=== PATIENT | female | born 1985 | race Caucasian/White ===

== ENCOUNTER → 2018-02-11 20:00 | Outpatient (CLI) | payer BC, SELFPAY | PROVIDERS: Family Provider Nurse Practitioner; PCP Nurse Practitioner; Visit Provider Nurse Practitioner | DX: G47.33 Obstructive sleep apnea (adult) (pediatric) (principal) | CPT/HCPCS: 95810 ==

== ENCOUNTER → 2018-02-19 14:10 | Outpatient (CLI) | payer BC, SELFPAY ==
[2018-02-19 14:56] LABS: Absolute Neutrophil Count 8.6 X10^3/uL (2.0-7.7); Basophil# 0.03 X10^3/uL; Basophil% 0.2 % (0-1); Eosinophil# 0.14 X10^3/uL; Eosinophils% 1.1 % (0-5); Hematocrit 37.9 % (37-47); Hemoglobin 12.7 g/dl (12.0-15.0); Lymphocyte % 29.6 % (19-41); Mean Corp Hgb Conc 33.5 g/gl (32-36); Mean Corpuscular Hgb 30.3 pg (27.0-32.0); Mean Corpuscular Volume 90.5 fL (81-99); Mean Platelet Vol. 9.6 fl (6.2-12.0); Monocyte# 0.45 X10^3/uL; Monocyte% 3.4 % (0-10); Neutrophil # 8.63 X10^3/uL (2.7-7.7); Neutrophil % 65.5 % (47-70); Platelet Count 363 K/mm3 (150-450); RBC Distribution Width CV 13.4 % (11.6-14.6); RBC Distribution Width SD 43.7 fl (35.1-43.9); Red Blood Count 4.19 M/mm3 (4.2-5.4); White Blood Count 13.2 K/mm3 (4.4-11.0)
[2018-02-19 14:57] LABS: Color, Urine Yellow (Yellow); Glucose, Dipstick Normal (Normal); Ketone-Dipstick Negative (Negative); Leukocyte Esterase-Dipstick Negative /ul (Negative); Nitrite-Dipstick Negative (Negative); Occult Blood-Urine 50 /ul (Negative); Protein-Dipstick Negative (Negative); Specific Gravity, Urine 1.015 (1.002-1.030); Urine Bilirubin Dipstick Negative (Negative); Urine Clarity Clear (Clear); Urine Urobilinogen Normal (Normal); Urine pH 6.5 (5.0 - 8.0)
[2018-02-19 14:58] LABS: POSITIVE COUNT NO; POSITIVE DIFFERENTIAL NO; POSITIVE MORPHOLOGY NO
[2018-02-19 16:03] LABS: Free T3 2.8 pg/mL (2.18-3.98); T4 Free Direct 1.14 ng/dL (0.76-1.46); Thyroid Stim Hormone (TSH) 1.32 uIU/mL (0.358-3.74)
[2018-02-19 16:06] LABS: Vitamin B12 984 pg/mL (211-911); Vitamin D,25 Hydroxy 49.7 ng/mL (29.95-100.01)
[2018-02-22 16:10] LABS: PROEL- A/G Ratio 1.1 (0.7-1.7); PROEL- Albumin 3.5 g/dL (2.9-4.4); PROEL- Alpha-1 Globulin 0.3 g/dL (0.0-0.4); PROEL- Alpha-2 Globulin 0.9 g/dL (0.4-1.0); PROEL- Beta Globulin 1.2 g/dL (0.7-1.3); PROEL- Gamma Globulin 0.9 g/dL (0.4-1.8); PROEL- Globulin, Total 3.3 g/dL (2.2-3.9); PROEL- TOTAL PROTEIN 6.8 g/dL (6.0-8.5)
[2018-02-23 14:07] LABS: PROELU- Albumin, Urine 34.9 % (.); PROELU- Alpha-1-Globulin,Ur 10.1 % (.); PROELU- Alpha-2-Globulin,Ur 16.4 % (.); PROELU- Beta Globulin, Ur 24.2 % (.); PROELU- Gamma Globulin, Ur 14.4 % (.)
== END ==
PROVIDERS: Family Provider Nurse Practitioner; PCP Nurse Practitioner; Visit Provider Nurse Practitioner
DX: E55.9 Vitamin D deficiency, unspecified (principal); E53.8 Deficiency of other specified B group vitamins; D72.829 Elevated white blood cell count, unspecified; R94.6 Abnormal results of thyroid function studies
CPT/HCPCS: 36415; 81002; 82306; 82607; 84165; 84166; 84439; 84443; 84481; 85025; 87086; 87088

== ENCOUNTER → 2018-02-23 19:47 | Outpatient (CLI) | payer BC, SELFPAY | PROVIDERS: Family Provider Nurse Practitioner; PCP Nurse Practitioner; Visit Provider Psychiatry & Neurology Neurology | DX: G47.33 Obstructive sleep apnea (adult) (pediatric) (principal) | CPT/HCPCS: 95811 ==

== ENCOUNTER → 2018-03-29 09:16 | Outpatient (CLI) | payer BC, SELFPAY ==
[2018-03-29 10:07] LABS: Absolute Lymphocyte Count 2.88 X10^3/ul (0.83-4.51); Absolute Neutrophil Count 8.5 X10^3/uL (2.0-7.7); Basophil# 0.02 X10^3/uL; Basophil% 0.2 % (0-1); Eosinophil# 0.12 X10^3/uL; Hematocrit 37.4 % (37-47); Hemoglobin 12.7 g/dl (12.0-15.0); Lymphocyte # 2.88 X10^3/ul (4.0); Lymphocyte % 24.2 % (19-41); Mean Corpuscular Hgb 30.3 pg (27.0-32.0); Mean Corpuscular Volume 89.3 fL (81-99); Monocyte# 0.36 X10^3/uL; Neutrophil % 71.5 % (47-70); Platelet Count 364 K/mm3 (150-450); RBC Distribution Width CV 13.4 % (11.6-14.6); RBC Distribution Width SD 43.2 fl (35.1-43.9); Red Blood Count 4.19 M/mm3 (4.2-5.4); White Blood Count 11.9 K/mm3 (4.4-11.0)
[2018-03-29 10:08] LABS: POSITIVE COUNT NO; POSITIVE DIFFERENTIAL NO; POSITIVE MORPHOLOGY NO
[2018-03-29 10:29] LABS: Glucose Challenge Gest 1H 50g 142 mg/dL (70-140)
[2018-03-29 11:20] LABS: HIV - WCH Non-Reactive (Nonreactive); Rubella IgG 204.9 IU/mL
[2018-03-29 11:54] LABS: Chlamydia Trachomatis by PCR Negative (Negative); Neisserai gonorrhoeae by PCR Negative (Negative); Probe Check PASS; Sample Adequacy Control PASS; Specimen Processing Control PASS
[2018-03-30 15:14] LABS: HEPATITIS B SURFACE AG Negative (Negative)
[2018-04-02 01:34] LABS: Rapid Plasmin Reagin (RPR) NONREACTIVE (NONREACTIVE)
[2018-04-02 14:59] LABS: HPV APTIMA, High Risk Negative (Negative)
== END ==
PROVIDERS: Family Provider Nurse Practitioner; PCP Nurse Practitioner; Visit Provider Obstetrics & Gynecology
DX: Z12.4 Encounter for screening for malignant neoplasm of cervix (principal); Z34.81 Encounter for supervision of other normal pregnancy, first trimester
CPT/HCPCS: 36415; 82950; 85025; 86592; 86703; 86762; 86850; 86900; 87086; 87088; 87340; 87491; 87591; 88175; G0145

== ENCOUNTER → 2018-04-02 06:40 | Outpatient (CLI) | payer BC, SELFPAY ==
[2018-04-02 07:54] LABS: Glucose GTT-Gestation. Fasting 88 mg/dL (<105)
[2018-04-02 09:44] LABS: Glucose GTT-Gestational 1 Hr 120 mg/dL (<190)
[2018-04-02 09:48] LABS: Glucose GTT-Gestational 2 Hr 159 mg/dL (<165)
[2018-04-02 11:09] LABS: Glucose GTT-Gestational 3 Hr 122 L (<145)
== END ==
PROVIDERS: Family Provider Nurse Practitioner; PCP Nurse Practitioner; Visit Provider Obstetrics & Gynecology
DX: O99.810 Abnormal glucose complicating pregnancy (principal); Z3A.00 Weeks of gestation of pregnancy not specified
CPT/HCPCS: 36415; 82951; 82952

== ENCOUNTER → 2018-04-05 16:43 | Outpatient (CLI) | payer BC, SELFPAY | PROVIDERS: Family Provider Nurse Practitioner; PCP Nurse Practitioner; Visit Provider Obstetrics & Gynecology | DX: Z34.81 Encounter for supervision of other normal pregnancy, first trimester (principal) ==

== ENCOUNTER → 2018-04-20 16:29 | Outpatient (CLI) | payer BC, SELFPAY ==
[2018-04-21 09:58] LABS: Vitamin B12 263 pg/mL (211-911); Vitamin D,25 Hydroxy 40.3 ng/mL (29.95-100.01)
== END ==
PROVIDERS: Family Provider Nurse Practitioner; PCP Nurse Practitioner; Visit Provider Obstetrics & Gynecology
DX: O09.511 Supervision of elderly primigravida, first trimester (principal); E55.9 Vitamin D deficiency, unspecified; E53.8 Deficiency of other specified B group vitamins
CPT/HCPCS: 36415; 82306; 82607; 82746

== ENCOUNTER → 2018-06-17 16:38 | Outpatient (CLI) | payer BC, SELFPAY | PROVIDERS: Family Provider Nurse Practitioner; PCP Nurse Practitioner; Referring Provider Obstetrics & Gynecology; Visit Provider Obstetrics & Gynecology | DX: Z36.9 Encounter for antenatal screening, unspecified (principal) | CPT/HCPCS: 36415 ==

== ENCOUNTER → 2018-07-28 15:27 | Outpatient (CLI) | payer BC, SELFPAY ==
[2018-07-26 06:01] VITALS: BMI 50.8
[2018-07-28 15:12] VITALS: BMI 50.8
[2018-07-28 17:26] LABS: Vitamin B12 273 pg/mL (211-911); Vitamin D,25 Hydroxy 44.8 ng/mL (29.95-100.01)
[2018-07-28 18:00] LABS: ALB/GLOB Ratio 0.6 RATIO (0.9-2.4); AST(SGOT) 17 U/L (15-37); Alanine Aminotransfer ALT/SGPT 25 U/L (13-56); Albumin, Serum 2.5 g/dL (3.2-5.0); Alkaline Phosphatase 73 U/L (45-117); Anion Gap 11 (5-15); BUN 4 mg/dL (7-18); BUN/Creat Ratio 8.8 RATIO (10-20); Calcium,Total 9.1 mg/dL (8.5-10.1); Chloride 107 mmol/L (98-107); Creatinine, Serum 0.45 mg/dL (0.55-1.02); EST Glomerular Filtration Rate 167 mL/min (>60); Est Glom Filt Rate - Afr Amer 202 mL/min (>60); Globulin 4.1 g/dL (2.2-4.2); Glucose 82 mg/dL (74-106); Potassium 3.5 mmol/L (3.5-5.1); Protein, Total 6.6 g/dL (6.4-8.2); Sodium Level 140 mmol/L (136-145)
== END ==
PROVIDERS: Family Provider Nurse Practitioner; PCP Nurse Practitioner; Referring Provider Nurse Practitioner; Visit Provider Nurse Practitioner
DX: O23.40 Unspecified infection of urinary tract in pregnancy, unspecified trimester (principal); O26.899 Other specified pregnancy related conditions, unspecified trimester; F32.9 Major depressive disorder, single episode, unspecified; E53.8 Deficiency of other specified B group vitamins; E55.9 Vitamin D deficiency, unspecified; Z3A.00 Weeks of gestation of pregnancy not specified
CPT/HCPCS: 36415; 80053; 82306; 82607; 82746; 87086; 87088

== ENCOUNTER → 2018-08-09 16:51 | Outpatient (CLI) | payer BC, SELFPAY ==
[2018-08-09 16:16] VITALS: BMI 50.8
[2018-08-09 17:13] LABS: Absolute Lymphocyte Count 2.56 X10^3/ul (0.83-4.51); Absolute Neutrophil Count 9.9 X10^3/uL (2.0-7.7); Basophil# 0.01 X10^3/uL; Basophil% 0.1 % (0-1); Eosinophil# 0.12 X10^3/uL; Eosinophils% 0.9 % (0-5); Hematocrit 31.6 % (37-47); Hemoglobin 10.7 g/dl (12.0-15.0); Lymphocyte # 2.56 X10^3/ul (4.0); Lymphocyte % 19.5 % (19-41); Mean Corp Hgb Conc 33.9 g/gl (32-36); Mean Corpuscular Hgb 30.9 pg (27.0-32.0); Mean Corpuscular Volume 91.3 fL (81-99); Mean Platelet Vol. 10.1 fl (6.2-12.0); Monocyte# 0.53 X10^3/uL; Neutrophil # 9.85 X10^3/uL (2.7-7.7); Neutrophil % 75.2 % (47-70); Platelet Count 307 K/mm3 (150-450); RBC Distribution Width CV 16.3 % (11.6-14.6); RBC Distribution Width SD 52.3 fl (35.1-43.9); Red Blood Count 3.46 M/mm3 (4.2-5.4); White Blood Count 13.1 K/mm3 (4.4-11.0)
[2018-08-09 17:17] LABS: POSITIVE COUNT NO; POSITIVE DIFFERENTIAL NO; POSITIVE MORPHOLOGY NO
[2018-08-09 17:33] LABS: Glucose Challenge Gest 1H 50g 131 mg/dL (70-140)
--- OUTSIDE RECORDS SUMMARY | 2018-11-11 09:22 | XMS RPT_ITS ---
:1985 Author Organization OHIP Support Name Relationship Address Phone [facility] Unavailable [address] + [place] [address] DANY IRELAND Unavailable [address] + [place] [address] BELEN IRELAND Unavailable [address] + [address] + [place] [address] DANY IRELAND [address]available [address] + [address]available [address] + [place] [phone] DANY IRELAND Unavailable [address] + [address] + [place] [phone] DANY IRELAND Unavailable [address] + [address]available [address] + [place] [phone] DANY IRELAND Unavailable [address] + [place] [phone] BELEN IRELAND Unavailable [address] + [address] + [place] [address] DANY IRELAND Unavailable [address] + [address]available [address] + [place] [phone] DANY IRELAND Unavailable [address] + [address] + [place] [address] DANY IRELAND Unavailable [address] + [place] [address] BELEN IRELAND Unavailable [address] + [address] + [place] [address] DANY IRELAND Unavailable [address] + [address] + [place] [address] DANY IRELAND Unavailable [address] + [place] [address] BELEN IRELAND Unavailable [address] + [address] + [place] [address] DANY IRELAND Unavailable [address] [place] [address] DANY IRELAND Unavailable [address] [place] [address] DANY IRELAND Unavailable [address] [place] [address] DANY IRELAND Unavailable [address] + [address] + [place] [address] DANY IRELAND Unavailable [address] + [address] + [place] [address] DANY IRELAND Unavailable [address] + [address] + [place] [address]JUANCARLOS BREENNIS Unavailable [address] + [address] + [place] [phone] BEKA DANY Unavailable [address] + [place] [phone] TIKA HOOD Unavailable [address] + [place], [place] [id number] [place] [address] [address] + [place] [phone] BEKA DANY Unavailable [address] + [place] [phone] TIKA HOOD Unavailable [address] + [place], [place] [id number] [place] [address] [address] + [place] [phone] DANY IRELAND Unavailable [address] + [place] [phone] TIKA HOOD Unavailable [address] + [place] [address] Care Team Providers Name Role Phone Jean Paul Lee Attending Unavailable Jean Paul Lee Admitting Unavailable Katina Elder Primary Care Unavailable Nicolle Barton Attending Unavailable Katina Elder MD Referring Unavailable Nicolle Barton Consulting Unavailable DAMIEN RAMIRES Referring Unavailable JACKIE MARK Referring Unavailable JACKIE MARK Referring Unavailable CALDERON ZAVALETA Referring Unavailable CALDERON ZAVALETA Referring Unavailable NICOLLE CODY (AUTOMOTIVE SERVICE MANAGEMENT TEACHER) Referring Unavailable NIGEL MCCONNELL Attending Unavailable NIGEL MCCONNELL Admitting Unavailable NIGEL MCCONNELL Attending Unavailable CALDERON ZAVALETA Attending Unavailable CALDERON ZAVALETA Referring Unavailable DOROTHY SILVA Referring Unavailable CALDERON ZAVALETA Referring Unavailable DONNA MORROW Attending Unavailable DONNA MORROW Referring Unavailable CALDERON ZAVALETA Referring Unavailable SYDNEE YUANAJ Attending Unavailable ROSE YUAN Referring Unavailable CALDERON ZAVALETA Referring Unavailable ANDRÉS CALDERÓN Attending Unavailable NIGEL MCCONNELL Referring Unavailable FRANCI MAURER Attending Unavailable JACKLYN ESTEVEZ Referring Unavailable NO PRIMARY CARE, Primary Care Unavailable FRANCI MAURER Attending Unavailable JACKLYN ESTEVEZ E Referring Unavailable NO PRIMARY CARE, Primary Care Unavailable GUERO SHELTON Attending Unavailable JACKLYN ESTEVEZ E Referring Unavailable NO PRIMARY CARE, Primary Care Unavailable FRANCI MAURER Attending Unavailable ASHWINANTHJACKLYN MALHOTRA E Referring Unavailable NO PRIMARY CARE, Primary Care Unavailable Jacklyn Estevez Attending Unavailable Ciesa, Nicolle Referring Unavailable MarcanthJacklyn malhotra Attending Unavailable Jacklyn Estevez Referring Unavailable [facility] Ciesa, [facility] Attending [facility] Unavailable Jacklyn Estevez Attending Unavailable Ciesa, Nicolle Referring Unavailable MarcanthJacklyn malhotra Attending Unavailable Ciesa, Nicolle Referring Unavailable MarcanthJacklyn malhotra Attending Unavailable Ciesa, [facility] Referring Unavailable Ciesa, Nicolle Attending Unavailable Ciesa, Nicolle Referring Un[facility]available José Luis Nieto Attending Unavailable [facility] Unavailable Jacklyn Estevez Attending Unavailable Ciesa, [facility] Referring Unavailable [facility] Unavailable Jacklyn Estevez Attending Unavailable Jacklyn Estevez Referring Unavailable [facility] Unavailable Jacklyn Estevez Attending Unavailable Jacklyn Estevez Referring Unavailable [facility] Unavailable Jacklyn Estevez Attending Unavailable MarcanthJacklyn malhotra Referring Unavailable [facility] Unavailable Jacklyn Estevez Attending Unavailable Ciesa, Nicolle Referring Unavailable [facility] Unavailable Jacklyn Estevez Attending Unavailable MarcanthJacklyn malhotra Referring Unavailable [facility] Unavailable Jacklyn Estevez Attending Unavailable Ciesa, Nicolle Referring Unavailable MarcanthJacklyn malhotra Attending Unavailable Ciesa, Nicolle Referring Unavailable MarcanthJacklyn malhotra Attending Unavailable Jacklyn Estevez Referring Unavailable [facility] Unavailable Jordyn Sun Attending Unavailable Ciesa, Nicolle Referring Unavailable Ciesa, Nicolle Attending Unavailable Ciesa, Nicolle Primary Care Unavailable Nicolle Barton Referring Unavailable Jordyn Sun Attending Unavailable Nicolle Barton Referring Unavailable PROBLEMS PROBLEMS DATE TYPE CONDITION / CODE ATTENDING STATUS SOURCE 09/13/2018 Unknown O99.213 - Obesity Marcdamiánony, Active [facility] complicating [facility] , third Hospital trimester / Repository O99.213(ICD-10) 09/06/2018 Unknown O09.03 - Marcanthony, Active [facility] Supervision of [facility] with Hospital history of Repository infertility, third trimester / O09.03(ICD-10) 09/06/2018 Unknown O09.893 - Marcanthony, Active [place] Supervision of [facility] other high risk Hospital pregnancies, third Repository trimester / O09.893(ICD-10) 09/06/2018 Unknown O99.810 - Abnormal Marcanthony, Active [facility] glucose [facility] complicating Hospital / Repository O99.810(ICD-10) 09/06/2018 Unknown Z36.9 - Encounter Marcanthony, Active [facility] for [facility] screening, Hospital unspecified / Repository Z36.9(ICD-10) 09/06/2018 Unknown F33.0 - Major Marcanthony, Active [facility] depressive [facility] disorder, Hospital recurrent, mild / Repository F33.0(ICD-10) 09/06/2018 Unknown G47.33 - Marcanthony, Active [facility] Obstructive sleep [facility] apnea (adult) Hospital (pediatric) / Repository G47.33(ICD-10) 09/06/2018 Unknown O09.93 - Marcanthony, Active [facility] Supervision of high [facility] risk , Hospital unspecified, third Repository trimester / O09.93(ICD-10) 09/06/2018 Unknown Z3A.32 - 32 weeks Marcanthony, Active [facility] gestation of [facility] / Hospital Z3A.32(ICD-10) Repository 08/20/2018 Unknown Z67.91 - Marcanthony, Active [facility] Unspecified blood [facility] type, Rh negative / Hospital Z67.91(ICD-10) Repository 08/20/2018 Unknown Z3A.30 - 30 weeks Marcanthony, Active [facility] gestation of [facility] / Hospital Z3A.30(ICD-10) Repository 08/10/2018 Unknown Z34.90 - Encounter Marcanthony, Active [facility] for supervision of [facility] normal , Hospital unspecified, Repository unspecified trimester / Z34.90(ICD-10) 08/10/2018 Unknown Z23 - Encounter for Apolonia, Active [facility] immunization / [facility] Z23(ICD-10) Hospital Repository 07/29/2018 Unknown O23.40 - Nicolle Barton Active [facility] Unspecified Community infection of Hospital urinary tract in Repository , unspecified trimester / O23.40(ICD-10) 07/28/2018 Unknown O09.892 - Jordyn Sun Active [facility] Supervision of Community other high risk Hospital pregnancies, second Repository trimester / O09.892(ICD-10) 07/28/2018 Unknown O09.02 - Jordyn Sun Active [facility] Supervision of Community with Hospital history of Repository infertility, second trimester / O09.02(ICD-10) 07/28/2018 Unknown O44.20 - Partial [place], Molly Active [facility] placenta previa NOS Community or without Hospital hemorrhage, Repository unspecified trimester / O44.20(ICD-10) 07/28/2018 Unknown Z3A.26 - 26 weeks [place], Jordyn Active [facility] gestation of Community / Hospital Z3A.26(ICD-10) Repository 07/21/2018 Unknown Z3A.24 - 24 weeks [place], Jordyn Active [facility] gestation of [facility] / Hospital Z3A.24(ICD-10) Repository 05/20/2018 Unknown O09.01 - Apolonia, Active [facility] Supervision of [facility] with Hospital history of Repository infertility, first trimester / O09.01(ICD-10) 05/20/2018 Unknown Z3A.17 - 17 weeks Ashwinanthmarya, Active [facility] gestation of [facility] / Hospital Z3A.17(ICD-10) Repository 05/14/2018 Unknown O09.511 - Marcanthony, Active [facility] Supervision of [facility] elderly [facility] primigravida, first Repository trimester / O09.511(ICD-10) 04/08/2018 Unknown Z34.81 - Encounter Apolonia, Active [facility] for supervision of [facility] other normal Hospital , first Repository trimester / Z34.81(ICD-10) 06/07/2018 Unknown Z12.4 - Encounter Marcanthony, Active [facility] for screening for [facility] malignant neoplasm Hospital of cervix / Repository Z12.4(ICD-10) 03/29/2018 Unknown Z3A.09 - 9 weeks Apolonia Active [facility] gestation of [facility] / Hospital Z3A.09(ICD-10) Repository 02/25/2018 Active Encounter for NA Active [facility] supervision of [place] normal , Repository unspecified, unspecified trimester / Z34.90(ICD-10) 01/23/2018 Active Other specified NA Active [facility] health status / [place] Z78.9(ICD-10) Repository 11/16/2017 Active Unknown / NA Active [facility] UNK(Unknown) [place] Repository 11/16/2017 Active Supervision of NA Active [facility] resulting [place] from assisted Repository reproductive technology, first trimester / O09.811(ICD-10) 11/13/2017 Active Encounter for NA Active [facility] test, [place] [facility] result unknown / Repository Z32.00(ICD-10) 10/26/2017 Active Female infertility, MCCONNELL, Active [facility] unspecified / NIGEL Valdes [place] N97.9(ICD-10) Repository 09/22/2017 Active Encounter for NA Active [facility] gynecological [place] examination Repository (general) (routine) without abnormal findings / Z01.419(ICD-10) PROCEDURES PROCEDURES No Procedure Records FoundRESULTS RESULTS 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 OFFICE VISIT Observed: 09/13/2018 Status: F Source: [facility]LE [place] REPORT 2:07 PM [facility] REPOSIT[facility] [address] [place] [address] [address] [place] [address] OFFICE VISIT Date of Service: 09/13/18 MR#: [id number] Acct: [id number] Name: BELEN IRELAND Rep #: [id number] : 1985 Provider: Jacklyn Estevez MD Age/Sex: 33/F Location: [facility] [place] Status: Signed Intake Vital Signs09/13/18 Height 5 ft 1 in 09/13/18 Weight: 275 lb 09/13/18 Body Mass Index (BMI) 52.0 09/13/18 Blood Pressure 132/72 H 09/13/18 Body Mass Index (BMI) 50.8 Intake Visit Reasons: OB/NST Chief Complaint: est ob,NST Diversity Intern Required: No Is patient in pain?: No Allergies bupropion [From Wellbutrin] Allergy (Mild, Verified 08/20/18 15:54) hives Medications cholecalciferol (vitamin D3) 2,000 unit capsule 4,000 unit PO QDAY cap 03/29/18 [History Confirmed 09/13/18] docosahexanoic acid 200 mg capsule mg PO 03/29/18 [History Confirmed 09/13/18] sertraline 50 mg tablet 50 mg PO QDAY #30 tab 06/17/18 [Rx Confirmed 09/13/18] pyridoxine (vitamin B6) 50 mg tablet 50 mg PO DAILY 07/21/18 [History Confirmed 09/13/18] cyanocobalamin (vit B-12) 1,000 mcg/mL injection solution 1,000 mcg IM QMONTH 08/09/18 [History Confirmed 09/13/18] Last Menstral Period: 01/21/18 Zika: Zika virus screening: Negative : No PFSH PFSH Medical History Depression (Acute) Sleep apnea (Chronic) Surgical History S/P removal of thyroid nodule (Resolved) S/P tonsillectomy (Resolved) Family History Father CVA (cerebral vascular accident) Diabetes Bladder cancer Social History Smoking Status: Former smoker alcohol intake: never substance use type: does not use caffeine: No what type of physical activity do you participate in: none seatbelt use: always do you feel safe at home: Yes 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 DatName GA/WeeksOutcome Route Bt RajangInharman Sage LgAnesthesDel LocaProviderFOB e ht en ia tn 03/23/[id number] live birC-sectio Female epiduralWCH\ ANSHUL th - fuln l term Delivery Date: 03/23/18 On 03/29/18 @ 08:42 Lisa Marshall decels HPI OB/NST: Details: BELEN IRELAND is a 33 year old who presents for routine OB visit. OB Visit KAILA Calculator Estimated Delivery Date 10/28/18 Based on LMP (certain) 01/21/18 Current WG 33w 4d Number 1 Expected Delivery Route/Plan Specific Issue/Plans flu vaccine: given tdap vaccine: given rhogam: given at 28 weeks LARC form signed: [place] labor support person: Dany pain management: [] cut cord/dad catch: [] : [] PP control planned: [] special requests: [] Initial Weight: 263 lb Date Weight BP Urine PFHR FuHt Pres MCTX DilatioFetal SVisit NProvideComment rot ov n t ote r s EGA Ef Gluco faced se 04/13/1263 lb 130/91 [id number] no vb l 8 (+0 oz) e of good 11 fm no w 5d Negati regular ve ctx. c o havin g anxie ty and depress ion sym ptoms Visit Notes Visit Date: 09/13/18 incidental BPP 8/8 in us today after speaking with [employer]. no vb lof good fm o regular ctx Jacklyn Estevez MD on 09/13/18 Visit Date: 09/06/18 no vb lof good fm n oregular ctx Jacklyn Estevez MD on 09/06/18 Visit Date: 08/20/18 no vb lof good fm no regular ctx Jacklyn Estevez MD on 08/20/18 Visit Date: 08/09/18 cbc gct tdap rhogam Jacklyn Estevez MD on 08/14/18 no vb lof good fm no regualr ctx Jacklyn Estevez MD on 08/14/18 Visit Date: 07/28/18 work in for lower left abdominal pain that has now resolved. No VB, LOF or CTX Jordyn Sun NP-Melissa on 07/28/18 Visit Date: 07/21/18 No VB, LOF. Doing well Jordyn Sun NP-C on 07/21/18 Visit Date: 06/17/18 no vb cramping reveiwed us Jacklyn Estevez MD on 06/20/18 Visit Date: 05/20/18 no vb lof cramping. ordered anatomy scan. Jacklyn Estevez MD on 05/20/18 Visit Date: 04/13/18 no vb lof good fm no regular ctx. co having anxiety and depression symptoms Jacklyn Estevez MD on 04/13/18 ACOG First Trimester First Trimester: Desire for , Alcohol, Tobacco Cessation, Illicit/Recreational Drug/Substance Use, Intimate Partner Violence, Barriers to care, Unstable Housing, Communication Barriers, Environmental/Work Hazards, Anticipated Course of Care, Toxoplasmosis Precations, Use of Any medications, Sexual activity, Exercise, Dental Care, Sauna/Hot tub use, Seat Belt use, Childbirth classes/Hospital facilities, , Travel, Indications for US and Screening for Aneuploidy Diagnostics Diagnostics Labs Blood Type O NEGATIVE 08/09/18 Antibody Screen NEGATIVE 08/09/18 Hct 31.6 % (37-47) L 08/09/18 Hgb 10.7 g/dl (12.0-15.0) L 08/09/18 Glucose 1 Hr 50 gm 131 mg/dL (70-140) 08/09/18 Miscellaneous Test 06/17/18 Details: HIV: Urine Culture: Sequential Screen: NIPT Screen: Results [id number] Office Urine Glucose Negative Last Edit by Amy Siddiqui on 09/13/18 13:50 Office Urine Protein Negative Last Edit by Amy Siddiqui on 09/13/18 13:50 Assessment AND Plan Problems 1. 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 Rh negative status during in third trimester O09.893 rhogam given and at 28 weeks 3. BMI greater than 40 1 tm glucola, after 32 weeks growth us and nsts 4. Abnormal glucose in , antepartum O99.810 3 hr normal 5. 34 weeks gestation of Z3A.34 nipt normal. afp ordered. anatomy scan reviewed- Normal, Growth US every 4 weeks. Reasses ductal and aortic arches in 4 weeks. 6. screening encounter Z36.9 NIPT low risk fraction 4.3%. AFP negative. 7. Mild episode of recurrent major depressive disorder F33.0 celexa too much fatigue- switch to zoloft 8. Obstructive sleep apnea syndrome G47.33 9. Obesity complicating , third trimester O99.213 1 tm glucola normal, after 32 weeks growth us and nsts 10. Anemia during O99.019 Plan movement and labor precautions reviewed. ACOG trimester education reviewed and updated. see problem list details for updated plan management information and see below for orders placed at this visit. GA appropriate handout given. 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 Trimester: third trimester Rh negative status during in third trimester O09.893 Trimester: third trimester BMI greater than 40 Abnormal glucose in , antepartum O99.810 34 weeks gestation of Z3A.34 Weeks of gestation: 34 weeks screening encounter Z36.9 Mild episode of recurrent major depressive disorder F33.0 Depression Type: major depressive disorder Major depression recurrence: recurrent Active/Remission status: currently active Major depression episode severity: mild Obstructive sleep apnea syndrome G47.33 Sleep apnea type: obstructive Obesity complicating , third trimester O99.213 Anemia during O99.019 09/13/18 1407 <Electronically signed by Jacklyn Estevez MD> Date Jacklyn Estevez MD [facility] Signature: Date (if applicable) 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 [address] [place] [address] OFFICE VISIT Date of Service: 09/06/18 MR#: [id number] Acct: [id number] Name: BELEN IRELAND Rep #: [id number] : 1985 Provider: Jacklyn Estevez MD Age/Sex: 33/F Location: [facility] [place] Status: Signed Intake Vital Signs09/06/18 Body Mass Index (BMI) 50.8 09/06/18 Height 5 ft 1 in 09/06/18 Weight: 273 lb 09/06/18 Body Mass Index (BMI) 51.5 09/06/18 Blood Pressure 132/80 H Intake Visit Reasons: 33 WEEK OB/NST Allergies bupropion [From Wellbutrin] Allergy (Mild, Verified 08/20/18 15:54) hives Medications cholecalciferol (vitamin D3) 2,000 unit capsule 4,000 unit PO QDAY cap 03/29/18 [History Confirmed 08/20/18] docosahexanoic acid 200 mg capsule mg PO 03/29/18 [History Confirmed 08/20/18] sertraline 50 mg tablet 50 mg PO QDAY #30 tab 06/17/18 [Rx Confirmed 08/20/18] pyridoxine (vitamin B6) 50 mg tablet 50 mg PO DAILY 07/21/18 [History Confirmed 08/20/18] cyanocobalamin (vit B-12) 1,000 mcg/mL injection solution 1,000 mcg IM QMONTH 08/09/18 [History Confirmed 08/20/18] Last Menstral Period: 01/21/18 PFSH PFSH Medical History Depression (Acute) Sleep apnea (Chronic) Surgical History S/P removal of thyroid nodule (Resolved) S/P tonsillectomy (Resolved) Family History Father CVA (cerebral vascular accident) Diabetes Bladder cancer Social History Smoking Status: Former smoker alcohol intake: never substance use type: does not use caffeine: No what type of physical activity do you participate in: none seatbelt use: always do you feel safe at home: Yes 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 DatName GA/WeeksOutcome Route [facility] Chaka Sage LgAnesthesD LocaProviderFOB e ht en ia tn 03/23/[id number] live birC-sectio Female epiduralWCH\ ANSHUL th - fuln l term Delivery Date: 03/23/18 On 03/29/18 @ 08:42 Lisa Marshall decels HPI 33 WEEK OB/NST: Details: BELEN IRELAND is a 33 year old who presents for routine OB visit. OB Visit KAILA Calculator Estimated Delivery Date 10/28/18 Based on LMP (certain) 01/21/18 Current WG 32w 4d Number 1 Expected Delivery Route/Plan Specific Issue/Plans flu vaccine: given tdap vaccine: given rhogam: given at 28 weeks LARC form signed: [place] labor support person: Dany pain management: [] cut cord/dad catch: [] : [] PP control planned: [] special requests: [] Initial Weight: 263 lb Date Weight BP Urine PFHR FuHt Pres MCTX DilatioFetal SVisit NProvideComment rot ov n t ote r s EGA Ef Gluco faced se 04/13/1263 lb 130/91 [id number] no vb l 8 (+0 oz) e of good 11 fm no w 5d Negati regular ve ctx. c o havin g anxie ty and depress ion sym ptoms Visit Notes Visit Date: 09/06/18 no vb lof good fm n oregular ctx Jacklyn Estevez MD on 09/06/18 Visit Date: 08/20/18 no vb lof good fm no regular ctx Jacklyn Estevez MD on 08/20/18 Visit Date: 08/09/18 cbc gct tdap rhogam Jacklyn Estevez MD on 08/14/18 no vb lof good fm no regualr ctx Jacklyn Estevez MD on 08/14/18 Visit Date: 07/28/18 work in for lower left abdominal pain that has now resolved. No VB, LOF or CTX MIRACLE Osorio on 07/28/18 Visit Date: 07/21/18 No VB, LOF. Doing well MIRACLE Osorio on 07/21/18 Visit Date: 06/17/18 no vb cramping reveiwed us Jacklyn Estevez MD on 06/20/18 Visit Date: 05/20/18 no vb lof cramping. ordered anatomy scan. Jacklyn Estevez MD on 05/20/18 Visit Date: 04/13/18 no vb lof good fm no regular ctx. co having anxiety and depression symptoms Jacklyn Estevez MD on 04/13/18 ACOG First Trimester First Trimester: Desire for , Alcohol, Tobacco Cessation, Illicit/Recreational Drug/Substance Use, Intimate Partner Violence, Barriers to care, Unstable Housing, Communication Barriers, Environmental/Work Hazards, Anticipated Course of Care, Toxoplasmosis Precations, Use of Any medications, Sexual activity, Exercise, Dental Care, Sauna/Hot tub use, Seat Belt use, Childbirth classes/Hospital facilities, , Travel, Indications for US and Screening for Aneuploidy Diagnostics Diagnostics Labs Blood Type O NEGATIVE 08/09/18 Antibody Screen NEGATIVE 08/09/18 Hct 31.6 % (37-47) L 08/09/18 Hgb 10.7 g/dl (12.0-15.0) L 08/09/18 Glucose 1 Hr 50 gm 131 mg/dL (70-140) 08/09/18 Miscellaneous Test 06/17/18 Details: HIV: Urine Culture: Sequential Screen: NIPT Screen: Office Procedures OB NST Non-Stress Test Indications for Monitoring: Yes BMI >40 Heart Rate Baseline: 140 Heart Rate Variability: moderate Movement: Present Heart Rate Accelerations: Present Decelerations: Absent Contractions: Absent Impression: Yes Reactive Non-Stress Test Category 1 Assessment AND Plan Problems 1. 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 Rh negative status during in third trimester O09.893 rhogam given and at 28 weeks 3. BMI greater than 40 1 tm glucola, after 32 weeks growth us and nsts 4. Abnormal glucose in , antepartum O99.810 3 hr normal 5. 32 weeks gestation of Z3A.32 nipt normal. afp ordered. anatomy scan reviewed- Normal, Growth US every 4 weeks. Reasses ductal and aortic arches in 4 weeks. 6. screening encounter Z36.9 NIPT low risk fraction 4.3%. AFP negative. 7. Mild episode of recurrent major depressive disorder F33.0 celexa too much fatigue- switch to zoloft 8. Obstructive sleep apnea syndrome G47.33 Plan ACOG trimester education reviewed and updated. see problem list details for updated plan management information and see below for orders placed at this visit. GA appropriate handout given. movement and labor precautions reviewed. 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 Trimester: third trimester Rh negative status during in third trimester O09.893 Trimester: third trimester BMI greater than 40 Abnormal glucose in , antepartum O99.810 32 weeks gestation of Z3A.32 Weeks of gestation: 32 weeks screening encounter Z36.9 Mild episode of recurrent major depressive disorder F33.0 Active/Remission status: currently active Depression Type: major depressive disorder Major depression episode severity: mild Major depression recurrence: recurrent Obstructive sleep apnea syndrome G47.33 Sleep apnea type: obstructive Additional Codes Non-Stress Test (67751) 09/06/18 1642 <Electronically signed by Jacklyn Estevez MD> Date Jacklyn Estevez MD Cosigner Signature: Date (if applicable) 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 Observed: 08/20/2018 Status: F Source: [facility] [place] REPORT 4:32 PM [facility] REPOSITORY [facility] [address] [place] [address] OFFICE VISIT Date of Service: 08/20/18 MR#: [id number] Acct: [id number] Name: BELEN IRELAND Rep #: [id number] : 1985 Provider: Jacklyn Estevez MD Age/Sex: 33/F Location: [facility] [place] Status: Signed Intake Vital Signs08/20/18 Body Mass Index (BMI) 50.8 08/20/18 Height 5 ft 1 in 08/20/18 Weight: 272 lb 08/20/18 Body Mass Index (BMI) 51.3 08/20/18 Blood Pressure 128/84 H Intake Visit Reasons: 31 WEEK OB Chief Complaint: Est OB Accompanied by: Spouse Is patient in pain?: No Allergies bupropion [From Wellbutrin] Allergy (Mild, Verified 08/20/18 15:54) hives Medications cholecalciferol (vitamin D3) 2,000 unit capsule 4,000 unit PO QDAY cap 03/29/18 [History Confirmed 08/20/18] docosahexanoic acid 200 mg capsule mg PO 03/29/18 [History Confirmed 08/20/18] sertraline 50 mg tablet 50 mg PO QDAY #30 tab 06/17/18 [Rx Confirmed 08/20/18] pyridoxine (vitamin B6) 50 mg tablet 50 mg PO DAILY 07/21/18 [History Confirmed 08/20/18] cyanocobalamin (vit B-12) 1,000 mcg/mL injection solution 1,000 mcg IM QMONTH 08/09/18 [History Confirmed 08/20/18] Last Menstral Period: 01/21/18 Zika: Zika virus screening: Negative : No PFSH PFSH Medical History Depression (Acute) Sleep apnea (Chronic) Surgical History S/P removal of thyroid nodule (Resolved) S/P tonsillectomy (Resolved) Family History Father CVA (cerebral vascular accident) Diabetes Bladder cancer Social History Smoking Status: Former smoker alcohol intake: never substance use type: does not use caffeine: No what type of physical activity do you participate in: none seatbelt use: always do you feel safe at home: Yes 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 DatName GA/WeeksOutcome Route [facility] LocaProviderFOB e ht en ia tn 03/23/[id number] live birC-sectio Female epiduralWCH\ ANSHUL th - fuln l term Delivery Date: 03/23/18 On 03/29/18 @ 08:42 Lisa Marshall decels HPI 31 WEEK OB: Details: BELEN IRELAND is a 33 year old who presents for routine OB visit. OB Visit KAILA Calculator Estimated Delivery Date 10/28/18 Based on LMP (certain) 01/21/18 Current WG 30w 1d Number 1 Expected Delivery Route/Plan Specific Issue/Plans flu vaccine: given tdap vaccine: given rhogam: given at 28 weeks LARC form signed: declines labor support person: Dany pain management: [] cut cord/dad catch: [] : [] PP control planned: [] special requests: [] Initial Weight: 263 lb Date Weight BP Urine PrFHR FuHt Pres MoCTX DilationFetal StVisit NoProviderComments E ot v te GA G Effac lucose ed Visit Notes Visit Date: 08/20/18 no vb lof good fm no regular ctx Jacklyn Estevez MD on 08/20/18 Visit Date: 08/09/18 cbc gct tdap rhogam Jacklyn Estevez MD on 08/14/18 no vb lof good fm no regualr ctx Jacklyn Estevez MD on 08/14/18 Visit Date: 07/28/18 work in for lower left abdominal pain that has now resolved. No VB, LOF or CTX Jordyn Sun NP-C on 07/28/18 Visit Date: 07/21/18 No VB, LOF. Doing well COMPA OsorioC on 07/21/18 Visit Date: 06/17/18 no vb cramping reveiwed us Jacklyn Estevez MD on 06/20/18 Visit Date: 05/20/18 no vb lof cramping. ordered anatomy scan. Jacklyn Estevez MD on 05/20/18 Visit Date: 04/13/18 no vb lof good fm no regular ctx. co having anxiety and depression symptoms Jacklyn Estevez MD on 04/13/18 ACOG First Trimester First Trimester: Desire for , Alcohol, Tobacco Cessation, Illicit/Recreational Drug/Substance Use, Intimate Partner Violence, Barriers to care, Unstable Housing, Communication Barriers, Environmental/Work Hazards, Anticipated Course of Care, Toxoplasmosis Precations, Use of Any medications, Sexual activity, Exercise, Dental Care, Sauna/Hot tub use, Seat Belt use, Childbirth classes/Hospital facilities, , Travel, Indications for US and Screening for Aneuploidy Diagnostics Diagnostics Labs Blood Type O NEGATIVE 08/09/18 Antibody Screen NEGATIVE 08/09/18 Hct 31.6 % (37-47) L 08/09/18 Hgb 10.7 g/dl (12.0-15.0) L 08/09/18 Rubella IgG Antibody 204.9 IU/mL 03/29/18 RPR NONREACTIVE (NONREACTIVE) 03/29/18 Hep Bs Antigen Negative (Negative) 03/29/18 Chlam trachomat DNA PCR Negative (Negative) 03/29/18 N.gonorrhoeae DNA (PCR) Negative (Negative) 03/29/18 Glucose 1 Hr 50 gm 131 mg/dL (70-140) 08/09/18 Miscellaneous Test 06/17/18 Details: HIV: Urine Culture: Sequential Screen: NIPT Screen: Results [id number] Office Urine Glucose Negative Last Edit by Stephanie Ly on 08/20/18 16:04 Office Urine Protein Negative Last Edit by Stephanie Ly on 08/20/18 16:04 Assessment AND Plan Problems 1. 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 Rh negative status during in third trimester O09.893; Z67.91 rhogam given and at 28 weeks 3. BMI greater than 40 1 tm glucola, after 32 weeks growth us and nsts 4. Abnormal glucose in , antepartum O99.810 3 hr normal 5. 30 weeks gestation of Z3A.30 nipt normal. afp ordered. anatomy scan reviewed- Normal, Growth US every 4 weeks. Reasses ductal and aortic arches in 4 weeks. 6. screening encounter Z36.9 NIPT low risk fraction 4.3%. AFP negative. 7. Mild episode of recurrent major depressive disorder F33.0 celexa too much fatigue- switch to zoloft 8. Obstructive sleep apnea syndrome G47.33 Plan movement and labor precautions reviewed. ACOG trimester education reviewed and updated. see problem list details for updated plan management information and see below for orders placed at this visit. GA appropriate handout given. 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 Trimester: third trimester Rh negative status during in third trimester O09.893; Z67.91 Trimester: third trimester BMI greater than 40 Abnormal glucose in , antepartum O99.810 30 weeks gestation of Z3A.30 Weeks of gestation: 30 weeks screening encounter Z36.9 Mild episode of recurrent major depressive disorder F33.0 Depression Type: major depressive disorder Major depression recurrence: recurrent Active/Remission status: currently active Major depression episode severity: mild Obstructive sleep apnea syndrome G47.33 Sleep apnea type: obstructive 08/20/18 1632 <Electronically signed by Jacklyn Estevez MD> Date Jacklyn Estevez MD Cosigner Signature: Date (if applicable) 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 Observed: 08/14/2018 Status: F Source: [place] REPORT 3:14 AM [facility] REPOSITORY [facility] [address] [place] [address] OFFICE VISIT Date of Service: 08/09/18 MR#: [id number] Acct: [id number] Name: BEKABELEN M Rep #: [id number] : 1985 Provider: Jacklyn Estevez MD Age/Sex: 33/F Location: [facility] [place] Status: Signed Intake Vital Signs08/09/18 Body Mass Index (BMI) 50.8 08/09/18 Height 5 ft 1 in 08/09/18 Weight: 271 lb 08/09/18 Body Mass Index (BMI) 51.2 08/09/18 Blood Pressure 130/80 H Intake Visit Reasons: 29 WEEK OB Chief Complaint: est ob Diversity Intern Required: No Is patient in pain?: No Allergies bupropion [From Wellbutrin] Allergy (Mild, Verified 08/09/18 16:12) hives Medications cholecalciferol (vitamin D3) 2,000 unit capsule 4,000 unit PO QDAY cap 03/29/18 [History Confirmed 08/09/18] docosahexanoic acid 200 mg capsule mg PO 03/29/18 [History Confirmed 08/09/18] sertraline 50 mg tablet 50 mg PO QDAY #30 tab 06/17/18 [Rx Confirmed 08/09/18] pyridoxine (vitamin B6) 50 mg tablet 50 mg PO DAILY 07/21/18 [History Confirmed 08/09/18] cyanocobalamin (vit B-12) 1,000 mcg/mL injection solution 1,000 mcg IM QMONTH 08/09/18 [History Confirmed 08/09/18] Last Menstral Period: 01/21/18 Zika: Zika virus screening: Negative : No PFSH PFSH Medical History Depression (Acute) Sleep apnea (Chronic) Surgical History S/P removal of thyroid nodule (Resolved) S/P tonsillectomy (Resolved) Family History Father CVA (cerebral vascular accident) Diabetes Bladder cancer Social History Smoking Status: Former smoker alcohol intake: never substance use type: does not use caffeine: No what type of physical activity do you participate in: none seatbelt use: always do you feel safe at home: Yes 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 DatName GA/WeeksOutcome Route [facility] LocaProviderFOB e ht en ia tn 03/23/[id number] live birC-sectio Female epiduralWCH\ ANSHUL th - fuln l term Delivery Date: 03/23/18 On 03/29/18 @ 08:42 Lisa Marshall decels HPI 29 WEEK OB: Details: BELEN IRELAND is a 33 year old who presents for routine OB visit. OB Visit KAILA Calculator Estimated Delivery Date 10/28/18 Based on LMP (certain) 01/21/18 Current WG 29w 2d Number 1 Expected Delivery Route/Plan Specific Issue/Plans flu vaccine: given tdap vaccine: [] rhogam: [] LARC form signed: [] labor support person: Dany pain management: [] cut cord/dad catch: [] : [] PP control planned: [] special requests: [] Initial Weight: 263 lb Date Weight BP Urine PrFHR FuHt Pres MoCTX DilationFetal StVisit NoProviderComments E ot v te GA G Effac lucose ed Visit Notes Visit Date: 08/09/18 cbc gct tdap rhogam Jacklyn Estevez MD on 08/14/18 no vb lof good fm no regualr ctx Jacklyn Estevez MD on 08/14/18 Visit Date: 07/28/18 work in for lower left abdominal pain that has now resolved. No VB, LOF or CTX MIRACLE Osorio on 07/28/18 Visit Date: 07/21/18 No VB, LOF. Doing well MIRACLE Osorio on 07/21/18 Visit Date: 06/17/18 no vb cramping reveiwed us Jacklyn Estevez MD on 06/20/18 Visit Date: 05/20/18 no vb lof cramping. ordered anatomy scan. Jacklyn Estevez MD on 05/20/18 Visit Date: 04/13/18 no vb lof good fm no regular ctx. co having anxiety and depression symptoms Jacklyn Estevez MD on 04/13/18 ACOG First Trimester First Trimester: Desire for , Alcohol, Tobacco Cessation, Illicit/Recreational Drug/Substance Use, Intimate Partner Violence, Barriers to care, Unstable Housing, Communication Barriers, Environmental/Work Hazards, Anticipated Course of Care, Toxoplasmosis Precations, Use of Any medications, Sexual activity, Exercise, Dental Care, Sauna/Hot tub use, Seat Belt use, Childbirth classes/Hospital facilities, , Travel, Indications for US and Screening for Aneuploidy Diagnostics Diagnostics Labs Blood Type O NEGATIVE 08/09/18 Antibody Screen NEGATIVE 08/09/18 Hct 31.6 % (37-47) L 08/09/18 Hgb 10.7 g/dl (12.0-15.0) L 08/09/18 Rubella IgG Antibody 204.9 IU/mL 03/29/18 RPR NONREACTIVE (NONREACTIVE) 03/29/18 Hep Bs Antigen Negative (Negative) 03/29/18 Chlam trachomat DNA PCR Negative (Negative) 03/29/18 N.gonorrhoeae DNA (PCR) Negative (Negative) 03/29/18 Glucose 1 Hr 50 gm 131 mg/dL (70-140) 08/09/18 Miscellaneous Test 06/17/18 Details: HIV: Urine Culture: Sequential Screen: NIPT Screen: Office Meds RhoGAM Ultra-Filtered PLUS Performing Provider: Jacklyn Estevez MD Administered by: April Kenae on 08/09/18 16:24 Dose Route Admin Location Lot Number Expiration Date [facility] General Hardware Salesperson 1,500 unit IM [place] [id number] 02/20/20 5980-5706-68 Chatter[employer]HAR Immunizations Boostrix Tdap Performing Provider: Jacklyn Estevez MD Administered by: Amy Siddiqui on 08/09/18 16:30 Dose Route Admin Location Lot Number Expiration Date [facility] General Hardware Salesperson 0.5 mL IM Right Arm (SQ) [id number] 06/12/25 57458-199-98 [employer] VIS Given Date VIS Publication Date 08/09/18 10/17/14 Eligibility Eligibility Date Assessment AND Plan Problems 1. 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 Marginal placenta previa O44.20 3. Rh negative status during in second trimester O09.892 rhogam given and at 28 weeks 4. BMI greater than 40 1 tm glucola, after 32 weeks growth us and nsts 5. Abnormal glucose in , antepartum O99.810 3 hr normal 6. 26 weeks gestation of Z3A.26 nipt normal. afp ordered. anatomy scan reviewed- Normal, Growth US every 4 weeks. Reasses ductal and aortic arches in 4 weeks. 7. screening encounter Z36.9 NIPT low risk fraction 4.3%. AFP negative. 8. Mild episode of recurrent major depressive disorder F33.0 celexa too much fatigue- switch to zoloft 9. Obstructive sleep apnea syndrome G47.33 Plan movement and labor precautions reviewed. ACOG trimester education reviewed and updated. see problem list details for updated plan management information and see below for orders placed at this visit. GA appropriate handout given. Orders Orders: Medications Discontinued: Boostrix Tdap (diphth,pertus(acell),tetanus) Disco0.5 mL IM ONCE #1 0RF NS Z23, Z34.90 ntinued Reason: Office Medication has been Documente d as given Coding Level of Care Code OB Routine Diagnoses with history of infertility in second trimester O09.02 Trimester: second trimester Marginal placenta previa O44.20 Rh negative status during in second trimester O09.892 Trimester: second trimester BMI greater than 40 Abnormal glucose in , antepartum O99.810 26 weeks gestation of Z3A.26 Weeks of gestation: 26 weeks screening encounter Z36.9 Mild episode of recurrent major depressive disorder F33.0 Depression Type: major depressive disorder Major depression recurrence: recurrent Active/Remission status: currently active Major depression episode severity: mild Obstructive sleep apnea syndrome G47.33 Sleep apnea type: obstructive 08/14/18 0314 <Electronically signed by Jacklyn Estevez MD> Date Jacklyn Estevez MD Cosigner Signature: Date (if applicable) CC: CBC W/DIFF, AUTOMATED Collected: 08/09/2018 Status: F Source: [facility] 4:54 PM [facility] REPOSITORY TYPE CODE TESTS RESULT OUT OF RANGE REFERENCE UNITS LAB L100.1000 4.4-11.0 K/mm3 High WBC 13.1 LAB L100.1200 4.2-5.4 M/mm3 Low RBC 3.46 LAB L100.1300 12.0-15.0 g/dl Low HGB 10.7 LAB L100.1400 37-47 % Low HCT 31.6 LAB L100.1500 81-99 fL Normal MCV 91.3 LAB L100.1600 27.0-32.0 pg Normal MCH 30.9 LAB L100.1700 32-36 g/gl Normal MCHC 33.9 LAB L100.1810 11.6-14.6 % High RDW CV 16.3 LAB L100.1820 35.1-43.9 fl High RDW SD 52.3 LAB L100.1900 150-450 K/mm3 Normal PLT 307 LAB L100.2000 6.2-12.0 fl Normal MPV 10.1 LAB L100.2100 47-70 % High NEUT% 75.2 LAB L100.2200 19-41 % Normal LY% 19.5 LAB L100.2300 0-10 % Normal MONO% 4.0 LAB L100.2400 0-5 % Normal EO% 0.9 LAB L100.2500 0-1 % Normal BASO% 0.1 LAB L100.2550 0.0-0.9 % Normal IM GRAN % 0.300 Result Comment: IG% - Immature Granulocytes (promyelocytes, myelocytes and metamyelocytes) > 1% indicates that a LEFT SHIFT is Present. LAB L100.2620 2.0-7.7 X10 3/uL High Absolute Neut 9.9 LAB L100.2720 0.83-4.51 X10 3/ul Normal Absolute Lymph 2.56 Performed By: #### L100.0100 #### [facility] [address] [place], [place], [address] GLUCOSE CHALLENGE GEST Collected: 08/09/2018 Status: F Source: [place] 1H 50G 4:54 PM [facility] REPOSITORY TYPE CODE TESTS RESULT OUT OF RANGE REFERENCE UNITS LAB L501.0250 70-140 mg/dL Normal GLU GEST 131 50g 1H Performed By: #### L501.0250 #### [facility] [address] [place], [address] TYPE AND SCREEN Collected: 08/09/2018 Status: F Source: [place] 4:54 PM [facility] REPOSITORY Order Comment: Reason for Type AND Screen/Red Cells: TYPE CODE TESTS RESULT OUT OF RANGE REFERENCE UNITS LAB B10.0800 O Normal BLOOD TYPE GEL NEGATIVE LAB B100.4000 Normal Antibody NEGATIVE Screen Performed By: #### B101.7450 #### [facility] [address] [place], [address] VITAMIN B12 Collected: 07/28/2018 Status: F Source: [place] 3:30 PM [facility] REPOSITORY TYPE CODE TESTS RESULT OUT OF RANGE REFERENCE UNITS LAB L503.0105 211-911 pg/mL Normal Vitamin B12 273 Performed By: #### L503.0105, L506.1000 #### [facility] [address] [place], [address] VITAMIN D,25 HYDROXY Collected: 07/28/2018 Status: F Source: [place] 3:30 PM [facility] REPOSITORY TYPE CODE TESTS RESULT OUT OF RANGE REFERENCE UNITS LAB L506.1000 29.95-100.01 ng/mL Normal Vitamin D 44.8 25-OH Result Comment: Vitamin D 25(OH) Status Range Deficiency <20 ng/mL (50nmol/L) Insuffciency 20 - 30 ng/mL (50 - 75 nmol/L) Sufficiency 30 - 100 ng/mL (75 - 250 nmol/L) Toxicity >100 ng/mL (>250 nmol/L) Performed By: #### L503.0105, L506.1000 #### [facility] [address] [place], [address] COMPREHENSIVE METABOLIC Collected: 07/28/2018 Status: F Source: [facility] 3:30 PM [facility] REPOSITORY Order Comment: Is Patient Taking Vitamins or Folic Acid Supplements? N TYPE CODE TESTS RESULT OUT OF RANGE REFERENCE UNITS LAB L501.0100 74-106 mg/dL Normal GLU 82 Result Comment: Please note revised GLUCOSE reference range effective 2017. LAB L501.1000 7-18 mg/dL Low BUN 4 LAB L501.1100 0.55-1.02 mg/dL Low CREAT,SERUM 0.45 Result Comment: The validity of the calculated GFR AND GFRAA in patients over 70 years has not been determined. Clinical correlation is essential. LAB L501.1110 >60 mL/min Normal EST GFR 167 Result Comment: Non- GFR Calc LAB L501.1115 >60 mL/min Normal EST GFR - AA 202 Result Comment: GFR Calc LAB L501.1300 10-20 RATIO Low BUN/CRE 8.8 LAB L501.1500 6.4-8.2 g/dL Normal T PROT 6.6 LAB L501.1800 3.2-5.0 g/dL Low ALB 2.5 LAB L501.1950 2.2-4.2 g/dL Normal GLOB 4.1 LAB L501.2000 0.9-2.4 RATIO Low A/G 0.6 LAB L501.2200 8.5-10.1 mg/dL Normal CA 9.1 LAB L501.4100 15-37 U/L Normal AST 17 LAB L501.4305 45-117 U/L Normal ALK P 73 LAB L501.4405 13-56 U/L Normal ALT 25 LAB L501.4600 0.20-1.00 mg/dL Normal T BILI 0.30 LAB L501.5300 136-145 mmol/L Normal NA 140 LAB L501.5600 3.5-5.1 mmol/L Normal K 3.5 LAB L501.5900 98-107 mmol/L Normal CL 107 LAB L501.6100 21.0-32.0 mmol/L Normal CO2 22.0 LAB L501.6200 5-15 Normal GAP 11 Performed By: #### L500.4050, L506.0250 #### [facility] [address] [place], [address] FOLATES, (FOLIC ACID) Collected: 07/28/2018 Status: F Source: [place] 3:30 PM [facility] REPOSITORY Order Comment: Is Patient Taking Vitamins or Folic Acid Supplements? N TYPE CODE TESTS RESULT OUT OF RANGE REFERENCE UNITS LAB L506.0250 3.1-55.4 ng/mL Normal FOLATES 49.20 Performed By: #### L500.4050, L506.0250 #### [facility] [address] [place], [address] 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 OFFICE VISIT Observed: 07/28/2018 Status: F Source: [place] [place] REPORT 3:21 PM [facility] REPOSITORY [facility] [address] [place] [address] OFFICE VISIT Date of Service: 07/28/18 MR#: [id number] Acct: [id number] Name: BELEN IRELAND Rep #: [id number] : 1985 Provider: TEDDY Sun Age/Sex: 33/F Location: [facility] [place] Status: Signed Intake Vital Signs07/28/18 Body Mass Index (BMI) 50.8 Intake Visit Reasons: 26 weeks-LLQ pain Diversity Intern Required: No Is patient in pain?: Yes Allergies bupropion [From Wellbutrin] Allergy (Mild, Verified 07/28/18 15:12) hives Medications cholecalciferol (vitamin D3) 2,000 unit capsule 4,000 unit PO QDAY cap 03/29/18 [History Confirmed 07/28/18] docosahexanoic acid 200 mg capsule mg PO 03/29/18 [History Confirmed 07/28/18] sertraline 50 mg tablet 50 mg PO QDAY #30 tab 06/17/18 [Rx Confirmed 07/28/18] pyridoxine (vitamin B6) 50 mg tablet 50 mg PO DAILY 07/21/18 [History Confirmed 07/28/18] Last Menstral Period: 01/21/18 Zika: Zika virus screening: Negative : No PFSH PFSH Medical History Depression (Acute) Sleep apnea (Chronic) Surgical History S/P removal of thyroid nodule (Resolved) S/P tonsillectomy (Resolved) Family History Father CVA (cerebral vascular accident) Diabetes Bladder cancer Social History Smoking Status: Former smoker alcohol intake: never substance use type: does not use caffeine: No what type of physical activity do you participate in: none seatbelt use: always do you feel safe at home: Yes 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 DatName GA/WeeksOutcome Route [facility] LocaProviderFOB e ht en ia tn 03/23/[id number] live birC-sectio Female epiduralWCH\ ANSHUL th - fuln l term Delivery Date: 03/23/18 On 03/29/18 @ 08:42 Lisa Marshall decels HPI 26 weeks-LLQ pain: Details: BELEN IRELAND is a 33 year old who presents for routine OB visit. OB Visit KAILA Calculator Estimated Delivery Date 10/28/18 Based on LMP (certain) 01/21/18 Current WG 26w 6d Number 1 Expected Delivery Route/Plan Specific Issue/Plans flu vaccine: given tdap vaccine: [] rhogam: [] LARC form signed: [] labor support person: Dany pain management: [] cut cord/dad catch: [] : [] PP control planned: [] special requests: [] Initial Weight: 263 lb Date Weight BP Urine PFHR FuHt Pres MCTX DilatioFetal SVisit NProvideComment rot ov n t ote r s EGA Ef Gluco faced se 04/13/1263 lb 130/91 [id number] no vb l 8 (+0 oz) e of good 11 fm no w 5d Negati regular ve ctx. c o havin g anxie ty and depress ion sym ptoms Visit Notes Visit Date: 07/28/18 work in for lower left abdominal pain that has now resolved. No VB, LOF or CTX COMPA OsorioC on 07/28/18 Visit Date: 07/21/18 No VB, LOF. Doing well COMPA OsorioC on 07/21/18 Visit Date: 06/17/18 no vb cramping reveiwed us Jacklyn Estevez MD on 06/20/18 Visit Date: 05/20/18 no vb lof cramping. ordered anatomy scan. Jacklyn Estevez MD on 05/20/18 Visit Date: 04/13/18 no vb lof good fm no regular ctx. co having anxiety and depression symptoms Jacklyn Estevez MD on 04/13/18 ACOG First Trimester First Trimester: Desire for , Alcohol, Tobacco Cessation, Illicit/Recreational Drug/Substance Use, Intimate Partner Violence, Barriers to care, Unstable Housing, Communication Barriers, Environmental/Work Hazards, Anticipated Course of Care, Toxoplasmosis Precations, Use of Any medications, Sexual activity, Exercise, Dental Care, Sauna/Hot tub use, Seat Belt use, Childbirth classes/Hospital facilities, , Travel, Indications for US and Screening for Aneuploidy Diagnostics Diagnostics Labs Blood Type O NEGATIVE 03/29/18 Antibody Screen NEGATIVE 03/29/18 Hct 37.4 % (37-47) 03/29/18 Hgb 12.7 g/dl (12.0-15.0) 03/29/18 Rubella IgG Antibody 204.9 IU/mL 03/29/18 RPR NONREACTIVE (NONREACTIVE) 03/29/18 Hep Bs Antigen Negative (Negative) 03/29/18 Chlam trachomat DNA PCR Negative (Negative) 03/29/18 N.gonorrhoeae DNA (PCR) Negative (Negative) 03/29/18 Glucose 1 Hr 50 gm 142 mg/dL (70-140) H 03/29/18 Miscellaneous Test 06/17/18 Details: HIV: Urine Culture: Sequential Screen: NIPT Screen: Results BMSUA Office Urine Color Yellow Last Edit by April Keane on 07/28/18 15:11 Office Urine Clarity Clear Last Edit by April Keane on 07/28/18 15:11 Assessment AND Plan Problems 1. with history of infertility in second trimester O09. PRR KAILA 10/28/18 girl Dany IVF at [facility] 2. Rh negative status during in second trimester O. rhogam PRN and at 28 weeks 3. Marginal placenta previa O44.20 repeat ultrasound scheduled 4. 26 weeks gestation of Z3A.26 nipt normal. afp ordered. anatomy scan reviewed- Normal, Growth US every 4 weeks. Reasses ductal and aortic arches in 4 weeks. Plan Brief US to confirm active fetus with FHT 151 Urine dip X 10 negative, culture pending Has [facility] [place] appt and US tomorrow RTO routine OB, prn problems Orders Orders: Coding Level of Care Code OB Routine Diagnoses with history of infertility in second trimester O09.02 Trimester: second trimester Rh negative status during in second trimester O09.89 Trimester: second trimester Marginal placenta previa O44.20 26 weeks gestation of Z3A.26 Weeks of gestation: 26 weeks 07/28/18 1521 <Electronically signed by Jordyn RAUSCH> Date Jordyn RAUSCH Cosigner Signature: Date (if applicable) CC: Observed: 07/28/2018 Status: F Source: [facility] CULTURE, URINE 12:00 AM [facility] REPOSITORY Urine Culture ORGANISM 1: Mixed Gram Positive Organisms [place] Count >100,000 MIX CULTURE Mixed contaminants. Submit a new specimen if indicated. Performed By: #### M100.0650 #### [facility] [address] [place], [address] 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 OFFICE VISIT Observed: 07/21/2018 Status: F Source: [facility] REPORT 4:17 PM [facility] REPOSITORY [facility] [address] [place] [address] OFFICE VISIT Date of Service: 07/21/18 MR#: [id number] Acct: [id number] Name: BELEN IRELAND Lucio Rep #: [id number] : 1985 Provider: TEDDY Sun Age/Sex: 33/F Location: [facility] [place] Status: Signed Intake Vital Signs07/21/18 Height 5 ft 1 in 07/21/18 Weight: 269 lb 07/21/18 Body Mass Index (BMI) 50.8 07/21/18 Blood Pressure 124/84 H Intake Visit Reasons: 26 WEEK OB Diversity Intern Required: No Is patient in pain?: No Allergies bupropion [From Wellbutrin] Allergy (Mild, Verified 07/21/18 15:52) hives Medications cholecalciferol (vitamin D3) 2,000 unit capsule 4,000 unit PO QDAY cap 03/29/18 [History Confirmed 07/21/18] docosahexanoic acid 200 mg capsule mg PO 03/29/18 [History Confirmed 07/21/18] sertraline 50 mg tablet 50 mg PO QDAY #30 tab 06/17/18 [Rx Confirmed 07/21/18] pyridoxine (vitamin B6) 50 mg tablet 50 mg PO DAILY 07/21/18 [History Confirmed 07/21/18] Last Menstral Period: 01/21/18 Zika: Zika virus screening: Negative : No PFSH PFSH Medical History Depression (Acute) Sleep apnea (Chronic) Surgical History S/P removal of thyroid nodule (Resolved) S/P tonsillectomy (Resolved) Family History Father CVA (cerebral vascular accident) Diabetes Bladder cancer Social History Smoking Status: Former smoker alcohol intake: never substance use type: does not use caffeine: No what type of physical activity do you participate in: none seatbelt use: always do you feel safe at home: Yes 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 DatName GA/WeeksOutcome Route [facility] Chaka Sage LgAnesthesDel LocaProviderFOB e ht en ia tn 03/23/[id number] live birC-sectio Female epiduralWCH\ ANSHUL th - fuln l term Delivery Date: 03/23/18 On 03/29/18 @ 08:42 Lisa Marshall decels HPI 26 WEEK OB: Details: BELEN IRELAND is a 33 year old who presents for routine OB visit. OB Visit KAILA Calculator Estimated Delivery Date 10/28/18 Based on LMP (certain) 01/21/18 Current WG 25w 6d Number 1 Expected Delivery Route/Plan Specific Issue/Plans flu vaccine: given tdap vaccine: [] rhogam: [] LARC form signed: [] labor support person: Dany pain management: [] cut cord/dad catch: [] : [] PP control planned: [] special requests: [] Initial Weight: 263 lb Date Weight BP Urine PFHR FuHt Pres MCTX DilatioFetal SVisit NProvideComment rot ov n t ote r s EGA Ef Gluco faced se 04/13/1263 lb 130/91 [id number] no vb l 8 (+0 oz) e of good 11 fm no w 5d Negati regular ve ctx. c o havin g anxie ty and depress ion sym ptoms Visit Notes Visit Date: 07/21/18 No VB, LOF. Doing well JordynMIRACLE Schulte on 07/21/18 Visit Date: 06/17/18 no vb cramping reveiwed us Jacklyn Estevez MD on 06/20/18 Visit Date: 05/20/18 no vb lof cramping. ordered anatomy scan. Jacklyn Estevez MD on 05/20/18 Visit Date: 04/13/18 no vb lof good fm no regular ctx. co having anxiety and depression symptoms Jacklyn Estevez MD on 04/13/18 Diagnostics Diagnostics Labs Blood Type O NEGATIVE 03/29/18 Antibody Screen NEGATIVE 03/29/18 Hct 37.4 % (37-47) 03/29/18 Hgb 12.7 g/dl (12.0-15.0) 03/29/18 Rubella IgG Antibody 204.9 IU/mL 03/29/18 RPR NONREACTIVE (NONREACTIVE) 03/29/18 Hep Bs Antigen Negative (Negative) 03/29/18 Chlam trachomat DNA PCR Negative (Negative) 03/29/18 N.gonorrhoeae DNA (PCR) Negative (Negative) 03/29/18 Glucose 1 Hr 50 gm 142 mg/dL (70-140) H 03/29/18 Miscellaneous Test 06/17/18 Details: HIV: Urine Culture: Sequential Screen: NIPT Screen: Results [id number] Office Urine Glucose Negative Last Edit by April Keane on 07/21/18 15:50 Office Urine Protein Negative Last Edit by April Keane on 07/21/18 15:50 Assessment AND Plan Problems 1. 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 24 weeks gestation of Z3A.24 nipt normal. afp ordered. anatomy scan reviewed- Normal, Growth US every 4 weeks. Reasses ductal and aortic arches in 4 weeks. 3. BMI greater than 40 1 tm glucola, after 32 weeks growth us and nsts 4. Rh negative status during in second trimester O09.892 rhogam PRN and at 28 weeks 5. Abnormal glucose in , antepartum O99.810 3 hr normal 6. screening encounter Z36.9 NIPT low risk fraction 4.3%. Wants gender in an envelope. AFP negative. 7. 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.02 Trimester: second trimester 24 weeks gestation of Z3A.24 Weeks of gestation: 24 weeks BMI greater than 40 Rh negative status during in second trimester O09.892 Trimester: second trimester Abnormal glucose in , antepartum O99.810 screening encounter Z36.9 Marginal placenta previa O44.20 07/21/18 1617 <Electronically signed by Jordyn RAUSCH> Date Jordyn RAUSCH Cosigner Signature: Date (if applicable) 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 Observed: 06/20/2018 Status: F Source: [facility] REPORT 1:41 AM [facility] [address] [place] [address] OFFICE VISIT Date of Service: 06/17/18 MR#: [id number] Acct: [id number] Name: BELEN IRELAND Rep #: [id number] : 1985 Provider: Jacklyn Estevez MD Age/Sex: 32/F Location: [facility] [place] Status: Signed Intake Vital Signs06/17/18 Height 5 ft 1 in 06/17/18 Weight: 270 lb 6 oz 06/17/18 Body Mass Index (BMI) 51.0 06/17/18 Blood Pressure 132/78 H Intake Visit Reasons: 20 WEEK OB Chief Complaint: est ob Diversity Intern Required: No Is patient in pain?: No Allergies bupropion [From Wellbutrin] Allergy (Mild, Verified 06/17/18 16:08) hives Medications cholecalciferol (vitamin D3) 2,000 unit capsule 4,000 unit PO QDAY cap 03/29/18 [History Confirmed 06/17/18] docosahexanoic acid 200 mg capsule mg PO 03/29/18 [History Confirmed 06/17/18] sertraline 50 mg tablet 50 mg PO QDAY #30 tab 06/17/18 [Rx Confirmed 06/17/18] Last Menstral Period: 01/21/18 Zika: Zika virus screening: Negative : No PFSH PFSH Medical History Depression (Acute) Sleep apnea (Chronic) Surgical History S/P removal of thyroid nodule (Resolved) S/P tonsillectomy (Resolved) Family History Father CVA (cerebral vascular accident) Diabetes Bladder cancer Social History Smoking Status: Former smoker alcohol intake: never substance use type: does not use caffeine: No what type of physical activity do you participate in: none seatbelt use: always do you feel safe at home: Yes 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 DatName GA/WeeksOutcome [facility] LocaProviderFOB e ht en ia tn 03/23/[id number] live birC-sectio Female epiduralWCH\ ANSHUL th - fuln l term Delivery Date: 03/23/18 On 03/29/18 @ 08:42 Lisa Marshall decels HPI 20 WEEK OB: Details: BELEN IRELAND is a 32 year old who presents for routine OB visit. OB Visit KAILA Calculator Estimated Delivery Date 10/28/18 Based on LMP (certain) 01/21/18 Current WG 21w 3d Number 1 Expected Delivery Route/Plan Initial Weight: 263 lb Date Weight BP Urine PrFHR FuHt Pres MoCTX DilationFetal StVisit NoProviderComments E ot v te GA G Effac lucose ed Visit Notes Visit Date: 06/17/18 no vb cramping reveiwed us Jacklyn Estevez MD on 06/20/18 Visit Date: 05/20/18 no vb lof cramping. ordered anatomy scan. Jacklyn Estevez MD on 05/20/18 Visit Date: 04/13/18 no vb lof good fm no regular ctx. co having anxiety and depression symptoms Jacklyn Estevez MD on 04/13/18 ACOG First Trimester First Trimester: Desire for , Alcohol, Tobacco Cessation, Illicit/Recreational Drug/Substance Use, Intimate Partner Violence, Barriers to care, Unstable Housing, Communication Barriers, Environmental/Work Hazards, Anticipated Course of Care, Toxoplasmosis Precations, Use of Any medications, Sexual activity, Exercise, Dental Care, Sauna/Hot tub use, Seat Belt use, Childbirth classes/Hospital facilities, , Travel, Indications for US and Screening for Aneuploidy Diagnostics Diagnostics Labs Blood Type O NEGATIVE 03/29/18 Antibody Screen NEGATIVE 03/29/18 Hct 37.4 % (37-47) 03/29/18 Hgb 12.7 g/dl (12.0-15.0) 03/29/18 Pap Smear Negative 10/13/16 Rubella IgG Antibody 204.9 IU/mL 03/29/18 RPR NONREACTIVE (NONREACTIVE) 03/29/18 Hep Bs Antigen Negative (Negative) 03/29/18 Chlam trachomat DNA PCR Negative (Negative) 03/29/18 N.gonorrhoeae DNA (PCR) Negative (Negative) 03/29/18 Glucose 1 Hr 50 gm 142 mg/dL (70-140) H 03/29/18 Miscellaneous Test Pending 06/17/18 Details: HIV: Urine Culture: Sequential Screen: NIPT Screen: Results [id number] Office Urine Glucose Negative Last Edit by Amy Siddiqui on 06/17/18 16:15 Office Urine Protein Negative Last Edit by Amy Siddiqui on 06/17/18 16:15 Assessment AND Plan Problems 1. 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 Rh negative status during in second trimester O09.892 rhogam PRN and at 28 weeks 3. BMI greater than 40 1 tm glucola, after 32 weeks growth us and nsts 4. Abnormal glucose in , antepartum O99.810 3 hr normal 5. 21 weeks gestation of Z3A.21 nipt normal. afp ordered. anatomy scan reviewed. 6. screening encounter Z36.9 NIPT low risk fraction 4.3%. Wants gender in an envelope. 7. Mild episode of recurrent major depressive disorder F33.0 celexa too much fatigue- switch to zoloft 8. Obstructive sleep apnea syndrome G47.33 9. Marginal placenta previa O44.20 repeat ultrasound scheduled Plan ACOG trimester education reviewed and updated. see problem list details for updated plan management information and see below for orders placed at this visit. GA appropriate handout given. 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 O09.02 Trimester: second trimester Rh negative status during in second trimester O09.892 Trimester: second trimester BMI greater than 40 Abnormal glucose in , antepartum O99.810 21 weeks gestation of Z3A.21 Weeks of gestation: 21 weeks screening encounter Z36.9 Mild episode of recurrent major depressive disorder F33.0 Depression Type: major depressive disorder Major depression recurrence: recurrent Active/Remission status: currently active Major depression episode severity: mild Obstructive sleep apnea syndrome G47.33 Sleep apnea type: obstructive Marginal placenta previa O44.20 06/20/18 0141 <Electronically signed by Jacklyn Estevez MD> Date Jacklyn Estevez MD Cosigner Signature: Date (if applicable) CC: MISCELLANEOUS LAB Collected: 06/17/2018 Status: F Source: [facility] PROCEDURE 4:42 PM [facility] REPOSITORY Order Comment: Comments: [id number] AFP ROOM TEMP Test(s) Ordered: [id number] AFP ROOM TEMP TYPE CODE TESTS RESULT OUT OF RANGE REFERENCE UNITS LAB L801.1541 Normal [place] TEST Result Comment: TEST RESULT UNITS REFERENCE INTERVAL AFP, Serum, Open Spina Bifida Results Report Test Results: *Screen Negative* Gest. Age on Collection Date 21.0 weeks Gestat. Age Based On LMP Recalculations are not recommended when gestational dating by LMP and ultrasound are within 10 days. [age] KAILA [age] yr Race Weight 270 lbs Insulin Dep Diabetes Not provided. Multiple Gestation No AFP Value 49.7 ng/mL AFP MoM 1.09 OSBR Risk 1 IN 9231 Interpretation Interpretation: Screen Negative This result is screen negative for OSB. The AFP MoM calculated is based on the gestational age provided. MS-AFP can identify up to 80% of open neural tube defects. Closed neural tube defects and some open defects may not be detected by this test. This test does not screen for Down Syndrome or Trisomy 18. If screening for Down Syndrome or Trisomy 18 is desired, contact [facility] to discuss available options. The [employer] recommends amniocentesis be offered to women age 35 and older. Comment: Cinthia Victoria, Ph.D., [facility] Principal Genetics [employer] References: Available Upon Request. Multiples Of Median Cutoffs For AFP Elevations [place] 2.5 Black 2.8 IDD 2.0 Twins 4.5 Abbreviation Definitions IDD - Insulin Dep Diabetes OSBR - Open Spina Bifida Risk For further inquiries contact [facility] Services at [phone]. TESTING PERFORMED AT [facility]. ORIGINAL REPORT ON FILE IN LAB CONTAINS ADDITIONAL TEST SITE INFORMATION. Performed By: #### L801.1541 #### [place] [facility] [address] [place], [place], [id number] 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 OFFICE VISIT Observed: 05/20/2018 Status: F Source: [facility] REPORT 4:40 PM [facility] [address] [place] [address] OFFICE VISIT Date of Service: 05/20/18 MR#: [id number] Acct: [id number] Name: BELEN IRELAND Rep #: [id number] : 1985 Provider: Jacklyn Estevez MD Age/Sex: 32/F Location: [facility] [place] Status: Signed Intake Vital Signs05/20/18 Height 5 ft 1 in 05/20/18 Weight: 266 lb 05/20/18 Body Mass Index (BMI) 50.2 05/20/18 Blood Pressure 132/82 H Intake Visit Reasons: 16 WEEK OB Chief Complaint: est ob Diversity Intern Required: No Is patient in pain?: No Allergies bupropion [From Wellbutrin] Allergy (Mild, Verified 05/20/18 16:12) hives Medications cholecalciferol (vitamin D3) 2,000 unit capsule 4,000 unit PO QDAY cap 03/29/18 [History Confirmed 05/20/18] docosahexanoic acid 200 mg capsule mg PO 03/29/18 [History Confirmed 05/20/18] citalopram 20 mg tablet 20 mg PO QDAY #30 tab 04/13/18 [Rx Confirmed 05/20/18] Last Menstral Period: 01/21/18 Zika: Zika virus screening: Negative : No PFSH PFSH Medical History Depression (Acute) Sleep apnea (Chronic) Surgical History S/P removal of thyroid nodule (Resolved) S/P tonsillectomy (Resolved) Family History Father CVA (cerebral vascular accident) Diabetes Bladder cancer Social History Smoking Status: Former smoker alcohol intake: never substance use type: does not use caffeine: No what type of physical activity do you participate in: none seatbelt use: always do you feel safe at home: Yes 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 DatName GA/WeeksOutcome Route Bth RajangInkathrinet Chu LgAnesthesDel LocaProviderFOB e ht en th ia tn 03/23/[id number] live birC-sectio Female epiduralWCH\ ANSHUL th - fuln l term Delivery Date: 03/23/18 On 03/29/18 @ 08:42 Lisa Marshall decels HPI 16 WEEK OB: Details: BELEN IRELAND is a 32 year old who presents for routine OB visit. OB Visit KAILA Calculator Estimated Delivery Date 10/28/18 Based on LMP (certain) 01/21/18 Current WG 17w 0d Number 1 Expected Delivery Route/Plan Initial Weight: 263 lb Date Weight BP Urine PrFHR FuHt Pres MoCTX DilationFetal StVisit NoProviderComments E ot v te GA G Effac lucose ed Visit Notes Visit Date: 05/20/18 no vb lof cramping. ordered anatomy scan. Jacklyn Estevez MD on 05/20/18 Visit Date: 04/13/18 no vb lof good fm no regular ctx. co having anxiety and depression symptoms Jacklyn Estevez MD on 04/13/18 ACOG First Trimester First Trimester: Desire for , Alcohol, Tobacco Cessation, Illicit/Recreational Drug/Substance Use, Intimate Partner Violence, Barriers to care, Unstable Housing, Communication Barriers, Environmental/Work Hazards, Anticipated Course of Care, Toxoplasmosis Precations, Use of Any medications, Sexual activity, Exercise, Dental Care, Sauna/Hot tub use, Seat Belt use, Childbirth classes/Hospital facilities, , Travel, Indications for US and Screening for Aneuploidy Diagnostics Diagnostics Labs Blood Type O NEGATIVE 03/29/18 Antibody Screen NEGATIVE 03/29/18 Hct 37.4 % (37-47) 03/29/18 Hgb 12.7 g/dl (12.0-15.0) 03/29/18 Pap Smear Negative 10/13/16 Rubella IgG Antibody 204.9 IU/mL 03/29/18 RPR NONREACTIVE (NONREACTIVE) 03/29/18 Hep Bs Antigen Negative (Negative) 03/29/18 Chlam trachomat DNA PCR Negative (Negative) 03/29/18 N.gonorrhoeae DNA (PCR) Negative (Negative) 03/29/18 Glucose 1 Hr 50 gm 142 mg/dL (70-140) H 03/29/18 Miscellaneous Test 04/20/18 Details: HIV: Urine Culture: Sequential Screen: NIPT Screen: Results [id number] Office Urine Glucose Negative Last Edit by Amy Siddiqui on 05/20/18 16:18 Office Urine Protein Negative Last Edit by Amy Siddiqui on 05/20/18 16:18 Assessment AND Plan Problems 1. screening encounter Z36.9 NIPT low risk fraction 4.3%. Wants gender in an envelope. 2. with history of infertility in first trimester O09.01 PRR KAILA 10/28/18 girl Dany IVF at [facility] 3. Rh negative status during in second trimester O09.892; Z67.91 rhogam PRN and at 28 weeks 4. BMI greater than 40 1 tm glucola, after 32 weeks growth us and nsts 5. Abnormal glucose in , antepartum O99.810 3 hr normal 6. 17 weeks gestation of Z3A.17 7. Mild episode of recurrent major depressive disorder F33.0 celexa 8. Obstructive sleep apnea syndrome G47.33 Plan ACOG trimester education reviewed and updated. see problem list details for updated plan management information and see below for orders placed at this visit. GA appropriate handout given. Orders Orders: Coding Level of Care Code OB Routine Diagnoses screening encounter Z36.9 with history of infertility in first trimester O09.01 Trimester: first trimester Rh negative status during in second trimester O09.892; Z67.91 Trimester: second trimester BMI greater than 40 Abnormal glucose in , antepartum O99.810 17 weeks gestation of Z3A.17 Weeks of gestation: 17 weeks Mild episode of recurrent major depressive disorder F33.0 Depression Type: major depressive disorder Major depression recurrence: recurrent Active/Remission status: currently active Major depression episode severity: mild Obstructive sleep apnea syndrome G47.33 Sleep apnea type: obstructive 05/20/18 1640 <Electronically signed by Jacklyn Estevez MD> Date Jacklyn Avalos Signature: Date (if applicable) CC: FOLATES, (FOLIC ACID) Collected: 04/20/2018 Status: F Source: MOHSEN 4:32 PM [facility] REPOSITORY Order Comment: DR. BARTON WANTS THE FOL B12 VITD DR. ESTEVEZ WANTS THE MISC Comments: PANORAMA Is Patient Taking Vitamins or Folic Acid Supplements? N TYPE CODE TESTS RESULT OUT OF RANGE REFERENCE UNITS LAB L506.0250 3.1-55.4 ng/mL Normal FOLATES 44.60 Performed By: #### L506.0250 #### [facility] [address] [place], [address] VITAMIN B12 Collected: 04/20/2018 Status: F Source: MOHSEN 4:32 PM [facility] REPOSITORY Order Comment: DR. BARTON WANTS THE FOL B12 VITD DR. ESTEVEZ WANTS THE [place] TYPE CODE TESTS RESULT OUT OF RANGE REFERENCE UNITS LAB L503.0105 211-911 pg/mL Normal Vitamin B12 263 Performed By: #### L503.0105, L506.1000 #### [facility] [address] [place], [address] VITAMIN D,25 HYDROXY Collected: 04/20/2018 Status: F Source: [facility] 4:32 PM [facility] REPOSITORY Order Comment: DR. BARTON WANTS THE FOL B12 VITD DR[address] ESTEVEZ WANTS THE [place] TYPE CODE TESTS RESULT OUT OF RANGE REFERENCE UNITS LAB L506.1000 29.95-100.01 ng/mL Normal Vitamin D 40.3 25-OH Result Comment: Vitamin D 25(OH) Status Range Deficiency <20 ng/mL (50nmol/L) Insuffciency 20 - 30 ng/mL (50 - 75 nmol/L) Sufficiency 30 - 100 ng/mL (75 - 250 nmol/L) Toxicity >100 ng/mL (>250 nmol/L) Performed By: #### L503.0105, L506.1000 #### [facility] [address] [place], [address] MISCELLANEOUS LAB Collected: 04/20/2018 Status: F Source: [facility] PROCEDURE 4:32 PM [facility] REPOSITORY Order Comment: DR. BARTON WANTS THE FOL B12 VITD DR. ESTEVEZ WANTS THE [place] Comments: PANORAMA Test(s) Ordered: PANORAMA TYPE CODE TESTS RESULT OUT OF RANGE REFERENCE UNITS LAB L801.1541 Normal [place] TEST Result Comment: Sent directly to testing facility per ordering physician. 04/30/18 1149 MYOUNG Performed By: #### L801.1541 #### [place] [facility] [address] [place], [address] 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 OFFICE VISIT Observed: 04/13/2018 Status: F Source: [facility] REPORT 3:48 PM [facility] REPOSITORY [facility] [address] [place] [address] OFFICE VISIT Date of Service: 04/13/18 MR#: [id number] Acct: [id number] Name: BELEN IRELAND Rep #: [id number] : 1985 Provider: Jacklyn Estevez MD Age/Sex: 32/F Location: [facility] [place] Status: Signed Intake Vital Signs04/13/18 Height 5 ft 1 in 04/13/18 Weight: 263 lb 04/13/18 Body Mass Index (BMI) 49.6 04/13/18 Blood Pressure 130/91 Intake Visit Reasons: est ob 11 weeks Diversity Intern Required: No Accompanied by: Allergies bupropion [From Wellbutrin] Allergy (Mild, Verified 04/13/18 15:29) hives Medications cholecalciferol (vitamin D3) 2,000 unit capsule 4,000 unit PO QDAY cap 03/29/18 [History Confirmed 04/13/18] docosahexanoic acid 200 mg capsule mg PO 03/29/18 [History Confirmed 04/13/18] citalopram 20 mg tablet 20 mg PO QDAY #30 tab 04/13/18 [Rx Confirmed 04/13/18] Last Menstral Period: 01/21/18 Zika: Zika virus screening: Negative : No PFSH PFSH Medical History Depression (Acute) Sleep apnea (Chronic) Surgical History S/P removal of thyroid nodule (Resolved) S/P tonsillectomy (Resolved) Family History Father CVA (cerebral vascular accident) Diabetes Bladder cancer Social History Smoking Status: Former smoker alcohol intake: never substance use type: does not use caffeine: No what type of physical activity do you participate in: none seatbelt use: always do you feel safe at home: Yes 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 DatName GA/WeeksOutcome Route [facility] LocaProviderFOB e ht en ia tn 03/23/[id number] live birC-sectio Female epiduralWCH\ ANSHUL th - fuln l term Delivery Date: 03/23/18 On 03/29/18 @ 08:42 Lisa Marshall decels HPI est ob 11 weeks : Details: BELEN IRELAND is a 32 year old who presents for routine OB visit. OB Visit KAILA Calculator Estimated Delivery Date 10/28/18 Based on LMP (certain) 01/21/18 Current WG 11w 5d Number 1 Expected Delivery Route/Plan Initial Weight: 263 lb Date Weight BP Urine PrFHR FuHt Pres MoCTX DilationFetal StVisit NoProviderComments E ot v te GA G Effac lucose ed Visit Notes Visit Date: 04/13/18 no vb lof good fm no regular ctx. co having anxiety and depression symptoms Jacklyn Estevez MD on 04/13/18 ACOG First Trimester First Trimester: Desire for , Alcohol, Tobacco Cessation, Illicit/Recreational Drug/Substance Use, Intimate Partner Violence, Barriers to care, Unstable Housing, Communication Barriers, Environmental/Work Hazards, Anticipated Course of Care, Toxoplasmosis Precations, Use of Any medications, Sexual activity, Exercise, Dental Care, Sauna/Hot tub use, Seat Belt use, Childbirth classes/Hospital facilities, , Travel, Indications for US and Screening for Aneuploidy Diagnostics Diagnostics Labs Blood Type O NEGATIVE 03/29/18 Antibody Screen NEGATIVE 03/29/18 Hct 37.4 % (37-47) 03/29/18 Hgb 12.7 g/dl (12.0-15.0) 03/29/18 Rubella IgG Antibody 204.9 IU/mL 03/29/18 RPR NONREACTIVE (NONREACTIVE) 03/29/18 Hep Bs Antigen Negative (Negative) 03/29/18 Chlam trachomat DNA PCR Negative (Negative) 03/29/18 N.gonorrhoeae DNA (PCR) Negative (Negative) 03/29/18 Glucose 1 Hr 50 gm 142 mg/dL (70-140) H 03/29/18 Miscellaneous Test 04/05/18 Details: HIV: Urine Culture: Sequential Screen: NIPT Screen: Results [id number] Office Urine Glucose Negative Last Edit by April Keane on 04/13/18 15:22 Office Urine Protein Negative Last Edit by April Keane on 04/13/18 15:22 Assessment AND Plan Problems 1. with history of infertility in first trimester O09.01 PRR KAILA 3 Dany IVF at [facility] 2. BMI greater than 40 1 tm glucola, after 32 weeks growth us and nsts 3. 9 weeks gestation of Z3A.09 4. Mild episode of recurrent major depressive disorder F33.0 celexa 5. Obstructive sleep apnea syndrome G47.33 6. Rh negative status during O09.899; Z67.91 rhogam PRN and at 28 weeks 7. Abnormal glucose in , antepartum O99.810 3 hr normal Plan ACOG trimester education reviewed and updated. see problem list details for updated plan management information and see below for orders placed at this visit. GA appropriate handout given. Orders Orders: Medications New: Coding Level of Care Code OB Routine Diagnoses with history of infertility in first trimester O09.01 Trimester: first trimester BMI greater than 40 9 weeks gestation of Z3A.09 Weeks of gestation: 9 weeks Mild episode of recurrent major depressive disorder F33.0 Depression Type: major depressive disorder Major depression recurrence: recurrent Active/Remission status: currently active Major depression episode severity: mild Obstructive sleep apnea syndrome G47.33 Sleep apnea type: obstructive Rh negative status during O09.899; Z67.91 Abnormal glucose in , antepartum O99.810 04/13/18 1548 <Electronically signed by Jacklyn Estevez MD> Date Jacklyn Estevez MD Cosigner Signature: Date (if applicable) CC: MISCELLANEOUS LAB Collected: 04/05/2018 Status: F Source: MOHS[place] PROCEDURE 4:48 PM [facility] REPOSITORY Order Comment: Test(s) Ordered: SEND OUT TO [facility], SPECIAL BROWN/BLACK TOPS TYPE CODE TESTS RESULT OUT OF RANGE REFERENCE UNITS LAB L801.1541 Normal [place] [facility] TEST Result Comment: Sent directly to testing facility per ordering physician. @ 04/06/18 0900 MYOUNG Performed By: #### L801.1541 #### [facility] [address] [place], [address] GESTATIONAL GTT 3HR Collected: 04/02/2018 Status: F Source: MOHSEN 100G 6:45 AM [facility] REPOSITORY Order Comment: Is Patient Fasting? Y TYPE CODE TESTS RESULT OUT OF RANGE REFERENCE UNITS LAB L501.0650 <105 mg/dL Normal GLU 88 GTT-FASTING Result Comment: GLUCOSE TOLERANCE TEST FOR Reference Interval GESTATIONAL DIABETES Fasting <105 mg/dL 1 hour <190 mg/dl 2 hour <165 mg/dl 3 hour <145 mg/dl LAB L501.0660 <190 mg/dL Normal GLU GTT- 1HR 120 LAB L501.0670 <165 mg/dL Normal GLU GTT- 2HR 159 LAB L501.0680 <145 L Normal GLU GTT- 3HR 122 Performed By: #### L500.4710 #### [facility] [address] [place], [address] CBC W/DIFF, AUTOMATED Collected: 03/29/2018 Status: F Source: MOHSEN 9:24 AM [facility] REPOSITORY TYPE CODE TESTS RESULT OUT OF RANGE REFERENCE UNITS LAB L100.1000 4.4-11.0 K/mm3 High WBC 11.9 LAB L100.1200 4.2-5.4 M/mm3 Low RBC 4.19 LAB L100.1300 12.0-15.0 g/dl Normal HGB 12.7 LAB L100.1400 37-47 % Normal HCT 37.4 LAB L100.1500 81-99 fL Normal MCV 89.3 LAB L100.1600 27.0-32.0 pg Normal MCH 30.3 LAB L100.1700 32-36 g/gl Normal MCHC 34.0 LAB L100.1810 11.6-14.6 % Normal RDW CV 13.4 LAB L100.1820 35.1-43.9 fl Normal RDW SD 43.2 LAB L100.1900 150-450 K/mm3 Normal PLT 364 LAB L100.2000 6.2-12.0 fl Normal MPV 10.0 LAB L100.2100 47-70 % High NEUT% 71.5 LAB L100.2200 19-41 % Normal LY% 24.2 LAB L100.2300 0-10 % Normal MONO% 3.0 LAB L100.2400 0-5 % Normal EO% 1.0 LAB L100.2500 0-1 % Normal BASO% 0.2 LAB L100.2550 0.0-0.9 % Normal IM GRAN % 0.100 Result Comment: IG% - Immature Granulocytes (promyelocytes, myelocytes and metamyelocytes) > 1% indicates that a LEFT SHIFT is Present. LAB L100.2620 2.0-7.7 X10 3/uL High Absolute Neut 8.5 LAB L100.2720 0.83-4.51 X10 3/ul Normal Absolute Lymph 2.88 Performed By: #### L100.0100 #### [facility] [address] [place], [place], [address] GLUCOSE CHALLENGE GEST Collected: 03/29/2018 Status: F Source: MOHS[place] 1H 50G 9:24 AM [facility] REPOSITORY TYPE CODE TESTS RESULT OUT OF RANGE REFERENCE UNITS LAB L501.0250 70-140 mg/dL High GLU GEST 142 50g 1H Performed By: #### L501.0250, L8200.2000 #### [facility] [address] [place], [address] CT/NG WCH BY PCR Collected: 03/29/2018 Status: F Source: MOHSEN 9:24 AM [facility] REPOSITORY TYPE CODE TESTS RESULT OUT OF RANGE REFERENCE UNITS LAB L8200.2100 Negative Normal Chlam Negative Trac PCR LAB L8200.2200 Negative Normal NG by Negative PCR Performed By: #### L501.0250, L8200.2000 #### [facility] [address] [place], [address] RUBELLA IGG Collected: 03/29/2018 Status: F Source: MOHSEN 9:24 AM [facility] REPOSITORY Order Comment: Comments: PANORAMA JESSICAATEL;FED-EX TYPE CODE TESTS RESULT OUT OF RANGE REFERENCE UNITS LAB L509.4000 IU/mL Normal Rubella IgG 204.9 Result Comment: Antibody results Interpretation of Immune Status < 5 IU/ml Presumed Non-immune 5 - < 10 IU/ml Equivocal > or = 10 IU/ml Presumed Immune Performed By: #### L509.4000, L3890.6005, M100.0650 #### [facility] [address] [place], [address] HIV - WCH Collected: 03/29/2018 Status: F Source: MOHSEN 9:24 AM [facility] REPOSITORY Order Comment: Comments: PANORAMA PRENATEL;FED-EX TYPE CODE TESTS RESULT OUT OF RANGE REFERENCE UNITS LAB L3890.6005 Nonreactive Normal HIV - WCH Non-Reactive Performed By: #### L509.4000, L3890.6005, M100.0650 #### [facility] [address] [place], [address] Observed: 03/29/2018 Status: F Source: MOHSEN CULTURE, URINE 9:24 AM [facility] REPOSITORY Urine Culture ORGANISM 1: Mixed Gram Positive Organisms [place] Count 1000-10,000 MIX CULTURE Mixed contaminants. Submit a new specimen if indicated. Performed By: #### L509.4000, L3890.6005, M100.0650 #### [facility] [address] [place] [address]. [place], [place], [id number] TYPE AND SCREEN Collected: 03/29/2018 Status: F Source: MOHSEN 9:24 AM [facility] REPOSITORY Order Comment: Reason for Type AND Screen/Red Cells: TYPE CODE TESTS RESULT OUT OF RANGE REFERENCE UNITS LAB B10.0800 O Normal BLOOD TYPE GEL NEGATIVE LAB B100.4000 Normal Antibody NEGATIVE Screen Performed By: #### B101.7450 #### [facility] [address] [place] [address]. [place], [address] #### L3100.0390 #### [facility] (refer to report for specific site) refer to report for address and phone number HEPATITIS B SURFACE Collected: 03/29/2018 Status: F Source: MOHSEN AG 9:24 AM [facility] REPOSITORY TYPE CODE TESTS RESULT OUT OF RANGE REFERENCE UNITS LAB L3100.0400 Negative Normal HB Negative SURF AG Result Comment: Performed at: [facility] [id number] Jig Boring Machine Operator For Metal: Juan Valentine PhD, Phone: [phone] Performed By: #### B101.7450 #### [facility] [address] [place] [address]. [place], [address] #### L3100.0390 #### [facility] (refer to report for specific site) refer to report for address and phone number RAPID PLASMIN REAGIN Collected: 03/29/2018 Status: F Source: MOHSEN (RPR) 9:24 AM [facility] REPOSITORY TYPE CODE TESTS RESULT OUT OF REFERENCE UNITS RANGE LAB L700.5000 NONREACTIVE NONREACTIVE Normal RPR Performed By: #### L700.5000 #### [facility] [address] [place] [address]. [place], [address] MISCELLANEOUS LAB Collected: 03/29/2018 Status: F Source: MOHS[place] PROCEDURE 9:24 AM [facility] REPOSITORY Order Comment: THIS SPECIMEN GETS SENT OUT THROUGH FED EX PICKUP Comments: PANORAMA PRENATEL;FED-EX Test(s) Ordered: PANORAMA PRENATEL;FED-EX TYPE CODE TESTS RESULT OUT OF RANGE REFERENCE UNITS LAB L801.1541 Normal [place] TEST Result Comment: Sent directly to testing facility per ordering physician. @ 04/05/18 1422 MYOUNG Performed By: #### L801.1541 #### [facility] [address] 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 [place] [address] OFFICE VISIT Date of Service: 03/29/18 MR#: [id number] Acct: [id number] Name: BELEN IRELAND Rep #: [id number] : 1985 Provider: Jacklyn Estevez MD Age/Sex: 32/F Location: [facility] [place] Status: Signed Intake Vital Signs03/29/18 Height 5 ft 1 in 03/29/18 Weight: 260 lb 2 oz 03/29/18 Body Mass Index (BMI) 49.1 03/29/18 Blood Pressure 132/89 Intake Visit Reasons: NOB - DUE IN OCTOBER (IVF) Diversity Intern Required: No Accompanied by: Is patient in pain?: No Allergies bupropion [From Wellbutrin] Allergy (Mild, Verified 03/29/18 08:10) hives Medications cholecalciferol (vitamin D3) 2,000 unit capsule 4,000 unit PO QDAY cap 03/29/18 [History Confirmed 03/29/18] conjugated estrogens 0.3 mg tablet 0.3 mg PO QDAY 03/29/18 [History Confirmed 03/29/18] docosahexanoic acid 200 mg capsule mg PO 03/29/18 [History Confirmed 03/29/18] progesterone 50 mg/mL intramuscular oil 5 mg IM QDAY 03/29/18 [History Confirmed 03/29/18] Last Menstral Period: 01/21/18 Zika: Zika virus screening: Negative : No [facility] Medical History Depression (Acute) Sleep apnea (Chronic) Surgical History S/P removal of thyroid nodule (Resolved) S/P tonsillectomy (Resolved) Family History Father CVA (cerebral vascular accident) Diabetes Bladder cancer Social History Smoking Status: Former smoker alcohol intake: never substance use type: does not use caffeine: No what type of physical activity do you participate in: none seatbelt use: always do you feel safe at home: Yes 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 DatName GA/WeeksOutcome Route [facility] RajangInharman Chu LgAnesthesDel LocaProviderFOB e ht en ia tn 03/23/[id number] live birC-sectio Female epiduralWCH\ ANSHUL th - fuln l term Delivery Date: 03/23/18 On 03/29/18 @ 08:42 Lisa Marshall decels HPI NOB - DUE IN OCTOBER (IVF): Details: BELEN IRELAND is a 32 year old who presents for New OB visit. OB Visit KAILA Calculator Estimated Delivery Date 10/28/18 Based on LMP (certain) 01/21/18 Current WG 9w 4d Number 1 Menstrual History Last Menstral Period: 01/21/18 Reported LMP: definite Normal amount/duration: Yes On hormonal BC at conception: No Antepartum Record Genetic Screening: Congenital Heart Defect: Other, Neural Tube Defect: Other, Hemoglobinopathy Or Carrier: Other, Cystic Fibrosis: Other, Chromosome Abnormality: Other, Matthew-Sachs: Other, Hemophilia: Other, Intellectual Disability/Autism: Other, Recurrent Loss/Stillbirth: Other, Other Structural Defect: Other, Other Genetic Disease: Other, Maternal Metabolic Disorder: Other Infection History: Live with someone with TB or Exposed to TB: No, Patient or Partner has history of Genital Herpes: No, Rash or Viral illness since last mentrual period: No, Prior GBS-Infected child: No, History of STD: No, HIV Infection: No, History of Hepatitis: No, Recent travel outside of [place]: No, Concern for Hep exposure: No, Varicella immune: Yes Medical History Medical History: Positive: Depression/ depression, Drug/latex allergies/reactions, Infertility (third infertility cycle with [facility]), Negative: Diabetes, Hypertension, Heart disease, Auto-immune disorder, Kidney disease/UTI, Neurologic/epilepsy, Psychiatric, Hepatitis/liver disease, Varicosities/phlebitis, Thyroid dysfunction, Trauma/domestic violence, History of blood transfusions, D (Rh) Sensitized, Pulmonary (e.g.,TB,Asthma), Seasonal allergies, Breast, Drywall Stripper Helper surgery, Operations/hospitalizations, Anesthetic complications, History of abnormal pap, Uterine anomaly/alonzo, Anti-retroviral treatment, Relevant family history, Other ACOG First Trimester First Trimester: Desire for , Alcohol, Tobacco Cessation, Illicit/Recreational Drug/Substance Use, Intimate Partner Violence, Barriers to care, Unstable Housing, Communication Barriers, Environmental/Work Hazards, Anticipated Course of Care, Nurtrition and weight gain, Toxoplasmosis Precations, Use of Any medications, Sexual activity, Exercise, Dental Care, Sauna/Hot tub use, Seat Belt use, Childbirth classes/Hospital facilities, , Travel, Indications for US and Screening for Aneuploidy ROS Const Denies fever(s), Reports system reviewed and no additional complaints, except as docu, Reports fatigue Eyes Reports system reviewed and no additional complaints, except as docu ENT Reports system reviewed and no additional complaints, except as docu Card Denies chest pain, Denies shortness of breath Resp Reports system reviewed and no additional complaints, except as docu, Denies shortness of breath, Denies cough GI Reports nausea, Denies abdominal pain Reports system reviewed and no additional complaints, except as docu Musc Reports system reviewed and no additional complaints, except as docu Skin/Breast Reports system reviewed and no additional complaints, except as docu Neuro Yes system reviewed and no additional complaints, except as docu Psych Reports system reviewed and no additional complaints, except as docu Endo Reports fatigue, Reports system reviewed and no additional complaints, except as docu Exam Const General: healthy appearing, comfortable, no acute distress Orientation: alert [facility] Head: normal to inspection, atraumatic, normocephalic Ears: external ears normal, hearing grossly normal bilaterally Nose: nares normal, external nose normal Mouth: oral mucosae normal Teeth and gingiva: dentition normal Eyes General: appearance normal, both eyes and all related structures Neck Neck: no lymphadenopathy, supple, normal visual inspection Thyroid: thyroid normal Chest Chest palpation AND inspection: normal inspection of the chest Breast inspection: normal inspection of the breasts, normal inspection of the axillae Breast palpation: normal palpation of the breasts, normal palpation of the axillae Resp Effort AND Inspection: normal respiratory effort GI Inspection: normal to inspection Palpation: soft, no hepatosplenomegaly General: bladder normal to palpation External Female Exam: normal external appearance, normal appearance of the urethra Urethra: normal appearance of the urethra Speculum Exam - Vagina: normal appearance of the vagina, normal vaginal discharge Speculum Exam - Cervix: normal appearance of the cervix Bimanual Exam- Vagina AND Uterus: bladder normal to palpation, normal bimanual exam, uterus non-tender, other Bimanual Exam- Adnexa, other: adnexae non-tender Skin General: no rashes or lesions noted Neuro Motor: muscle tone normal throughout, no movement abnormalities noted Extrem General: normal to inspection, full ROM Assessment AND Plan Problems 1. with history of infertility in first trimester O09.01 KAILA 10/28/18 Dany IVF at [facility] 2. 9 weeks gestation of Z3A.09 3. Mild episode of recurrent major depressive disorder F33.0 4. Obstructive sleep apnea syndrome G47.33 5. BMI greater than 40 1 tm glucola, after 32 weeks growth us and nsts Plan Patient oriented to practice and discussed care expectations and screenings. OG book offered to patient. Discussed routine and specially indicated labs if needed- patient consents to testing. see problem list details for plan information. Genetic screening including carrier screenings, sequential screening, and NIPT screening offered to patient and patient chose: plans NIPT Orders Orders: Supplemental Info ACOG book given and patient encouraged to read about nutrition, exercise, weight gain, and food avoidance in . Coding Level of Care Code OB Routine Diagnoses with history of infertility in first trimester O09.01 Trimester: first trimester 9 weeks gestation of Z3A.09 Weeks of gestation: 9 weeks Mild episode of recurrent major depressive disorder F33.0 Depression Type: major depressive disorder Major depression recurrence: recurrent Active/Remission status: currently active Major depression episode severity: mild Obstructive sleep apnea syndrome G47.33 Sleep apnea type: obstructive BMI greater than 40 03/29/18 0901 <Electronically signed by Jacklyn Estevez MD> Date Jacklyn Avalos Signature: Date (if applicable) CC: Observed: 03/29/2018 Status: F Source: [place] CULTURE, URINE 9:00 AM [facility] REPOSITORY Urine Culture ORGANISM 1: Mixed Gram Positive Organisms [place] Count 1000-10,000 MIX CULTURE Mixed contaminants. Submit a new specimen if indicated. Performed By: #### M100.0650 #### [facility] [address] [place], [address] PAP IG HPV APTIMA Collected: 03/29/2018 Status: F Source: BELLE [place]AVEN 16/18,45 9:00 AM [facility] REPOSITORY Order Comment: CYTOLOGY INFORMATION: - CLINICAL INFORMATION: - DATE LMP/MENOPAUSE: UNKNOWN LMP - COLLECTION VIAL: Thin Prep Vial - SERVER PROGRAMMER SOURCE: CERVICAL - COLLECTION TECHNIQUE: CX BROOM ONLY Specimen Comment: [id number] Specimen Comment: No. of containers..01 ThinPrep Vial TYPE CODE TESTS RESULT OUT OF RANGE REFERENCE UNITS LAB L7400.0800 . Normal DIAGN Comment Result Comment: NEGATIVE FOR INTRAEPITHELIAL LESION AND MALIGNANCY. THIS SPECIMEN WAS RESCREENED PART OF OUR HOT DIP PLATING SUPERVISOR PROGRAM. LAB L7400.0900 . Normal ADEQ Comment Result Comment: Satisfactory for evaluation. Endocervical and/or squamous metaplastic cells (endocervical component) are present. LAB L7400.1400 . Normal PERFORM Comment Result Comment: Malcom Cherry, [employer] ([employer]) LAB L7400.1500 . Normal QC Comment REV Result Comment: Chary Weinberg, [employer] ([employer]) LAB L7400.2575 . Normal TEST METHOD Comment Result Comment: This liquid based ThinPrep(R) pap test was screened with the use of an image guided system. LAB L7400.2600 . Normal . COMM LAB L7400.2700 . Normal PAPSMR Comment Result Comment: The Pap smear is a screening test designed to aid in the detection of premalignant and malignant conditions of the uterine cervix. It is not a diagnostic procedure and should not be used as the sole means of detecting cervical cancer. Both false-positive and false-negative reports do occur. LAB L7400.2760 Negative Normal HPV APTIMA, Negative HR Result Comment: This test detects fourteen high-risk HPV types (16/18/31/33/35/39/45/ 51/52/56/58/59/66/68) without differentiation. Performed at: - [facility] [id number] Jig Boring Machine Operator For Metal: Mckenna Vasquez MD, Phone: [phone] Performed at: = - [facility] [id number] Jig Boring Machine Operator For Metal: Mckenna Vasquez MD, Phone: [phone] Performed By: #### L7400.0280 #### [facility] (refer to report for specific site) refer to report for address and phone number PROGRESS Observed: 03/08/2018 Status: COMPLETED Source: [place] 2:57 PM [facility] REPOSITORY HNO ID: [id number] Author: Nigel Mcconnell Service: (none) Author Type: Physician Type: Progress Notes Filed: 03/08/2018 2:58 PM Note Text: TRANSVAGINAL OB ULTRASONOGRAM Single viable IUP c/w dates Ovaries - normal No free fluid See imaging tab Nigel Mcconnell MD PROGRESS Observed: 03/08/2018 Status: COMPLETED Source: WAVER[place] 8:50 AM [facility] REPOSITORY HNO ID: [id number] Author: Andrés Calderón Service: (none) Author Type: Physician Type: Progress Notes Filed: 03/08/2018 8:51 AM Note Text: Please see ultrasound report in the imaging tab for details of this visit. Andrés Calderón MD PROGRESS Observed: 03/08/2018 Status: COMPLETED Source: W[place]ER[place] 8:11 AM [facility] REPOSITORY HNO ID: [id number] Author: Dianna BeckerRn) AYESHA Abraham Service: (none) Author Type: Registered Nurse Type: Progress Notes Filed: 03/08/2018 2:58 PM Note Text: Pt seen for OB viability US. Impression:viable intrauterine size = dates. FHR 129 See imaging tab for detailed note. Pt advised to continue estrogen and progesterone supplementation as directed through 10 weeks gestation ; 04/01/18 f/u with OB. Dianna Abraham RN March 08, 2018 8:14 AM CNNURSE Observed: 03/08/2018 Status: COMPLETED Source: [place] 7:30 AM [facility] REPOSITORY Nurse Visit (REIBD) BELEN IRELAND ([id number]) 1985 F Date Time Provider Department 03/08/18 7:30 AM NURSE [facility] BEAC REIBD During your visit today, we recorded the following information about you: Dianna Abraham RN, RN 03/08/2018 2:58 PM Signed Pt seen for OB viability US. Impression:viable intrauterine size = dates. FHR 129 See imaging tab for detailed note. Pt advised to continue estrogen and progesterone supplementation as directed through 10 weeks gestation ; 04/01/18 f/u with OB. Dianna Abraham RN March 08, 2018 8:14 AM Nigel Mcconnell MD 03/08/2018 2:58 PM Signed TRANSVAGINAL OB ULTRASONOGRAM Single viable IUP c/w dates Ovaries - normal No free fluid See imaging tab Nigel Mcconnell MD Referring Provider: SELF [200] Allergies As of Date: 03/08/2018 Noted Allergy Reaction WELLBUTRIN (BUPROPION HCL) 10/09/2016 4 - Hives Date Reviewed: 02/03/2018 Reviewed by: Abby Osuna ([facility]) Fiordaliza - Fully Assessed Reason for Visit: US [4057] Primary Visit Diagnosis: resulting from in vitro fertilization in first trimester [O09.811] Prescriptions as of 03/08/2018 Sig: METHYLPREDNISOLONE 16 MG TABL* Take 1 tablet by mouth once d* DOXYCYCLINE HYCLATE 100 MG TA* Take 1 tablet by mouth twice * PROGESTERONE 50 MG/ML INTRAMU* Use as directed ESTRADIOL 2 MG TABLET Take 1 tablet by mouth three * DOXYCYCLINE HYCLATE 100 MG TA* Take 1 tablet by mouth twice * ORAL Take by mouth. FOLIC ACID ORAL Take by mouth. Problem List As Of Date 03/08/2018 Noted Resolved Obesity, Class III, BMI >= 40 (morbid obesity) *INVALID FOR* Female infertility [N97.9] INVALID FOR* More... Encounter Status:Closed by NIGEL MCCONNELL MD on 03/08/18 PROGRESS Observed: 03/01/2018 Status: COMPLETED Source: [place] 4:14 PM [facility] REPOSITORY HNO ID: [id number] Author: Nigel Mcconnell Service: (none) Author Type: Physician Type: Progress Notes Filed: 03/01/2018 4:16 PM Note Text: TRANSVAGINAL ULTRASONOGRAM OB US at 5.5 weeks EGA by ET Single 5 mm gest sac but no yolk sac or pole yet Ovaries - normal No free fluid See imaging tab Nigel Mcconnell MD CNOV Observed: 03/01/2018 Status: COMPLETED Source: [place] 8:00 AM [facility] REPOSITORY Office Visit (FLABBD) BEELN IRELAND ([id number]) 1985 F Date Time Provider Department 03/01/18 8:00 AM [facility]S FLABBD During your visit today, we recorded the following information about you: Kelsie Danielson Ma 03/04/2018 6:27 AM Signed Belen Ireland [id number] Lab draw by Kelsie Danielson Ma 03/01/2018 Referring Provider: SELF [200] Allergies As of Date: 03/01/2018 Noted Allergy Reaction WELLBUTRIN (BUPROPION HCL) 10/09/2016 4 - Hives Date Reviewed: 02/03/2018 Reviewed by: Abby Osuna ([facility]) [place] - Fully Assessed Primary Visit Diagnosis: resulting from in vitro fertilization in first trimester [O09.811] Prescriptions as of 03/01/2018 Sig: METHYLPREDNISOLONE 16 MG TABL* Take 1 tablet by mouth once d* DOXYCYCLINE HYCLATE 100 MG TA* Take 1 tablet by mouth twice * PROGESTERONE 50 MG/ML INTRAMU* Use as directed ESTRADIOL 2 MG TABLET Take 1 tablet by mouth three * DOXYCYCLINE HYCLATE 100 MG TA* Take 1 tablet by mouth twice * ORAL Take by mouth. FOLIC ACID ORAL Take by mouth. Problem List As Of Date 03/01/2018 Noted Resolved Obesity, Class III, BMI >= 40 (morbid obesity) *INVALID FOR* Female infertility [N97.9] INVALID FOR* More... Visit Notes: >> Kelsie Danielson Ma [facility] Mar 04, 2018 6:25 AM Status: Signed Belen Ireland [id number] Lab draw by Kelsie Danielson Ma 03/01/2018 Encounter Status:Closed by KELSIE DANIELSON MA on 03/04/18 PROGRESS Observed: 03/01/2018 Status: COMPLETED Source: [place] 7:55 AM [facility] REPOSITORY HNO ID: [id number] Author: Dianna (Ayesha) AYESHA Abraham Service: (none) Author Type: Registered Nurse Type: Progress Notes Filed: 03/01/2018 4:16 PM Note Text: Belen Ireland, a 32 year old [id number] has a positive test from IVF. Date of Embryo Transfer: 02/09/18, # of embryos transferred: 2 Gestational age today: 5w 4 d HCG levels: Component Latest Ref Rng AND Units 03/01/2018 hCG Quantitative, Blood <5.0 mU/mL 3,023.0 (H) ultrasound done on 03/01/18 Results: intrauterine gestational sac measuring 5mm Labs Blood Type: Oneg History of Ectopic:No History of Miscarriage: No History of Abdominal Surgery: No Pain:No Bleeding: No Plan:repeat OB US in 1 week Progesterone: Takinmg IM daily Stop Date: 04/01/18 Pt advised to:Return for US on 03/08/18 at 0730am Dianna Abraham RN CNNURSE Observed: 03/01/2018 Status: COMPLETED Source: [place] 7:30 AM [facility] REPOSITORY Nurse Visit (REIBD) BELEN IRELAND ([id number]) 1985 F Date Time Provider Department 03/01/18 7:30 AM NURSE ELY [facility] SHREYA FOWLER During your visit today, we recorded the following information about you: Dianna Abraham RN, RN 03/01/2018 4:16 PM Signed Belen Ireland, a 32 year old [id number] has a positive test from IVF. Date of Embryo Transfer: 02/09/18, # of embryos transferred: 2 Gestational age today: 5w 4 d HCG levels: Component Latest Ref Rng AND Units 03/01/2018 hCG Quantitative, Blood <5.0 mU/mL 3,023.0 (H) ultrasound done on 03/01/18 Results: intrauterine gestational sac measuring 5mm Labs Blood Type: Oneg History of Ectopic:No History of Miscarriage: No History of Abdominal Surgery: No Pain:No Bleeding: No Plan:repeat OB US in 1 week Progesterone: Takinmg IM daily Stop Date: 04/01/18 Pt advised to:Return for US on 03/08/18 at 0730am AYESHA Ramirez MD 03/01/2018 4:16 PM Signed TRANSVAGINAL ULTRASONOGRAM OB US at 5.5 weeks EGA by ET Single 5 mm gest sac but no yolk sac or pole yet Ovaries - normal No free fluid See imaging tab Nigel Mcconnell MD Referring Provider: SELF [200] Allergies As of Date: 03/01/2018 Noted Allergy Reaction WELLBUTRIN (BUPROPION HCL) 10/09/2016 4 - Hives Date Reviewed: 02/03/2018 Reviewed by: bAby Osuna ([facility]) Fi[place]iza - Fully Assessed Primary Visit Diagnosis: examination or test, unconfirmed [Z32.00] Other Visit Diagnosis: resulting from assisted reproductive technology in first trimester [O09.811] Order(s):OBSTETRIC ULTRASOUND [facility] [[id number]] Order #: [id number]: 1 Prescriptions as of 03/01/2018 Sig: METHYLPREDNISOLONE 16 MG TABL* Take 1 tablet by mouth once d* DOXYCYCLINE HYCLATE 100 MG TA* Take 1 tablet by mouth twice * PROGESTERONE 50 MG/ML INTRAMU* Use as directed ESTRADIOL 2 MG TABLET Take 1 tablet by mouth three * DOXYCYCLINE HYCLATE 100 MG TA* Take 1 tablet by mouth twice * ORAL Take by mouth. FOLIC ACID ORAL Take by mouth. Problem List As Of Date 03/01/2018 Noted Resolved Obesity, Class III, BMI >= 40 (morbid obesity) *INVALID FOR* Female infertility [N97.9] INVALID FOR* More... Encounter Status:Closed by NIGEL MCCONNELL MD on 03/01/18 HCG, QUANTITATIVE BL Collected: 03/01/2018 Status: F Source: [place] 6:59 AM [facility] REPOSITORY TYPE CODE TESTS RESULT OUT OF REFERENCE UNITS RANGE LAB HCGQT <5.0 mU/mL HCG, High Quantitative Bl 3023.0 Result Comment: QUANTITATIVE HCG NORMAL RANGES Weeks of Gestation (Weeks Since LMP) 3 Weeks (5.8-71.2 mIU/mL) 4 Weeks (9.5-750 mIU/mL) 5 Weeks (217-7138 mIU/mL) 6 Weeks (158-89549 mIU/mL) 7 Weeks (3697-832876 mIU/mL) 8 Weeks (17793-326191 mIU/mL) 9 Weeks (00979-792904 mIU/mL) 10 Weeks (01805-189368 mIU/mL) 12 Weeks (75686-006895 mIU/mL) Referenced to 4th IS of [facility] Performed By: #### TSH #### [facility] [address] [place], [place] [address] TSH Collected: 03/01/2018 Status: F Source: [place] 6:59 AM [facility] REPOSITORY TYPE CODE TESTS RESULT OUT OF RANGE REFERENCE UNITS LAB TSH 0.400-5.500 uU/mL TSH 3.450 Result Comment: If the patient is , TSH reference range varies by gestational period: First Trimester 0.100-2.500 uU/mL Second Trimester 0.200-3.000 uU/mL Third Trimester 0.300-3.000 uU/mL References: 1. Milligan L, Jaycee M, Lucien EK, et al. Management of Thyroid Dysfunction during and : An Endocrine Society Clinical Practice Guideline. J Clin Endocrinol Metab, 2012:97:8543-0587. 2. Wayne RAMEY. Overview of thyroid disease in . UpToDate. 2016. Accessed on February 08, 2016. Performed By: #### TSH #### [facility] [address] [place], [place] [address] CNNURSE Observed: 02/25/2018 Status: COMPLETED Source: [place] 6:00 PM [facility] REPOSITORY Nurse Visit (REIMN) BELEN IRELAND ([id number]) 1985 F Date Time Provider Department 02/25/18 6:00 PM NURSE ELY SALAS During your visit today, we recorded the following information about you: Cinthia Vernon, RN, RN 02/26/2018 3:22 PM Signed Belen Ireland, a 32 year old [id number] has a positive test from IVF. Chemical with fresh IVF cycle 11/08. Date of Embryo Transfer: 02/09/18, # of embryos transferred: 2 Gestational age today: 5 weeks HCG levels: Component Latest Ref Rng AND Units 02/23/2018 02/25/2018 hCG Quantitative, Blood <5.0 mU/mL 227.6 (H) 572.0 (H) Current Outpatient Prescriptions: methylPREDNISolone (MEDROL) 16 mg tablet Take 1 tablet by mouth once daily. Take as directed doxycycline (VIBRA-TABS) 100 mg tablet Take 1 tablet by mouth twice daily. progesterone 50 mg/mL injection Use as directed estradiol (ESTRACE) 2 mg tablet Take 1 tablet by mouth three times daily. Take as directed doxycycline (VIBRA-TABS) 100 mg tablet Take 1 tablet by mouth twice daily. PNV95/FERROUS FUMARATE/FA ( ORAL) Take by mouth. FOLIC ACID ORAL Take by mouth. No current facility-administered medications for this visit. ultrasound scheduled for Thursday 03/01 at 7:30 at . Results: TBD Labs see above. Blood Type: O negative History of Ectopic:No History of Miscarriage: No History of Abdominal Surgery: No Pain:No Bleeding: No Plan: Per Dr. Zavaleta plan on US and lab Thursday or Thursday next week. Patient to continue Estrace and IM progesterone. Progesterone: Taking: IM Stop Date: TBD Pt advised to: see above OB Provider: Patients Phone number: [phone] Cinthia Vernon RN Referring Provider: SELF [200] Allergies As of Date: 02/25/2018 Noted Allergy Reaction WELLBUTRIN (BUPROPION HCL) 10/09/2016 4 - Hives Date Reviewed: 02/03/2018 Reviewed by: Abby Osuna ([facility]) Fiordaliza - Fully Assessed Primary Visit Diagnosis: resulting from assisted reproductive technology in first trimester [O09.811] Order(s):HCG QUANTITATIVE [SQHCGQT] Order #: [id number] FUTURE TSH BLD [SQTSH] Order #: [id number] FUTURE OBSTETRIC ULTRASOUND [facility] [[id number]] Order #: [id number]: 1 Prescriptions as of 02/25/2018 Sig: METHYLPREDNISOLONE 16 MG TABL* Take 1 tablet by mouth once d* DOXYCYCLINE HYCLATE 100 MG TA* Take 1 tablet by mouth twice * PROGESTERONE 50 MG/ML INTRAMU* Use as directed ESTRADIOL 2 MG TABLET Take 1 tablet by mouth three * DOXYCYCLINE HYCLATE 100 MG TA* Take 1 tablet by mouth twice * ORAL Take by mouth. FOLIC ACID ORAL Take by mouth. Problem List As Of Date 02/25/2018 Noted Resolved Obesity, Class III, BMI >= 40 (morbid obesity) *INVALID FOR* Female infertility [N97.9] INVALID FOR* More... Follow-up and Disposition History Recorded Encounter Status:Closed by CALDERON ZAVALETA MD on 02/26/18 PROGRESS Observed: 02/25/2018 Status: COMPLETED Source: [place] 2:26 PM [facility] REPOSITORY HNO ID: [id number] Author: Cinthia Michaud) AYESHA Vernon Service: (none) Author Type: Registered Nurse Type: Progress Notes Filed: 02/26/2018 3:22 PM Note Text: Belen Ireland, a 32 year old [id number] has a positive test from IVF. Chemical with fresh IVF cycle 11/08. Date of Embryo Transfer: 02/09/18, # of embryos transferred: 2 Gestational age today: 5 weeks HCG levels: Component Latest Ref Rng AND Units 02/23/2018 02/25/2018 hCG Quantitative, Blood <5.0 mU/mL 227.6 (H) 572.0 (H) Current Outpatient Prescriptions: methylPREDNISolone (MEDROL) 16 mg tablet Take 1 tablet by mouth once daily. Take as directed doxycycline (VIBRA-TABS) 100 mg tablet Take 1 tablet by mouth twice daily. progesterone 50 mg/mL injection Use as directed estradiol (ESTRACE) 2 mg tablet Take 1 tablet by mouth three times daily. Take as directed doxycycline (VIBRA-TABS) 100 mg tablet Take 1 tablet by mouth twice daily. PNV95/FERROUS FUMARATE/FA ( ORAL) Take by mouth. FOLIC ACID ORAL Take by mouth. No current facility-administered medications for this visit. ultrasound scheduled for Thursday 03/01 at 7:30 at . Results: TBD Labs see above. Blood Type: O negative History of Ectopic:No History of Miscarriage: No History of Abdominal Surgery: No Pain:No Bleeding: No Plan: Per Dr. Zavaleta plan on US and lab Thursday or Thursday next week. Patient to continue Estrace and IM progesterone. Progesterone: Taking: IM Stop Date: TBD Pt advised to: see above OB Provider: Patients Phone number: [phone] Cinthia Vernon RN HCG, QUANTITATIVE BL Collected: 02/25/2018 Status: F Source: [place] 7:32 AM [facility] [place] REPOSITORY TYPE CODE TESTS RESULT OUT OF REFERENCE UNITS RANGE LAB HCGQT <5.0 mU/mL HCG, High Quantitative Bl 572.0 Result Comment: QUANTITATIVE HCG NORMAL RANGES Weeks of Gestation (Weeks Since LMP) 3 Weeks (5.8-71.2 mIU/mL) 4 Weeks (9.5-750 mIU/mL) 5 Weeks (217-7138 mIU/mL) 6 Weeks (158-12369 mIU/mL) 7 Weeks (3697-297860 mIU/mL) 8 Weeks (02105-043174 mIU/mL) 9 Weeks (95956-989563 mIU/mL) 10 Weeks (92033-037756 mIU/mL) 12 Weeks (32571-169500 mIU/mL) Referenced to 4th IS of [facility] CNNURSE Observed: 02/23/2018 Status: COMPLETED Source: [place] 6:00 PM [facility] [place] REPOSITORY Nurse Visit (REIMN) BELEN IRELAND ([id number]) 1985 F Date Time Provider Department 02/23/18 6:00 PM NURSE ELY SALAS During your visit today, we recorded the following information about you: Cinthia Vernon, RN, RN 02/24/2018 9:12 AM Signed Patient in for lab today. Referring Provider: SELF [200] Allergies As of Date: 02/23/2018 Noted Allergy Reaction WELLBUTRIN (BUPROPION HCL) 10/09/2016 4 - Hives Date Reviewed: 02/03/2018 Reviewed by: Abby Osuna ([facility]) Fi[place] - Fully Assessed Reason for Visit: Results [95] Primary Visit Diagnosis: resulting from assisted reproductive technology in first trimester [O09.811] Prescriptions as of 02/23/2018 Sig: METHYLPREDNISOLONE 16 MG TABL* Take 1 tablet by mouth once d* DOXYCYCLINE HYCLATE 100 MG TA* Take 1 tablet by mouth twice * PROGESTERONE 50 MG/ML INTRAMU* Use as directed ESTRADIOL 2 MG TABLET Take 1 tablet by mouth three * DOXYCYCLINE HYCLATE 100 MG TA* Take 1 tablet by mouth twice * ORAL Take by mouth. FOLIC ACID ORAL Take by mouth. Problem List As Of Date 02/23/2018 Noted Resolved Obesity, Class III, BMI >= 40 (morbid obesity) *INVALID FOR* Female infertility [N97.9] INVALID FOR* More... Encounter Status:Closed by CALDERON ZAVALETA MD on 02/24/18 PROGRESS Observed: 02/23/2018 Status: COMPLETED Source: [place] 8:22 AM [facility] REPOSITORY HNO ID: [id number] Author: Cinthia (Rn) AYESHA Vernon Service: (none) Author Type: Registered Nurse Type: Progress Notes Filed: 02/24/2018 9:12 AM Note Text: Patient in for lab today. HCG, QUANTITATIVE BL Collected: 02/23/2018 Status: F Source: [place] 7:32 AM [facility] REPOSITORY TYPE CODE TESTS RESULT OUT OF REFERENCE UNITS RANGE LAB HCGQT <5.0 mU/mL HCG, High Quantitative Bl 227.6 Result Comment: QUANTITATIVE HCG NORMAL RANGES Weeks of Gestation (Weeks Since LMP) 3 Weeks (5.8-71.2 mIU/mL) 4 Weeks (9.5-750 mIU/mL) 5 Weeks (217-7138 mIU/mL) 6 Weeks (158-00219 mIU/mL) 7 Weeks (3697-488982 mIU/mL) 8 Weeks (57202-805263 mIU/mL) 9 Weeks (50505-358188 mIU/mL) 10 Weeks (78908-509826 mIU/mL) 12 Weeks (48036-989795 mIU/mL) Referenced to 4th IS of [facility] CBC W/DIFF, AUTOMATED Collected: 02/19/2018 Status: F Source: [place] 2:30 PM [facility] REPOSITORY TYPE CODE TESTS RESULT OUT OF RANGE REFERENCE UNITS LAB L100.1000 4.4-11.0 K/mm3 High WBC 13.2 LAB L100.1200 4.2-5.4 M/mm3 Low RBC 4.19 LAB L100.1300 12.0-15.0 g/dl Normal HGB 12.7 LAB L100.1400 37-47 % Normal HCT 37.9 LAB L100.1500 81-99 fL Normal MCV 90.5 LAB L100.1600 27.0-32.0 pg Normal MCH 30.3 LAB L100.1700 32-36 g/gl Normal MCHC 33.5 LAB L100.1810 11.6-14.6 % Normal RDW CV 13.4 LAB L100.1820 35.1-43.9 fl Normal RDW SD 43.7 LAB L100.1900 150-450 K/mm3 Normal PLT 363 LAB L100.2000 6.2-12.0 fl Normal MPV 9.6 LAB L100.2100 47-70 % Normal NEUT% 65.5 LAB L100.2200 19-41 % Normal LY% 29.6 LAB L100.2300 0-10 % Normal MONO% 3.4 LAB L100.2400 0-5 % Normal EO% 1.1 LAB L100.2500 0-1 % Normal BASO% 0.2 LAB L100.2550 0.0-0.9 % Normal IM GRAN % 0.200 Result Comment: IG% - Immature Granulocytes (promyelocytes, myelocytes and metamyelocytes) > 1% indicates that a LEFT SHIFT is Present. LAB L100.2620 2.0-7.7 X10 3/uL High Absolute Neut 8.6 LAB L100.2720 0.83-4.51 X10 3/ul Normal Absolute Lymph 3.90 Performed By: #### L100.0100 #### [facility] [place] [facility] [address] [place], [place], [address] URINALYSIS, ROUTINE Collected: 02/19/2018 Status: F Source: [place] (DIPSTICK) 2:30 PM [facility] REPOSITORY Order Comment: How was Urine Obtained? CLEAN CATCH TYPE CODE TESTS RESULT OUT OF RANGE REFERENCE UNITS LAB L400.3000 Yellow COLOR Normal Yellow LAB L400.3050 Clear Normal CLARITY Clear LAB L400.3200 Normal mg/dl Normal GLUCOSE, UR Normal LAB L400.3300 Negative mg/dL Normal BILIRUBIN URINE Negative LAB L400.3400 Negative mg/dl Normal KETONE UR Negative LAB L400.3465 1.002-1.030 Normal SP.GR. DIPSTX 1.015 LAB L400.3550 5.0 - 8.0 pH UR Normal 6.5 LAB L400.3600 Negative mg/dl PROT Normal DIPSTX Negative LAB L400.3700 Normal mg/dl Normal UROBILI Normal LAB L400.3750 Negative Normal NITRITE UR Negative LAB L400.3780 Negative /ul High 50 OCCULT BLOOD-UR LAB L400.3800 Negative /ul LEUK Normal ESTERASE Negative Performed By: #### L400.2010 #### [facility] [place] [facility] [address] [place], [address] FREE T3 Collected: 02/19/2018 Status: F Source: [place] 2:30 PM [facility] REPOSITORY TYPE CODE TESTS RESULT OUT OF RANGE REFERENCE UNITS LAB L501.30704 2.18-3.98 pg/mL Normal FREE T3 2.8 Performed By: #### L501.04013, L501.9520, L506.0400 #### [facility] [place] [facility] [address] [place], [address] THYROID STIM HORMONE Collected: 02/19/2018 Status: F Source: [place] (TSH) 2:30 PM [facility] REPOSITORY TYPE CODE TESTS RESULT OUT OF RANGE REFERENCE UNITS LAB L501.9520 0.358-3.74 uIU/mL Normal TSH 1.32 Performed By: #### L501.44752, L501.9520, L506.0400 #### [facility] [place] [facility] [address] [place], [address] T4 FREE DIRECT Collected: 02/19/2018 Status: F Source: [place] 2:30 PM [facility] REPOSITORY TYPE CODE TESTS RESULT OUT OF RANGE REFERENCE UNITS LAB L506.0400 0.76-1.46 ng/dL Normal T4 FREE 1.14 DIRECT Performed By: #### L501.97507, L501.9520, L506.0400 #### [facility] [place] [facility] [address] [place], [address] VITAMIN B12 Collected: 02/19/2018 Status: F Source: [place] 2:30 PM [facility] REPOSITORY TYPE CODE TESTS RESULT OUT OF REFERENCE UNITS RANGE LAB L503.0105 211-911 pg/mL High Vitamin B12 984 Performed By: #### L503.0105, L506.1000 #### [facility] [place] [facility] [address] [place], [address] VITAMIN D,25 HYDROXY Collected: 02/19/2018 Status: F Source: [place] 2:30 PM [facility] REPOSITORY TYPE CODE TESTS RESULT OUT OF RANGE REFERENCE UNITS LAB L506.1000 29.95-100.01 ng/mL Normal Vitamin D 49.7 25-OH Result Comment: Vitamin D 25(OH) Status Range Deficiency <20 ng/mL (50nmol/L) Insuffciency 20 - 30 ng/mL (50 - 75 nmol/L) Sufficiency 30 - 100 ng/mL (75 - 250 nmol/L) Toxicity >100 ng/mL (>250 nmol/L) Performed By: #### L503.0105, L506.1000 #### [facility] [place] [facility] [address] [facility] [place], [address] Observed: 02/19/2018 Status: F Source: [place] CULTURE, URINE 2:30 PM [facility] REPOSITORY Urine Culture Below infection level. ORGANISM 1: Mixed Gram Positive Organisms [place] Count 1000-10,000 Performed By: #### M100.0650 #### [facility] [place] [facility] [address] [facility] [place], [address] PROTEIN ELECTRO.UR-RANDOM Collected: Status: F Source: [place] 02/19/2018 2:30 PM [facility] REPOSITORY TYPE CODE TESTS RESULT OUT OF RANGE REFERENCE UNITS LAB L3600.4100 Not Estab. mg/dL Normal 10.0 PROTEIN,UR LAB L3600.4200 . % Normal 34.9 ALBUMIN,UR LAB L3600.4300 . % Normal 10.1 DREEB-8-ZRGD ,U LAB L3600.4400 . % Normal 16.4 LVEDX-5-IDZK ,U LAB L3600.4500 . % Normal BETA 24.2 GLOB,U LAB L3600.4600 . % Normal GAMMA 14.4 GLOB,U LAB L3600.4720 Normal M-SPIKE,U Result Comment: Not Observed LAB L3600.4800 . Normal NOTE Comment Result Comment: Protein electrophoresis scan will follow via computer, mail, or instructional systems specialist delivery. Performed at: [facility] [id number] Jig Boring Machine Operator For Metal: Juan Valentine PhD, Phone: [phone] Performed By: #### L3600.4000 #### [facility] (refer to report for specific site) refer to report for address and phone number PROTEIN ELECTROPH, S Collected: 02/19/2018 Status: F Source: [place] 2:30 PM [facility] REPOSITORY TYPE CODE TESTS RESULT OUT OF RANGE REFERENCE UNITS LAB L3100.3500 6.0-8.5 g/dL Normal PROTEIN,TOTAL 6.8 LAB L3100.3600 2.9-4.4 g/dL Normal ALBUMIN 3.5 LAB L3100.3700 0.0-0.4 g/dL Normal ALPHA-1 GLOBUL 0.3 LAB L3100.3800 0.4-1.0 g/dL Normal ALPHA-2 GLOBUL 0.9 LAB L3100.3900 0.7-1.3 g/dL Normal BETA GLOBULIN 1.2 LAB L3100.4000 0.4-1.8 g/dL Normal GAMMA GLOBULIN 0.9 LAB L3100.4110 Normal M-SPIKE Result Comment: Not Observed LAB L3100.4200 2.2-3.9 g/dL GLOBULIN, TOTAL Normal 3.3 LAB L3100.4300 0.7-1.7 A/G RATIO Normal 1.1 LAB L3100.4320 . INTERPRETATION Normal Comment Result Comment: Protein electrophoresis scan will follow via computer, mail, or instructional systems specialist delivery. LAB L3100.4340 . Normal NOTE: Comment Result Comment: The SPE pattern appears essentially unremarkable. Evidence of monoclonal protein is not apparent. Performed at: [facility] [id number] Jig Boring Machine Operator For Metal: Juan Valentine PhD, Phone: [phone] Performed By: #### L3100.3450 #### [facility] (refer to report for specific site) refer to report for address and phone number PROCEDURE Observed: 02/09/2018 Status: COMPLETED Source: [place] 9:18 PM [facility] REPOSITORY [facility] ID: [id number] Author: Rose Yuan Service: (none) Author Type: Physician Type: Procedures Filed: 02/09/2018 9:19 PM Note Text: WHI ELY TRANSFER PROCEDURE NOTE Date: 02/09/2018 Primary Proceduralist: Tika Pittman MD Tile Mechanic Helper(s): Not applicable Informed Consent: Indications: Belen Ireland, is a 32 year old female here today for Embryo Transfer. TRANSFER Transfer Date: 02/09/18 Transfer Procedure: Embryo Transfer Transfer Physician: Rose Yuan M.D. Pre-Procedure Diagnosis: Infertility Post-Procedure Diagnosis: Infertility Source of embryos: Patient Total Thawed: 2 # of Embryos Transferred: 2 ASRM Guidelines: Recommended limits adhered to Catheter Type: Hurt Ease of Transfer: Easy Direction: AV Curve: no Depth (cm): 16 Distance from fundus (mm): 7 Tissue Status: For Autologous Use Only/ Not Evaluated for Infectious Substances Specimens: None No qualified resident/fellow was available. I performed the entire procedure. SIGNATURE: Tika Pittman MD PATIENT NAME: Belen Ireland DATE: February 09, 2018 TIME: 9:18 PM PROGRESS Observed: 02/09/2018 Status: COMPLETED Source: [place] 2:13 PM [facility] REPOSITORY HNO ID: [id number] Author: Angela Valdivia Service: (none) Author Type: Fermentation Scientist Type: Progress Notes Filed: 02/09/2018 2:38 PM Note Text: Embryo Transfer procedure performed. Detailed notes can be found in the paper chart in the [facility] ? 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 Office. Arun Garza CNOV Observed: 02/09/2018 Status: COMPLETED Source: [place] 2:00 PM [facility] REPOSITORY Office Visit (ANDRBE) BELEN IRELAND ([id number]) 1985 F Date Time Provider Department 02/09/18 2:00 PM ANDROLOGY WORKDAY CONSULTANT ANDDilcia During your visit today, we recorded the following information about you: Arun Garza 02/09/2018 2:38 PM Signed Embryo Transfer procedure performed. Detailed notes can be found in the paper chart in the [facility] ? 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 Office. Arun Garza Referring Provider: SELF [200] Allergies As of Date: 02/09/2018 Noted Allergy Reaction WELLBUTRIN (BUPROPION HCL) 10/09/2016 4 - Hives Date Reviewed: 02/03/2018 Reviewed by: Abby Mancera - Fully Assessed Primary Visit Diagnosis:Primary female infertility [N97.9] Prescriptions as of 02/09/2018 Sig: METHYLPREDNISOLONE 16 MG TABL* Take 1 tablet by mouth once d* DOXYCYCLINE HYCLATE 100 MG TA* Take 1 tablet by mouth twice * PROGESTERONE 50 MG/ML INTRAMU* Use as directed ESTRADIOL 2 MG TABLET Take 1 tablet by mouth three * DOXYCYCLINE HYCLATE 100 MG TA* Take 1 tablet by mouth twice * ORAL Take by mouth. FOLIC ACID ORAL Take by mouth. Problem List As Of Date 02/09/2018 Noted Resolved Obesity, Class III, BMI >= 40 (morbid obesity) *INVALID FOR* Female infertility [N97.9] INVALID FOR* More... Encounter Status:Closed by ANGELA VALDIVIA on 02/09/18 CNOV Observed: 02/09/2018 Status: COMPLETED Source: [place] 2:00 PM [facility] REPOSITORY Office Visit (IVFBE) BELEN IRELAND ([id number]) 1985 F Date Time Provider Department 02/09/18 2:00 PM ROSE YUAN IVFBE During your visit today, we recorded the following information about you: Roxy Dai, RN, RN 02/09/2018 1:50 PM Signed POST EMBRYO TRANSFER INSTRUCTIONS ? You will need to have your blood drawn for Quantitative HCG on 02/23/2018 at [place]. You can expect to be called the afternoon of your blood draw with your test results. If for any reason that date or location is changed, please call [phone] to inform us. ? Continue your current medications as instructed UNTIL YOU ARE 10 WEEKS or until a BLOOD test is confirmed negative. ? It is not uncommon to have breast tenderness, bloating, vaginal spotting ranging from pink to red to brown and generally feeling premenstrual while waiting to test. You can feel this way and still be - DO NOT STOP YOUR MEDICATIONS until testing is completed. Call the office if you develop: - Pain, redness and heat at your injection sites From the day of your transfer on, please treat yourself as if you are . Things to avoid: - Hot tubs/raising your core temperature - Chemical exposures - Drugs/medications that are not safe in - Processed lunch meat, unpasteurized cheeses - Smoking - Fish that are high in mercury Our recommendations on maintaining a healthy lifestyle during this time include: - Regular physical activity. Bed-rest is NOT recommended and will not increase your chance of - Daily vitamin or folic acid - Healthy diet - Adequate sleep - Sexual intimacy/intercourse/orgasm will not interfere with implantation. It is difficult to maintain the balance between optimism and realism. Remember you have done and are doing all that you can to improve your odds. Set reasonable expectations for yourselves. Keeping yourself busy and mentally distracted will help the time pass while waiting to test. If you have any questions, please call [phone]. Tika Pittman MD 02/09/2018 9:19 PM Signed [facility] TRANSFER PROCEDURE NOTE Date: 02/09/2018 Primary Proceduralist: Tika Pittman MD Tile Mechanic Helper(s): Not applicable Informed Consent: Indications: Belen Ireland, is a 32 year old female here today for Embryo Transfer. TRANSFER Transfer Date: 02/09/18 Transfer Procedure: Embryo Transfer Transfer Physician: Rose Yuan M.D. Pre-Procedure Diagnosis: Infertility Post-Procedure Diagnosis: Infertility Source of embryos: Patient Total Thawed: 2 # of Embryos Transferred: 2 ASRM Guidelines: Recommended limits adhered to Catheter Type: Hurt Ease of Transfer: Easy Direction: AV Curve: no Depth (cm): 16 Distance from fundus (mm): 7 Tissue Status: For Autologous Use Only/ Not Evaluated for Infectious Substances Specimens: None No qualified resident/fellow was available. I performed the entire procedure. SIGNATURE: Tika Pittman MD PATIENT NAME: Belen Ireland DATE: February 09, 2018 TIME: 9:18 PM Referring Provider: SELF [[id number]] Allergies As of Date: 02/09/2018 Noted Allergy Reaction WELLBUTRIN (BUPROPION HCL) 10/09/2016 4 - Hives Date Reviewed: 02/03/2018 Reviewed by: [facility]asey Macnera - Fully Assessed Primary Visit Diagnosis:Encounter for assisted reproductive fertility procedure cycle [Z31.83] Other Visit Diagnosis: examination or test, unconfirmed [Z32.00] Order(s):HCG QUANTITATIVE [SQHCGQT] Order #: [id number] FUTURE Prescriptions as of 02/09/2018 Sig: METHYLPREDNISOLONE 16 MG TABL* Take 1 tablet by mouth once d* DOXYCYCLINE HYCLATE 100 MG TA* Take 1 tablet by mouth twice * PROGESTERONE 50 MG/ML INTRAMU* Use as directed ESTRADIOL 2 MG TABLET Take 1 tablet by mouth three * DOXYCYCLINE HYCLATE 100 MG TA* Take 1 tablet by mouth twice * ORAL Take by mouth. FOLIC ACID ORAL Take by mouth. Problem List As Of Date 02/09/2018 Noted Resolved Obesity, Class III, BMI >= 40 (morbid obesity) *INVALID FOR* Female infertility [N97.9] INVALID FOR* More... Other instructions from your clinician: POST EMBRYO TRANSFER INSTRUCTIONS ? You will need to have your blood drawn for Quantitative HCG on 02/23/2018 at [place]. You can expect to be called the afternoon of your blood draw with your test results. If for any reason that date or location is changed, please call [phone] to inform us. ? Continue your current medications as instructed UNTIL YOU ARE 10 WEEKS or until a BLOOD test is confirmed negative. ? It is not uncommon to have breast tenderness, bloating, vaginal spotting ranging from pink to red to brown and generally feeling premenstrual while waiting to test. You can feel this way and still be - DO NOT STOP YOUR MEDICATIONS until testing is completed. Call the office if you develop: - Pain, redness and heat at your injection sites From the day of your transfer on, please treat yourself as if you are . Things to avoid: - Hot tubs/raising your core temperature - Chemical exposures - Drugs/medications that are not safe in - Processed lunch meat, unpasteurized cheeses - Smoking - Fish that are high in mercury Our recommendations on maintaining a healthy lifestyle during this time include: - Regular physical activity. Bed-rest is NOT recommended and will not increase your chance of - Daily vitamin or folic acid - Healthy diet - Adequate sleep - Sexual intimacy/intercourse/orgasm will not interfere with implantation. It is difficult to maintain the balance between optimism and realism. Remember you have done and are doing all that you can to improve your odds. Set reasonable expectations for yourselves. Keeping yourself busy and mentally distracted will help the time pass while waiting to test. If you have any questions, please call [phone]. Encounter Status:Closed by ROSE CARUSO MD on 02/09/18 CNCO Observed: 02/09/2018 Status: COMPLETED Source: [place] 12:00 AM [facility] [place] REPOSITORY Letter Text Human Resources Office Manager and Women's Health [facility] Pamela Duncan, Ph.D., ABHI [phone] [address] [place] [address] Belen Beka 1985 In Vitro fertilization/Frozen Transfer Cycle Summary This summary should help to clarify details related to your recent treatment cycle. Please retain this for your records. If you have any questions, please contact the laboratory assistant at [phone]. The in vitro fertilization procedure performed at the [facility], beginning with the egg retrieval on has resulted in the following: N/A oocytes were retrieved N/A oocytes were mature N/A oocytes were still immature N/A oocytes injected with sperm (ICSI) and N/A were fertilized N/A oocytes incubated with sperm (IVF) and N/A were fertilized N/A Total number of normally fertilized oocytes N/A embryos were transferred to the patient's uterus on N/A N/A embryos were frozen at cleavage stage (2-8 cells) N/A embryos were frozen at morula/compacting stage N/A embryos were frozen at blastocyst stage N/A embryos failed to develop in culture Frozen embryo thaw procedures performed at the [facility], beginning with the embryo thaw on 02/09/2018 has resulted in the followin embryos were thawed 2 embryos were transferred to the patients uterus on 02/09/2018 4 embryos still remaining in cryostorage * cell stage of remaining embryos BLAST Lab verification: Embryologists: Cruz Pedraza February 09, 2018 12:03 PM Bi Analyst: Pamela Duncan, Ph.D., [facility] ESTR[facility]OL-17B Collected: 02/03/2018 Status: F Source: [place] 6:40 AM [facility] REPOSITORY TYPE CODE TESTS RESULT OUT OF RANGE REFERENCE UNITS LAB E2 pg/mL 169 Estradiol-17 B Result Comment: This test is not suitable for patients receiving treatment with the drug Fulvestrant (Faslodex). The drug causes an interference leading to falsely elevated estradiol results. Follicular : 12-233 pg/mL Ovulation : 41 to 398 pg/mL Luteal phase : 22-341 pg/mL Post menopausal: <30 pg/mL PROGESTERONE Collected: 02/03/2018 Status: F Source: [place] 6:40 AM [facility] REPOSITORY TYPE CODE TESTS RESULT OUT OF REFERENCE UNITS RANGE LAB PROG ng/mL Progesterone 0.3 Result Comment: Progesterone female reference range: Follicular = <0.4-1.5 Luteal = 3.0-15.0 CNOV Observed: 02/03/2018 Status: COMPLETED Source: [place] 6:30 AM [facility] REPOSITORY Office Visit (FLABBD) BELEN IRELAND ([id number]) 1985 F Date Time Provider Department 02/03/18 6:30 AM [facility] FLABBD During your visit today, we recorded the following information about you: Kelsie Danielson Ma 02/03/2018 7:14 AM Signed Lab draw by Kelsie Danielson Ma Referring Provider: SELF [[id number]] Allergies As of Date: 02/03/2018 Noted Allergy Reaction WELLBUTRIN (BUPROPION HCL) 10/09/2016 4 - Hives Date Reviewed: 02/03/2018 Reviewed by: Abby Osuna ([facility]) Fiordaliza - Fully Assessed Primary Visit Diagnosis:Female infertility [N97.9] Prescriptions as of 02/03/2018 Sig: METHYLPREDNISOLONE 16 MG TABL* Take 1 tablet by mouth once d* DOXYCYCLINE HYCLATE 100 MG TA* Take 1 tablet by mouth twice * PROGESTERONE 50 MG/ML INTRAMU* Use as directed ESTRADIOL 2 MG TABLET Take 1 tablet by mouth three * DOXYCYCLINE HYCLATE 100 MG TA* Take 1 tablet by mouth twice * ORAL Take by mouth. FOLIC ACID ORAL Take by mouth. Problem List As Of Date 02/03/2018 Noted Resolved Obesity, Class III, BMI >= 40 (morbid obesity) *INVALID FOR* Female infertility [N97.9] INVALID FOR* More... Visit Notes: >> Kelsie Danielson Ma ThuFeb 03, 2018 7:13 AM Status: Signed Lab draw by Kelsie Danielson Ma Encounter Status:Closed by KELSIE DANIELSON MA on 02/03/18 VARICELLA ZOSTER IGG Collected: 01/23/2018 Status: F Source: [place] 9:30 AM [facility] REPOSITORY TYPE CODE TESTS RESULT OUT OF RANGE REFERENCE UNITS LAB VZVGQL Negative Abnormal V. zoster Positive Alert IgG, Qual Result Comment: Presence of detectable VZV IgG antibodies. A positive result generally indicates exposure to the pathogen or administration of specific immunoglobulins, but is no indication of active infection or stage of disease. LAB VZVG Index Value Varicella Zoster IgG 1731.0 Result Comment: Index Values are Interpreted as Follows: Negative specimens <135.0 Equivocal specimens 135.0 to 164.9 Positive specimens >164.9 The magnitude of the measured result is not indicative of the amount of antibody present. Performed By: #### VZVG2 #### [facility] [address] [address] PROGRESS Observed: 01/20/2018 Status: COMPLETED Source: [place] 4:02 PM [facility] REPOSITORY HNO ID: [id number] Author: Calderon Hobbs Service: (none) Author Type: LICENSED NURSE Type: Progress Notes Filed: 01/20/2018 4:19 PM Note Text: Called patient. They need Thaw plan witnessed so will have lining check at [facility]. Calderon Hobbs LPN January 20, 2018 4:04 PM Episode started Calderon Hobbs LPN January 20, 2018 4:18 PM HOSP Observed: 01/20/2018 Status: COMPLETED Source: [place] 12:00 AM [facility] REPOSITORY Patient Update (REIMN) MALORIEBELEN CLARK ([id number]) 1985 F Date Time Provider Department 01/20/18 CALDERON HOBBS LPN During your visit today, we recorded the following information about you: Calderon Hobbs LPN 01/20/2018 4:19 PM Signed Called patient. They need Thaw plan witnessed so will have lining check at [facility]. Calderon Hobbs LPN January 20, 2018 4:04 PM Episode started Calderon Hobbs LPN January 20, 2018 4:18 PM Allergies As of Date: 01/20/2018 Noted Allergy Reaction WELLBUTRIN (BUPROPION HCL) 10/09/2016 4 - Hives Date Reviewed: 10/26/2017 Reviewed by: Roxy (Ayesha) AYESHA Dai - Fully Assessed Primary Visit Diagnosis:Female infertility [N97.9] Order(s):ESTRADIOL-17B BLD [SQE2] Order #: [id number] PROGESTERONE BLD [SQPROG] [facility] #: [id number] [id number] Order #: [id number]: 1 Prescriptions as of 01/20/2018 Sig: ESTRADIOL 2 MG TABLET Take 1 tablet by mouth three * METHYLPREDNISOLONE 16 MG TABL* Take 1 tablet by mouth once d* DOXYCYCLINE HYCLATE 100 MG TA* Take 1 tablet by mouth twice * PROGESTERONE 50 MG/ML INTRAMU* Use as directed ORAL Take by mouth. FOLIC ACID ORAL Take by mouth. Problem List As Of Date 01/20/2018 Noted Resolved Obesity, Class III, BMI >= 40 (morbid obesity) *INVALID FOR* Female infertility [N97.9] INVALID FOR* More... Follow-up and Disposition History Recorded Encounter Status:Closed by CALDERON HOBBS on 01/20/18 JEFFEYR Observed: 01/19/2018 Status: COMPLETED Source: [place] 12:00 AM [facility] REPOSITORY Telephone (REIBD) BELEN IRELAND ([id number]) 1985 F Date Time Provider Department 01/19/18 CALDERON ZAVALETA During your visit today, we recorded the following information about you: Cinthia Vernon RN, RN 01/19/2018 11:43 AM Signed Patient calling to speak to Dr. Zavaleta regarding failed FET cycle. She has not started a period yet. Negative HCG with FET #1 on 01/15. She would like to speak with Dr. Zavaleta to discuss plan . Want to transfer 2 embryos. NEEDS: thaw plan - will send in mychart. Called [facility] for Estrace to be sent to her but will need Medrol, Doxy and Progesterone in Oil if proceeding. Well women - last one done 10/09/16 (pap/hpv done at this time and are up to date) Varicella (never had lab but states had a bad case of chicken pox as a child) Chart to Dr. Zavaleta for the next step. Calderon Zavaleta MD 01/20/2018 3:01 PM Signed [phone] Patient s/p ESET x 2 without success (one fresh transfer and one frozen). She is considering transferring two. While I will support her decision, my recommendation remains ESET. She and her will discuss. Encouraged her to have testing for varicella immunity even if not willing to be vaccinated. She will have it drawn. LMP today - 01/20. Will start estrogen priming today. Calderon Zavaleta MD January 20, 2018 3:00 PM Allergies As of Date: 01/19/2018 Noted Allergy Reaction WELLBUTRIN (BUPROPION HCL) 10/09/2016 4 - Hives Date Reviewed: 10/26/2017 Reviewed by: Roxy (Rn) AYESHA Dai - Fully Assessed Reason for Visit: Plans for fet / lmp = 01/20 [Other] Reason For Visit History Recorded Primary Visit Diagnosis:Varicella vaccination status unknown [Z78.9] Order(s):VARICELLA ZOSTER IGG [SQVZVG] Order #: [id number] FUTURE Prescriptions as of 01/19/2018 Sig: ESTRADIOL 2 MG TABLET Take 1 tablet by mouth three * METHYLPREDNISOLONE 16 MG TABL* Take 1 tablet by mouth once d* DOXYCYCLINE HYCLATE 100 MG TA* Take 1 tablet by mouth twice * PROGESTERONE 50 MG/ML INTRAMU* Use as directed ORAL Take by mouth. FOLIC ACID ORAL Take by mouth. Problem List As Of Date 01/19/2018 Noted Resolved Obesity, Class III, BMI >= 40 (morbid obesity) *INVALID FOR* Female infertility [N97.9] INVALID FOR* More... Encounter Status:Closed by CALDERON ZAVALETA MD on 01/20/18 PROGRESS Observed: 01/16/2018 Status: COMPLETED Source: [place] 12:02 AM [facility] REPOSITORY HNO ID: [id number] Author: Donna Morrow Service: (none) Author Type: Physician Type: Progress Notes Filed: 01/16/2018 12:05 AM Note Text: Called to review negative HCG. Patient is understandably disappointed. She does have others in cryo. This is her second negative test- would like to transfer two next time. Would like to prime with her next period. Advised this is fine but will forward to Марина Zavaleta as FYI and also forward to Chary Hobbs for estrace to begin priming again if her period starts over the weekend. Knows to stop all meds. Donna Morrow MD CNNURSE Observed: 01/15/2018 Status: COMPLETED Source: [place] 6:00 PM [facility] REPOSITORY Nurse Visit (JOSUE) BELEN IRELAND ([id number]) 1985 F Date Time Provider Department 01/15/18 6:00 PM NURSE [facility]Y SALAS During your visit today, we recorded the following information about you: Cinthia Vernon, RN, RN 01/16/2018 12:05 AM Signed Component Latest Ref Rng AND Units 01/15/2018 hCG Quantitative, Blood <5.0 mU/mL <0.1 Donna Morrow MD 01/16/2018 12:05 AM Signed Called to review negative HCG. Patient is understandably disappointed. She does have others in cryo. This is her second negative test- would like to transfer two next time. Would like to prime with her next period. Advised this is fine but will forward to Марина Zavaleta as FYI and also forward to Chary Hobbs for estrace to begin priming again if her period starts over the weekend. Knows to stop all meds. Donna Morrow MD Referring Provider: SELF [200] Allergies As of Date: 01/15/2018 Noted Allergy Reaction WELLBUTRIN (BUPROPION HCL) 10/09/2016 4 - Hives Date Reviewed: 10/26/2017 Reviewed by: Roxy BeckerRn) AYESHA Dai - Fully Assessed Primary Visit Diagnosis: examination or test, negative result [Z32.02] Prescriptions as of 01/15/2018 Sig: ESTRADIOL 2 MG TABLET Take 1 tablet by mouth three * METHYLPREDNISOLONE 16 MG TABL* Take 1 tablet by mouth once d* DOXYCYCLINE HYCLATE 100 MG TA* Take 1 tablet by mouth twice * PROGESTERONE 50 MG/ML INTRAMU* Use as directed ORAL Take by mouth. FOLIC ACID ORAL Take by mouth. Problem List As Of Date 01/15/2018 Noted Resolved Obesity, Class III, BMI >= 40 (morbid obesity) *INVALID FOR* Female infertility [N97.9] INVALID FOR* More... Follow-up and Disposition History Recorded Encounter Status:Closed by DONNA MORROW MD on 01/16/18 PROGRESS Observed: 01/15/2018 Status: COMPLETED Source: [place] 12:05 PM [facility] REPOSITORY HNO ID: [id number] Author: Cinthia BeckerRn) AYESHA Vernon Service: (none) Author Type: Registered Nurse Type: Progress Notes Filed: 01/16/2018 12:05 AM Note Text: Component Latest Ref Rng AND Units 01/15/2018 hCG Quantitative, Blood <5.0 mU/mL <0.1 HCG, QUANTITATIVE BL Collected: 01/15/2018 Status: F Source: [place] 7:34 AM [facility] REPOSITORY TYPE CODE TESTS RESULT OUT OF REFERENCE UNITS RANGE LAB HCGQT <5.0 mU/mL HCG, Quantitative Bl <0.1 Result Comment: NEGATIVE PROCEDURE Observed: 01/01/2018 Status: COMPLETED Source: [place] 11:23 PM [facility] REPOSITORY HNO ID: [id number] Author: Donna Morrow Service: (none) Author Type: Physician Type: Procedures Filed: 01/01/2018 11:24 PM Note Text: [facility] TRANSFER PROCEDURE NOTE Date: 01/01/2018 Primary Proceduralist: Donna Morrow MD Tile Mechanic Helper(s): Not applicable Informed Consent: Indications: Belen Ireland, is a 32 year old female here today for Embryo Transfer. TRANSFER Transfer Date: 01/01/18 Transfer Procedure: Embryo Transfer Transfer Physician: Donna Morrow M.D. Pre-Procedure Diagnosis: Infertility Post-Procedure Diagnosis: Infertility Source of embryos: Patient Total Thawed: 1 # of Embryos Transferred: 1 ASRM Guidelines: Recommended limits adhered to Catheter Type: Hurt Ease of Transfer: Easy Direction: Mid Curve: 10 Depth (cm): 8 Distance from fundus (mm): 15 Tissue Status: For Autologous Use Only/ Not Evaluated for Infectious Substances Specimens: None I performed the entire procedure. SIGNATURE: Donna Morrow MD PATIENT NAME: Belen Ireland DATE: January 01, 2018 TIME: 11:23 PM CNOV Observed: 01/01/2018 Status: COMPLETED Source: [place] 3:00 PM [facility] REPOSITORY Office Visit (ANDRBE) BELEN IRELAND ([id number]) 1985 F Date Time Provider Department 01/01/18 3:00 PM ANDROLOGY WORKDAY CONSULTANT ANDE During your visit today, we recorded the following information about you: Angela Valdivia 01/01/2018 2:18 PM Signed Embryo Transfer procedure performed. Detailed notes can be found in the paper chart in the [facility] ? 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 Office. Arun Garza Referring Provider: SELF [200] Allergies As of Date: 01/01/2018 Noted Allergy Reaction WELLBUTRIN (BUPROPION HCL) 10/09/2016 4 - Hives Date Reviewed: 10/26/2017 Reviewed by: Roxy Dai (Rn), RN - Fully Assessed Primary Visit Diagnosis:Primary female infertility [N97.9] Prescriptions as of 01/01/2018 Sig: ESTRADIOL 2 MG TABLET Take 1 tablet by mouth three * METHYLPREDNISOLONE 16 MG TABL* Take 1 tablet by mouth once d* DOXYCYCLINE HYCLATE 100 MG TA* Take 1 tablet by mouth twice * PROGESTERONE 50 MG/ML INTRAMU* Use as directed ORAL Take by mouth. FOLIC ACID ORAL Take by mouth. Problem List As Of Date 01/01/2018 Noted Resolved Obesity, Class III, BMI >= 40 (morbid obesity) *INVALID FOR* Female infertility [N97.9] INVALID FOR* More... Encounter Status:Closed by ANGELA VALDIVIA on 01/01/18 PROGRESS Observed: 01/01/2018 Status: COMPLETED Source: [place] 2:17 PM [facility] REPOSITORY HNO ID: [id number] Author: Angela Valdivia Service: (none) Author Type: Fermentation Scientist Type: Progress Notes Filed: 01/01/2018 2:18 PM Note Text: Embryo Transfer procedure performed. Detailed notes can be found in the paper chart in the [facility] ? 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 Office. Arun Garza CNOV Observed: 01/01/2018 Status: COMPLETED Source: [place] 2:00 PM [facility] REPOSITORY Office Visit (IVFBE) BELEN IRELAND ([id number]) 1985 F Date Time Provider Department 01/01/18 2:00 PM DONNA MORROW IVFBE During your visit today, we recorded the following information about you: Kristin TopeteRn), RN 01/01/2018 1:43 PM Signed POST EMBRYO TRANSFER INSTRUCTIONS ? You will need to have your blood drawn for Quantitative HCG on 01/15 at [place]. You can expect to be called the afternoon of your blood draw with your test results. If for any reason that date or location is changed, please call [phone] to inform us. ? Continue your current medications as instructed UNTIL YOU ARE 10 WEEKS or until a BLOOD test is confirmed negative. ? It is not uncommon to have breast tenderness, bloating, vaginal spotting ranging from pink to red to brown and generally feeling premenstrual while waiting to test. You can feel this way and still be - DO NOT STOP YOUR MEDICATIONS until testing is completed. Call the office if you develop: - Pain, redness and heat at your injection sites From the day of your transfer on, please treat yourself as if you are . Things to avoid: - Hot tubs/raising your core temperature - Chemical exposures - Drugs/medications that are not safe in - Processed lunch meat, unpasteurized cheeses - Smoking - Fish that are high in mercury Our recommendations on maintaining a healthy lifestyle during this time include: - Regular physical activity. Bed-rest is NOT recommended and will not increase your chance of - Daily vitamin or folic acid - Healthy diet - Adequate sleep - Sexual intimacy/intercourse/orgasm will not interfere with implantation. It is difficult to maintain the balance between optimism and realism. Remember you have done and are doing all that you can to improve your odds. Set reasonable expectations for yourselves. Keeping yourself busy and mentally distracted will help the time pass while waiting to test. If you have any questions, please call [phone]. Donna Morrow 01/01/2018 11:24 PM Signed [facility] TRANSFER PROCEDURE NOTE Date: 01/01/2018 Primary Proceduralist: Donna Morrow MD Tile Mechanic Helper(s): Not applicable Informed Consent: Indications: Belen Ireland, is a 32 year old female here today for Embryo Transfer. TRANSFER Transfer Date: 01/01/18 Transfer Procedure: Embryo Transfer Transfer Physician: Donna Morrow M.D. Pre-Procedure Diagnosis: Infertility Post-Procedure Diagnosis: Infertility Source of embryos: Patient Total Thawed: 1 # of Embryos Transferred: 1 ASRM Guidelines: Recommended limits adhered to Catheter Type: Hurt Ease of Transfer: Easy Direction: Mid Curve: 10 Depth (cm): 8 Distance from fundus (mm): 15 Tissue Status: For Autologous Use Only/ Not Evaluated for Infectious Substances Specimens: None I performed the entire procedure. SIGNATURE: Donna Morrow MD PATIENT NAME: Belen Ireland DATE: January 01, 2018 TIME: 11:23 PM Referring Provider: SELF [200] Allergies As of Date: 01/01/2018 Noted Allergy Reaction WELLBUTRIN (BUPROPION HCL) 10/09/2016 4 - Hives Date Reviewed: 10/26/2017 Reviewed by: Roxy Dai (Rn), RN - Fully Assessed Primary Visit Diagnosis:Female infertility [N97.9] Other Visit Diagnosis: examination or test, unconfirmed [Z32.00] Order(s):HCG QUANTITATIVE [SQHCGQT] Order #: [id number] FUTURE Prescriptions as of 01/01/2018 Sig: ESTRADIOL 2 MG TABLET Take 1 tablet by mouth three * METHYLPREDNISOLONE 16 MG TABL* Take 1 tablet by mouth once d* DOXYCYCLINE HYCLATE 100 MG TA* Take 1 tablet by mouth twice * PROGESTERONE 50 MG/ML INTRAMU* Use as directed ORAL Take by mouth. FOLIC ACID ORAL Take by mouth. Problem List As Of Date 01/01/2018 Noted Resolved Obesity, Class III, BMI >= 40 (morbid obesity) *INVALID FOR* Female infertility [N97.9] INVALID FOR* More... Other instructions from your clinician: POST EMBRYO TRANSFER INSTRUCTIONS ? You will need to have your blood drawn for Quantitative HCG on 01/15 at [place]. You can expect to be called the afternoon of your blood draw with your test results. If for any reason that date or location is changed, please call [phone] to inform us. ? Continue your current medications as instructed UNTIL YOU ARE 10 WEEKS or until a BLOOD test is confirmed negative. ? It is not uncommon to have breast tenderness, bloating, vaginal spotting ranging from pink to red to brown and generally feeling premenstrual while waiting to test. You can feel this way and still be - DO NOT STOP YOUR MEDICATIONS until testing is completed. Call the office if you develop: - Pain, redness and heat at your injection sites From the day of your transfer on, please treat yourself as if you are . Things to avoid: - Hot tubs/raising your core temperature - Chemical exposures - Drugs/medications that are not safe in - Processed lunch meat, unpasteurized cheeses - Smoking - Fish that are high in mercury Our recommendations on maintaining a healthy lifestyle during this time include: - Regular physical activity. Bed-rest is NOT recommended and will not increase your chance of - Daily vitamin or folic acid - Healthy diet - Adequate sleep - Sexual intimacy/intercourse/orgasm will not interfere with implantation. It is difficult to maintain the balance between optimism and realism. Remember you have done and are doing all that you can to improve your odds. Set reasonable expectations for yourselves. Keeping yourself busy and mentally distracted will help the time pass while waiting to test. If you have any questions, please call [phone]. Encounter Status:Closed by DONNA MORROW MD on 01/01/18 CNCO Observed: 01/01/2018 Status: COMPLETED Source: [place] 12:00 AM [facility] REPOSITORY Letter Text Human Resources Office Manager and Women's Health [facility] Pamela Duncan, Ph.D., [facility] [phone] [address] [place] [address] Belen Ireland 1985 In Vitro fertilization/Frozen Transfer Cycle Summary This summary should help to clarify details related to your recent treatment cycle. Please retain this for your records. If you have any questions, please contact the laboratory assistant at [phone]. The in vitro fertilization procedure performed at the [facility], beginning with the egg retrieval on has resulted in the following: n/a oocytes were retrieved n/a oocytes were mature n/a oocytes were still immature n/a oocytes injected with sperm (ICSI) and n/a were fertilized n/a oocytes incubated with sperm (IVF) and n/a were fertilized n/a Total number of normally fertilized oocytes n/a embryos were transferred to the patient's uterus on n/a n/a embryos were frozen at cleavage stage (2-8 cells) n/a embryos were frozen at morula/compacting stage n/a embryos were frozen at blastocyst stage n/a embryos failed to develop in culture Frozen embryo thaw procedures performed at the [facility], beginning with the embryo thaw on 01/01/18 has resulted in the followin embryos were thawed 1 embryos were transferred to the patients uterus on 01/01/18 6 embryos still remaining in cryostorage * cell stage of remaining embryos 6 x blast Lab verification: Embryologists: Radha Marr, LAB January 01, 2018 12:40 PM Bi Analyst: Pamela Duncan, Ph.D., HCLD PROGRESS Observed: 12/25/2017 Status: COMPLETED Source: [place] 12:55 PM [facility] REPOSITORY HNO ID: [id number] Author: Dorothy Silva Service: (none) Author Type: Physician Type: Progress Notes Filed: 12/25/2017 8:40 PM Note Text: The patient came today for lining ultrasound. Detailed notes can be found in the paper chart and episodes of care. Dorothy Silva MD ESTRADIOL-17B Collected: 12/25/2017 Status: F Source: [place] 7:38 AM [facility] REPOSITORY TYPE CODE TESTS RESULT OUT OF RANGE REFERENCE UNITS LAB E2 pg/mL 139 Estradiol-17 B Result Comment: This test is not suitable for patients receiving treatment with the drug Fulvestrant (Faslodex). The drug causes an interference leading to falsely elevated estradiol results. Follicular : 12-233 pg/mL Ovulation : 41 to 398 pg/mL Luteal phase : 22-341 pg/mL Post menopausal: <30 pg/mL PROGESTERONE Collected: 12/25/2017 Status: F Source: [place] 7:38 AM [facility] REPOSITORY TYPE CODE TESTS RESULT OUT OF REFERENCE UNITS RANGE LAB PROG ng/mL Progesterone 0.1 Result Comment: Menstrual Cycle Progesterone Reference Ranges: Follicular:<1.0 ng/mL Ovulation:<12.1 ng/mL Luteal:1.8 to 23.9 ng/mL Progesterone Reference Ranges vary by gestational period: First Trimester:11.0 to 44.3 ng/mL Second Trimester:25.4 to >60.0 ng/mL Third Trimester:58.7 to >60.0 ng/mL Post menopausal Progesterone:<0.5 ng/mL Reference: 1. Progesterone (Progesterone III) [package insert V 1.0 Peruvian]. [facility], [place], [place]. May 2015. CNNURSE Observed: 12/25/2017 Status: COMPLETED Source: [place] 7:00 AM [facility] REPOSITORY Nurse Visit (REIST) BELEN IRELAND ([id number]) 1985 F Date Time Provider Department 12/25/17 7:00 AM NURSE [facility] SIDDIQUI During your visit today, we recorded the following information about you: Calderno Hobbs (Ron) 12/25/2017 8:40 PM Signed The patient is here today for follicular ultrasound and blood work. The patient reports no problems or complaints. Ultrasound and blood will be reviewed by the physician, the flow sheet will be updated and instructions will be communicated to the patient. Calderon Hobbs LPN Thaw consent signed by patient and and witnessed. Calderon Hobbs LPN December 25, 2017 7:14 AM Called patient with plan. See episode for plan. Will send My chart message with FET Medication schedule. Calderon Hobbs LPN December 25, 2017 2:12 PM Calderon Hobbs (Ron) 12/25/2017 7:03 AM Signed Frozen Embryo Treatment Plan Patient Date of : 1985 Patient Name: Belen Ireland Partner Name: Dany Ireland The recommended number of embryos for transfer is . The plan is to thaw embryo(s) and transfer embryo(s). In the event that the embryo(s) do not survive or is/are of poor quality, the plan is to proceed in the following manner: ____Thaw another vial and transfer the best embryo(s). ____ Do not thaw anymore embryos if there is at least one embryo suitable for transfer. Other: Your Frozen Embryo Treatment Plan must be signed by both parents (if applicable) in the presence of a [facility] IVF caregiver or notary. Please plan to return the signed form on or before the date of your lining check appointment. A date for transfer cannot be confirmed until you have done so. If you have any questions or would like to discuss your thaw plan further with an IVF team physician please contact your nurse by calling . Please sign this form and bring it with you to your Lining Check appointment or fax it to Mabel at [phone]. Mother: Date: Partner/Second legal parent: Date: [facility] Witness or Notary: Date: Dorothy Silva 12/25/2017 8:40 PM Signed The patient came today for lining ultrasound. Detailed notes can be found in the paper chart and episodes of care. Dorothy Silva MD Referring Provider: SELF [[id number]] Allergies As of Date: 12/25/2017 Noted Allergy Reaction WELLBUTRIN (BUPROPION HCL) 10/09/2016 4 - Hives Date Reviewed: 10/26/2017 Reviewed by: Roxy Dai (Rn), RN - Fully Assessed Reason for Visit: Monitoring [Other] Primary Visit Diagnosis:Female infertility [N97.9] Prescriptions as of 12/25/2017 Sig: ESTRADIOL 2 MG TABLET Take 1 tablet by mouth three * METHYLPREDNISOLONE 16 MG TABL* Take 1 tablet by mouth once d* DOXYCYCLINE HYCLATE 100 MG TA* Take 1 tablet by mouth twice * PROGESTERONE 50 MG/ML INTRAMU* Use as directed ORAL Take by mouth. FOLIC ACID ORAL Take by mouth. Problem List As Of Date 12/25/2017 Noted Resolved Obesity, Class III, BMI >= 40 (morbid obesity) *INVALID FOR* Female infertility [N97.9] INVALID FOR* More... Other instructions from your clinician: Frozen Embryo Treatment Plan Patient Date of : 1985 Patient Name: Belen Ireland Partner Name: Dany Ireland The recommended number of embryos for transfer is . The plan is to thaw embryo(s) and transfer embryo(s). In the event that the embryo(s) do not survive or is/are of poor quality, the plan is to proceed in the following manner: ____Thaw another vial and transfer the best embryo(s). ____ Do not thaw anymore embryos if there is at least one embryo suitable for transfer. Other: Your Frozen Embryo Treatment Plan must be signed by both parents (if applicable) in the presence of a [facility] IVF caregiver or notary. Please plan to return the signed form on or before the date of your lining check appointment. A date for transfer cannot be confirmed until you have done so. If you have any questions or would like to discuss your thaw plan further with an IVF team physician please contact your nurse by calling . Please sign this form and bring it with you to your Lining Check appointment or fax it to Makayla at [phone]. Mother: Date: Partner/Second legal parent: Date: [facility] Witness or Notary: Date: Encounter Status:Closed by DOROTHY SILVA MD on 12/25/17 PROGRESS Observed: 12/25/2017 Status: COMPLETED Source: [place] 6:55 AM [facility] [place] REPOSITORY O ID: [id number] Author: Calderon Hobbs (Ron) Service: (none) Author Type: LICENSED NURSE Type: Progress Notes Filed: 12/25/2017 8:40 PM Note Text: The patient is here today for follicular ultrasound and blood work. The patient reports no problems or complaints. Ultrasound and blood will be reviewed by the physician, the flow sheet will be updated and instructions will be communicated to the patient. Calderon Hobbs LPN Thaw consent signed by patient and and witnessed. Calderon Hobbs LPN December 25, 2017 7:14 AM Called patient with plan. See episode for plan. Will send My chart message with FET Medication schedule. Calderon Hobbs LPN December 25, 2017 2:12 PM ESTRADIOL-17B Collected: 12/17/2017 Status: F Source: [place] 7:32 AM [facility] REPOSITORY TYPE CODE TESTS RESULT OUT OF RANGE REFERENCE UNITS LAB E2 pg/mL 40 Estradiol-17 B Result Comment: This test is not suitable for patients receiving treatment with the drug Fulvestrant (Faslodex). The drug causes an interference leading to falsely elevated estradiol results. Follicular : 12-233 pg/mL Ovulation : 41 to 398 pg/mL Luteal phase : 22-341 pg/mL Post menopausal: <30 pg/mL PROGESTERONE Collected: 12/17/2017 Status: F Source: [place] 7:32 AM [facility] REPOSITORY TYPE CODE TESTS RESULT OUT OF REFERENCE UNITS RANGE LAB PROG ng/mL Progesterone 0.3 Result Comment: Menstrual Cycle Progesterone Reference Ranges: Follicular:<1.0 ng/mL Ovulation:<12.1 ng/mL Luteal:1.8 to 23.9 ng/mL Progesterone Reference Ranges vary by gestational period: First Trimester:11.0 to 44.3 ng/mL Second Trimester:25.4 to >60.0 ng/mL Third Trimester:58.7 to >60.0 ng/mL Post menopausal Progesterone:<0.5 ng/mL Reference: 1. Progesterone (Progesterone III) [package insert V 1.0 Peruvian]. [facility], [place], [place]. May 2015. CNNURSE Observed: 12/17/2017 Status: COMPLETED Source: [place] 7:00 AM [facility] REPOSITORY Nurse Visit (JEROMEIST) BELEN IRELAND ([id number]) 1985 F Date Time Provider Department 12/17/17 7:00 AM NURSE [facility] S[facility]DI[facility] During your visit today, we recorded the following information about you: Calderon Hobbs LPN 12/17/2017 4:41 PM Signed The patient is here today for follicular ultrasound and blood work. The patient reports no problems or complaints. Ultrasound and blood will be reviewed by the physician, the flow sheet will be updated and instructions will be communicated to the patient. Calderon Hobbs LPN Called patient with plan. See episode for plan. Will send Thaw plan via My Chart. Calderon Hobbs LPN December 17, 2017 2:05 PM Referring Provider: SELF [200] Allergies As of Date: 12/17/2017 Noted Allergy Reaction WELLBUTRIN (BUPROPION HCL) 10/09/2016 4 - Hives Date Reviewed: 10/26/2017 Reviewed by: Roxy (Ayesha) AYESHA Dai - Fully Assessed Reason for Visit: Monitoring [Other] Primary Visit Diagnosis:Female infertility [N97.9] Order(s):ESTRADIOL-17B BLD [SQE2] Order #: [id number] PROGESTERONE BLD [SQPROG] Order #: [id number] FOLLICULAR US WHI [[id number]] Order #: [id number]: 1 Prescriptions as of 12/17/2017 Sig: ESTRADIOL 2 MG TABLET Take 1 tablet by mouth three * METHYLPREDNISOLONE 16 MG TABL* Take 1 tablet by mouth once d* DOXYCYCLINE HYCLATE 100 MG TA* Take 1 tablet by mouth twice * PROGESTERONE 50 MG/ML INTRAMU* Use as directed ORAL Take by mouth. FOLIC ACID ORAL Take by mouth. Problem List As Of Date 12/17/2017 Noted Resolved Obesity, Class III, BMI >= 40 (morbid obesity) *INVALID FOR* Female infertility [N97.9] INVALID FOR* More... Follow-up and Disposition History Recorded Encounter Status:Closed by CALDERON ZAVALETA MD on 12/17/17 PROGRESS Observed: 12/17/2017 Status: COMPLETED Source: [place] 6:57 AM [facility] REPOSITORY HNO ID: [id number] Author: Calderon Hobbs Service: (none) Author Type: LICENSED NURSE Type: Progress Notes Filed: 12/17/2017 4:41 PM Note Text: The patient is here today for follicular ultrasound and blood work. The patient reports no problems or complaints. Ultrasound and blood will be reviewed by the physician, the flow sheet will be updated and instructions will be communicated to the patient. Calderon Hobbs LPN Called patient with plan. See episode for plan. Will send Thaw plan via My Chart. Calderon Hobbs LPN December 17, 2017 2:05 PM PROGRESS Observed: 12/13/2017 Status: COMPLETED Source: [place] 12:20 PM [facility] REPOSITORY HNO ID: [id number] Author: Donna Morrow Service: (none) Author Type: Physician Type: Progress Notes Filed: 12/13/2017 12:20 PM Note Text: See RN note from today. No charge. Donna Morrow MD CNNURSE Observed: 12/04/2017 Status: COMPLETED Source: [place] 6:00 PM [facility] REPOSITORY Nurse Visit (JOSUE) BELEN IRELAND ([id number]) 1985 F Date Time Provider Department 12/04/17 6:00 PM NURSE [facility] During your visit today, we recorded the following information about you: Donna Morrow MD 12/13/2017 12:20 PM Signed See RN note from today. No charge. Donna Morrow MD Referring Provider: SELF [200] Allergies As of Date: 12/04/2017 Noted Allergy Reaction WELLBUTRIN (BUPROPION HCL) 10/09/2016 4 - Hives Date Reviewed: 10/26/2017 Reviewed by: Roxy Michaud) AYESHA Dai - Fully Assessed Primary Visit Diagnosis:Female infertility [N97.9] Prescriptions as of 12/04/2017 Sig: X DOXYCYCLINE HYCLATE 100 MG TA* Take 1 tablet by mouth twice * X COMPOUNDED PRESCRIPTION Empty vials for Ganirelix and* X FOLLITROPIN MICK 75 UNIT SUBC* Inject 300 Units intramuscula* X GANIRELIX 250 MCG/0.5 ML SUBC* Inject 1 Syringe subcutaneous* X NORETHINDRONE-ETHINYL ESTRADI* Take 1 tablet by mouth once d* X DOXYCYCLINE HYCLATE 100 MG TA* Take 1 tablet by mouth twice * X FOLLITROPIN BETA 300 UNIT/0.3* Inject 225 Units subcutaneous* X LEUPROLIDE 1 MG/0.2 ML SUBCUT* Inject 4mg SQ once for trigger X METHYLPREDNISOLONE 16 MG TABL* Take 1 tablet by mouth once d* X PROGESTERONE MICRONIZED 200 M* Insert 2 capsules vaginally i* X ESTRADIOL 0.1 MG/24 HR SEMIWE* Apply patches and and change * ORAL Take by mouth. FOLIC ACID ORAL Take by mouth. Problem List As Of Date 12/04/2017 Noted Resolved Obesity, Class III, BMI >= 40 (morbid obesity) *INVALID FOR* Female infertility [N97.9] INVALID FOR* More... Encounter Status:Closed by DONNA MORROW MD on 12/13/17 HCG, QUANTITATIVE BL Collected: 12/04/2017 Status: F Source: [place] 7:56 AM [facility] REPOSIT[facility] TYPE CODE TESTS RESULT OUT OF REFERENCE UNITS RANGE LAB HCGQT <5.0 mU/mL HCG, Quantitative Bl <0.1 Result Comment: NEGATIVE PROGRESS Observed: 12/03/2017 Status: COMPLETED Source: [place] 10:16 AM [facility] REPOSITORY HNO ID: [id number] Author: Cinthia Michaud) AYESHA Vernon Service: (none) Author Type: Registered Nurse Type: Progress Notes Filed: 02/08/2018 5:23 PM Note Text: Calderon Vicente (Rn) AYESHA Vernon ? She does not need another hysteroscopy, but will need to wait one cycle after negative hcg Patient phoned with above information. Cinthia Vernon RN December 03, 2017 10:16 AM CNNURSE Observed: 11/20/2017 Status: COMPLETED Source: [place] 6:00 PM [facility] REPOSITORY Nurse Visit (REIMN) BELEN IRELAND ([id number]) 1985 F Date Time Provider Department 11/20/17 6:00 PM NURSE [facility] During your visit today, we recorded the following information about you: Cinthia Vernon RN, RN 02/08/2018 5:23 PM Signed Component Latest Ref Rng AND Units 11/13/2017 11/16/2017 11/20/2017 hCG Quantitative, Blood <5.0 mU/mL 220.6 (H) 140.9 (H) 10.5 (H) Note Patient s/p fresh embryo transfer - chemical Has 7 frozen blastocysts [phone] because 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 ? spoke to patient She would prefer to check hcg again on ThursdayNovember 20. If clearly coming down - she can repeat and two weeks. ? Calderon Zavaleta MD November 17, 2017 4:59 PM Spoke to the patient and let her know her bhcg level is down to 10.5. per Dr. Zavaleta's note above she will repeat on 12/04 at [place]. Patient reminded not to have unprotected intercourse while following the bhcg down. she is doing ok she said. Only having very little spotting now. She is eager to do another FET. She wants to know the plan once the bhcg's are negative how long she needs to wait before she can do another FET. Cinthia Vernon RN, RN 02/08/2018 5:23 PM Signed Calderon Vicente (Rn) AYESHA Vernon ? She does not need another hysteroscopy, but will need to wait one cycle after negative hcg Patient phoned with above information. Cinthia Vernon RN December 03, 2017 10:16 AM Referring Provider: SELF [200] Allergies As of Date: 11/20/2017 Noted Allergy Reaction WELLBUTRIN (BUPROPION HCL) 10/09/2016 4 - Hives Date Reviewed: 10/26/2017 Reviewed by: Roxy BeckerRn) AYESHA Dai - Fully Assessed Reason for Visit: Results, Lab [1201] Primary Visit Diagnosis:Chemical [O02.81] Order(s):HCG QUANTITATIVE [SQHCGQT] Order #: [id number] FUTURE Prescriptions as of 11/20/2017 Sig: X DOXYCYCLINE HYCLATE 100 MG TA* Take 1 tablet by mouth twice * X COMPOUNDED PRESCRIPTION Empty vials for Ganirelix and* X FOLLITROPIN MICK 75 UNIT SUBC* Inject 300 Units intramuscula* X GANIRELIX 250 MCG/0.5 ML SUBC* Inject 1 Syringe subcutaneous* X NORETHINDRONE-ETHINYL ESTRADI* Take 1 tablet by mouth once d* X DOXYCYCLINE HYCLATE 100 MG TA* Take 1 tablet by mouth twice * X FOLLITROPIN BETA 300 UNIT/0.3* Inject 225 Units subcutaneous* X LEUPROLIDE 1 MG/0.2 ML SUBCUT* Inject 4mg SQ once for trigger X METHYLPREDNISOLONE 16 MG TABL* Take 1 tablet by mouth once d* X PROGESTERONE MICRONIZED 200 M* Insert 2 capsules vaginally i* X ESTRADIOL 0.1 MG/24 HR SEMIWE* Apply patches and and change * ORAL Take by mouth. FOLIC ACID ORAL Take by mouth. Problem List As Of Date 11/20/2017 Noted Resolved Obesity, Class III, BMI >= 40 (morbid obesity) *INVALID FOR* Female infertility [N97.9] INVALID FOR* More... Follow-up and Disposition History Recorded Encounter Status:Closed by CALDERON ZAVALETA MD on 02/08/18 PROGRESS Observed: 11/20/2017 Status: COMPLETED Source: [place] 2:50 PM [facility] [place] REPOSITORY HNO ID: [id number] Author: Cinthia (Rn) Janeen RN Service: (none) Author Type: Registered Nurse Type: Progress Notes Filed: 02/08/2018 5:23 PM Note Text: Component Latest Ref Rng AND Units 11/13/2017 11/16/2017 11/20/2017 hCG Quantitative, Blood <5.0 mU/mL 220.6 (H) 140.9 (H) 10.5 (H) Note Patient s/p fresh embryo transfer - chemical Has 7 frozen blastocysts [phone] because 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 ? spoke to patient She would prefer to check hcg again on ThursdayNovember 20. If clearly coming down - she can repeat and two weeks. ? Calderon Zavaleta MD November 17, 2017 4:59 PM Spoke to the patient and let her know her bhcg level is down to 10.5. per Dr. Zavaleta's note above she will repeat on 12/04 at [place]. Patient reminded not to have unprotected intercourse while following the bhcg down. she is doing ok she said. Only having very little spotting now. She is eager to do another FET. She wants to know the plan once the bhcg's are negative how long she needs to wait before she can do another FET. HCG, QUANTITATIVE BL Collected: 11/20/2017 Status: F Source: [place] 7:35 AM [facility] RE[facility]ITORY TYPE CODE TESTS RESULT OUT OF REFERENCE UNITS RANGE LAB HCGQT <5.0 mU/mL HCG, High Quantitative Bl 10.5 Result Comment: HCG values 5 to 16 mU/mL may represent benign, pituitary derived HCG in non- women over 40 years of age. QUANTITATIVE HCG NORMAL RANGES Weeks of Gestation (Weeks Since LMP) 3 Weeks (5.8-71.2 mIU/mL) 4 Weeks (9.5-750 mIU/mL) 5 Weeks (217-7138 mIU/mL) 6 Weeks (158-62953 mIU/mL) 7 Weeks (3697-886228 mIU/mL) 8 Weeks (69919-869935 mIU/mL) 9 Weeks (30313-513652 mIU/mL) 10 Weeks (52778-646570 mIU/mL) 12 Weeks (39050-875356 mIU/mL) Referenced to 4th IS of NIBSC Result rechecked. CNNURSE Observed: 11/16/2017 Status: COMPLETED Source: [place] 6:00 PM [facility] REPOSITORY Nurse Visit (JOSUE) BELEN IRELAND ([id number]) 1985 F Date Time Provider Department 11/16/17 6:00 PM NURSE [facility] During your visit today, we recorded the following information about you: Last Period 08/14/17 Cinthia Vernon, RN, RN 02/08/2018 5:25 PM Signed Belen Ireland, a 32 year old [id number] here for repeat bhcg from IVF. ? Date of Embryo Transfer: 10/31/17, # of embryos transferred: 1 ? Gestational age today: 5 weeks 0 days ? HCG levels: ? Component Latest Ref Rng AND Units 11/13/2017 11/16/2017 hCG Quantitative, Blood <5.0 mU/mL 220.6 (H) 140.9 (H) CURRENT MEDICATIONS ? Current Outpatient Prescriptions: doxycycline (VIBRA-TABS) 100 mg tablet Take 1 tablet by mouth twice daily. COMPOUNDED PRESCRIPTION Empty vials for Ganirelix and needles and syringes for IM injections of Ganirelix Follitropin Mick (GONAL-F RFF) 75 unit solr Inject 300 Units intramuscularly once daily. Take as directed Ganirelix Acetate 250 mcg/0.5 mL syrg Inject 1 Syringe subcutaneously once daily. Use as directed Norethindrone-Eth Estradiol (NECON 0.5/35, 28,) 0.5-35 mg- mcg per tablet Take 1 tablet by mouth once daily. doxycycline (VIBRA-TABS) 100 mg tablet Take 1 tablet by mouth twice daily. Follitropin Beta (FOLLISTIM AQ) 300 unit/0.36 mL crtg Inject 225 Units subcutaneously once daily. leuprolide (LUPRON) 1 mg/0.2 mL kit Inject 4mg SQ once for trigger methylPREDNISolone (MEDROL) 16 mg tablet Take 1 tablet by mouth once daily. Take as directed progesterone micronized (PROMETRIUM) 200 mg capsule Insert 2 capsules vaginally in the AM and 2 capsules vaginally in the PM estradiol (VIVELLE-DOT) 0.1 mg/24 hr Apply patches and and change as directed. PNV95/FERROUS FUMARATE/FA ( ORAL) Take by mouth. FOLIC ACID ORAL Take by mouth. ? No current facility-administered medications for this visit. ? ? ? ultrasound scheduled for - NA Results: na ? Labs see above Blood Type: O- History of Ectopic:No History of Miscarriage: No History of Abdominal Surgery: No She said over the weekend she had light to moderate flow with small clots and cramping that was moderate all weekend and intermittently severe at times. She spoke to Dr. Garrett Thursday. She has continued the schedule for the Vivelle dot patches and the PV progesterone. Pain: No cramping today. Bleeding: Only spotting when she is wiping today. ? Plan: Per Dr. Zavaleta: REPEAT bhcg level in one week. Stop IVF medications. (patch and PV progesterone) Chemical . ( no rhogam needed)? Progesterone: She will stop ? Pt advised to: repeat lab in a week. She will call prn with pain or bleeding. OB Provider: unknown ? Patients Phone number: [phone] ? Cinthia Vernon RN ? Referring Provider: SELF [200] Allergies As of Date: 11/16/2017 Noted Allergy Reaction WELLBUTRIN (BUPROPION HCL) 10/09/2016 4 - Hives Date Reviewed: 10/26/2017 Reviewed by: Roxy Mcihaud) AYESHA Dai - Fully Assessed Reason for Visit: Results, Lab [1201] Primary Visit Diagnosis:Chemical [O02.81] Order(s):HCG QUANTITATIVE [SQHCGQT] Order #: [id number] FUTURE Prescriptions as of 11/16/2017 Sig: X DOXYCYCLINE HYCLATE 100 MG TA* Take 1 tablet by mouth twice * X COMPOUNDED PRESCRIPTION Empty vials for Ganirelix and* X FOLLITROPIN MICK 75 UNIT SUBC* Inject 300 Units intramuscula* X GANIRELIX 250 MCG/0.5 ML SUBC* Inject 1 Syringe subcutaneous* X NORETHINDRONE-ETHINYL ESTRADI* Take 1 tablet by mouth once d* X DOXYCYCLINE HYCLATE 100 MG TA* Take 1 tablet by mouth twice * X FOLLITROPIN BETA 300 UNIT/0.3* Inject 225 Units subcutaneous* X LEUPROLIDE 1 MG/0.2 ML SUBCUT* Inject 4mg SQ once for trigger X METHYLPREDNISOLONE 16 MG TABL* Take 1 tablet by mouth once d* X PROGESTERONE MICRONIZED 200 M* Insert 2 capsules vaginally i* X ESTRADIOL 0.1 MG/24 HR SEMIWE* Apply patches and and change * ORAL Take by mouth. FOLIC ACID ORAL Take by mouth. Problem List As Of Date 11/16/2017 Noted Resolved Obesity, Class III, BMI >= 40 (morbid obesity) *INVALID FOR* Female infertility [N97.9] INVALID FOR* More... Follow-up and Disposition History Recorded Encounter Status:Closed by CALDERON ZAVALETA MD on 02/08/18 PROGRESS Observed: 11/16/2017 Status: COMPLETED Source: [place] 12:21 PM [facility] [place] REPOSITORY O ID: [id number] Author: Cinthia BeckerRn) AYESHA Vernon Service: (none) Author Type: Registered Nurse Type: Progress Notes Filed: 02/08/2018 5:25 PM Note Text: Belen Ireland, a 32 year old [id number] here for repeat bhcg from IVF. ? Date of Embryo Transfer: 10/31/17, # of embryos transferred: 1 ? Gestational age today: 5 weeks 0 days ? HCG levels: ? Component Latest Ref Rng AND Units 11/13/2017 11/16/2017 hCG Quantitative, Blood <5.0 mU/mL 220.6 (H) 140.9 (H) CURRENT MEDICATIONS ? Current Outpatient Prescriptions: doxycycline (VIBRA-TABS) 100 mg tablet Take 1 tablet by mouth twice daily. COMPOUNDED PRESCRIPTION Empty vials for Ganirelix and needles and syringes for IM injections of Ganirelix Follitropin Mick (GONAL-F RFF) 75 unit solr Inject 300 Units intramuscularly once daily. Take as directed Ganirelix Acetate 250 mcg/0.5 mL syrg Inject 1 Syringe subcutaneously once daily. Use as directed Norethindrone-Eth Estradiol (NECON 0.5/35, 28,) 0.5-35 mg- mcg per tablet Take 1 tablet by mouth once daily. doxycycline (VIBRA-TABS) 100 mg tablet Take 1 tablet by mouth twice daily. Follitropin Beta (FOLLISTIM AQ) 300 unit/0.36 mL crtg Inject 225 Units subcutaneously once daily. leuprolide (LUPRON) 1 mg/0.2 mL kit Inject 4mg SQ once for trigger methylPREDNISolone (MEDROL) 16 mg tablet Take 1 tablet by mouth once daily. Take as directed progesterone micronized (PROMETRIUM) 200 mg capsule Insert 2 capsules vaginally in the AM and 2 capsules vaginally in the PM estradiol (VIVELLE-DOT) 0.1 mg/24 hr Apply patches and and change as directed. PNV95/FERROUS FUMARATE/FA ( ORAL) Take by mouth. FOLIC ACID ORAL Take by mouth. ? No current facility-administered medications for this visit. ? ? ? ultrasound scheduled for - NA Results: na ? Labs see above Blood Type: O- History of Ectopic:No History of Miscarriage: No History of Abdominal Surgery: No She said over the weekend she had light to moderate flow with small clots and cramping that was moderate all weekend and intermittently severe at times. She spoke to Dr. Garrett Thursday. She has continued the schedule for the Vivelle dot patches and the PV progesterone. Pain: No cramping today. Bleeding: Only spotting when she is wiping today. ? Plan: Per Dr. Zavaleta: REPEAT bhcg level in one week. Stop IVF medications. (patch and PV progesterone) Chemical . ( no rhogam needed)? Progesterone: She will stop ? Pt advised to: repeat lab in a week. She will call prn with pain or bleeding. OB Provider: unknown ? Patients Phone number: [phone] ? Cinthia Vernon RN ? HCG, QUANTITATIVE BL Collected: 11/16/2017 Status: F Source: [place] 7:33 AM [facility] REPOSITORY TYPE CODE TESTS RESULT OUT OF REFERENCE UNITS RANGE LAB HCGQT <5.0 mU/mL HCG, High Quantitative Bl 140.9 Result Comment: QUANTITATIVE HCG NORMAL RANGES Weeks of Gestation (Weeks Since LMP) 3 Weeks (5.8-71.2 mIU/mL) 4 Weeks (9.5-750 mIU/mL) 5 Weeks (217-7138 mIU/mL) 6 Weeks (158-40239 mIU/mL) 7 Weeks (3697-262419 mIU/mL) 8 Weeks (90171-863993 mIU/mL) 9 Weeks (07117-816072 mIU/mL) 10 Weeks (60954-413609 mIU/mL) 12 Weeks (54475-001323 mIU/mL) Referenced to 4th [facility] of [facility] CNNURSE Observed: 11/13/2017 Status: COMPLETED Source: [place] 6:00 PM [facility] REPOSITORY Nurse Visit (JOSUE) BEKABELEN ([id number]) 1985 F Date Time Provider Department 11/13/17 6:00 PM NURSE ELY SALAS During your visit today, we recorded the following information about you: Cinthia Vernon, RN, RN 11/14/2017 2:43 PM Signed Component Latest Ref Rng ANDamp; Units 11/13/2017 hCG Quantitative, Blood ANDlt;5.0 mU/mL 220.6 (H) Belen Najeraabe, a 32 year old [id number] has a positive test from IVF. Date of Embryo Transfer: 10/31/17, # of embryos transferred: 1 Gestational age today: 4 weeks 4 days HCG levels: 220.6 Current Outpatient Prescriptions: doxycycline (VIBRA-TABS) 100 mg tablet Take 1 tablet by mouth twice daily. COMPOUNDED PRESCRIPTION Empty vials for Ganirelix and needles and syringes for IM injections of Ganirelix Follitropin Mick (GONAL-F RFF) 75 unit solr Inject 300 Units intramuscularly once daily. Take as directed Ganirelix Acetate 250 mcg/0.5 mL syrg Inject 1 Syringe subcutaneously once daily. Use as directed Norethindrone-Eth Estradiol (NECON 0.5/35, 28,) 0.5-35 mg- mcg per tablet Take 1 tablet by mouth once daily. doxycycline (VIBRA-TABS) 100 mg tablet Take 1 tablet by mouth twice daily. Follitropin Beta (FOLLISTIM AQ) 300 unit/0.36 mL crtg Inject 225 Units subcutaneously once daily. leuprolide (LUPRON) 1 mg/0.2 mL kit Inject 4mg SQ once for trigger methylPREDNISolone (MEDROL) 16 mg tablet Take 1 tablet by mouth once daily. Take as directed progesterone micronized (PROMETRIUM) 200 mg capsule Insert 2 capsules vaginally in the AM and 2 capsules vaginally in the PM estradiol (VIVELLE-DOT) 0.1 mg/24 hr Apply patches and and change as directed. PNV95/FERROUS FUMARATE/FA ( ORAL) Take by mouth. FOLIC ACID ORAL Take by mouth. No current facility-administered medications for this visit. ultrasound scheduled for TBD Results: na Labs see above Blood Type: O- History of Ectopic:No History of Miscarriage: No History of Abdominal Surgery: No Pain:Yes moderate and light. more moderate cramping today and yesturday . Bleeding: Yes- light flow for the past few days. Brown yesturday and red today. Spotting before this. Plan: Per Dr. Zavaleta: repeat bhcg on Thursday 11/16 d/t spotting and bleeding and cramping. She will go to [place] in am. Patient will call PRN for increased pain or bleeding over the weekend (she spoke to fellow last night). Progesterone: Takin PV Mirza Progesterone suppositories twice a day Stop Date: 10 weeks. Pt advised to: repeat the lab work on Thursday d/t spotting, flow and cramping. OB Provider: unknown Patients Phone number: [phone] Cinthia Vernon RN Referring Provider: SELF [200] Allergies As of Date: 11/13/2017 Noted Allergy Reaction WELLBUTRIN (BUPROPION HCL) 10/09/2016 4 - Hives Date Reviewed: 10/26/2017 Reviewed by: Roxy (Rn) AYESHA Dai - Fully Assessed Reason for Visit: Results, Lab [1201] Primary Visit Diagnosis: resulting from assisted reproductive technology in first trimester [O09.811] Order(s):HCG QUANTITATIVE [SQHCGQT] Order #: [id number] FUTURE Prescriptions as of 11/13/2017 Sig: DOXYCYCLINE HYCLATE 100 MG TA* Take 1 tablet by mouth twice * COMPOUNDED PRESCRIPTION Empty vials for Ganirelix and* FOLLITROPIN MICK 75 UNIT SUBC* Inject 300 Units intramuscula* GANIRELIX 250 MCG/0.5 ML SUBC* Inject 1 Syringe subcutaneous* NORETHINDRONE-ETHINYL ESTRADI* Take 1 tablet by mouth once d* DOXYCYCLINE HYCLATE 100 MG TA* Take 1 tablet by mouth twice * FOLLITROPIN BETA 300 UNIT/0.3* Inject 225 Units subcutaneous* LEUPROLIDE 1 MG/0.2 ML SUBCUT* Inject 4mg SQ once for trigger METHYLPREDNISOLONE 16 MG TABL* Take 1 tablet by mouth once d* PROGESTERONE MICRONIZED 200 M* Insert 2 capsules vaginally i* ESTRADIOL 0.1 MG/24 HR SEMIWE* Apply patches and and change * ORAL Take by mouth. FOLIC ACID ORAL Take by mouth. Problem List As Of Date 11/13/2017 Noted Resolved Obesity, Class III, BMI >= 40 (morbid obesity) *INVALID FOR* Female infertility [N97.9] INVALID FOR* More... Follow-up and Disposition History Recorded Encounter Status:Closed by DOROTHY SILVA MD on 11/14/17 PROGRESS Observed: 11/13/2017 Status: COMPLETED Source: [place] 2:42 PM [facility] REPOSITORY O ID: [id number] Author: Cinthia (Rn) AYESHA Vernon Service: (none) Author Type: Registered Nurse Type: Progress Notes Filed: 11/14/2017 2:43 PM Note Text: Component Latest Ref Rng AND Units 11/13/2017 hCG Quantitative, Blood <5.0 mU/mL 220.6 (H) Belen Ireland, a 32 year old [id number] has a positive test from IVF. Date of Embryo Transfer: 10/31/17, # of embryos transferred: 1 Gestational age today: 4 weeks 4 days HCG levels: 220.6 Current Outpatient Prescriptions: doxycycline (VIBRA-TABS) 100 mg tablet Take 1 tablet by mouth twice daily. COMPOUNDED PRESCRIPTION Empty vials for Ganirelix and needles and syringes for IM injections of Ganirelix Follitropin Mick (GONAL-F RFF) 75 unit solr Inject 300 Units intramuscularly once daily. Take as directed Ganirelix Acetate 250 mcg/0.5 mL syrg Inject 1 Syringe subcutaneously once daily. Use as directed Norethindrone-Eth Estradiol (NECON 0.5/35, 28,) 0.5-35 mg- mcg per tablet Take 1 tablet by mouth once daily. doxycycline (VIBRA-TABS) 100 mg tablet Take 1 tablet by mouth twice daily. Follitropin Beta (FOLLISTIM AQ) 300 unit/0.36 mL crtg Inject 225 Units subcutaneously once daily. leuprolide (LUPRON) 1 mg/0.2 mL kit Inject 4mg SQ once for trigger methylPREDNISolone (MEDROL) 16 mg tablet Take 1 tablet by mouth once daily. Take as directed progesterone micronized (PROMETRIUM) 200 mg capsule Insert 2 capsules vaginally in the AM and 2 capsules vaginally in the PM estradiol (VIVELLE-DOT) 0.1 mg/24 hr Apply patches and and change as directed. PNV95/FERROUS FUMARATE/FA ( ORAL) Take by mouth. FOLIC ACID ORAL Take by mouth. No current facility-administered medications for this visit. ultrasound scheduled for TBD Results: na Labs see above Blood Type: O- History of Ectopic:No History of Miscarriage: No History of Abdominal Surgery: No Pain:Yes moderate and light. more moderate cramping today and yesturday . Bleeding: Yes- light flow for the past few days. Brown yesturday and red today. Spotting before this. Plan: Per Dr. Zavaleta: repeat cg on Thursday 11/16 d/t spotting and bleeding and cramping. She will go to [place] in am. Patient will call PRN for increased pain or bleeding over the weekend (she spoke to fellow last night). Progesterone: Takin PV Mirza Progesterone suppositories twice a day Stop Date: 10 weeks. Pt advised to: repeat the lab work on Thursday d/t spotting, flow and cramping. OB Provider: unknown Patients Phone number: [phone] Cinthia Vernon RN HCG, QUANTITATIVE BL Collected: 11/13/2017 Status: F Source: [place] 7:34 AM [facility] REPOSITORY TYPE CODE TESTS RESULT OUT OF REFERENCE UNITS RANGE LAB HCGQT <5.0 mU/mL HCG, High Quantitative Bl 220.6 Result Comment: QUANTITATIVE HCG NORMAL RANGES Weeks of Gestation (Weeks Since LMP) 3 Weeks (5.8-71.2 mIU/mL) 4 Weeks (9.5-750 mIU/mL) 5 Weeks (217-7138 mIU/mL) 6 Weeks (158-75342 mIU/mL) 7 Weeks (3697-896666 mIU/mL) 8 Weeks (44243-275504 mIU/mL) 9 Weeks (79522-758051 mIU/mL) 10 Weeks (10140-475911 mIU/mL) 12 Weeks (70847-470938 mIU/mL) Referenced to 4th [facility] of [facility] CNCO Observed: 11/01/2017 Status: COMPLETED Source: [place] 12:00 AM [facility] REPOSITORY Letter Text Human Resources Office Manager and Women's Health [facility] Pamela Duncan, Ph.D., [facility] [phone] [id number] [place] [address] Belen Beka 1985 In Vitro fertilization/Frozen Transfer Cycle Summary This summary should help to clarify details related to your recent treatment cycle. Please retain this for your records. If you have any questions, please contact the laboratory assistant at [phone]. The in vitro fertilization procedure performed at the [facility], beginning with the egg retrieval on 10/26/17 has resulted in the followin oocytes were retrieved 13 oocytes were mature 1 oocytes were still immature 13 oocytes injected with sperm (ICSI) and 13 were fertilized 1 oocytes incubated with sperm (IVF) and 0 were fertilized 13 Total number of normally fertilized oocytes 1 embryos were transferred to the patient's uterus on 10/31/17 0 embryos were frozen at cleavage stage (2-8 cells) 0 embryos were frozen at morula/compacting stage 7 embryos were frozen at blastocyst stage 5 embryos failed to develop in culture Frozen embryo thaw procedures performed at the [facility], beginning with the embryo thaw on n/a has resulted in the following: n/a embryos were thawed n/a embryos were transferred to the patients uterus on n/a n/a embryos still remaining in cryostorage * cell stage of remaining embryos n/a Lab verification: Embryologists: CRUZ Orozco November 01, 2017 10:45 AM Bi Analyst: Pamela Duncan, Ph.D., HCLD PROCEDURE Observed: 10/31/2017 Status: COMPLETED Source: [place] 10:29 AM [facility] REPOSITORY HNO ID: [id number] Author: Calderon Zavaleta Service: (none) Author Type: Physician Type: Procedures Filed: 10/31/2017 11:04 AM Note Text: WHI ELY TRANSFER PROCEDURE NOTE Date: 10/31/2017 Primary Proceduralist: Calderon Zavaleta MD Tile Mechanic Helper(s): Not applicable Informed Consent: Indications: Belen Ireland, is a 32 year old female here today for Embryo Transfer. TRANSFER Transfer Date: 10/31/17 Transfer Procedure: Embryo Transfer Transfer Physician: Calderon Zavaleta M.D. Pre-Procedure Diagnosis: Infertility Post-Procedure Diagnosis: Infertility Source of embryos: Patient Total Thawed: 0 # of Embryos Transferred: 1 ASRM Guidelines: Recommended limits adhered to Catheter Type: Hurt Ease of Transfer: Easy Direction: AV Tissue Status: For Autologous Use Only/ Not Evaluated for Infectious Substances Specimens: None No qualified resident/fellow was available. SIGNATURE: Calderon Zavaleta MD PATIENT NAME: Belen Ireland DATE: October 31, 2017 TIME: 10:29 AM PROGRESS Observed: 10/31/2017 Status: COMPLETED Source: [place] 10:01 AM [facility] REPOSITORY HNO ID: [id number] Author: Oma Miramontes (Lab) Service: (none) Author Type: Fermentation Scientist Type: Progress Notes Filed: 10/31/2017 10:03 AM Note Text: Embryo Transfer procedure performed. Detailed notes can be found in the paper chart in the [facility] ? 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 Office. Cruz Lares CNOV Observed: 10/31/2017 Status: COMPLETED Source: [place] 10:00 AM [facility] REPOSITORY Office Visit (ANDRBE) BELEN IRELAND ([id number]) 1985 F Date Time Provider Department 10/31/17 10:00 AM ANDROLOGY WORKDAY CONSULTANT ANDRBE During your visit today, we recorded the following information about you: Cruz Lares 10/31/2017 10:03 AM Signed Embryo Transfer procedure performed. Detailed notes can be found in the paper chart in the [facility] ? 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 Office. Cruz Lares Referring Provider: SELF [200] Allergies As of Date: 10/31/2017 Noted Allergy Reaction WELLBUTRIN (BUPROPION HCL) 10/09/2016 4 - Hives Date Reviewed: 10/26/2017 Reviewed by: Roxy Michaud) AYESHA Dai - Fully Assessed Primary Visit Diagnosis:Female infertility [N97.9] Prescriptions as of 10/31/2017 Sig: DOXYCYCLINE HYCLATE 100 MG TA* Take 1 tablet by mouth twice * COMPOUNDED PRESCRIPTION Empty vials for Ganirelix and* FOLLITROPIN MICK 75 UNIT SUBC* Inject 300 Units intramuscula* GANIRELIX 250 MCG/0.5 ML SUBC* Inject 1 Syringe subcutaneous* NORETHINDRONE-ETHINYL ESTRADI* Take 1 tablet by mouth once d* DOXYCYCLINE HYCLATE 100 MG TA* Take 1 tablet by mouth twice * FOLLITROPIN BETA 300 UNIT/0.3* Inject 225 Units subcutaneous* LEUPROLIDE 1 MG/0.2 ML SUBCUT* Inject 4mg SQ once for trigger METHYLPREDNISOLONE 16 MG TABL* Take 1 tablet by mouth once d* PROGESTERONE MICRONIZED 200 M* Insert 2 capsules vaginally i* ESTRADIOL 0.1 MG/24 HR SEMIWE* Apply patches and and change * ORAL Take by mouth. FOLIC ACID ORAL Take by mouth. Problem List As Of Date 10/31/2017 Noted Resolved Obesity, Class III, BMI >= 40 (morbid obesity) *INVALID FOR* Female infertility [N97.9] INVALID FOR* More... Encounter Status:Closed by OMA CONWAY on 10/31/17 CNOV Observed: 10/31/2017 Status: COMPLETED Source: [place] 10:00 AM [facility] REPOSITORY Office Visit (IVFBE) BELEN IRELAND ([id number]) 1985 F Date Time Provider Department 10/31/17 10:00 AM CALDERON ZAVALETA During your visit today, we recorded the following information about you: Calderon Zavaleta MD 10/31/2017 11:04 AM Signed 32 yo woman s/p first IVF cycle here today for fresh embryo transfer 14 eggs 13 mature 13 fertilized 1 transferred (fresh transfer) diagnoisis = male factor HSG = normal Cycles are regulatory and progesterone confirms ovulation - 11 day luteal phase by bbt and opk SA - compromised count and motility, TMC on IUI's have varied but have not been higher than 2 million Carolyne Rigden, SOLE MOLDER, SOLE MOLDER 10/31/2017 9:50 AM Signed POST EMBRYO TRANSFER INSTRUCTIONS ? You will need to have your blood drawn for Quantitative HCG on 11/13/17 at [place]. You can expect to be called the afternoon of your blood draw with your test results. If for any reason that date or location is changed, please call [phone] to inform us. ? Continue your current medications as instructed UNTIL YOU ARE 10 WEEKS or until a BLOOD test is confirmed negative. ? It is not uncommon to have breast tenderness, bloating, vaginal spotting ranging from pink to red to brown and generally feeling premenstrual while waiting to test. You can feel this way and still be - DO NOT STOP YOUR MEDICATIONS until testing is completed. Call the office if you develop: - Pain, redness and heat at your injection sites From the day of your transfer on, please treat yourself as if you are . Things to avoid: - Hot tubs/raising your core temperature - Chemical exposures - Drugs/medications that are not safe in - Processed lunch meat, unpasteurized cheeses - Smoking - Fish that are high in mercury Our recommendations on maintaining a healthy lifestyle during this time include: - Regular physical activity. Bed-rest is NOT recommended and will not increase your chance of - Daily vitamin or folic acid - Healthy diet - Adequate sleep - Sexual intimacy/intercourse/orgasm will not interfere with implantation. It is difficult to maintain the balance between optimism and realism. Remember you have done and are doing all that you can to improve your odds. Set reasonable expectations for yourselves. Keeping yourself busy and mentally distracted will help the time pass while waiting to test. If you have any questions, please call [phone]. Calderon Zavaleta MD 10/31/2017 11:04 AM Signed [facility] EL[facility] TRANSFER PROCEDURE NOTE Date: 10/31/2017 Primary Proceduralist: Calderon Zavaleta MD Tile Mechanic Helper(s): Not applicable Informed Consent: Indications: Belen Ireland, is a 32 year old female here today for Embryo Transfer. TRANSFER Transfer Date: 10/31/17 Transfer Procedure: Embryo Transfer Transfer Physician: Calderon Zavaleta M.D. Pre-Procedure Diagnosis: Infertility Post-Procedure Diagnosis: Infertility Source of embryos: Patient Total Thawed: 0 # of Embryos Transferred: 1 ASRM Guidelines: Recommended limits adhered to Catheter Type: Hurt Ease of Transfer: Easy Direction: AV Tissue Status: For Autologous Use Only/ Not Evaluated for Infectious Substances Specimens: None No qualified resident/fellow was available. SIGNATURE: Calderon Zavaleta MD PATIENT NAME: Belen Ireland DATE: October 31, 2017 TIME: 10:29 AM Referring Provider: SELF [200] Allergies As of Date: 10/31/2017 Noted Allergy Reaction WELLBUTRIN (BUPROPION HCL) 10/09/2016 4 - Hives Date Reviewed: 10/26/2017 Reviewed by: Roxy (Rn) AYESHA Dai - Fully Assessed Primary Visit Diagnosis: examination or test, unconfirmed [Z32.00] Other Visit Diagnosis:In vitro fertilization [Z31.83] Order(s):HCG QUANTITATIVE [SQHCGQT] Order #: [id number] FUTURE Prescriptions as of 10/31/2017 Sig: DOXYCYCLINE HYCLATE 100 MG TA* Take 1 tablet by mouth twice * COMPOUNDED PRESCRIPTION Empty vials for Ganirelix and* FOLLITROPIN MICK 75 UNIT SUBC* Inject 300 Units intramuscula* GANIRELIX 250 MCG/0.5 ML SUBC* Inject 1 Syringe subcutaneous* NORETHINDRONE-ETHINYL ESTRADI* Take 1 tablet by mouth once d* DOXYCYCLINE HYCLATE 100 MG TA* Take 1 tablet by mouth twice * FOLLITROPIN BETA 300 UNIT/0.3* Inject 225 Units subcutaneous* LEUPROLIDE 1 MG/0.2 ML SUBCUT* Inject 4mg SQ once for trigger METHYLPREDNISOLONE 16 MG TABL* Take 1 tablet by mouth once d* PROGESTERONE MICRONIZED 200 M* Insert 2 capsules vaginally i* ESTRADIOL 0.1 MG/24 HR SEMIWE* Apply patches and and change * ORAL Take by mouth. FOLIC ACID ORAL Take by mouth. Problem List As Of Date 10/31/2017 Noted Resolved Obesity, Class III, BMI >= 40 (morbid obesity) *INVALID FOR* Female infertility [N97.9] INVALID FOR* More... Other instructions from your clinician: POST EMBRYO TRANSFER INSTRUCTIONS ? You will need to have your blood drawn for Quantitative HCG on 11/13/17 at [place]. You can expect to be called the afternoon of your blood draw with your test results. If for any reason that date or location is changed, please call [phone] to inform us. ? Continue your current medications as instructed UNTIL YOU ARE 10 WEEKS or until a BLOOD test is confirmed negative. ? It is not uncommon to have breast tenderness, bloating, vaginal spotting ranging from pink to red to brown and generally feeling premenstrual while waiting to test. You can feel this way and still be - DO NOT STOP YOUR MEDICATIONS until testing is completed. Call the office if you develop: - Pain, redness and heat at your injection sites From the day of your transfer on, please treat yourself as if you are . Things to avoid: - Hot tubs/raising your core temperature - Chemical exposures - Drugs/medications that are not safe in - Processed lunch meat, unpasteurized cheeses - Smoking - Fish that are high in mercury Our recommendations on maintaining a healthy lifestyle during this time include: - Regular physical activity. Bed-rest is NOT recommended and will not increase your chance of - Daily vitamin or folic acid - Healthy diet - Adequate sleep - Sexual intimacy/intercourse/orgasm will not interfere with implantation. It is difficult to maintain the balance between optimism and realism. Remember you have done and are doing all that you can to improve your odds. Set reasonable expectations for yourselves. Keeping yourself busy and mentally distracted will help the time pass while waiting to test. If you have any questions, please call [phone]. Encounter Status:Closed by CALDERON ZAVALETA MD on 10/31/17 PROGRESS Observed: 10/31/2017 Status: COMPLETED Source: [place] 9:21 AM [facility] REPOSITORY O ID: [id number] Author: Calderon Zavaleta Service: (none) Author Type: Physician Type: Progress Notes Filed: 10/31/2017 11:04 AM Note Text: 32 yo woman s/p first IVF cycle here today for fresh embryo transfer 14 eggs 13 mature 13 fertilized 1 transferred (fresh transfer) diagnoisis = male factor HSG = normal Cycles are regulatory and progesterone confirms ovulation - 11 day luteal phase by bbt and opk SA - compromised count and motility, TMC on IUI's have varied but have not been higher than 2 million PROGRESS Observed: 10/26/2017 Status: COMPLETED Source: [place] 1:37 PM [facility] REPOSITORY HNO ID: [id number] Author: Radha Valencia (Cruz) Tejinder Service: (none) Author Type: (none) Type: Progress Notes Filed: 10/26/2017 1:38 PM Note Text: Retrieval procedure performed. Detailed notes can be found in the paper chart in the [facility]- 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 Office. CRUZ Orozco ANES POST Observed: 10/26/2017 Status: COMPLETED Source: [place] 10:59 AM [facility] REPOSITORY HNO ID: [id number] Author: Lakhwinder Torres V Service: Anesthesiology Author Type: Anesthesiologist Type: Anesthesia PostOp Filed: 10/26/2017 10:59 AM Note Text: POST ANESTHESIA EVALUATION NOTE SERVICE DATE: 10/26/2017 SERVICE TIME: 10:59 AM : 1985 Vitals: 10/26/17 0902 10/26/17 1018 Temp: 36.4 ?C (97.5 ?F) 36.2 ?C (97.2 ?F) 10/26/17 0902 10/26/17 1018 10/26/17 1033 10/26/17 1052 BP: 140/65 126/70 132/76 122/79 10/26/17 0902 10/26/17 1018 10/26/17 1033 10/26/17 1052 Pulse: 78 77 70 68 10/26/17 0902 10/26/17 1018 10/26/17 1033 10/26/17 1052 Resp: 16 16 16 16 10/26/17 0902 10/26/17 1018 10/26/17 1033 10/26/17 1052 SpO2: 97% 100% 100% 100% Validated Vital Signs: Yes POST ANES STATUS: No apparent anesthetic complications. The patient is appropriately hydrated with stable respiratory and cardiovascular status. Patient has safe and adequate airway control. The patient has appropriate pain relief and no significant post operative nausea or vomiting. The patient has achieved baseline mental status. Further assessment by Anesthesia Service: None Other Remarks: SIGNATURE: Lakhwinder Torres MD PATIENT NAME: Belen Ireland DATE: October 26, 2017 TIME: 10:59 AM PAGER/CONTACT #: [id number] PT ED Observed: 10/26/2017 Status: COMPLETED Source: [place] 10:59 AM [facility] REPOSITORY HNO ID: [id number] Author: Roxanne (Rn) AYESHA Montana Service: (none) Author Type: Registered Nurse Type: Patient Education Filed: 10/26/2017 11:00 AM Note Text: POST OP LEARNING RESPONSE INSTRUCTION PROVIDED TO: Patient and Family member METHOD OF INSTRUCTION: Individual instruction Written instruction - handouts PATIENT / FAMILY RESPONSE: Information received as demonstrated by interest and questions FOLLOW-UP PLAN: Complete - No need for follow-up SUPPLEMENTAL MATERIAL: None REFERRAL (RECOMMENDATION): None Electronically Signed By: Roxanne Montana RN In Department: SURGERY CENTER PROCEDURE Observed: 10/26/2017 Status: COMPLETED Source: [place] 10:10 AM [facility] REPOSITORY HNO ID: [id number] Author: Nigel Mcconnell Service: (none) Author Type: Physician Type: Procedures Filed: 10/26/2017 10:11 AM Note Text: WHI ELY RETRIEVAL PROCEDURE NOTE Procedure Date: 10/26/2017 Procedure Start Time: 956 Procedure End Time: 1007 Primary Proceduralist: Nigel Mcconnell MD Tile Mechanic Helper(s): Not applicable Informed Consent: Indications: Belen Ierland, is a 32 year old female here today for egg retrieval. RETRIEVAL Retrieval Date: 10/26/17 Retrieval Physician: Nigel Mcconnell M.D. Procedure: Follicle Punc, Retrieval of Oocyte ([id number]) Pre-op Diagnosis: Infertility Post-Op Diagnosis: Infertility Right Ovary Access: Yes Right Ovary Oocytes: 8 Left Ovary Access: Yes Left Ovary Oocytes: 6 Needle: Single Lumen Total Oocytes Retrieved: 14 Excess vaginal bleeding: No Estimated Blood Loss: Minimal Complications: None Specimens: Oocyte Patient recovering well with stable vital signs after tolerating the procedure well. I performed the entire procedure. SIGNATURE: Nigel Mcconnell MD PATIENT NAME: Belen Ireland DATE: October 26, 2017 TIME: 10:10 AM PT ED Observed: 10/26/2017 Status: COMPLETED Source: [place] 10:03 AM [facility] REPOSITORY HNO ID: [id number] Author: Roxy (Ayesha) AYESHA Dai Service: (none) Author Type: Registered Nurse Type: Patient Education Filed: 10/26/2017 10:03 AM Note Text: PRE OP LEARNING ASSESSMENT PROCEDURE/SURGERY: SURGERY: Oocyte Retrieval READINESS TO LEARN COGNITIVE ABILITY: Alert and oriented MOTIVATION TO LEARN: Eager FAMILY SUPPORT: High - Very involved in pt care PATIENT LEARNS BEST BY: Individual Instruction Written Instruction - Hand-outs Verbal Instruction FACTORS AFFECTING LEARNING: None PHYSICAL LIMITATIONS AFFECTING LEARNING: None Electronically Signed By: Roxy Dai RN In Department: SURGERY CENTER CNOV Observed: 10/26/2017 Status: COMPLETED Source: [place] 9:45 AM [facility] REPOSITORY Office Visit (IVFBE) BELEN IRELAND ([id number]) 1985 F Date Time Provider Department 10/26/17 9:45 AM NIGEL MCCONNELL IVFBE During your visit today, we recorded the following information about you: Roxy Dai RN, RN 10/26/2017 8:53 AM Signed [facility] [place] FERTILIZATION PROGRAM Post Egg Retrieval Instructions - You will begin using Progesterone supplementation the evening of 10/27 (the day after the retrieval). This will continue until you are 10 weeks . - Progesterone vaginal capsules 200mg: insert 2 capsules into the vagina twice a day. - Oral medications should be taken with food and will begin at bedtime the day after the retrieval. - Take 16mg of Medrol at bedtime 10/27, 10/28, 10/29, 10/30. - Take 1 Doxycycline 100mg at bedtime on 10/27, then 1 pill twice a day on the following dates: 10/28, 10/29, 10/30, 10/31(the last day will be only 1 pill). - You will begin using Estrogen skin patches on 11/04 (nine days after the retrieval). Apply two patches to clean dry skin (avoid the breasts) and change them every three days: 11/07, 11/10, 11/13, 11/16. Remove the patches on 11/19. - You may eat a regular diet following the retrieval. Please avoid spicy or fatty foods to avoid nausea or stomach upset. - You will be more comfortable if you are able to maintain regular bowel movements. You may use stool softeners (such as Benefiber or Colace) and/or mild stimulants (such as Milk of Magnesia). - Normal symptoms after your retrieval include mild to moderate abdominal discomfort and brown or pink vaginal spotting. You can use acetaminophen (Tylenol) every four to six hours or you can use the pain medication prescribed for you by the doctor. If you are using prescription pain medication, do not use additional acetaminophen. - You should report significant vaginal bleeding, as well as excessive pain, dizziness, nausea, vomiting or fever in excess of 100.4. Bloating or distention, weight gain in excess of 5 pounds, decreased urination, and difficulty breathing could be symptoms of hyperstimulation. The most common time for symptoms to occur is several days following the embryo transfer. If you have questions or concerns do not hesitate to call us at . The best time to call with concerns about your symptoms is first thing in the morning so that you can be seen and managed at the [facility] or [facility] to avoid a trip to the emergency room. If you have a problem after the office is closed that can not wait until morning, call [phone]. This line will roll over to an answering service that can page the doctor rn occupational health. Updated 06/07/2013 [place] IV[facility] DISCHARGE INSTRUCTIONS PT. NAME: Belen Ireland MR#: [id number] PT. PHONE: [phone] (home) Date: 10/26/2017 Physician: Nigel Mcconnell MD Procedure: Follicular Aspiration PLEASE FOLLOW THESE INSTRUCTIONS RESTRICTIONS AFTER ANESTHESIA: ANDlt;ANDgt; Do not drive, work with heavy equipment or sign legal documents for 24 hours. ANDlt;ANDgt; You may experience light-headedness, dizziness, nausea, or sleepiness after surgery. Do not stay alone. A responsible adult must be with you for 24 hours. Stay in bed if you experience these symptoms. DIET: ANDlt;ANDgt; No diet restrictions. MEDICATIONS: ANDlt;ANDgt; Pain medication can be taken as ordered. Do not drive, operate machinery or power tools while taking medications. ANDlt;ANDgt; Any medications that are normally used can be taken when you get home. DRESSING/SURGICAL AREA ANDlt;ANDgt; Observe surgical area for signs of excessive bleeding (slow oozing that saturates the dressing). Call you physician at once. ANDlt;ANDgt; Watch site for signs of infection: increased pain, redness, foul odor, swelling or fever (over 100 degrees). These signs usually occur in 36 to 48 hours. If present, notify your physician. ANDlt;ANDgt; Apply ice intermittently to operative site for 24-48 hours as needed. ACTIVITY: ANDlt;ANDgt; Do not douche. ANDlt;ANDgt; Do not use tampons. ANDlt;ANDgt; No sexual relations for three days. REMEMBER: For questions/concerns, call your doctor at [phone] ([facility]). The above discharge instructions were reviewed and sent home with the patient. AYESHA Beatty MD 10/26/2017 10:11 AM Signed I ELY RETRIEVAL PROCEDURE NOTE Procedure Date: 10/26/2017 Procedure Start Time: 956 Procedure End Time: 1007 Primary Proceduralist: Nigel Mcconnell MD Tile Mechanic Helper(s): Not applicable Informed Consent: Indications: Belen Ireland, is a 32 year old female here today for egg retrieval. RETRIEVAL Retrieval Date: 10/26/17 Retrieval Physician: Nigel Mcconnell M.D. Procedure: Follicle Punc, Retrieval of Oocyte ([id number]) Pre-op Diagnosis: Infertility Post-Op Diagnosis: Infertility Right Ovary Access: Yes Right Ovary Oocytes: 8 Left Ovary Access: Yes Left Ovary Oocytes: 6 Needle: Single Lumen Total Oocytes Retrieved: 14 Excess vaginal bleeding: No Estimated Blood Loss: Minimal Complications: None Specimens: Oocyte Patient recovering well with stable vital signs after tolerating the procedure well. I performed the entire procedure. SIGNATURE: Nigel Mcconnell MD PATIENT NAME: Belen Ireland DATE: October 26, 2017 TIME: 10:10 AM Referring Provider: SELF [[id number]] Allergies As of Date: 10/26/2017 Noted Allergy Reaction WELLBUTRIN (BUPROPION HCL) 10/09/2016 4 - Hives Date Reviewed: 10/26/2017 Reviewed by: Roxy Michaud) AYESHA Dai - Fully Assessed Primary Visit Diagnosis:Female infertility [N97.9] Order(s):doxycycline (VIBRA-TABS) 100 mg tabletTake 1 tablet by mouth twice daily.Disp: 8 tabletRfl: 0 Prescriptions as of 10/26/2017 Sig: DOXYCYCLINE HYCLATE 100 MG TA* Take 1 tablet by mouth twice * COMPOUNDED PRESCRIPTION Empty vials for Ganirelix and* FOLLITROPIN MICK 75 UNIT SUBC* Inject 300 Units intramuscula* GANIRELIX 250 MCG/0.5 ML SUBC* Inject 1 Syringe subcutaneous* NORETHINDRONE-ETHINYL ESTRADI* Take 1 tablet by mouth once d* DOXYCYCLINE HYCLATE 100 MG TA* Take 1 tablet by mouth twice * FOLLITROPIN BETA 300 UNIT/0.3* Inject 225 Units subcutaneous* LEUPROLIDE 1 MG/0.2 ML SUBCUT* Inject 4mg SQ once for trigger METHYLPREDNISOLONE 16 MG TABL* Take 1 tablet by mouth once d* PROGESTERONE MICRONIZED 200 M* Insert 2 capsules vaginally i* ESTRADIOL 0.1 MG/24 HR SEMIWE* Apply patches and and change * ORAL Take by mouth. FOLIC ACID ORAL Take by mouth. Medication notes this encounter COMPOUNDED PRESCRIPTION >> Roxy Dai RN, RN 10/26/2017 8:49 AM >> ROXY DAI ThuOct 26, 2017 8:49 AM Not taking FOLLITROPIN MICK 75 UNIT SUBCUTANEOUS SOLUTION >> Roxy Dai RN, RN 10/26/2017 8:50 AM >> ROXY DAI ThuOct 26, 2017 8:50 AM Not taking GANIRELIX 250 MCG/0.5 ML SUBCUTANEOUS SYRINGE >> Roxy Dai RN, RN 10/26/2017 8:50 AM >> SUHASPEGGYI ThuOct 26, 2017 8:50 AM Not taking NORETHINDRONE-ETHINYL ESTRADIOL 0.5 MG-35 MCG TABLET >> Roxy Dai RN, RN 10/26/2017 8:50 AM >> ROXY DAI ThuOct 26, 2017 8:50 AM Not taking FOLLITROPIN BETA 300 UNIT/0.36 ML SUBCUTANEOUS CARTRIDGE >> Roxy Dai RN, RN 10/26/2017 8:50 AM >> ROXY DAI ThuOct 26, 2017 8:50 AM Not taking Problem List As Of Date 10/26/2017 Noted Resolved Obesity, Class III, BMI >= 40 (morbid obesity) *INVALID FOR* Female infertility [N97.9] INVALID FOR* More... Other instructions from your clinician: [facility] FERTIL[facility]ATION PROGRAM Post Egg Retrieval Instructions - You will begin using Progesterone supplementation the evening of 10/27 (the day after the retrieval). This will continue until you are 10 weeks . - Progesterone vaginal capsules 200mg: insert 2 capsules into the vagina twice a day. - Oral medications should be taken with food and will begin at bedtime the day after the retrieval. - Take 16mg of Medrol at bedtime 10/27, 10/28, 10/29, 10/30. - Take 1 Doxycycline 100mg at bedtime on 10/27, then 1 pill twice a day on the following dates: 10/28, 10/29, 10/30, 10/31(the last day will be only 1 pill). - You will begin using Estrogen skin patches on 11/04 (nine days after the retrieval). Apply two patches to clean dry skin (avoid the breasts) and change them every three days: 11/07, 11/10, 11/13, 11/16. Remove the patches on 11/19. - You may eat a regular diet following the retrieval. Please avoid spicy or fatty foods to avoid nausea or stomach upset. - You will be more comfortable if you are able to maintain regular bowel movements. You may use stool softeners (such as Benefiber or Colace) and/or mild stimulants (such as Milk of Magnesia). - Normal symptoms after your retrieval include mild to moderate abdominal discomfort and brown or pink vaginal spotting. You can use acetaminophen (Tylenol) every four to six hours or you can use the pain medication prescribed for you by the doctor. If you are using prescription pain medication, do not use additional acetaminophen. - You should report significant vaginal bleeding, as well as excessive pain, dizziness, nausea, vomiting or fever in excess of 100.4. Bloating or distention, weight gain in excess of 5 pounds, decreased urination, and difficulty breathing could be symptoms of hyperstimulation. The most common time for symptoms to occur is several days following the embryo transfer. If you have questions or concerns do not hesitate to call us at . The best time to call with concerns about your symptoms is first thing in the morning so that you can be seen and managed at the [facility] or [facility] to avoid a trip to the emergency room. If you have a problem after the office is closed that can not wait until morning, call [phone]. This line will roll over to an answering service that can page the doctor rn occupational health. Updated 06/07/2013 [place] [facility] DISCHARGE INSTRUCTIONS PT. NAME: Belen Ireland MR#: [id number] PT. PHONE: [phone] (home) Date: 10/26/2017 Physician: Nigel Mcconnell MD Procedure: Follicular Aspiration PLEASE FOLLOW THESE INSTRUCTIONS RESTRICTIONS AFTER ANESTHESIA: <> Do not drive, work with heavy equipment or sign legal documents for 24 hours. <> You may experience light-headedness, dizziness, nausea, or sleepiness after surgery. Do not stay alone. A responsible adult must be with you for 24 hours. Stay in bed if you experience these symptoms. DIET: <> No diet restrictions. MEDICATIONS: <> Pain medication can be taken as ordered. Do not drive, operate machinery or power tools while taking medications. <> Any medications that are normally used can be taken when you get home. DRESSING/SURGICAL AREA <> Observe surgical area for signs of excessive bleeding (slow oozing that saturates the dressing). Call you physician at once. <> Watch site for signs of infection: increased pain, redness, foul odor, swelling or fever (over 100 degrees). These signs usually occur in 36 to 48 hours. If present, notify your physician. <> Apply ice intermittently to operative site for 24-48 hours as needed. ACTIVITY: <> Do not douche. <> Do not use tampons. <> No sexual relations for three days. REMEMBER: For questions/concerns, call your doctor at [phone] ([facility]). The above discharge instructions were reviewed and sent home with the patient. Roxy Dai RN Prescriptions ordered this encounter Disp Refills Start End DOXYCYCLINE HYCLATE 100 MG TABLET 8 ta* 0 10/26/2017 Route: ORAL Sig: Take 1 tablet by mouth twice daily. Follow-up and Disposition History Recorded Encounter Status:Closed by NIGEL MCCONNELL MD on 10/26/17 DEANNA Observed: 10/26/2017 Status: COMPLETED Source: [place] 9:45 AM [facility] REPOSITORY Office Visit (ANDRBE) BELEN IRELAND ([id number]) 1985 F Date Time Provider Department 10/26/17 9:45 [facility] your visit today, we recorded the following information about you: CRUZ Orozco 10/26/2017 1:38 PM Signed Retrieval procedure performed. Detailed notes can be found in the paper chart in the 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 Office. Radha Marr LAB Referring Provider: SELF [[id number]] Allergies As of Date: 10/26/2017 Noted Allergy Reaction WELLBUTRIN (BUPROPION HCL) 10/09/2016 4 - Hives Date Reviewed: 10/26/2017 Reviewed by: Roxy Michaud) AYESHA Dai - Fully Assessed Primary Visit Diagnosis:Female infertility [N97.9] Prescriptions as of 10/26/2017 Sig: COMPOUNDED PRESCRIPTION Empty vials for Ganirelix and* FOLLITROPIN MICK 75 UNIT SUBC* Inject 300 Units intramuscula* GANIRELIX 250 MCG/0.5 ML SUBC* Inject 1 Syringe subcutaneous* NORETHINDRONE-ETHINYL ESTRADI* Take 1 tablet by mouth once d* DOXYCYCLINE HYCLATE 100 MG TA* Take 1 tablet by mouth twice * FOLLITROPIN BETA 300 UNIT/0.3* Inject 225 Units subcutaneous* LEUPROLIDE 1 MG/0.2 ML SUBCUT* Inject 4mg SQ once for trigger METHYLPREDNISOLONE 16 MG TABL* Take 1 tablet by mouth once d* PROGESTERONE MICRONIZED 200 M* Insert 2 capsules vaginally i* ESTRADIOL 0.1 MG/24 HR SEMIWE* Apply patches and and change * ORAL Take by mouth. FOLIC ACID ORAL Take by mouth. Problem List As Of Date 10/26/2017 Noted Resolved Obesity, Class III, BMI >= 40 (morbid obesity) *INVALID FOR* Female infertility [N97.9] INVALID FOR* More... Encounter Status:Closed by RADHA CARPIO on 10/26/17 HOSP Observed: 10/26/2017 Status: COMPLETED Source: [place] 12:00 AM [facility] [place] REPOSITORY Patient:Belen Ireland MRN: <[id number]> Height:5' 1(1.549 m) Weight:260 lb (117.935 kg) Outpatient Medications as of 10/26/17: COMPOUNDED PRESCRIPTION Follitropin Mick (GONAL-F RFF) 75 unit solr Ganirelix Acetate 250 mcg/0.5 mL syrg Norethindrone-Eth Estradiol (NECON 0.5/35, 28,) 0.5-35 mg- mcg per tablet doxycycline (VIBRA-TABS) 100 mg tablet Follitropin Beta (FOLLISTIM AQ) 300 unit/0.36 mL crtg leuprolide (LUPRON) 1 mg/0.2 mL kit methylPREDNISolone (MEDROL) 16 mg tablet progesterone micronized (PROMETRIUM) 200 mg capsule estradiol (VIVELLE-DOT) 0.1 mg/24 hr PNV95/FERROUS FUMARATE/FA ( ORAL) FOLIC ACID ORAL Admission/Clinic Administered Medications as of 10/26/17: Patient has no admission medications. Problem List: Obesity, Class III, BMI >= 40 (morbid obesity) E66.01 [E66.01] Female infertility [N97.9] Allergies: Wellbutrin [Bupropion Hcl] Date Verified: 10/26/17 Lab Values No results within the last 30 days for the following basenames: K,HCT Progress Notes ([facility]): Tika Pittman MD 10/25/2017 11:49 AM Signed Patient is here for blood work only. Tika Pittman MD Progress Notes ([facility]): Fritz Bae MD 10/25/2017 11:47 AM Signed Ms Ireland called just before she was due for her injection. She had been told previously that all her injections were to be given IM and not SQ. She had been told yesterday that this included her trigger injections. However, her pharmacy instructions and MyChart message from today suggested otherwise, and she called to confirm. I reviewed prior documentation in her chart which does state that she is to take her medications IM. Fritz Bae MD October 24, 2017 9:50 PM PROGRESS Observed: 10/25/2017 Status: COMPLETED Source: [place] 11:47 AM [facility] REPOSITORY HNO ID: [id number] Author: Rose Yuan Service: (none) Author Type: Physician Type: Progress Notes Filed: 10/25/2017 11:49 AM Note Text: Patient is here for blood work only. Tika Pittman MD CNNURSE Observed: 10/25/2017 Status: COMPLETED Source: [place] 8:30 AM [facility] REPOSITORY Nurse Visit (REIBD) BELEN IRELAND ([id number]) 1985 F Date Time Provider Department 10/25/17 8:30 AM NURSE [facility] RE[facility]D During your visit today, we recorded the following information about you: Tika Pittman MD 10/25/2017 11:49 AM Signed Patient is here for blood work only. Tika Pittman MD Referring Provider: SELF [200] Allergies As of Date: 10/25/2017 Noted Allergy Reaction WELLBUTRIN (BUPROPION HCL) 10/09/2016 4 - Hives Date Reviewed: 10/16/2017 Reviewed by: Dianna (Rn) AYESHA Abraham - Fully Assessed Primary Visit Diagnosis:Encounter for assisted reproductive fertility procedure cycle [Z31.83] Prescriptions as of 10/25/2017 Sig: COMPOUNDED PRESCRIPTION Empty vials for Ganirelix and* FOLLITROPIN MICK 75 UNIT SUBC* Inject 300 Units intramuscula* GANIRELIX 250 MCG/0.5 ML SUBC* Inject 1 Syringe subcutaneous* NORETHINDRONE-ETHINYL ESTRADI* Take 1 tablet by mouth once d* DOXYCYCLINE HYCLATE 100 MG TA* Take 1 tablet by mouth twice * FOLLITROPIN BETA 300 UNIT/0.3* Inject 225 Units subcutaneous* LEUPROLIDE 1 MG/0.2 ML SUBCUT* Inject 4mg SQ once for trigger METHYLPREDNISOLONE 16 MG TABL* Take 1 tablet by mouth once d* PROGESTERONE MICRONIZED 200 M* Insert 2 capsules vaginally i* ESTRADIOL 0.1 MG/24 HR SEMIWE* Apply patches and and change * ORAL Take by mouth. FOLIC ACID ORAL Take by mouth. Problem List As Of Date 10/25/2017 Noted Resolved Obesity, Class III, BMI >= 40 (morbid obesity) *INVALID FOR* Encounter Status:Closed by ROSE CARUSO MD on 10/25/17 HCG, QUANTITATIVE BL Collected: 10/25/2017 Status: F Source: [place] 8:10 AM [facility] REPOSITORY TYPE CODE TESTS RESULT OUT OF REFERENCE UNITS RANGE LAB HCGQT <5.0 mU/mL HCG, High Quantitative Bl 29.3 Result Comment: QUANTITATIVE HCG NORMAL RANGES Weeks of Gestation (Weeks Since LMP) 3 Weeks (5.8-71.2 mIU/mL) 4 Weeks (9.5-750 mIU/mL) 5 Weeks (217-7138 mIU/mL) 6 Weeks (158-21997 mIU/mL) 7 Weeks (3697-696781 mIU/mL) 8 Weeks (10802-232109 mIU/mL) 9 Weeks (75071-822656 mIU/mL) 10 Weeks (14300-643761 mIU/mL) 12 Weeks (82313-221911 mIU/mL) Referenced to 4th IS of [facility] PROGRESS Observed: 10/24/2017 Status: COMPLETED Source: [place] 11:48 AM [facility] REPOSITORY HNO ID: [id number] Author: Rose Cabraleshedhyangnatanael Service: (none) Author Type: Physician Type: Progress Notes Filed: 10/24/2017 11:48 AM Note Text: Ultrasound monitoring was performed and the report was reviewed by me. Please see the detailed reports and plan in the episode. Tika Pittman MD PROGRESS Observed: 10/24/2017 Status: COMPLETED Source: [place] 8:47 AM [facility] REPOSITORY HNO ID: [id number] Author: Whit (Rn) AYESHA Burris Service: (none) Author Type: Registered Nurse Type: Progress Notes Filed: 10/24/2017 11:48 AM Note Text: The patient is here today for follicular ultrasound and blood work. The patient reports no problems or complaints. Ultrasound and blood will be reviewed by the physician, the flow sheet will be updated and instructions will be communicated to the patient. Reviewed both triggers. Pt picking up all post trigger medication today-reviewed with dr pittman to get hcg trigger as well and plan for fresh et. Whit Burris RN Reviewed plan for trigger and retrieval instructions reviewed. mychart sent as well. Whit Burris RN October 24, 2017 10:29 AM ESTRADIOL-17B Collected: 10/24/2017 Status: F Source: [place] 8:21 [facility] REPOSITORY TYPE CODE TESTS RESULT OUT OF RANGE REFERENCE UNITS LAB E2 pg/mL 1384 Estradiol-17 B Result Comment: This test is not suitable for patients receiving treatment with the drug Fulvestrant (Faslodex). The drug causes an interference leading to falsely elevated estradiol results. Follicular : 12-233 pg/mL Ovulation : 41 to 398 pg/mL Luteal phase : 22-341 pg/mL Post menopausal: <30 pg/mL PROGESTERONE Collected: 10/24/2017 Status: F Source: [place] 8:21 AM [facility] REPOSITORY TYPE CODE TESTS RESULT OUT OF REFERENCE UNITS RANGE LAB PROG ng/mL Progesterone 0.7 Result Comment: Progesterone female reference range: Follicular = <0.4-1.5 Luteal = 3.0-15.0 CNNURSE Observed: 10/24/2017 Status: COMPLETED Source: [place] 8:15 AM [facility] REPOSITORY Nurse Visit (REIBD) BELEN IRELAND ([id number]) 1985 F Date Time Provider Department 10/24/17 8:15 AM NURSE [facility] SHREYA FOWLER During your visit today, we recorded the following information about you: Whit Burris RN, RN 10/24/2017 11:48 AM Signed The patient is here today for follicular ultrasound and blood work. The patient reports no problems or complaints. Ultrasound and blood will be reviewed by the physician, the flow sheet will be updated and instructions will be communicated to the patient. Reviewed both triggers. Pt picking up all post trigger medication today-reviewed with dr pittman to get hcg trigger as well and plan for fresh et. Whit Burris RN Reviewed plan for trigger and retrieval instructions reviewed. mychart sent as well. Whit Burris RN October 24, 2017 10:29 AM Tika Pittman MD 10/24/2017 11:48 AM Signed Ultrasound monitoring was performed and the report was reviewed by me. Please see the detailed reports and plan in the episode. Tika Pittman MD Referring Provider: SELF [200] Allergies As of Date: 10/24/2017 Noted Allergy Reaction WELLBUTRIN (BUPROPION HCL) 10/09/2016 4 - Hives Date Reviewed: 10/16/2017 Reviewed by: Dianna Michaud) AYESHA Abraham - Fully Assessed Primary Visit Diagnosis:Female infertility [N97.9] Order(s):HCG QUANTITATIVE [SQHCGQT] Order #: [id number] Prescriptions as of 10/24/2017 Sig: COMPOUNDED PRESCRIPTION Empty vials for Ganirelix and* FOLLITROPIN MICK 75 UNIT SUBC* Inject 300 Units intramuscula* GANIRELIX 250 MCG/0.5 ML SUBC* Inject 1 Syringe subcutaneous* NORETHINDRONE-ETHINYL ESTRADI* Take 1 tablet by mouth once d* DOXYCYCLINE HYCLATE 100 MG TA* Take 1 tablet by mouth twice * FOLLITROPIN BETA 300 UNIT/0.3* Inject 225 Units subcutaneous* LEUPROLIDE 1 MG/0.2 ML SUBCUT* Inject 4mg SQ once for trigger METHYLPREDNISOLONE 16 MG TABL* Take 1 tablet by mouth once d* PROGESTERONE MICRONIZED 200 M* Insert 2 capsules vaginally i* ESTRADIOL 0.1 MG/24 HR SEMIWE* Apply patches and and change * ORAL Take by mouth. FOLIC ACID ORAL Take by mouth. Problem List As Of Date 10/24/2017 Noted Resolved Obesity, Class III, BMI >= 40 (morbid obesity) *INVALID FOR* Follow-up and Disposition History Recorded Encounter Status:Closed by ROSE CARUSO MD on 10/24/17 PROGRESS Observed: 10/22/2017 Status: COMPLETED Source: [place] 9:24 AM [facility] REPOSITORY HNO ID: [id number] Author: Calderon Hobbs Service: (none) Author Type: LICENSED NURSE Type: Progress Notes Filed: 10/29/2017 9:01 AM Note Text: The patient is here today for follicular ultrasound and blood work. Nurse not present for ultrasound. Ultrasound and blood will be reviewed by the physician, the flow sheet will be updated and instructions will be communicated to the patient. Calderon Hobbs LPN Called patient with plan. See episode for plan. Calderon Hobbs LPN October 22, 2017 3:13 PM ESTRADIOL-17B Collected: 10/22/2017 Status: F Source: [place] 7:42 [facility] TYPE CODE TESTS RESULT OUT OF RANGE REFERENCE UNITS LAB E2 pg/mL 531 Estradiol-17 B Result Comment: This test is not suitable for patients receiving treatment with the drug Fulvestrant (Faslodex). The drug causes an interference leading to falsely elevated estradiol results. Follicular : 12-233 pg/mL Ovulation : 41 to 398 pg/mL Luteal phase : 22-341 pg/mL Post menopausal: <30 pg/mL CNNURSE Observed: 10/22/2017 Status: COMPLETED Source: [place] 7:00 AM [facility] REPOSITORY Nurse Visit (REIST) BELEN IRELAND ([id number]) 1985 F Date Time Provider Department 10/22/17 7:00 AM NURSE [facility] During your visit today, we recorded the following information about you: Calderon Hobbs LPN 10/29/2017 9:01 AM Signed The patient is here today for follicular ultrasound and blood work. Nurse not present for ultrasound. Ultrasound and blood will be reviewed by the physician, the flow sheet will be updated and instructions will be communicated to the patient. Calderon Hobbs LPN Called patient with plan. See episode for plan. Calderon Hobbs LPN October 22, 2017 3:13 PM Referring Provider: SELF [200] Allergies As of Date: 10/22/2017 Noted Allergy Reaction WELLBUTRIN (BUPROPION HCL) 10/09/2016 4 - Hives Date Reviewed: 10/16/2017 Reviewed by: Dianna BeckerRn) AYESHA Abraham - Fully Assessed Reason for Visit: Monitoring [Other] Primary Visit Diagnosis:Female infertility [N97.9] Order(s):ESTRADIOL-17B BLD [SQE2] Order #: [id number]. #:[id number] PROGESTERONE BLD [SQPROG] Order #: [id number]. #:[id number] FOLLICULAR US WHI [[id number]] Order #: [id number]. #:[id number]: [id number] Prescriptions as of 10/22/2017 Sig: COMPOUNDED PRESCRIPTION Empty vials for Ganirelix and* FOLLITROPIN MICK 75 UNIT SUBC* Inject 300 Units intramuscula* GANIRELIX 250 MCG/0.5 ML SUBC* Inject 1 Syringe subcutaneous* NORETHINDRONE-ETHINYL ESTRADI* Take 1 tablet by mouth once d* DOXYCYCLINE HYCLATE 100 MG TA* Take 1 tablet by mouth twice * FOLLITROPIN BETA 300 UNIT/0.3* Inject 225 Units subcutaneous* LEUPROLIDE 1 MG/0.2 ML SUBCUT* Inject 4mg SQ once for trigger METHYLPREDNISOLONE 16 MG TABL* Take 1 tablet by mouth once d* PROGESTERONE MICRONIZED 200 M* Insert 2 capsules vaginally i* ESTRADIOL 0.1 MG/24 HR SEMIWE* Apply patches and and change * ORAL Take by mouth. FOLIC ACID ORAL Take by mouth. Problem List As Of Date 10/22/2017 Noted Resolved Obesity, Class III, BMI >= 40 (morbid obesity) *INVALID FOR* Follow-up and Disposition History Recorded Encounter Status:Closed by CALDERON ZAVALETA MD on 10/29/17 PROGRESS Observed: 10/19/2017 Status: COMPLETED Source: [place] 11:58 PM [facility] REPOSITORY HNO ID: [id number] Author: Nigel Mcconnell Service: (none) Author Type: Physician Type: Progress Notes Filed: 10/19/2017 11:59 PM Note Text: Monitoring US performed. See imaging tab PLAN - orders on stim sheet Nigel Mcconnell M.D. PROGESTERONE Collected: 10/19/2017 Status: F Source: [place] 8:04 AM [facility] REPOSITORY TYPE CODE TESTS RESULT OUT OF REFERENCE UNITS RANGE LAB PROG ng/mL Progesterone 0.3 Result Comment: Menstrual Cycle Progesterone Reference Ranges: Follicular:<1.0 ng/mL Ovulation:<12.1 ng/mL Luteal:1.8 to 23.9 ng/mL Progesterone Reference Ranges vary by gestational period: First Trimester:11.0 to 44.3 ng/mL Second Trimester:25.4 to >60.0 ng/mL Third Trimester:58.7 to >60.0 ng/mL Post menopausal Progesterone:<0.5 ng/mL Reference: 1. Progesterone (Progesterone III) [package insert V 1.0 Peruvian]. [facility], [place], [place]. May 2015. ESTRADIOL-17B Collected: 10/19/2017 Status: F Source: [place] 8:04 AM [facility] REPOSITORY TYPE CODE TESTS RESULT OUT OF RANGE REFERENCE UNITS LAB E2 pg/mL 119 Estradiol-17 B Result Comment: This test is not suitable for patients receiving treatment with the drug Fulvestrant (Faslodex). The drug causes an interference leading to falsely elevated estradiol results. Follicular : 12-233 pg/mL Ovulation : 41 to 398 pg/mL Luteal phase : 22-341 pg/mL Post menopausal: <30 pg/mL PROGRESS Observed: 10/19/2017 Status: COMPLETED Source: [place] 7:26 AM [facility] REPOSITORY HNO ID: [id number] Author: Calderon Hobbs Service: (none) Author Type: LICENSED NURSE Type: Progress Notes Filed: 10/19/2017 11:59 PM Note Text: The patient is here today for follicular ultrasound and blood work. The patient reports no problems or complaints. Ultrasound and blood will be reviewed by the physician, the flow sheet will be updated and instructions will be communicated to the patient. Calderon Hobbs LPN Called patient with plan. See episode for plan. She is questioning whether to take Ganirelix IM or SQ. Will ask at meeting tomorrow. Will call patient tomorrow with answer. Calderon Hobbs LPN October 19, 2017 2:51 PM PROGRESS Observed: 10/16/2017 Status: COMPLETED Source: [place] 7:31 AM [facility] REPOSITORY HNO ID: [id number] Author: Dianna Abraham RN Service: (none) Author Type: Registered Nurse Type: Progress Notes Filed: 10/19/2017 8:34 AM Note Text: The patient is here today for follicular ultrasound and blood work. S/P antagonist cycle dropped to IUI for poor stimulation. The patient reports no problems or complaints. Instructions for IM Follistim Ultrasound and blood will be reviewed by the physician, the flow sheet will be updated and instructions will be communicated to the patient. Dianna Abraham RN Spoke to pt. Reviewed plan per Dr. Zavaleta to start stimulating with FSH tonight. MC sent with details and doses, orders pended, appt. Scheduled at [place] per pt request. Dianna Abraham RN October 16, 2017 2:43 PM ESTRADIOL-17B Collected: 10/16/2017 Status: F Source: [place] 6:35 AM [facility] REPOSITORY TYPE CODE TESTS RESULT OUT OF RANGE REFERENCE UNITS LAB E2 pg/mL <25 Estradiol-17 B Result Comment: This test is not suitable for patients receiving treatment with the drug Fulvestrant (Faslodex). The drug causes an interference leading to falsely elevated estradiol results. Menstrual cycle Estradiol reference ranges: Follicular : < 234 pg/mL Ovulation : 41 to 398 pg/mL Luteal : < 342 pg/mL Estradiol reference ranges vary by gestational period: First trimester : 154 to 3243 pg/mL Second trimester : 1561 TO 70915 pg/mL Third trimester : 8285 to >52726 pg/mL Post-menopausal Estradiol reference range: < 41 pg/mL Reference: 1. Estradiol - E2 (Estradiol III) [package insert V 3.0 Peruvian]. [facility], [place], [place], January 2016. PROGRESS Observed: 10/05/2017 Status: COMPLETED Source: [place] 5:03 PM [facility] REPOSITORY HNO ID: [id number] Author: Rose Yuan Service: (none) Author Type: Physician Type: Progress Notes Filed: 10/05/2017 5:03 PM Note Text: Ultrasound monitoring was performed and the report was reviewed by me. Please see the detailed reports and plan in the episode. Tika Pittman MD PROGRESS Observed: 10/02/2017 Status: COMPLETED Source: [place] 1:15 PM [facility] REPOSITORY HNO ID: [id number] Author: Britney Rodriguez) Christine Service: (none) Author Type: Fermentation Scientist Type: Progress Notes Filed: 10/02/2017 1:15 PM Note Text: IUI Follistim Dropped IVF Pre: 13 m/ml, 15% Post: 15 m/ml, 27% Insem#: 1.6 million PROCEDURE Observed: 10/01/2017 Status: COMPLETED Source: [place] 3:16 PM [facility] REPOSITORY HNO ID: [id number] Author: Nai Webb Service: (none) Author Type: Nurse Practitioner Type: Procedures Filed: 10/01/2017 3:17 PM Note Text: [facility] IUI PROCEDURE NOTE Date: 10/01/2017 Primary Proceduralist: Nai Webb CNP Consents and Labels Consent Signed: Informed Consent obtained and on the chart Labels Verified With Patient: Yes Indications: Belen Ireland, is a 32 year old female here today for intrauterine insemination. IUI # 6. Cycle Day: No data was found Last menstrual period: 08/14/2017 IUI IUI Date: 10/01/17 IUI #: 6 Pre-Procedure Diagnosis: Infertility Post-Procedure Diagnosis: Other (see comment) Comments: Artificial insemination Cycle Meds: Dropped IVF Cycle Luteal Phase Progesterone: N/A Trigger: HCG (Comment: 09/29/2017) Catheter Type: Curve catheter Tenaculum: No Catheter passed: Easy Complications: None Sperm Information: Source of Sperm: Partner Ejaculated: Yes TMC (total motile count of sperm after wash): 1.6 million [place] Protocol/Safety Checklist: Sign In Communication: Completed Time Out Performed At: 2:30 PM Time out: Correct Patient, Correct Procedure, Correct Site AND Site Marking Affirmation of Time-Out: N/A Sign Out Discussion: Completed Cycle reviewed, all questions answered. Pt instructed to take a test in 17 days if no menses and call with results. SIGNATURE: Nai Webb CNP PATIENT NAME: Belen Ireland DATE: October 01, 2017 TIME: 3:16 PM PROGRESS Observed: 10/01/2017 Status: COMPLETED Source: [place] 3:10 PM [facility] REPOSITORY HNO ID: [id number] Author: Nai Webb Service: (none) Author Type: Nurse Practitioner Type: Progress Notes Filed: 10/01/2017 3:17 PM Note Text: Pt to use prometrium 400mg BID following IUI. Nai Webb CNP October 01, 2017 3:11 PM PROGRESS Observed: 09/29/2017 Status: COMPLETED Source: [place] 7:37 AM [facility] REPOSITORY HNO ID: [id number] Author: Nigel Mcconnell Service: (none) Author Type: Physician Type: Progress Notes Filed: 09/29/2017 7:37 AM Note Text: Monitoring US performed. See imaging tab PLAN - orders on stim sheet Nigel Mcconnell M.D. PROGRESS Observed: 09/28/2017 Status: COMPLETED Source: [place] 7:59 AM [facility] REPOSITORY HNO ID: [id number] Author: Nai Webb Service: (none) Author Type: Nurse Practitioner Type: Progress Notes Filed: 09/29/2017 7:37 AM Note Text: The patient is here today for follicular ultrasound and blood work. The patient reports no problems or complaints. Ultrasound and blood will be reviewed by the physician, the flow sheet will be updated and instructions will be communicated to the patient. Nai Webb CNP Plan: Pt to continue medications for 1 more day and trigger tomorrow night for IUI on 10/01. Reviewed plan. Answered questions. Advised pt for another IVF cycle if she is not with IUI, she likely would inject IM instead of SubQ. Pt verbalized understanding and agreeable with plan. Nai Webb CNP September 28, 2017 4:24 PM ESTRADIOL-17B Collected: 09/28/2017 Status: F Source: [place] 6:57 AM [facility] REPOSITORY TYPE CODE TESTS RESULT OUT OF RANGE REFERENCE UNITS LAB E2 pg/mL 304 Estradiol-17 B Result Comment: This test is not suitable for patients receiving treatment with the drug Fulvestrant (Faslodex). The drug causes an interference leading to falsely elevated estradiol results. Menstrual cycle Estradiol reference ranges: Follicular : < 234 pg/mL Ovulation : 41 to 398 pg/mL Luteal : < 342 pg/mL Estradiol reference ranges vary by gestational period: First trimester : 154 to 3243 pg/mL Second trimester : 1561 TO 11006 pg/mL Third trimester : 8285 to >94300 pg/mL Post-menopausal Estradiol reference range: < 41 pg/mL Reference: 1. Estradiol - E2 (Estradiol III) [package insert V 3.0 Peruvian]. [facility], [place], [place], January 2016. PROGESTERONE Collected: 09/28/2017 Status: F Source: [place] 6:57 AM [facility] REPOSITORY TYPE CODE TESTS RESULT OUT OF REFERENCE UNITS RANGE LAB PROG ng/mL Progesterone 0.4 Result Comment: Menstrual Cycle Progesterone Reference Ranges: Follicular:<1.0 ng/mL Ovulation:<12.1 ng/mL Luteal:1.8 to 23.9 ng/mL Progesterone Reference Ranges vary by gestational period: First Trimester:11.0 to 44.3 ng/mL Second Trimester:25.4 to >60.0 ng/mL Third Trimester:58.7 to >60.0 ng/mL Post menopausal Progesterone:<0.5 ng/mL Reference: 1. Progesterone (Progesterone III) [package insert V 1.0 Peruvian]. [facility], [place], [place]. May 2015. PROGRESS Observed: 09/25/2017 Status: COMPLETED Source: [place] 4:40 PM [facility] REPOSITORY O ID: [id number] Author: Dorothy Silva Service: (none) Author Type: Physician Type: Progress Notes Filed: 09/25/2017 8:14 PM Note Text: The patient came today for follicular ultrasound. Detailed notes can be found in the paper chart and episodes of care. Dorothy Silva MD PROGRESS Observed: 09/25/2017 Status: COMPLETED Source: [place] 12:18 PM [facility] REPOSITORY O ID: [id number] Author: Cinthia (Rn) AYESHA Vernon Service: (none) Author Type: Registered Nurse Type: Progress Notes Filed: 09/25/2017 8:14 PM Note Text: No nurse present at appointment today. The patient is here today for follicular ultrasound and blood work. The patient reports no problems or complaints. Ultrasound and blood will be reviewed by the physician, the flow sheet will be updated and instructions will be communicated to the patient. Cinthia Vernon RN Long conversation with the patient. Gave her plan per Dr. Zavaleta. Patient is aware that her level did not rise. Initially she thought she started with 5 cartridges of Follistim 300s and she said the first 2 cartridges she was unaware about using the overfill and only used 225 out of #1 and #2 cartridge and threw out overfill. She believes she has used a 3rd and 4th cartridges and currently some left in the 5th for the past 4 nights. She believes she has a 6th cartridge at home that is unopened. 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 She will need another cartridge of Follistim 300 to get her over the weekend. Jojo called. She does not have a lupron for trigger and will be out of Ganirelix after Thursday morning dose and will need more Follistim if she continues. She does not want to buy more Ganirelix or Follisitim or get the lupron trigger and will wait until after monitoring on Thursday. She wants to monitor at Thursday at 6:45 and then will see how scan looks and may go to [place] to get more meds. She understands that we will not lab results at this visit. PROGESTERONE Collected: 09/25/2017 Status: F Source: [place] 7:36 AM [facility] REPOSITORY TYPE CODE TESTS RESULT OUT OF REFERENCE UNITS RANGE LAB PROG ng/mL Progesterone 0.4 ESTRADIOL-17B Collected: 09/25/2017 Status: F Source: [place] 7:36 AM [facility] REPOSITORY TYPE CODE TESTS RESULT OUT OF RANGE REFERENCE UNITS LAB E2 pg/mL 368 Estradiol-17 B Result Comment: This test is not suitable for patients receiving treatment with the drug Fulvestrant (Faslodex). The drug causes an interference leading to falsely elevated estradiol results. Follicular : 12-233 pg/mL Ovulation : 41 to 398 pg/mL Luteal phase : 22-341 pg/mL Post menopausal: <30 pg/mL PROGRESS Observed: 09/22/2017 Status: COMPLETED Source: [place] 9:37 AM [facility] REPOSITORY HNO ID: [id number] Author: Cinthia Michaud) AYESHA Vernon Service: (none) Author Type: Registered Nurse Type: Progress Notes Filed: 10/05/2017 5:03 PM Note Text: No nurse present at the appointment today. The patient is here today for follicular ultrasound and blood work. The patient reports no problems or complaints. Ultrasound and blood will be reviewed by the physician, the flow sheet will be updated and instructions will be communicated to the patient. Cinthia Vernon RN Called patient with plan to continue same dose of Follistim (reviewed using overfill) and start Ganirelix in morning and RTC Thursday at [place] at 7:15am. She will know what supplies she has on Thursday when she comes in so we can help her with refills if needed. Cinthia Vernon RN September 22, 2017 2:23 PM ESTRADIOL-17B Collected: 09/22/2017 Status: F Source: [place] 7:36 AM [facility] REPOSITORY TYPE CODE TESTS RESULT OUT OF RANGE REFERENCE UNITS LAB E2 pg/mL 394 Estradiol-17 B Result Comment: This test is not suitable for patients receiving treatment with the drug Fulvestrant (Faslodex). The drug causes an interference leading to falsely elevated estradiol results. Follicular : 12-233 pg/mL Ovulation : 41 to 398 pg/mL Luteal phase : 22-341 pg/mL Post menopausal: <30 pg/mL PROGESTERONE Collected: 09/22/2017 Status: F Source: [place] 7:36 AM [facility] REPOSITORY TYPE CODE TESTS RESULT OUT OF REFERENCE UNITS RANGE LAB PROG ng/mL Progesterone 0.3 PROGRESS Observed: 09/16/2017 Status: COMPLETED Source: [place] 8:07 AM [facility] REPOSITORY HNO ID: [id number] Author: Dianna Michaud) AYESHA Abraham Service: (none) Author Type: Registered Nurse Type: Progress Notes Filed: 09/17/2017 9:56 AM Note Text: The patient is here today for follicular ultrasound and blood work. The patient reports no problems or complaints. Reviewed and demonstrated follistim pen instructions. Ultrasound and blood will be reviewed by the physician, the flow sheet will be updated and instructions will be communicated to the patient. Dianna Abraham RN Called and left message on vm. Sent MC with plan per cycle flowsheet, orders pended, appt. Scheduled at [place]. Dianna Abraham RN September 16, 2017 2:18 PM CNNURSE Observed: 09/16/2017 Status: COMPLETED Source: [place] 7:45 AM [facility] REPOSITORY Nurse Visit (REIBD) BELEN IRELAND ([id number]) 1985 F Date Time Provider Department 09/16/17 7:45 AM NURSE [facility] REIBD During your visit today, we recorded the following information about you: Dianna Abraham RN, RN 09/17/2017 9:56 AM Signed The patient is here today for follicular ultrasound and blood work. The patient reports no problems or complaints. Reviewed and demonstrated follistim pen instructions. Ultrasound and blood will be reviewed by the physician, the flow sheet will be updated and instructions will be communicated to the patient. Dianna Abraham RN Called and left message on . Sent [facility] with plan per cycle flowsheet, orders pended, appt. Scheduled at [place]. Dianna Abraham RN September 16, 2017 2:18 PM Referring Provider: SELF [200] Allergies As of Date: 09/16/2017 Noted Allergy Reaction WELLBUTRIN (BUPROPION HCL) 10/09/2016 4 - Hives Date Reviewed: 09/16/2017 Reviewed by: Dianna Abraham RN - Fully Assessed Reason for Visit: Infertility [285] Primary Visit Diagnosis:Female infertility [N97.9] Order(s):ESTRADIOL-17B BLD [SQE2] Order #: [id number] FOLLICULAR US WHI [[id number]] Order #: [id number]: 1 Prescriptions as of 09/16/2017 Sig: NORETHINDRONE-ETHINYL ESTRADI* Take 1 tablet by mouth once d* DOXYCYCLINE HYCLATE 100 MG TA* Take 1 tablet by mouth twice * FOLLITROPIN BETA 300 UNIT/0.3* Inject 225 Units subcutaneous* LEUPROLIDE 1 MG/0.2 ML SUBCUT* Inject 4mg SQ once for trigger METHYLPREDNISOLONE 16 MG TABL* Take 1 tablet by mouth once d* PROGESTERONE MICRONIZED 200 M* Insert 2 capsules vaginally i* ESTRADIOL 0.1 MG/24 HR SEMIWE* Apply patches and and change * ORAL Take by mouth. FOLIC ACID ORAL Take by mouth. Problem List As Of Date 09/16/2017 Noted Resolved Obesity, Class III, BMI >= 40 (morbid obesity) *INVALID FOR* Follow-up and Disposition History Recorded Encounter Status:Closed by DIANNA ABRAHAM on 09/17/17 ESTRADIOL-17B Collected: 09/16/2017 Status: F Source: [place] 7:24 AM [facility] REPOSITORY TYPE CODE TESTS RESULT OUT OF RANGE REFERENCE UNITS LAB E2 pg/mL 45 Estradiol-17 B Result Comment: This test is not suitable for patients receiving treatment with the drug Fulvestrant (Faslodex). The drug causes an interference leading to falsely elevated estradiol results. Menstrual cycle Estradiol reference ranges: Follicular : < 234 pg/mL Ovulation : 41 to 398 pg/mL Luteal : < 342 pg/mL Estradiol reference ranges vary by gestational period: First trimester : 154 to 3243 pg/mL Second trimester : 1561 TO 22415 pg/mL Third trimester : 8285 to >57349 pg/mL Post-menopausal Estradiol reference range: < 41 pg/mL Reference: 1. Estradiol - E2 (Estradiol III) [package insert V 3.0 Peruvian]. [facility], [place], [place], January 2016. CNOV Observed: 09/16/2017 Status: COMPLETED Source: [place] 7:00 AM [facility] REPOSITORY Office Visit (FLABBD) BELEN IRELAND ([id number]) 1985 F Date Time Provider Department 09/16/17 7:00 AM [facility]S FLABBD During your visit today, we recorded the following information about you: Kelsie Danielson Ma 09/16/2017 11:38 AM Signed Lab draw by Kelsie Danielson Ma Referring Provider: SELF [200] Allergies As of Date: 09/16/2017 Noted Allergy Reaction WELLBUTRIN (BUPROPION HCL) 10/09/2016 4 - Hives Date Reviewed: 09/16/2017 Reviewed by: Dianna Michaud) AYESHA Abraham - Fully Assessed Primary Visit Diagnosis:Female infertility [N97.9] Prescriptions as of 09/16/2017 Sig: NORETHINDRONE-ETHINYL ESTRADI* Take 1 tablet by mouth once d* DOXYCYCLINE HYCLATE 100 MG TA* Take 1 tablet by mouth twice * FOLLITROPIN BETA 300 UNIT/0.3* Inject 225 Units subcutaneous* LEUPROLIDE 1 MG/0.2 ML SUBCUT* Inject 4mg SQ once for trigger METHYLPREDNISOLONE 16 MG TABL* Take 1 tablet by mouth once d* PROGESTERONE MICRONIZED 200 M* Insert 2 capsules vaginally i* ESTRADIOL 0.1 MG/24 HR SEMIWE* Apply patches and and change * ORAL Take by mouth. FOLIC ACID ORAL Take by mouth. Problem List As Of Date 09/16/2017 Noted Resolved Obesity, Class III, BMI >= 40 (morbid obesity) *INVALID FOR* Visit Notes: >> Kelsie Danielson Ma ThuSep 16, 2017 11:38 AM Status: Signed Lab draw by Kelsie Danielson Ma Encounter Status:Closed by KELSIE DANIELSON MA on 09/16/17 PROGRESS Observed: 09/02/2017 Status: COMPLETED Source: [place] 9:24 AM [facility] [place] REPOSITORY O ID: [id number] Author: Dianna (Ayesha) AYESHA Abraham Service: (none) Author Type: Registered Nurse Type: Progress Notes Filed: 09/03/2017 5:28 PM Note Text: The patient is here today for follicular ultrasound and blood work. The patient reports no problems or complaints. Medication instructions reviewed and demonstrated. Ultrasound and blood will be reviewed by the physician, the flow sheet will be updated and instructions will be communicated to the patient. Dianna Abraham RN Spoke to pt. Reviewed plan to continue OCs daily, advised pt. to be vigilant about not missing any doses, and repeat baseline us and labs in 2 weeks time. Pt requesting an appointment at [facility]- will forward to PSR to schedule. Orders pended. Dianna Abraham RN September 02, 2017 4:37 PM CNNURSE Observed: 09/02/2017 Status: COMPLETED Source: [place] 6:30 AM [facility] REPOSITORY Nurse Visit (REIBD) BELEN IRELAND ([id number]) 1985 F Date Time Provider Department 09/02/17 6:30 AM NURSE [facility] SHREYA REIBD During your visit today, we recorded the following information about you: Dianna Abraham RN, RN 09/03/2017 5:28 PM Signed The patient is here today for follicular ultrasound and blood work. The patient reports no problems or complaints. Medication instructions reviewed and demonstrated. Ultrasound and blood will be reviewed by the physician, the flow sheet will be updated and instructions will be communicated to the patient. Dianna Abraham RN Spoke to pt. Reviewed plan to continue OCs daily, advised pt. to be vigilant about not missing any doses, and repeat baseline us and labs in 2 weeks time. Pt requesting an appointment at [facility]- will forward to PSR to schedule. Orders pended. Dianna Abraham RN September 02, 2017 4:37 PM Referring Provider: CALDERON ZAVALETA [[id number]] Allergies As of Date: 09/02/2017 Noted Allergy Reaction WELLBUTRIN (BUPROPION HCL) 10/09/2016 4 - Hives Date Reviewed: 09/02/2017 Reviewed by: Dianna (Ayesha) AYESHA Abraham - Fully Assessed Reason for Visit: Infertility [285] Primary Visit Diagnosis:Female infertility [N97.9] Order(s):Norethindrone-Eth Estradiol (NECON 0.5/35, 28,) 0.5- 35 mg-mcg per tabletTake 1 tablet by mouth once daily.Disp: 1 PackageRfl: 1 ESTRADIOL-17B BLD [SQE2] Order #: [id number] [facility] [[id number]] Order #: [id number]: 1 Prescriptions as of 09/02/2017 Sig: NORETHINDRONE-ETHINYL ESTRADI* Take 1 tablet by mouth once d* DOXYCYCLINE HYCLATE 100 MG TA* Take 1 tablet by mouth twice * FOLLITROPIN BETA 300 UNIT/0.3* Inject 225 Units subcutaneous* LEUPROLIDE 1 MG/0.2 ML SUBCUT* Inject 4mg SQ once for trigger METHYLPREDNISOLONE 16 MG TABL* Take 1 tablet by mouth once d* PROGESTERONE MICRONIZED 200 M* Insert 2 capsules vaginally i* ESTRADIOL 0.1 MG/24 HR SEMIWE* Apply patches and and change * ORAL Take by mouth. FOLIC ACID ORAL Take by mouth. Problem List As Of Date 09/02/2017 Noted Resolved Obesity, Class III, BMI >= 40 (morbid obesity) *INVALID FOR* Prescriptions ordered this encounter Disp Refills Start End NORETHINDRONE-ETHINYL ESTRADIOL 0.5 * 1 Pa* 1 09/02/2017 Route: ORAL Sig: Take 1 tablet by mouth once daily. Medications Discontinued During This Encounter Norethindrone-Eth Estradiol (NECON 0* 1 Pa* 1 08/11/2017 09/02/2017 Route: ORAL Sig: Take 1 tablet by mouth once daily. Disc: Reason for discontinue is not on file. Follow-up and Disposition History Recorded Encounter Status:Closed by CALDERON ZAVALETA MD on 09/03/17 ALLERGIES ALLERGIES DATE TYPE / CODE NAME / CODE REACTION SEVERITY SOURCE 08/20/2018 Drug bupropion/C063310 Hives [place] Allergy/416 611(RXNORM) Community 143967([facility] ED CT) Repository 10/09/2016 DRUG BUPROPION HCL HIVES [facility] INGREDI/[address] [place] 976587([facility] Repository ED CT) Drug/256918 Wellbutrin ALLERGY [facility] 003([facility] CT) System Repository ENCOUNTERS ENCOUNTERS ADMIT/DISCHARGE ACCOUNT NUMBER ADMITTING ENCOUNTER LOCATION SOURCE CLASS 09/13/2018/09/13/19 [id number] Ambulatory BMSBuilding: [place] 19 BMS.[facility] Repository 09/13/2018 [id number] Ambulatory Building:[facility] Repository 09/13/2018 [id number] Ambulatory Building:[facility] Repository 09/06/2018/09/06/19 [id number] Ambulatory BMSBuilding: [place] 19 BMS.[facility] Repository 08/20/2018/08/20/20 [id number] Ambulatory BMSBuilding: [place] 18 BMS.[facility] Repository 08/09/2018 [id number] Ambulatory [facility] ding:LAB Repository 08/09/2018/08/09/20 [id number] Ambulatory BMSBuilding: [place] 18 BMS.[facility] Repository 07/29/2018 [id number] Ambulatory Building:[facility] Repository 07/28/2018 [id number] Ambulatory [facility] ding:LAB.FUT Repository URE 07/28/2018/07/28/20 [id number] Ambulatory BMSBuilding: [place] 18 BMS.[facility] Repository 07/21/2018/07/21/20 [id number] Ambulatory BMSBuilding: [place] 18 BMS.[facility] Repository 06/28/2018 [id number] Ambulatory Building:[facility] Repository 06/17/2018 [id number] Ambulatory [facility] ding:LAB Repository 06/17/2018/06/17/20 [id number] Ambulatory BMSBuilding: [place] 18 BMS.[facility] Repository 05/27/2018 [id number] Ambulatory Building:[facility] Repository 05/20/2018/05/20/20 [id number] Ambulatory BMSBuilding: [place] 18 BMS.[facility] Repository 04/20/2018 [id number] Ambulatory [facility] ding:LAB Repository 04/13/2018/04/13/20 [id number] Ambulatory BMSBuilding: [place] 18 BMS.[facility] Repository 04/05/2018 [id number] [facility] Repository 04/02/2018 [id number] [facility] ding[facility]LAB Repository 03/29/2018 [id number] [facility] ding:LAB Repository 03/29/2018/03/29/20 [id number] Ambulatory BMSBuilding: [place] 18 BMS.[facility] Repository 03/08/2018/03/09/20 [id number] Ambulatory [address] [place] Repository 03/08/2018/03/08/20 [id number] Ambulatory [address] [place] Repository 03/01/2018/03/04/20 [id number] Ambulatory [address] [place] Repository 03/01/2018/03/02/20 [id number] Ambulatory [address] [place] Repository 02/25/2018/02/26/20 [id number] Ambulatory [address] [place] Repository 02/25/2018/02/26/20 [id number] Ambulatory [address] [place] Repository 02/23/2018 [id number] [facility] ding[facility] Repository 02/23/2018/02/24/20 [id number] Ambulatory [address] [place] Repository 02/23/2018/02/24/20 [id number] Ambulatory [address] [place] Repository 02/19/2018 [id number] [facility] ding[facility]LAB Repository 02/11/2018 [id number] Ambulatory [facility] ding:SL Repository 02/09/2018/02/10/20 [id number] Ambulatory [place] [facility] [place] Repository 02/09/2018/02/11/20 [id number] Ambulatory [place] 18 [facility] [place] Repository 02/03/2018/02/04/20 [id number] Ambulatory [address] [place] Repository 02/03/2018/02/04/20 [id number] Ambulatory [address] [place] Repository 01/23/2018/01/24/20 [id number] Ambulatory [address] [place] Repository 01/15/2018/01/21/20 [id number] Ambulatory [address] [place] Repository 01/15/2018 [id number] Ambulatory [facility] [place] Repository 01/01/2018/01/02/20 [id number] Ambulatory [address] [place] Repository 01/01/2018/01/05/20 [id number] Ambulatory [address] [place] Repository 12/25/2017/12/29/19 [id number] Ambulatory [address] [place] Repository 12/17/2017/12/18/19 [id number] Ambulatory [address] [place] Repository 12/04/2017/12/15/19 [id number] Ambulatory [address] [place] Repository 11/20/2017/11/21/19 [id number] Ambulatory [address] [place] Repository 11/16/2017 [id number] Ambulatory [facility] [place] Repository 11/16/2017 [id number] Ambulatory [facility] [place] Repository 11/13/2017/11/14/19 [id number] Ambulatory [address] [place] Repository 11/13/2017 [id number] Ambulatory [facility] [place] Repository 10/31/2017/11/01/19 [id number] Ambulatory [address] [place] Repository 10/31/2017/11/04/19 [id number] Ambulatory [address] [place] Repository 10/26/2017/10/27/19 [id number] Ambulatory [address] [place] Repository 10/26/2017/10/28/19 [id number] Ambulatory [address] [place] Repository 10/26/2017/10/27/19 [id number] ENEDINA, [address] [place] Repository 10/25/2017/10/29/19 [id number] Ambulatory [address] [place] Repository 10/24/2017/10/29/19 [id number] Ambulatory [address] [place] Repository 10/22/2017/10/31/19 [id number] Ambulatory [address] [place] Repository 10/21/2017/10/21/19 [id number] Jean Paul Lee Ambulatory Ryan Petersen 18 R DOBuilding:T [facility]: [facility] Room 3 Repository 10/19/2017 [id number] Ambulatory [facility] [place] Repository 10/19/2017/10/19/19 [id number] Ambulatory [address] [place] Repository 10/16/2017/10/16/19 [id number] Ambulatory [address] [place] Repository 10/16/2017/10/16/19 [id number] Ambulatory [address] [place] Repository 10/01/2017/10/02/19 [id number] Ambulatory [address] [place] Repository 10/01/2017/10/01/19 [id number] Ambulatory [address] [place] Repository 09/28/2017/09/28/19 [id number] Ambulatory [address] [place] Repository 09/28/2017/09/29/19 [id number] Ambulatory [address] [place] Repository 09/25/2017 [id number] Ambulatory [facility] [place] Repository 09/25/2017/09/28/19 [id number] Ambulatory [address] [place] Repository 09/22/2017 [id number] Ambulatory [facility] Repository 09/22/2017/10/06/19 [id number] Ambulatory [address] [place] Repository 09/16/2017/09/16/19 [id number] Ambulatory [address] [place] Repository 09/16/2017/09/16/19 [id number] Ambulatory [address] [place] Repository 09/02/2017/09/07/19 [id number] Ambulatory [address] Repository PAYERS PAYERS ENCOUNTER GUARANTOR PAYER SUBSCRIBER SOURCE 09/13/2018 BELEN Valdes Primary BELEN Chavezoster [id number] CR Insurance:ANTHEMPolic GERWIGDOB: [address] Number: [id number] Hospital [address]Cpc: (686) [id number] Repository [phone] () Date:[id number] [address]RV: 09/13/2018 Secondary NOT GIVENUNK [place] Insurance:SELF PAY [facility] Number: Effective Repository Date:2018-09-13 09/13/2018 Belen Valdes Primary Belen ABIEL Practices GerwigDOB: Insurance:[place] GerwigDOB: Repository [id number] BC/BSPolicy Number: [id number] [address] [place] [address] [id number] CR [place], [address]Asb: (330) Date:4595-76-05Jtdf [place] [address]Buq: [phone] Name:GPO Eric (HP)Tel: [phone]) [phone], [place] () [phone] () [id number]: 09/13/2018 Secondary Belen Valdes OHIP Practices Insurance:*[employer] GerabeDOB: Repository [facility] [id number] Number: [facility]E [facility], [id number] [place] [address]Ngx: ective Date: - 2199-09-99Ioly () Name:FPO Eric 458[address]iqt Check, [place] [address]QG: 09/13/2018 Tertiary Belen Valdes OHIP Practices Insurance:Medical GerwigDOB: Repository [facility] [id number] Number: JOE May, [id number] [place] [address]Voa: Date:2007-08-24 - 0361-64-12Faba () Name:FPO Eric [address]Zwyigcirf, [place] [id number]: 09/13/2018 Tertiary Belen Valdes OHIP Practices Insurance:[place] GerwigDOB: Repository /BSPolicy Number: [id number] [place], Date:2010-08-24 - [place] [address]Wdu: 2961-25-38Yorl Name:GPO [address] () [address]Vkcndth, [place] [id number]: 09/13/2018 Tertiary Belen Valdes OHIP Practices Insurance:[place] GerwigDOB: Repository /BSPolicy Number: [id number] [place], Date:2012-03-29 - [place] [address]Plb: [id number] Name:GPO [address] () [address]368[address]Xqzhski, [place] [id number]: 09/13/2018 Tertiary Belen Valdes OHIP Practices Insurance:[employer] GerwigDOB: Repository PLanPolicy Number: [id number] CR [facility], Date: - [place] [address]Msy: 3169-63-82Lloe Name:Mikaela Main () MARTHA Luu [address]VC: 09/13/2018 Tertiary Belen Valdes OHIP Practices Insurance:Allied GerwigDOB: Repository [facility] [id number] Number: JOE [facility] [id number] [address]Lod: Date:2014-08-24 - 7760-66-11Wjyg () Name:[address], [place] [address]BJ: 09/13/2018 [facility] Belen Valdes OHIP Practices Insurance:Medical GerwigDOB: Repository [facility] [id number] Number: [facility] [id number] [address]Ymk: Date:2016-08-24 - 7718-50-65Mzvp () Name:[address], [place] [address]PP: 09/13/2018 BELEN GERWIGDOB: Primary BELEN GERWIGDOB: [facility] [id number] Insurance:ANTHEMPolic [id number] [facility] y Number: [address] Repository [address] [place] [address] [id number] [address] [place] [address]Wds: (330) Date: [phone] () 09/06/2018 BELEN Primary BELEN Valdes [place] [id number] CR Insurance:ANTHEMPolic GERWIGDOB: [address] y Number: [id number] [facility] [address]Faa: 330 [id number] Repository [phone] () Date:1975-66-00LS [address]CINZWLR [place] [address]CJ: 09/06/2018 Secondary NOT GIVENUNK [place] Insurance:SELF PAY [facility] Number: Effective Repository Date:2018 08/20/2018 BELEN Valdes Primary BELEN Valdes [place] [id number] CR Insurance:ANTHEMPolic GERWIGDOB: Community [address] [place] [address], [place] Number: [id number] Hospital [address]Lio: (330) [id number] Repository [phone] () Date:2763-71-91BI [address]OGQLIHW, [place] [address]EZ: 08/20/2018 Secondary NOT GIVENUNK [place] Insurance:SELF PAY [facility] Number: Effective Repository Date:2018 08/09/2018 BELEN Valdes Primary BELEN Valdes [place] [id number] CR Insurance:ANTHEMPolic GERWIGDOB: Community [address] [place] [address], [place] Number: [id number] Hospital [address]Zcy: (330) [id number] Repository [phone] () Date:1373-98-52GY [address]LMQCGQT, [place] [address]SQ: 08/09/2018 Secondary NOT GIVENUNK [place] Insurance:SELF PAY [facility] Number: Effective Repository Date:2018-08-09 08/09/2018 BELEN Valdes Primary BELEN Valdes [place] [id number] CR Insurance:ANTHEMPolic GERWIGDOB: Community [address] [place] [address], [place] Number: [id number] Hospital [address]Wyj: (330) [id number] Repository [phone] () Date:2542-44-13WN [address]NSCWAQI, [place] [address]JO: 08/09/2018 Secondary NOT GIVENUNK [place] Insurance:SELF PAY [facility] Number: Effective Repository Date:2018 07/29/2018 BELEN GERWIGDOB: Primary BELEN GERWIGDOB: [facility] [id number] Insurance:ANTHEMPolic [id number] Hospital [facility] y Number: [address] Repository [address] [place] [address] [id number] [address] [place] [address] 56[address]Aaz: (330) Date: 92489 [phone] (HP) 07/28/2018 BEELN Valdes Primary BELEN Valdes [place] [id number] CR Insurance:ANTHEMPolic GERWIGDOB: [address] y Number: [id number] [facility] [address]Pci: (330) [id number] Repository [phone] (HP) Date:7149-39-70YE [address]PVZOLBW, [place] [address]ZD: 07/28/2018 Secondary NOT GIVENUNK [place] Insurance:SELF PAY Community [facility] Number: Effective Repository Date:2018-07-26 07/28/2018 BELEN Valdes Primary BELEN Valdes [place] [id number] CR Insurance:ANTHEMPolic GERWIGDOB: [address] y Number: [id number] [facility] [address]Czh: (330) [id number] Repository [phone] (HP) Date:9623-79-44IP [address]WLOGQOZ, [place] [address]MF: 07/28/2018 Secondary NOT GIVENUNK [place] Insurance:SELF PAY [facility] Number: Effective Repository Date:2018-07-28 07/21/2018 BELEN Valdes Primary BELEN Valdes [place] [id number] CR Insurance:ANTHEMPolic GERWIGDOB: [address] y Number: [id number] [facility] [address]Uku: (330) [id number] Repository [phone] (HP) Date:7410-40-15SQ [address]FMCQMJW, [place] [address]WN: 07/21/2018 Secondary NOT GIVENUNK [place] Insurance:SELF PAY Community [facility] Number: Effective Repository Date:2018-07-13 06/28/2018 BELEN NAJERAGAVINOB: Primary BELEN IRELANDDOB: [facility] Insurance:ANTHEMPolic [id number] [facility] [address] y Number: [address] Repository [address] [place] [address] [id number] [address] [place] [address] 694[address]Xzw: (330) Date: [phone] (HP) 06/17/2018 BELEN Valdes Primary BELEN Chavezoster [id number] CR Insurance:ANTHEMPolic GERWIGDOB: Community [address] [place] [address] y Number: [id number] [facility] [address]Yhr: (330) [id number] Repository [phone] (HP) Date:8991-32-52BO [address] [place] [address]RF: 06/17/2018 Secondary NOT GIVENUNK [place] Insurance:SELF PAY Community [facility] Number: Effective Repository Date:2018-06-17 06/17/2018 BELEN Valdes Primary BELEN Chavezoster [id number] CR Insurance:ANTHEMPolic GERWIGDOB: [address] y Number: [id number] [facility] [address]Jti: (330) [id number] Repository [phone] (HP) Date:6906-51-89WP [address] [place] [address]TH: 06/17/2018 Secondary NOT GIVENUNK [place] Insurance:SELF PAY [facility] Number: Effective Repository Date:2018-06-17 05/27/2018 BELEN BEKADOB: Primary BELEN NAJERAABEDOB: [facility] Insurance:ANTHEMPolic [id number] [facility] y Number: [facility] Repository [address] [place] [address] [id number] [address] [place] [address] 02148Kur: (330) Date: [phone] (HP) 05/20/2018 BELEN Valdes Primary BELEN Chavezoster [id number] CR Insurance:ANTHEMPolic GERWIGDOB: Community [address] [place] [address] y Number: [id number] Hospital [address]Koa: (330) [id number] Repository [phone] (HP) Date:1378-34-79CA [address]KVAAEUV, [place] [address]AZ: 05/20/2018 Secondary NOT GIVENUNK [place] Insurance:SELF PAY [facility] Number: Effective Repository Date:2018-05-20 04/20/2018 BELEN Vlades Primary BELEN Valdes [place] [id number] CR Insurance:ANTHEMPolic GERWIGDOB: Community [address] [place] [address] y Number: [id number] Hospital 239[address]Cpv: (330) [id number] Repository [phone] (HP) Date:9141-53-22YW [address]VPPWYTV [place] [address]IZ: 04/20/2018 Secondary NOT GIVENUNK [place] Insurance:SELF PAY [facility] Number: Effective Repository Date:2018-04-20 04/13/2018 BELEN Valdes Primary BELEN Valdes [place] [id number] CR Insurance:ANTHEMPolic GERWIGDOB: Community [address] [place] [address] y Number: [id number] Hospital 00[address]Odg: (330) [id number] Repository [phone] () Date:9520-09-85DG [address]PFIZYAN [place] [address]EF: 04/13/2018 Secondary NOT GIVENUNK [place] Insurance:SELF PAY [facility] Number: Effective Repository Date:2018-04-13 04/05/2018 BELEN Valdes Primary BELEN Valdes [place] [id number] CR Insurance:ANTHEMPolic GERWIGDOB: Community [address] [place] [address] y Number: [id number] Hospital 400[address]Zfi: (330) [id number] Repository [phone] () Date:5734-90-27TR [address]QEFFIIK, [place] [address]QV: 04/05/2018 Secondary NOT GIVENUNK [place] Insurance:SELF PAY [facility] Number: Effective Repository Date:2018-04-05 04/02/2018 BELEN Valdes Primary BELEN Valdes [place] [id number] CR Insurance:ANTHEMPolic GERWIGDOB: Community [address] [place] [address] y Number: [id number] Hospital [address]Nxk: (330) [id number] Repository [phone] (HP) Date:3345-67-48AD [address] [place] [address] [place] [address]WQ: 04/02/2018 Secondary NOT GIVENUNK [place] Insurance:SELF PAY [facility] Number: Effective Repository Date:2018-03-30 03/29/2018 BELEN Valdes Primary BELEN Valdes [place] [id number] CR Insurance:ANTHEMPolic GERWIGDOB: Community [place] y Number: [id number] Hospital 565[address]Ufy: (330) [id number] Repository [phone] () Date:7869-58-64LG [address] [place] [address] [place] [address]DU: 03/29/2018 Secondary NOT GIVENUNK [place] Insurance:SELF PAY [facility] Number: Effective Repository Date:2018-03-29 03/29/2018 BELEN Valdes Primary BELEN Valdes [place] [id number] CR Insurance:ANTHEMPolic GERWIGDOB: Community [address] y Number: [id number] Hospital [address]Omg: (330) [id number] Repository [phone] () Date:3062-27-91JJ [address] [place] [address] [place] [address]HG: 03/29/2018 Secondary NOT GIVENUNK [place] Insurance:SELF PAY [facility] Number: Effective Repository Date:2018-03-29 02/23/2018 BELEN Valdes Primary BELEN Valdes [place] [id number] CR Insurance:ANTHEMPolic GERWIGDOB: Community [address] y Number: [id number] Hospital [address]Xts: (330) [id number] Repository [phone] () Date:6006-43-59KS [address]SHTXYCI [place] [address]IK: 02/23/2018 Secondary NOT GIVENUNK [place] Insurance:SELF PAY [facility] Number: Effective Repository Date:2018-02-22 02/19/2018 BELEN Valdes Primary BELEN Connolly [id number] CR Insurance:ANTHEMPolic GERWIGDOB: Community [address] [place] [address] y Number: [id number] Hospital 768[address]Qyn: 330 [id number] Repository [phone] () Date:6102-31-35QY [address]XTQKSJY, [place] [address]ZZ: 02/19/2018 Secondary NOT GIVENUNK [place] Insurance:SELF PAY [facility] Number: Effective Repository Date:2018-02-19 02/11/2018 Belen [id number] Primary Belen GerwigDOB: [facility] Insurance:ANTHEMPolic [id number] [address] y Number: Hospital [address]Wop: 330 [id number] Repository [phone] () Date:3939-21-53QX [address]EXEOSPU, [place] [address]FS: 02/11/2018 Secondary NOT GIVENUNK [place] Insurance:SELF PAY [facility] Number: Effective Repository Date:2018-02-09 10/21/2017 BELEN Valdes Primary BELEN Valdes [facility] GERWIGDOB: Insurance:[facility] GERWIGDOB: M[facility] [id number] ANTHEMPolicy Number: [id number] [facility] Effective [facility] Repository [address] [place] [address] Date:2017-10-[address] [place] [address]Dyj: 6794-06-96Kveg [phone]: Name:CD:[id number] O () [address]PULIBFK, [place] ()Tel: [phone]
== END ==
PROVIDERS: Family Provider Nurse Practitioner; PCP Nurse Practitioner; Referring Provider Obstetrics & Gynecology; Visit Provider Obstetrics & Gynecology
DX: Z34.90 Encounter for supervision of normal pregnancy, unspecified, unspecified trimester (principal)
CPT/HCPCS: 36415; 82950; 85025; 86850; 86900

== ENCOUNTER → 2018-10-08 17:54 | Outpatient (CLI) | payer BC, SELFPAY ==
[2018-10-08 14:36] VITALS: BMI 53.1
== END ==
PROVIDERS: Family Provider Nurse Practitioner; PCP Nurse Practitioner; Referring Provider Obstetrics & Gynecology; Visit Provider Obstetrics & Gynecology
DX: O09.00 Supervision of pregnancy with history of infertility, unspecified trimester (principal); Z3A.00 Weeks of gestation of pregnancy not specified
CPT/HCPCS: 87081

== ENCOUNTER 2018-10-22 17:30 | Inpatient (IN) | payer BC, SELFPAY ==
[2018-09-13 13:21] VITALS: BMI 52.0
[2018-10-22 16:45] VITALS: BMI 52.0
[2018-10-22] MEDS: Lactated Ringers 1,000 ML 50 ML IV (17:35)
[2018-10-22 17:36] VITALS: BMI 33.2
[2018-10-22 17:49] LABS: Hematocrit 37.3 % (37-47); Hemoglobin 12.7 g/dl (12.0-15.0); Mean Corpuscular Hgb 31.8 pg (27.0-32.0); Mean Corpuscular Volume 93.3 fL (81-99); Mean Platelet Vol. 11.1 fl (6.2-12.0); Platelet Count 242 K/mm3 (150-450); RBC Distribution Width SD 57.6 fl (35.1-43.9); White Blood Count 13.3 K/mm3 (4.4-11.0)
[2018-10-22 17:53] LABS: Scan Indicated on CBC? Y/N NO
[2018-10-22 17:55] LABS: Prothrombin Time (Protime)PT. 12.9 SECONDS (11.7-14.9)
[2018-10-22 17:56] LABS: Partial Thromboplast Time 36.5 Seconds (24.1-36.2)
[2018-10-22] MEDS: Labetalol 20 MG/4 ML Vial IV (17:57)
[2018-10-22 18:01] LABS: Protein, Urine (Random) 18.8 mg/dL (<11.9); Protein:Creat Ratio 231 mg/g CRE (0-200)
[2018-10-22 18:13] LABS: AST(SGOT) 24 U/L (15-37); Alanine Aminotransfer ALT/SGPT 25 U/L (13-56); Creatinine, Serum 0.57 mg/dL (0.55-1.02); EST Glomerular Filtration Rate 129 mL/min (>60); Est Glom Filt Rate - Afr Amer 156 mL/min (>60); Estimated Creatinine Clearance 103.95 ml/min; Uric Acid 5.3 mg/dL (2.6-6.0)
[2018-10-22] MEDS: miSOPROStol 25 MCG TABLET VAGINAL (18:37)
[2018-10-22] MEDS: Magnesium Sulfate 20 GM/500 ML BAG IV (18:37)
[2018-10-22] MEDS: Labetalol 100 MG Tablet PO (20:01)
[2018-10-22] MEDS: Acetaminophen 325 MG Tablet PO (20:50)
[2018-10-22] MEDS: miSOPROStol 25 MCG TABLET 50 MCG PO (23:08)
[2018-10-23] MEDS: Magnesium Sulfate 20 GM/500 ML BAG IV ×2 (03:51→14:05)
[2018-10-23] MEDS: miSOPROStol 25 MCG TABLET 50 MCG PO ×2 (04:55→11:20)
[2018-10-23] MEDS: Acetaminophen 325 MG Tablet PO ×2 (04:55→11:20)
--- NOTE | 2018-10-23 06:54 | PCM.HP.OB ---
- Problem List (1) Anemia during Status: Acute (2) Obesity complicating , third trimester Status: Acute Comment: 1 tm glucola normal, after 32 weeks growth us and nsts (3) Abnormal glucose in , antepartum Status: Acute Comment: 3 hr normal (4) Rh negative status during Status: Acute Qualifiers: Comment: rhogam given and at 28 weeks (5) with history of infertility Status: Acute Qualifiers: Comment: PRR KAILA 10/28/18 girl Dany IVF at [facility] (6) Status: Acute Qualifiers: Comment: carrier declined. nipt normal. afp nl. anatomy scan reviewed- Normal. (7) Depression Status: Acute Qualifiers: Comment: celexa too much fatigue- switch to zoloft (8) Sleep apnea Status: Chronic Qualifiers: (9) Gestational hypertension Status: Acute History Date of Admission: 10/23/18 Final AKILA: 10/28/18 Gestational age: 39 Weeks and 2 Days History of this : This is a 33 year-old, at 39 weeks gestational age presents for IOL secondary to severe gestational hypertension. she was seen in the office today and had severely elevated bps but denied any KWON or bv. she has negative proteinuria and normal labs. Medical History: Medical History (Last Reviewed 10/22/18 @ 16:32 by Lisa Marshall) Depression (Acute) F32.9 celexa too much fatigue- switch to zoloft Sleep apnea (Chronic) G47.30 Surgical History: Surgical History (Last Reviewed 10/22/18 @ 16:32 by Lisa Marshall) S/P removal of thyroid nodule Z98.890 S/P tonsillectomy Z90.89 Allergies bupropion [From Wellbutrin] Allergy (Mild, Verified 10/22/18 16:32) hives Home Medications: Home Medications cholecalciferol (vitamin D3) 2,000 unit capsule 4,000 unit PO QDAY cap 03/29/18 docosahexanoic acid 200 mg capsule 200 mg PO DAILY 03/29/18 pyridoxine (vitamin B6) 50 mg tablet 50 mg PO DAILY 07/21/18 cyanocobalamin (vit B-12) 1,000 mcg/mL injection solution 1,000 mcg IM QMONTH 08/09/18 Sertraline HCl [Zoloft] 50 mg PO QDAY 10/22/18 Smoking Status: Former smoker Alcohol: None Number of Fetus(es): 1 Heart Tracin moderate variability reactive no decelerations category I tracing [employer]: regular History Past Pregnancies: Past Pregnancies Delivery Date Name GA/Weeks Outcome Route Weight Infant Gender Labor Length Anesthesia Delivery Location Provider FOB Labs: Mom's Labs & Results 10/22/18 10/22/18 10/22/18 17:35 17:35 17:35 WBC 13.3 H RBC 4.00 L Hgb 12.7 Hct 37.3 MCV 93.3 MCH 31.8 MCHC 34.0 RDW 17.0 H RDW Differential 57.6 H Plt Count 242 MPV 11.1 PT 12.9 INR 1.0 APTT 36.5 H Creatinine Estim Creat Clear Calc Est GFR (MDRD) Af Amer Est GFR (MDRD) Non-Af Uric Acid AST ALT U Random Total Protein 18.8 H Urine Creatinine 81.40 Protein/Creatinin Ratio 231 H Blood Type Antibody Screen 10/22/18 10/22/18 17:35 17:35 WBC RBC Hgb Hct MCV MCH MCHC RDW RDW Differential Plt Count MPV PT INR APTT Creatinine 0.57 Estim Creat Clear Calc 103.95 Est GFR (MDRD) Af Amer 156 Est GFR (MDRD) Non-Af 129 Uric Acid 5.3 AST 24 ALT 25 U Random Total Protein Urine Creatinine Protein/Creatinin Ratio Blood Type O NEGATIVE Antibody Screen NEGATIVE Course Did the patient receive Yes care? Labs Blood Type: O RH: NEGATIVE RPR/VDRL/Syphilis Nonreactive Rubella status Immune HbSAg Negative Date Done: 03/29/18 Chlamydia Negative Gonorrhea Negative HIV/AIDS Non-Reactive Group B Strep: Negative Current Obstetrical History Gestational Diabetes No Incompetent Cervix No Infertility Yes: IVF IUGR No Macrosomia No Hypertension/Pre-eclampsia Yes Placenta Previa/Abruption Yes: marginal in beginning - resolved PTL/PROM No Uterine anomaly No Oligohydramnios No Polyhydramnios No Multiple gestation No Past Medical History Asthma No Diabetes No Hypertension No Heart disease No Mitral valve prolapse No Neurologic/Seizure disorder/ No Migraines Kidney disease No Liver disease No Varicosities No Clotting disorders/Hx of DVT No Thyroid Dysfunction No Other medical diseases No Psychiatric disorders Yes: depression - taking sertaline Major trauma No Abnormal PAP smear No Sleep apnea Yes Mammogram in the last 2 years Yes Social History Marital Status: Alleged father Dany Smoking Status Former smoker Expected Infant Delivery Method: Spontaneous Vaginal Review of Systems Constitutional: Denies: Fever, Malaise Eyes: Denies: Blurred vision, Vision Change HEENT: Denies: Head Aches, Visual Changes Cardiovascular: Denies: Chest Pain, Palpitations Respiratory: Denies: Cough, Shortness of Breath, Wheezing Gastrointestinal: Denies: Abdominal Pain, Diarrhea, Nausea, Vomiting Genitourinary: Denies: Dysuria, Hematuria Musculoskeletal: Denies: Joint Pain, Muscle pain Skin: Denies: Lesions, Rash Neurological: Denies: Blurred vision, Focal weakness, Headaches Psychiatric: Denies: Anxiety, Depression Endocrine: Denies: Heat/ Cold Intolerance Hematologic/ Lymphatic: Denies: Easy Bruising, Easy Bleeding Physical Exam General: Alert, Cooperative, No apparent distress HEENT: Atraumatic, Normocephalic. Negative for: Thyromegaly, Lymphadenopathy Cardiovascular: Regular rate Lungs: Normal air movement Abdomen: Soft, Non Tender, Gravid Neurological: Deep Tendon Reflexes 2+/4 and Symmetrical, Neuro grossly intact. 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 Negative for: Vulvar lesions Estimated gestational size: Appropriate for gestational size Presentation: Cephalic Cervix Dilation (cm): 0 Assessment/Plan All Active Problems (Last Reviewed 10/22/18 @ 16:32 by Lisa Marshall) Gestational hypertension (Acute) Anemia during (Acute) Obesity complicating , third trimester (Acute) Abnormal glucose in , antepartum (Acute) Rh negative status during (Acute) with history of infertility (Acute) (Acute) Depression (Acute) screening encounter (Resolved) BMI greater than 40 (Resolved) BMI over 35 (Resolved) Marginal placenta previa (Resolved) This is a 33 year-old, , at 39 weeks gestational age presents IOL severe gestational hypertension Patient presents IOL, plan management for , pitocin/AROM after Cytotec and Byrne bulb when able to be placed. Pain management: Plans epidural. GBS negative. Management of any complications: Magnesium for seizure prophylaxis, start labetalol 100 twice daily, hypertensive protocol followed in 1 dose of IV labetalol given I have reviewed the [facility] and made any clinically relevant updates.
--- NOTE | 2018-10-23 06:58 | HP.PCM_ITS ---
- Problem List (1) Anemia during Status: Acute (2) Obesity complicating , third trimester Status: Acute Comment: 1 tm glucola normal, after 32 weeks growth us and nsts (3) Abnormal glucose in , antepartum Status: Acute Comment: 3 hr normal (4) Rh negative status during Status: Acute Qualifiers: Comment: rhogam given and at 28 weeks (5) with history of infertility Status: Acute Qualifiers: Comment: PRR KAILA 10/28/18 girl Dany IVF at [facility] (6) Status: Acute Qualifiers: Comment: carrier declined. nipt normal. afp nl. anatomy scan reviewed- Normal. (7) Depression Status: Acute Qualifiers: Comment: celexa too much fatigue- switch to zoloft (8) Sleep apnea Status: Chronic Qualifiers: (9) Gestational hypertension Status: Acute History Date of Admission: 10/23/18 Final KAILA: 10/28/18 Gestational age: 39 Weeks and 2 Days History of this : This is a 33 year-old, at 39 weeks gestational age presents for IOL secondary to severe gestational hypertension. she was seen in the office today and had severely elevated bps but denied any KWON or bv. she has negative proteinuria and normal labs. Medical History: Medical History (Last Reviewed 10/22/18 @ 16:32 by Lisa Marshall) Depression (Acute) F32.9 celexa too much fatigue- switch to zoloft Sleep apnea (Chronic) G47.30 Surgical History: Surgical History (Last Reviewed 10/22/18 @ 16:32 by Lisa Marshall) S/P removal of thyroid nodule Z98.890 S/P tonsillectomy Z90.89 Allergies bupropion [From Wellbutrin] Allergy (Mild, Verified 10/22/18 16:32) hives Home Medications: Home Medications cholecalciferol (vitamin D3) 2,000 unit capsule 4,000 unit PO QDAY cap 03/29/18 docosahexanoic acid 200 mg capsule 200 mg PO DAILY 03/29/18 pyridoxine (vitamin B6) 50 mg tablet 50 mg PO DAILY 07/21/18 cyanocobalamin (vit B-12) 1,000 mcg/mL injection solution 1,000 mcg IM QMONTH 08/09/18 Sertraline HCl [Zoloft] 50 mg PO QDAY 10/22/18 Smoking Status: Former smoker Alcohol: None Number of Fetus(es): 1 Heart Tracin moderate variability reactive no decelerations category I tracing [place]: regular History Past Pregnancies: Past Pregnancies Delivery Date Name GA/Weeks Outcome Route Weight Infant Gender Labor Length Anesthesia Delivery Location Provider FOB Labs: Mom's Labs & Results 10/22/18 10/22/18 10/22/18 17:35 17:35 17:35 WBC 13.3 H RBC 4.00 L Hgb 12.7 Hct 37.3 MCV 93.3 MCH 31.8 MCHC 34.0 RDW 17.0 H RDW Differential 57.6 H Plt Count 242 MPV 11.1 PT 12.9 INR 1.0 APTT 36.5 H Creatinine Estim Creat Clear Calc Est GFR (MDRD) Af Amer Est GFR (MDRD) Non-Af Uric Acid AST ALT U Random Total Protein 18.8 H Urine Creatinine 81.40 Protein/Creatinin Ratio 231 H Blood Type Antibody Screen 10/22/18 10/22/18 17:35 17:35 WBC RBC Hgb Hct MCV MCH MCHC RDW RDW Differential Plt Count MPV PT INR APTT Creatinine 0.57 Estim Creat Clear Calc 103.95 Est GFR (MDRD) Af Amer 156 Est GFR (MDRD) Non-Af 129 Uric Acid 5.3 AST 24 ALT 25 U Random Total Protein Urine Creatinine Protein/Creatinin Ratio Blood Type O NEGATIVE Antibody Screen NEGATIVE Course Did the patient receive Yes care? Labs Blood Type: O RH: NEGATIVE RPR/VDRL/Syphilis Nonreactive Rubella status Immune HbSAg Negative Date Done: 03/29/18 Chlamydia Negative Gonorrhea Negative HIV/AIDS Non-Reactive Group B Strep: Negative Current Obstetrical History Gestational Diabetes No Incompetent Cervix No Infertility Yes: IVF IUGR No Macrosomia No Hypertension/Pre-eclampsia Yes Placenta Previa/Abruption Yes: marginal in beginning - resolved PTL/PROM No Uterine anomaly No Oligohydramnios No Polyhydramnios No Multiple gestation No Past Medical History Asthma No Diabetes No Hypertension No Heart disease No Mitral valve prolapse No Neurologic/Seizure disorder/ No Migraines Kidney disease No Liver disease No Varicosities No Clotting disorders/Hx of DVT No Thyroid Dysfunction No Other medical diseases No Psychiatric disorders Yes: depression - taking sertaline Major trauma No Abnormal PAP smear No Sleep apnea Yes Mammogram in the last 2 years Yes Social History Marital Status: Alleged father Dany Smoking Status Former smoker Expected Infant Delivery Method: Spontaneous Vaginal Review of Systems Constitutional: Denies: Fever, Malaise Eyes: Denies: Blurred vision, Vision Change HEENT: Denies: Head Aches, Visual Changes Cardiovascular: Denies: Chest Pain, Palpitations Respiratory: Denies: Cough, Shortness of Breath, Wheezing Gastrointestinal: Denies: Abdominal Pain, Diarrhea, Nausea, Vomiting Genitourinary: Denies: Dysuria, Hematuria Musculoskeletal: Denies: Joint Pain, Muscle pain Skin: Denies: Lesions, Rash Neurological: Denies: Blurred vision, Focal weakness, Headaches Psychiatric: Denies: Anxiety, Depression Endocrine: Denies: Heat/ Cold Intolerance Hematologic/ Lymphatic: Denies: Easy Bruising, Easy Bleeding Physical Exam General: Alert, Cooperative, No apparent distress HEENT: Atraumatic, Normocephalic. Negative for: Thyromegaly, Lymphadenopathy Cardiovascular: Regular rate Lungs: Normal air movement Abdomen: Soft, Non Tender, Gravid Neurological: Deep Tendon Reflexes 2+/4 and Symmetrical, Neuro grossly intact. 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 Negative for: Vulvar lesions Estimated gestational size: Appropriate for gestational size Presentation: Cephalic Cervix Dilation (cm): 0 Assessment/Plan All Active Problems (Last Reviewed 10/22/18 @ 16:32 by Lisa Marshall) Gestational hypertension (Acute) Anemia during (Acute) Obesity complicating , third trimester (Acute) Abnormal glucose in , antepartum (Acute) Rh negative status during (Acute) with history of infertility (Acute) (Acute) Depression (Acute) screening encounter (Resolved) BMI greater than 40 (Resolved) BMI over 35 (Resolved) Marginal placenta previa (Resolved) This is a 33 year-old, , at 39 weeks gestational age presents IOL severe gestational hypertension Patient presents IOL, plan management for , pitocin/AROM after Cytotec and Byrne bulb when able to be placed. Pain management: Plans epidural. GBS negative. Management of any complications: Magnesium for seizure prophylaxis, start labetalol 100 twice daily, hypertensive protocol followed in 1 dose of IV labetalol given I have reviewed the [facility] and made any clinically relevant updates.
--- NOTE | 2018-10-23 07:00 | PN_ITS ---
Progress Note ft 130-140 moderate variability reactive no decelerations category I tracing [place]: regular continue cytotec until fb able to be placed. magnesium going, bps stable
[2018-10-23] MEDS: Labetalol 100 MG Tablet PO ×2 (10:02→22:06)
--- NOTE | 2018-10-23 16:10 | PN_ITS ---
Progress Note fht 120-130 moderate variability reactive no decelerations category I tracing [place]: irregular. patient comfortable mild intermittent KWON, tired, bps normal, continue 100mg labetalol BID. s/p 24 hours of cytotec 25 then 50 mcg orally. cervix not dilated at all, unable to place villela bulb. will continue an additional 12 hours of cytotec 50mcg vaginally or until [address] a villela bulb. discussed with patient and nursing.
[2018-10-23] MEDS: miSOPROStol 25 MCG TABLET 50 MCG VAGINAL ×2 (17:14→23:22)
[2018-10-23] MEDS: DiphenhydrAMINE 25 MG Capsule 50 MG PO (20:34)
[2018-10-23] MEDS: Lactated Ringers 1,000 ML 50 ML IV (21:03)
[2018-10-24] MEDS: Magnesium Sulfate 20 GM/500 ML BAG IV (00:56)
--- NOTE | 2018-10-24 05:56 | PCM.PN.BLA ---
Progress Note fth 120-130 moderate variability reactive no decelerations category I tracing [place]: regular no cervical change in 36 hours of cytotec, still nair score of zero. attempted digital and speculum insertion of villela bulb again was unsuccessful. only one mildly elevated bp, continuing labetalol 100mg BID. negative clinical symptoms, will turn off magnesium for now, restart if any severe pressures, repeat preeclampsia labs. discussed with patient options of primary now for failed induction due to 30-40% chance of a because of unfavorable cervix, versus attempt of pitocin. Patient has decided to continue IOL with pitocin, will reattempt villela bulb placement if cervix opens.
--- NOTE | 2018-10-24 06:05 | PN_ITS ---
Progress Note fth 120-130 moderate variability reactive no decelerations category I tracing [place]: regular no cervical change in 36 hours of cytotec, still nair score of zero. attempted digital and speculum insertion of villela bulb again was unsuccessful. only one mildly elevated bp, continuing labetalol 100mg BID. negative clinical symptoms, will turn off magnesium for now, restart if any severe pressures, repeat preeclampsia labs. discussed with patient options of primary now for failed induction due to 30-40% chance of a because of unfavorable cervix, versus attempt of pitocin. Patient has decided to continue IOL with pitocin, will reattempt villela bulb placement if cervix opens.
[2018-10-24] MEDS: Oxytocin 30 units/NS 500 ml 30 UNITS/500 ML IV.SOLN IV (06:39)
[2018-10-24 06:44] LABS: Hematocrit 36.4 % (37-47); Hemoglobin 12.2 g/dl (12.0-15.0); Mean Corp Hgb Conc 33.5 g/gl (32-36); Mean Corpuscular Hgb 31.9 pg (27.0-32.0); Mean Platelet Vol. 10.9 fl (6.2-12.0); Platelet Count 234 K/mm3 (150-450); RBC Distribution Width CV 17.5 % (11.6-14.6); RBC Distribution Width SD 60.4 fl (35.1-43.9); Red Blood Count 3.83 M/mm3 (4.2-5.4); White Blood Count 11.7 K/mm3 (4.4-11.0)
[2018-10-24 06:47] LABS: Scan Indicated on CBC? Y/N NO
[2018-10-24 06:55] LABS: Partial Thromboplast Time 34.3 Seconds (24.1-36.2)
[2018-10-24 06:57] LABS: ALB/GLOB Ratio 0.6 RATIO (0.9-2.4); AST(SGOT) 21 U/L (15-37); Alanine Aminotransfer ALT/SGPT 24 U/L (13-56); Albumin, Serum 2.4 g/dL (3.2-5.0); Alkaline Phosphatase 179 U/L (45-117); Anion Gap 8 (5-15); BUN 5 mg/dL (7-18); BUN/Creat Ratio 8.4 RATIO (10-20); Calcium,Total 7.1 mg/dL (8.5-10.1); Chloride 111 mmol/L (98-107); Creatinine, Serum 0.59 mg/dL (0.55-1.02); EST Glomerular Filtration Rate 123 mL/min (>60); Est Glom Filt Rate - Afr Amer 148 mL/min (>60); Estimated Creatinine Clearance 100.43 ml/min; Globulin 3.8 g/dL (2.2-4.2); Glucose 118 mg/dL (74-106); Potassium 3.4 mmol/L (3.5-5.1); Protein, Total 6.2 g/dL (6.4-8.2); Sodium Level 136 mmol/L (136-145); Uric Acid 5.9 mg/dL (2.6-6.0)
[2018-10-24] MEDS: Labetalol 100 MG Tablet PO ×2 (09:58→21:47)
[2018-10-24] MEDS: 0.9% Normal Saline 100 ML IV.SOLN. INTRA-UTER (15:25)
[2018-10-24] MEDS: Ondansetron 4 MG/2 ML Vial IV (15:32)
--- NOTE | 2018-10-24 15:46 | PN_ITS ---
Progress Note fht 130-140 moderate variability reactive no decelerations category I tracing [place]: regular pit at 16 mU, clear SROM, /-3, fb placed now. getting epidural. bps mildly elevated
[2018-10-24] MEDS: fentaNYL-bupivacaine (epidural) 100 ML BAG EPIDURAL ×2 (16:06→21:11)
[2018-10-24] MEDS: Lactated Ringers 1,000 ML 50 ML IV ×2 (18:15→23:39)
[2018-10-24] MEDS: Mag Hydrox/Al Hydrox/Simeth 30 ML UDC PO (21:47)
[2018-10-25] VITALS (19 sets, daily range): BP systolic 110–136; BP diastolic 54–80; PULSE 74–87; RESP 14–18; TEMP 36.2–37.1; O2SAT 96–100
[2018-10-25] MEDS: fentaNYL-bupivacaine (epidural) 100 ML BAG EPIDURAL (03:37)
[2018-10-25] MEDS: Lactated Ringers 1,000 ML 50 ML IV (04:25)
[2018-10-25] MEDS: Sodium Citrate/Citric Acid 30 ML UDC PO (06:35)
--- NOTE | 2018-10-25 06:44 | PCM.PN.BLA ---
Progress Note fht 130-140 moderate variability reactive no decelerations category I tracing [employer] [place]: regular s/p 24 hours pitocin and no cervical change in 4 hours, still 7 cm dilated. discussed with patient recommendation for secondary to arrest of dilation, patient agrees. discussed with patient i would not recommend a TOLAC next due to the very adequate trial of labor and arrest of dilation is due to suspected CPD.
--- NOTE | 2018-10-25 06:45 | PCM.OPRPT ---
Problem List (1) Anemia during Status: Acute (2) Obesity complicating , third trimester Status: Acute Comment: 1 tm glucola normal, after 32 weeks growth us and nsts (3) Abnormal glucose in , antepartum Status: Acute Comment: 3 hr normal (4) Rh negative status during Status: Acute Qualifiers: Comment: rhogam given and at 28 weeks (5) with history of infertility Status: Acute Qualifiers: Comment: PRR KAILA 10/28/18 girl Dany IVF at [facility] (6) Status: Acute Qualifiers: Comment: carrier declined. nipt normal. afp nl. anatomy scan reviewed- Normal. 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 Patient was initially started on magnesium and underwent Cytotec induction of labor first with 25 then 50 mcg orally times 24 hours and then an additional 50 mcg every 6 hours times 12 hours vaginally with no cervical change the patient was still closed at that time. It was discussed with the patient at the time decision for either a primary or proceeding with Pitocin, patient elected to proceed with Pitocin. Patient underwent a Pitocin induction of labor and after 24 hours of Pitocin and spontaneous rupture of membranes for 16 hours, patient experienced an arrest of dilation at 7 cm for over 4 hours with adequate contractions. The decision for a primary low transverse due to arrest of dilation and suspected CPD was recommended at this time and the patient agreed. The patient was placed in the dorsal supine position with leftward tilt. Patient was prepped and draped in the normal sterile fashion. Pfannenstiel skin incision was made with the scalpel and carried through to the underlying layer of fascia with the scalpel. Fascia was nicked in the midline and the incision extended laterally. The rectus bellies were dissected off superiorly and inferiorly with out complication both sharply and bluntly. The peritoneum was entered digitally. The incision was stretched and a low transverse uterine incision was made with the scalpel. The 's head was delivered atraumatically followed by the anterior and posterior shoulders without complication the rest of the delivered. The cord was clamped and cut and the was handed off to awaiting nurse. The placenta was delivered spontaneously immediately following and was noted to be intact and have a three-vessel cord. The uterus was exteriorized cleared of all clots and debris, and the incision was closed in a double layer closure using #1 Monocryl. The uterus was returned to the maternal abdomen and gutters were cleared of all clots and debris. The ovaries and fallopian tubes were noted to be within normal limits. The peritoneum was closed with 3-0 Monocryl in a running fashion. Fascia was closed with 0 PDS in a running fashion. Subcutaneous tissue was copiously irrigated and the skin was closed with 3-0 Monocryl in a subcuticular fashion. Mepilex dressing were applied without complication. Patient was taken to recovery in stable condition. Grafts/Implants Used: none - Complications none - Admit VTE Documentation VTE Present on Admission: No
[2018-10-25] MEDS: Cefazolin 2 GM in 0.9% Normal Saline 100 ML IV (06:50)
[2018-10-25] MEDS: Oxytocin 30 units/NS 500 ml 30 UNITS/500 ML IV.SOLN 167 UNITS IV (07:18)
[2018-10-25] MEDS: Lactated Ringers 1,000 ML 100 ML IV ×2 (08:46→16:41)
[2018-10-25] MEDS: Ondansetron 4 MG/2 ML Vial IV (13:42)
[2018-10-25] MEDS: Ketorolac 30 MG/ML Syringe IV ×2 (14:20→20:32)
[2018-10-25] MEDS: Senna/Docusate Sodium 1 Tablet PO (16:42)
[2018-10-25] MEDS: Pyridoxine HCl 50 MG Tablet PO (16:42)
[2018-10-25] MEDS: Sertraline 50 MG Tablet PO (16:43)
[2018-10-26] VITALS (10 sets, daily range): BP systolic 110–138; BP diastolic 53–82; PULSE 72–93; RESP 14–20; TEMP 36.1–36.8; O2SAT 97–100
[2018-10-26] MEDS: Ketorolac 30 MG/ML Syringe IV ×4 (02:05→20:27)
[2018-10-26] MEDS: 0.9% Saline Lock 10 ML Syringe IV ×3 (02:06→20:27)
[2018-10-26] MEDS: Lactated Ringers 1,000 ML 100 ML IV (02:39)
[2018-10-26 07:16] LABS: Hematocrit 29.4 % (37-47); Hemoglobin 9.7 g/dl (12.0-15.0); Mean Corpuscular Hgb 32.3 pg (27.0-32.0); Mean Platelet Vol. 10.7 fl (6.2-12.0); Platelet Count 199 K/mm3 (150-450); RBC Distribution Width CV 17.4 % (11.6-14.6); RBC Distribution Width SD 58.9 fl (35.1-43.9); White Blood Count 16.6 K/mm3 (4.4-11.0)
[2018-10-26 07:18] LABS: Scan Indicated on CBC? Y/N NO
--- NOTE | 2018-10-26 07:29 | PCM.PN.OB ---
Patient Problems: Active and Suspected Problems (Last Reviewed 10/22/18 @ 16:32 by Lisa Marshall) Gestational hypertension (Acute) Subjective: doing well no complaints pain controlled no CP SOB N V, has been up in chair. Tolerating po lochia moderate, going well - Physical Exam General: Alert, Oriented x3 Abdomen: Soft, Distended, - - Dressing dry and intact. 2mm blister and red irritation above umbilicus where tape had been. Minimal tenderness with exam. FF below U Vital Signs Temp Pulse Resp BP Pulse Ox 97.7 F L 93 20 H 128/72 H 98 10/26/18 03:30 10/26/18 06:00 10/26/18 06:00 10/26/18 03:30 10/26/18 06:00 Oxygen Delivery Method Room Air Weight: 278 lb Body Mass Index (BMI) 33.2 Intake and Output for Last 24 Hours 10/24/18 10/25/18 10/26/18 23:59 23:59 23:59 Intake Total 3778 / 3778 2810 / 2810 1353 / 1353 Output Total 900 / 900 1100 / 1100 1125 / 1125 Balance 2878 / 2878 1710 / 1710 228 / 228 Laboratory Tests Past 24 Hrs 10/25/18 10/26/18 08:50 07:00 WBC 16.6 H RBC 3.00 L Hgb 9.7 L Hct 29.4 L MCV 98.0 MCH 32.3 H MCHC 33.0 RDW 17.4 H RDW Differential 58.9 H Plt Count 199 MPV 10.7 Screen NEGATIVE Baby's Blood Type O POSITIVE Baby's JOYCE NEGATIVE Medical Necessity - Tobacco Use Smoking Status: Former smoker Assessment/Plan All Active Problems (Last Reviewed 10/22/18 @ 16:32 by Lisa Marshall) Gestational hypertension (Acute) Anemia during (Acute) Obesity complicating , third trimester (Acute) Abnormal glucose in , antepartum (Acute) Rh negative status during (Acute) with history of infertility (Acute) (Acute) Depression (Acute) screening encounter (Resolved) BMI greater than 40 (Resolved) BMI over 35 (Resolved) Marginal placenta previa (Resolved) s/p LTCS PPD # 1 1. routine post care 2. breast feeding- support given 3. rh negative 4. rubella immune
--- NOTE | 2018-10-26 07:38 | NURSING ---
0725read and agree with mariann pompa findings.
[2018-10-26] MEDS: Pyridoxine HCl 50 MG Tablet PO (10:17)
[2018-10-26] MEDS: Sertraline 50 MG Tablet PO (10:17)
[2018-10-26] MEDS: Senna/Docusate Sodium 1 Tablet PO (14:08)
[2018-10-27 02:10] VITALS: BP 128/66; PULSE 79; RESP 18; TEMP 36.4; O2SAT 97
[2018-10-27] MEDS: 0.9% Saline Lock 10 ML Syringe IV (02:13)
[2018-10-27] MEDS: Ketorolac 30 MG/ML Syringe IV (02:13)
--- NOTE | 2018-10-27 07:28 | PCM.PN.OB ---
Patient Problems: Active and Suspected Problems (Last Reviewed 10/22/18 @ 16:32 by Lisa Marshall) Gestational hypertension (Acute) Subjective: doing well no complaints pain controlled no CP SOB N V ambulating well tolerating po lochia moderate, going well - Physical Exam General: Alert, Oriented x3 Abdomen: Soft, Non-Distended, - - Minimal tenderness. Dressing dry and intact. FF below U Vital Signs Temp Pulse Resp BP Pulse Ox 97.6 F L 79 18 128/66 H 97 10/27/18 02:10 10/27/18 02:10 10/27/18 02:10 10/27/18 02:10 10/27/18 02:10 Oxygen Delivery Method Room Air Weight: 278 lb Body Mass Index (BMI) 33.2 Intake and Output for Last 24 Hours 10/25/18 10/26/18 10/27/18 23:59 23:59 23:59 Intake Total 2810 / 2810 1500 / 1500 Output Total 1100 / 1100 2175 / 2175 Balance 1710 / 1710 -675 / -675 Medical Necessity - Tobacco Use Smoking Status: Former smoker Assessment/Plan All Active Problems (Last Reviewed 10/22/18 @ 16:32 by Lisa Marshall) Gestational hypertension (Acute) Anemia during (Acute) Obesity complicating , third trimester (Acute) Abnormal glucose in , antepartum (Acute) Rh negative status during (Acute) with history of infertility (Acute) (Acute) Depression (Acute) screening encounter (Resolved) BMI greater than 40 (Resolved) BMI over 35 (Resolved) Marginal placenta previa (Resolved) s/p LTCS PPD # 2 1. routine post care 2. breast feeding- support given 3. rh negative 4. rubella immune 5. home today
--- NOTE | 2018-10-27 07:33 | PCM.DC.SUM ---
Discharge Date and Diagnosis - Problem List Patient Problems: Active and Suspected Problems (Last Reviewed 10/22/18 @ 16:32 by Lisa Marshall) Gestational hypertension (Acute) Date of Admission: 10/23/18 - Primary Discharge Diagnosis Active and Suspected Problems (Last Reviewed 10/22/18 @ 16:32 by Lisa Marshall) Gestational hypertension (Acute) - Secondary Discharge Diagnosis Chronic Problems (Last Reviewed 10/22/18 @ 16:32 by Lisa Marshall) Sleep apnea (Chronic) Hospital Course and Treatment Consultations 10/22/18 17:37 Consult: Anesthesia Routine Comment: Reason For Exam: labor Operations: - - LTCS Summary of Care Provided: The patient is a 33 year old F [] Patient underwent section with routine recovery, return of normal bowel and bladder function. Ambulating, voiding and tolerating PO. Stable for discharge home POD #2. Patient Problems: Active and Suspected Problems (Last Reviewed 10/22/18 @ 16:32 by Lisa Marshall) Gestational hypertension (Acute) - Physical Exam Vital Signs Temp Pulse Resp BP Pulse Ox 97.6 F L 79 18 128/66 H 97 10/27/18 02:10 10/27/18 02:10 10/27/18 02:10 10/27/18 02:10 10/27/18 02:10 Oxygen Delivery Method Room Air Weight: 278 lb Body Mass Index (BMI) 33.2 Intake and Output for Last 24 Hours 10/25/18 10/26/18 10/27/18 23:59 23:59 23:59 Intake Total 2810 / 2810 1500 / 1500 Output Total 1100 / 1100 2175 / 2175 Balance 1710 / 1710 -675 / -675 Home Medications: Medications to take at Discharge cholecalciferol (vitamin D3) 2,000 unit capsule 4,000 unit PO QDAY cap 03/29/18 docosahexanoic acid 200 mg capsule 200 mg PO DAILY 03/29/18 pyridoxine (vitamin B6) 50 mg tablet 50 mg PO DAILY 07/21/18 cyanocobalamin (vit B-12) 1,000 mcg/mL injection solution 1,000 mcg IM QMONTH 08/09/18 Sertraline HCl [Zoloft] 50 mg PO QDAY 10/22/18 Naproxen [Naprosyn] 500 mg PO BID PRN PRN #60 tablet 10/27/18 Oxycodone HCl/Acetaminophen [Percocet 5/325] 1 - 2 tablet PO Q4H PRN PRN 7 Days #28 tablet 10/27/18 Following Prescrptions Were Given to Patient: Oxycodone HCl/Acetaminophen [Percocet 5/325] 1 - 2 tablet PO Q4H PRN PRN 7 Days #28 tablet PRN Reason: Pain Naproxen [Naprosyn] 500 mg PO BID PRN PRN #60 tablet PRN Reason: Pain Primary Care Physician: Nicolle Salamanca NP-C [Primary Care Provider] - Medical Necessity - Tobacco Use Smoking Status: Former smoker Meaningful Use Info Meaningful Use Diagnoses (Choose all that apply): None applicable
--- NOTE | 2018-10-27 07:35 | DCINST_ITS ---
Additional Instructions: If you experience any of the following, contact your healthcare provider. * Bleeding that soaks a pad every hour for 2 hours * Fever 100.4 or higher * Unrelieved incision or abdominal pain * Swelling, redness, discharge or bleeding from your incision or episiotomy site * Your incision begins to separate * Problems urinating (including inability to urinate or burning while urinating). * Visual changes * Severe headache * Flu-like symptoms * Pain or redness in one of both of your breasts * Pain, warmth, tenderness or swelling in your legs, especially the calf area * Frequent nausea and vomiting * Symptoms of depression or anxiety If you experience any of the following, call 911 or go to the nearest Emergency Room. * Chest pain * Problems breathing * Seizure activity * Partial or complete paralysis of a body part, slurred speech, weakness or drooping of the face, or a sudden inability to walk or hold your balance Allergies/Adverse Reactions: Allergies bupropion [From Wellbutrin] Allergy (Mild, Verified 10/22/18 16:32) hives Medications to take at Discharge cholecalciferol (vitamin D3) 2,000 unit capsule 4,000 unit PO QDAY cap 03/29/18 docosahexanoic acid 200 mg capsule 200 mg PO DAILY 03/29/18 pyridoxine (vitamin B6) 50 mg tablet 50 mg PO DAILY 07/21/18 cyanocobalamin (vit B-12) 1,000 mcg/mL injection solution 1,000 mcg IM QMONTH 08/09/18 Sertraline HCl [Zoloft] 50 mg PO QDAY 10/22/18 Naproxen [Naprosyn] 500 mg PO BID PRN PRN #60 tablet 10/27/18 Oxycodone HCl/Acetaminophen [Percocet 5/325] 1 - 2 tablet PO Q4H PRN PRN 7 Days #28 tablet 10/27/18 The following prescriptions were given: Oxycodone HCl/Acetaminophen [Percocet 5/325] 1 - 2 tablet PO Q4H PRN PRN 7 Days #28 tablet PRN Reason: Pain Naproxen [Naprosyn] 500 mg PO BID PRN PRN #60 tablet PRN Reason: Pain Follow-Up: Call to make an appointment with your doctor for an incision check in 1-2 weeks. You will also need a 6 week post- follow up appointment. Test results from this visit will be discussed in further detail at your follow- up appointment, if applicable. Primary Care Physician: Nicolle Salamanca NP-C [Primary Care Provider] -
[2018-10-27 08:13] VITALS: BP 144/80; PULSE 82; RESP 20; TEMP 36.4
== END 2018-10-27 10:50 | disposition home or self-care (01) | DRG 788 ==
LOC: WPOUT 17:32 → WP 17:32
PROVIDERS: Admitting Provider Obstetrics & Gynecology; Family Provider Nurse Practitioner; PCP Nurse Practitioner; Referring Provider Obstetrics & Gynecology; Visit Provider Obstetrics & Gynecology
DX: O13.4 Gestational [pregnancy-induced] hypertension without significant proteinuria, complicating childbirth (principal); O99.344 Other mental disorders complicating childbirth; O61.0 Failed medical induction of labor; O99.02 Anemia complicating childbirth; D64.9 Anemia, unspecified; O99.214 Obesity complicating childbirth; E66.9 Obesity, unspecified; F41.8 Other specified anxiety disorders; Z3A.39 39 weeks gestation of pregnancy; Z37.0 Single live birth
CPT/HCPCS: 59025; 59050; 80053; 82565; 82570; 84156; 84450; 84460; 84550; 85027; 85461; 85610; 85730; 86850; 86900; 90384; 99218; J7120; A4216; G0378; J2405; J2790

== ENCOUNTER → 2018-12-14 | Outpatient (CLI) | payer BC, SELFPAY ==
[2018-11-09 13:31] VITALS: BMI 33.2
[2018-12-07 15:42] VITALS: BMI 33.2
--- NOTE | 2018-12-14 08:32 | BI_ITS ---
MAMMOGRAPHY - BILATERAL DIAGNOSTIC REASON FOR EXAM: Female, 33 years old. Right breast lump. PERTINENT HISTORY: Non-contributory. TECHNIQUE: Digital examination. Mediolateral oblique (MLO) and craniocaudad (CC) views of both breasts were obtained. CAD: CAD was performed on this study. COMPARISON: Right breast only July 03, 2017. FINDINGS: Breast Composition: There are scattered areas of fibroglandular density. There are no dominant masses or suspicious calcifications. No other significant abnormalities are identified. BI/DIAG MAMM W/CAD, BILAT IMPRESSION: Stable bilateral diagnostic mammogram. ASSESSMENT CATEGORY: BIRADS Category 2: Benign. A letter regarding these results will be sent to the patient by the facility within 30 days. FOLLOW UP RECOMMENDATION: Yearly follow up mammogram recommended. (A) Approximately 10% of breast cancers are not detected by mammography. A normal mammogram should not delay biopsy of a clinically suspicious abnormality. Recommendations/comment: Workup is not complete until sonographic evaluation is performed of the region of palpable abnormality. Electronically Signed: Kenji Madrigal MD at 12:44 EDT , Service support ,
== END | disposition home or self-care (01) ==
PROVIDERS: Family Provider Nurse Practitioner; PCP Nurse Practitioner; Referring Provider Nurse Practitioner; Visit Provider Nurse Practitioner
DX: N63.10 Unspecified lump in the right breast, unspecified quadrant (principal)
CPT/HCPCS: 77062; 77066; G0279

== ENCOUNTER → 2018-12-15 | Outpatient (CLI) | payer BC, SELFPAY ==
[2018-12-07 15:42] VITALS: BMI 33.2
[2018-12-15 11:36] LABS: Absolute Lymphocyte Count 3.59 X10^3/ul (0.83-4.51); Basophil# 0.04 X10^3/uL; Basophil% 0.4 % (0-1); Eosinophil# 0.18 X10^3/uL; Eosinophils% 1.8 % (0-5); Hematocrit 37.4 % (37-47); Hemoglobin 12.4 g/dl (12.0-15.0); Lymphocyte # 3.59 X10^3/ul (4.0); Lymphocyte % 35.4 % (19-41); Mean Corp Hgb Conc 33.2 g/gl (32-36); Mean Corpuscular Hgb 29.7 pg (27.0-32.0); Mean Corpuscular Volume 89.5 fL (81-99); Mean Platelet Vol. 9.7 fl (6.2-12.0); Monocyte# 0.31 X10^3/uL; Monocyte% 3.1 % (0-10); Neutrophil # 6.02 X10^3/uL (2.7-7.7); Neutrophil % 59.2 % (47-70); Platelet Count 364 K/mm3 (150-450); RBC Distribution Width CV 14.2 % (11.6-14.6); RBC Distribution Width SD 46.5 fl (35.1-43.9); Red Blood Count 4.18 M/mm3 (4.2-5.4); White Blood Count 10.2 K/mm3 (4.4-11.0)
[2018-12-15 11:38] LABS: POSITIVE COUNT NO; POSITIVE DIFFERENTIAL NO; POSITIVE MORPHOLOGY NO
[2018-12-15 12:09] LABS: hCG Titer Quant., Serum < 1 mIU/mL (<9 non-preg)
[2018-12-15 12:09] LABS: Vitamin B12 642 pg/mL (211-911); Vitamin D,25 Hydroxy 48.6 ng/mL (29.95-100.01)
[2018-12-15 12:45] LABS: Cholesterol 194 mg/dL (200); High Density Lipoprotein 43 mg/dL; Thyroid Stim Hormone (TSH) 1.25 uIU/mL (0.358-3.74); Triglycerides 117 mg/dL; Very Low Density Lipoprotein 23 mg/dL (5-40)
== END | disposition home or self-care (01) ==
LOC: LAB 11:03
PROVIDERS: Family Provider Nurse Practitioner; PCP Nurse Practitioner; Referring Provider Obstetrics & Gynecology; Visit Provider Obstetrics & Gynecology
DX: N93.9 Abnormal uterine and vaginal bleeding, unspecified (principal); E55.9 Vitamin D deficiency, unspecified; D64.9 Anemia, unspecified; E53.8 Deficiency of other specified B group vitamins; R79.89 Other specified abnormal findings of blood chemistry; Z13.220 Encounter for screening for lipoid disorders
CPT/HCPCS: 36415; 80061; 82306; 82607; 82746; 84443; 84702; 85025

== ENCOUNTER → 2018-12-20 | Outpatient (CLI) | payer BC, SELFPAY ==
[2018-12-07 15:42] VITALS: BMI 33.2
--- NOTE | 2018-12-20 12:52 | US_ITS ---
STUDY: THYROID ULTRASOUND REASON FOR EXAM: Female, 33 years old. History of thyroid nodule TECHNIQUE: Ultrasound evaluation of the thyroid was performed with real-time and static mendoza-scale imaging. COMPARISON: None. FINDINGS: RIGHT LOBE: The right lobe of the thyroid gland measures 5.3 x 2.1 x 1.5 cm. There is a homogeneous echotexture. There are no demonstrated solid, cystic or complex lesions. LEFT LOBE: The left lobe of the thyroid gland measures 4.5 x 1.8 x 1.4 cm. There is a homogeneous echotexture. There are no demonstrated solid, cystic or complex lesions. ISTHMUS: The isthmus measures 2 mm. The regional lymph nodes are normal. US/Thyroid IMPRESSION: No evidence of thyroid nodules. Unremarkable exam Electronically Signed: Jesus Olivia DO at 11:38 EDT Tel , Service support ,
== END | disposition home or self-care (01) ==
LOC: US 12:49
PROVIDERS: Family Provider Nurse Practitioner; PCP Nurse Practitioner; Referring Provider Nurse Practitioner; Visit Provider Nurse Practitioner
DX: Z86.39 Personal history of other endocrine, nutritional and metabolic disease (principal)
CPT/HCPCS: 76536

== ENCOUNTER → 2019-11-17 10:16 | Outpatient (CLI) | payer BC, SELFPAY ==
[2019-11-17 09:22] VITALS: BMI 33.2
[2019-11-17 11:53] LABS: Glucose Challenge Gest 1H 50g 125 mg/dL (70-140)
[2019-11-17 11:54] LABS: Absolute Lymphocyte Count 3.25 X10^3/uL (0.83-4.51); Absolute Neutrophil Count 6.9 X10^3/uL (2.0-7.7); Basophil# 0.03 X10^3/uL; Basophil% 0.3 % (0-1); Eosinophil# 0.11 X10^3/uL; Hematocrit 37.3 % (37-47); Hemoglobin 12.9 g/dL (12.0-15.0); Lymphocyte # 3.25 X10^3/ul (4.0); Lymphocyte % 30.4 % (19-41); Mean Corp Hgb Conc 34.6 g/dL (32-36); Mean Corpuscular Hgb 31.3 pg (27.0-32.0); Mean Corpuscular Volume 90.5 fL (81-99); Mean Platelet Vol. 10.3 fl (6.2-12.0); Monocyte# 0.35 X10^3/uL; Monocyte% 3.3 % (0-10); NRBC Flagged by Analyzer 0 % (0-5); Neutrophil # 6.88 X10^3/uL (2.7-7.7); Neutrophil % 64.4 % (47-70); Platelet Count 363 K/mm3 (150-450); RBC Distribution Width CV 13.8 % (11.6-14.6); RBC Distribution Width SD 44.6 fl (35.1-43.9); Red Blood Count 4.12 M/mm3 (4.2-5.4); White Blood Count 10.7 K/mm3 (4.4-11.0)
[2019-11-17 12:35] LABS: HIV - WCH Non-Reactive (Nonreactive); Hepatitis B Surface Antigen Non-Reactive (Nonreactive); Hepatitis C Antibody Non-Reactive (Nonreactive); Rubella IgG 162.8 IU/mL
[2019-11-17 16:28] LABS: Amphetamine Urine VISTA NEGATIVE (<1000 ng/mL); Barbiturate Urine VISTA NEGATIVE (< 200 ng/mL); Benzodiazepine Urine VISTA NEGATIVE (< 200 ng/mL); Cocaine Urine VISTA NEGATIVE (< 300 ng/mL); Ecstacy Urine VISTA NEGATIVE (< 500 ng/mL); Methadone Urine VISTA NEGATIVE (< 300 ng/mL); PCP Urine VISTA NEGATIVE (< 25 ng/mL); THC Urine VISTA NEGATIVE (< 50 ng/mL); Vista UDS pH Range 6
[2019-11-17 17:46] LABS: Chlamydia Trachomatis by PCR Negative (Negative); Neisserai gonorrhoeae by PCR Negative (Negative); Probe Check PASS; Sample Adequacy Control PASS; Specimen Processing Control PASS
[2019-11-18 04:37] LABS: Rapid Plasmin Reagin (RPR) NONREACTIVE (NONREACTIVE)
== END ==
PROVIDERS: PCP Nurse Practitioner; Referring Provider Obstetrics & Gynecology; Visit Provider Obstetrics & Gynecology
DX: O99.210 Obesity complicating pregnancy, unspecified trimester (principal); E66.9 Obesity, unspecified; Z3A.00 Weeks of gestation of pregnancy not specified
CPT/HCPCS: 36415; 80307; 82950; 85025; 86592; 86703; 86762; 86803; 86850; 86900; 86901; 87086; 87088; 87340; 87491; 87591

== ENCOUNTER → 2019-12-05 | Outpatient (CLI) | payer BC, SELFPAY ==
[2019-11-17 09:22] VITALS: BMI 33.2
[2019-12-05 17:11] LABS: NATERA MAILED SPECIMEN
== END | disposition home or self-care (01) ==
LOC: LAB 16:10
PROVIDERS: PCP Nurse Practitioner; Referring Provider Obstetrics & Gynecology; Visit Provider Obstetrics & Gynecology
DX: O09.521 Supervision of elderly multigravida, first trimester (principal); Z3A.00 Weeks of gestation of pregnancy not specified
CPT/HCPCS: 36415

== ENCOUNTER → 2020-01-20 | Outpatient (CLI) | payer BC, SELFPAY ==
[2020-01-20 14:41] VITALS: BMI 33.2
== END | disposition home or self-care (01) ==
LOC: LAB 14:56
PROVIDERS: PCP Nurse Practitioner; Referring Provider Nurse Practitioner Women's Health; Visit Provider Nurse Practitioner Women's Health
DX: Z12.4 Encounter for screening for malignant neoplasm of cervix (principal)
CPT/HCPCS: 36415

== ENCOUNTER → 2020-03-16 | Outpatient (CLI) | payer BC, SELFPAY ==
[2020-03-16 15:42] VITALS: BMI 33.2
[2020-03-16 17:14] LABS: Absolute Lymphocyte Count 2.42 X10^3/uL (0.83-4.51); Absolute Neutrophil Count 7.4 X10^3/uL (2.0-7.7); Basophil# 0.02 X10^3/uL; Basophil% 0.2 % (0-1); Eosinophil# 0.11 X10^3/uL; Hematocrit 31.8 % (37-47); Hemoglobin 10.8 g/dL (12.0-15.0); Lymphocyte # 2.42 X10^3/ul (4.0); Mean Corpuscular Hgb 31.7 pg (27.0-32.0); Mean Corpuscular Volume 93.3 fL (81-99); Mean Platelet Vol. 10.3 fl (6.2-12.0); Monocyte# 0.48 X10^3/uL; Monocyte% 4.6 % (0-10); NRBC Flagged by Analyzer 0 % (0-5); Neutrophil # 7.42 X10^3/uL (2.7-7.7); Neutrophil % 70.6 % (47-70); Platelet Count 273 K/mm3 (150-450); RBC Distribution Width CV 15.5 % (11.6-14.6); RBC Distribution Width SD 51.1 fl (35.1-43.9); Red Blood Count 3.41 M/mm3 (4.2-5.4); White Blood Count 10.5 K/mm3 (4.4-11.0)
[2020-03-16 17:24] LABS: Glucose Challenge Gest 1H 50g 104 mg/dL (70-140)
== END | disposition home or self-care (01) ==
LOC: LAB 16:10
PROVIDERS: PCP Nurse Practitioner; Referring Provider Obstetrics & Gynecology; Visit Provider Obstetrics & Gynecology
DX: Z34.90 Encounter for supervision of normal pregnancy, unspecified, unspecified trimester (principal)
CPT/HCPCS: 36415; 82950; 85025

== ENCOUNTER → 2020-04-24 | Outpatient (CLI) | payer BC, SELFPAY ==
[2020-04-24 12:38] VITALS: BMI 51.4
== END | disposition home or self-care (01) ==
LOC: LABSPEC 17:02
PROVIDERS: PCP Nurse Practitioner; Referring Provider Obstetrics & Gynecology; Visit Provider Obstetrics & Gynecology
DX: O26.899 Other specified pregnancy related conditions, unspecified trimester (principal); R10.9 Unspecified abdominal pain; Z3A.00 Weeks of gestation of pregnancy not specified
CPT/HCPCS: 87086; 87088

== ENCOUNTER → 2020-05-11 | Outpatient (CLI) | payer BC, SELFPAY ==
[2020-05-11 16:01] VITALS: BMI 33.2
[2020-05-11 18:50] LABS: Glucose Challenge Gest 1H 50g 118 mg/dL (70-140)
== END | disposition home or self-care (01) ==
LOC: LAB 16:52
PROVIDERS: Obstetrics & Gynecology; PCP Nurse Practitioner; Referring Provider Obstetrics & Gynecology; Visit Provider Obstetrics & Gynecology
DX: O36.60X0 Maternal care for excessive fetal growth, unspecified trimester, not applicable or unspecified (principal); Z3A.00 Weeks of gestation of pregnancy not specified
CPT/HCPCS: 36415; 82950

== ENCOUNTER → 2020-05-17 | Outpatient (CLI) | payer BC, SELFPAY ==
[2020-05-17 14:57] VITALS: BMI 52.7
== END | disposition home or self-care (01) ==
LOC: LABSPEC 17:15
PROVIDERS: PCP Nurse Practitioner; Referring Provider Nurse Practitioner Women's Health; Visit Provider Nurse Practitioner Women's Health
DX: Z34.90 Encounter for supervision of normal pregnancy, unspecified, unspecified trimester (principal)
CPT/HCPCS: 87081

== ENCOUNTER → 2020-05-30 | Outpatient (CLI) | payer BC, SELFPAY ==
[2020-05-22 15:48] VITALS: BMI 52.7
[2020-05-30 15:59] VITALS: BMI 52.7
== END | disposition home or self-care (01) ==
LOC: MTDU 17:23
PROVIDERS: PCP Nurse Practitioner; Referring Provider Obstetrics & Gynecology; Visit Provider Obstetrics & Gynecology
DX: Z11.59 Encounter for screening for other viral diseases (principal)
CPT/HCPCS: 87635; C9803; U0003

== ENCOUNTER 2020-05-31 05:45 | Inpatient (IN) | payer BC, SELFPAY ==
[2020-05-30 15:59] VITALS: BMI 52.7
[2020-05-31] VITALS (27 sets, daily range): BP systolic 96–139; BP diastolic 26–83; PULSE 59–76; RESP 14–18; TEMP 35.9–36.7; O2SAT 96–99; BMI 53.4
[2020-05-31] MEDS: Lactated Ringers 1,000 ML 999 ML IV (05:55)
[2020-05-31 06:06] LABS: Absolute Lymphocyte Count 2.71 X10^3/uL (0.83-4.51); Absolute Neutrophil Count 8.8 X10^3/uL (2.0-7.7); Basophil# 0.02 X10^3/uL; Basophil% 0.2 % (0-1); Eosinophil# 0.07 X10^3/uL; Eosinophils% 0.6 % (0-5); Hematocrit 35.9 % (37-47); Hemoglobin 12.1 g/dL (12.0-15.0); Lymphocyte # 2.71 X10^3/ul (4.0); Lymphocyte % 22.3 % (19-41); Mean Corp Hgb Conc 33.7 g/dL (32-36); Mean Corpuscular Hgb 31.6 pg (27.0-32.0); Mean Corpuscular Volume 93.7 fL (81-99); Mean Platelet Vol. 11.2 fl (6.2-12.0); Monocyte# 0.55 X10^3/uL; Monocyte% 4.5 % (0-10); NRBC Flagged by Analyzer 0 % (0-5); Neutrophil # 8.76 X10^3/uL (2.7-7.7); Platelet Count 276 K/mm3 (150-450); RBC Distribution Width CV 16.4 % (11.6-14.6); RBC Distribution Width SD 55.7 fl (35.1-43.9); Red Blood Count 3.83 M/mm3 (4.2-5.4); White Blood Count 12.2 K/mm3 (4.4-11.0)
[2020-05-31] MEDS: Acetaminophen 500 MG Tablet 1000 MG PO ×3 (06:13→20:05)
[2020-05-31] MEDS: Sodium Citrate/Citric Acid 30 ML UDC PO (06:35)
[2020-05-31] MEDS: Oxytocin 30 units/NS 500 ml 30 UNITS/500 ML IV.SOLN 167 UNITS IV ×2 (07:28→08:20)
[2020-05-31] MEDS: Lactated Ringers 1,000 ML 150 ML IV (09:29)
--- NOTE | 2020-05-31 10:41 | FALS_PTH ---
PATIENT: KORI IRELAND LOC: [facility] U#:[id number] AGE/SX: 34/F ROOM: WP005 RE05/31/[address]: Dr. Jacklyn Barksdale MD : 1985 BED: 1 DIS: 06/02/2020 SPEC #: [id number] RECD: 05/31/20 10:53 STATUS: LEONEL REShreyas #: [id number] NNEKA: 05/31/20 10:[address]: Jacklyn Barksdale DEPT: SURGICAL PATHOLOGY RECD BY: Melba Bradley ENTERED: 05/31/20 11:55 SP TYPE: FALL TUBES OTHR DR: Nicolle Salamanca, CERAMIC ARTIST-C Tissues: Fallopian tube Procedures: Surgery Specimen Level IV HEADER OPERATION: Tubal ligation PRE-OP DIAGNOSIS: Sterilization TISSUE SUBMITTED: Fallopian tubes, suture in right tube MICROSCOPIC DIAGNOSIS Right and left fallopian tubes, bilateral salpingectomies: Two complete segments of fallopian tubes with benign paratubal cysts. AM:lewis 06/01/20 MICROSCOPIC DESCRIPTION Slides are reviewed. GROSS DESCRIPTION Received in fixative is one container labeled with the patient's name and designated bilateral fallopian tubes, right with suture. The specimen consists of two fallopian tubes with an average length of 8 cm and has an average diameter of 0.7 cm. Both fallopian tubes have normal fimbriated ends. The soft tissue adjacent to the fimbrial end on the right fallopian tube contains a large cyst measuring 3 cm and containing clear fluid. The soft tissue adjacent to the fimbrial end on the left fallopian tube contains a cyst measuring 1 cm and containing clear fluid. Deportation Examiner sections are submitted in two cassettes as follows: 1 - right fallopian tube and cyst, 2 - left fallopian tube and cyst. / AM:lewis 05/31/20 TC:5 CPT: 17037 x2
[2020-05-31] MEDS: Lactated Ringers 1,000 ML 100 ML IV (13:46)
[2020-05-31] MEDS: Ketorolac 30 MG/ML Syringe IV ×2 (14:26→20:09)
[2020-05-31] MEDS: Enoxaparin 40 MG/0.4 ML Syringe SC (20:31)
[2020-05-31] MEDS: 0.9% Saline Lock 10 ML Syringe IV (20:33)
[2020-05-31] MEDS: Sertraline 100 MG Tablet 150 MG PO (22:26)
[2020-06-01 00:45] VITALS: BP 135/78; PULSE 72; RESP 18; TEMP 36.1; O2SAT 98
[2020-06-01] MEDS: 0.9% Saline Lock 10 ML Syringe IV ×2 (02:22→08:57)
[2020-06-01] MEDS: Acetaminophen 500 MG Tablet 1000 MG PO ×4 (02:22→20:26)
[2020-06-01] MEDS: Ketorolac 30 MG/ML Syringe IV ×2 (02:23→08:59)
[2020-06-01 02:30] VITALS: RESP 18; O2SAT 97
--- NOTE | 2020-06-01 03:06 | PCM.HPOB.BLA ---
- Problem List (1) Active labor at term Status: Acute (2) SROM (spontaneous rupture of membranes) Status: Acute (3) Advanced maternal age (AMA) in Status: Acute Comment: genetic counseling provided. aki [place] 32. (4) Depression Status: Acute Qualifiers: Comment: 02/16 worsening symptoms, increase t 150mg, encouraged behavioral health services, may need short term disability, counseling (5) History of delivery Status: Acute Comment: plan RLTCS at 39 weeks with SM (6) Iron (Fe) deficiency anemia Status: Acute Qualifiers: (7) Macrosomia affecting management of mother Status: Acute Qualifiers: Comment: recommended 2x weekly NSTs GCT- NL (8) Obesity affecting Status: Acute Qualifiers: Comment: plan weekly nsts and growth US q 4 weeks after 32. discussed healthy weight gain in (9) Status: Acute Qualifiers: Comment: carrier negative in past. 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 Is patient in pain?: No Allergies bupropion [From Wellbutrin] Allergy (Mild, Verified 05/30/20 15:41) hives Medications cholecalciferol (vitamin D3) 50 mcg (2,000 unit) capsule 4,000 unit PO QDAY cap 03/29/18 [History Confirmed 05/30/20] docosahexaenoic acid 200 mg capsule 200 mg PO DAILY 03/29/18 [History Confirmed 05/30/20] pyridoxine (vitamin B6) 50 mg tablet 50 mg PO DAILY 07/21/18 [History Confirmed 05/30/20] cyanocobalamin (vitamin B-12) 1,000 mcg/mL injection solution 1,000 mcg IM QMONTH 08/09/18 [History Confirmed 05/30/20] hydroxyzine pamoate 50 mg capsule 50 mg PO TID-QID PRN #30 cap 02/17/20 [Rx Confirmed 05/30/20] hydroxyzine pamoate 50 mg capsule 50 mg PO TID-QID PRN #90 cap 02/17/20 [Rx Confirmed 05/30/20] sertraline 100 mg tablet 150 mg PO QDAY #45 tab 02/17/20 [Rx Confirmed 05/30/20] ferrous sulfate 325 mg (65 mg iron) tablet 325 mg PO DAILY #90 tab 03/23/20 [Rx Confirmed 05/30/20] Last Menstral Period: 12/05/18 Zika: Zika virus screening: Negative : No PFSH PFSH Medical History Depression (Acute) Sleep apnea (Chronic) delivery delivered (Acute) Surgical History S/P removal of thyroid nodule (Resolved) S/P tonsillectomy (Resolved) Family History Father CVA (cerebral vascular accident) Diabetes Bladder cancer Social History (Updated 05/30/20 @ 21:[address] 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 Date Name GA/Weeks Outcome Route Bth Weight Infant Gen Labor Lgth Anesthesia Del Locatn Provider FOB 10/25/18 [place] 39 live - full term 7lbs 4oz Female epidural [facility] Delivery Date: 10/25/18 On 12/07/18 @ 15:42 Amy Siddiqui AoD 7cm, CPD GHTN HPI Twice weekly NST only: Details: KORI IRELAND is a 34 year old G3, P1 presents at 38 weeks in active labor with spontaneous rupture of membranes 3 cm dilated with regular contractions. Patient declines trial of labor after OB Visit KAILA Calculator Estimated Delivery Date Method Current WG Current Estimate 06/10/20 Manual 38w 3d IVF transfer consistent with early US Expected Delivery Route/Plan RLTCS Specific Issue/Plans flu vaccine: given tdap vaccine: 03/16 rhogam: 03/16 LARC form signed: declined movement and labor precautions reviewed. Problem list reviewed and updated with the most current plan of care details and appropriate orders placed. Relevant counseling for the gestational age provided. Continue routine care and follow up unless otherwise noted in visit notes/problem list details Initial Weight: 257 lb Date EGA Weight BP Urine Prot Glucose FHR FuHt Pres Dilation Effaced St Visit Note 12/23/19 15w 5d 257 lb (+0 oz) 120/70 Negative Negative 150 SM- no vb lof cramping 01/20/20 19w 5d 257 lb (+0 oz) 110/68 Negative Negative 146 NO VB, LOF. Some SOB with activity. No Chest pain/reassured. Seasonal allergies bad right now, headache without vision changes. Fearful of OTC meds-reviewed tylenol, allergy meds. Call if SOB without activity occurs. MFM US next week 02/17/20 23w 5d 277 lb (+20 lb) 124/72 145 24 SM- increasing depression symptoms, support given and see PL for details. no vb lof good fm no reuglar ctx 03/16/20 27w 5d 280 lb 2 oz (+23 lb 2 oz) 132/74 Negative Negative 145 28 SM- no vb lof good fm no regular ctx cbc gct t and s rhogam tdap 03/30/20 29w 5d 281 lb 6 oz (+24 lb 6 oz) 138/60 Negative Negative 140 SM- no vb lof good fm no regular ctx 04/12/20 31w 4d 284 lb (+27 lb) 98/60 Negative Negative 140 32 SM- no vb lof good fm no regular ctx 04/24/20 33w 2d 281 lb (+24 lb) 100/66 Negative Negative 140 0 SM- co some cramping and occasional ctx. she denies any vb or lof good fm. 05/03/20 34w 4d 285 lb (+28 lb) 106/70 Negative Negative 140 34 Cephalic SM- no vb lof increased anxiety and depression symptoms- recommend immediate [facility] referral 05/11/20 35w 5d 287 lb 6 oz (+30 lb 6 oz) 130/80 130 35 Cephalic GP -no LOF, VB, DFM, Ctx. Depression/anxiety improved with meds. Seeing counselor. 05/14/20 36w 1d 287 lb 4 oz (+30 lb 4 oz) 126/84 Negative Negative 140 mh-NST only reactive 05/17/20 36w 4d 288 lb (+31 lb) 130/76 Negative Negative 130 36 0 -3 MH-Good FM. No VB, LOF. Reactive NST. GBS collected 05/25/20 37w 5d 289 lb 4 oz (+32 lb 4 oz) 146/78 122/78 Negative Negative 130 SM-no vb lof good fm no regular ctx 05/30/20 38w 3d 288 lb (+31 lb) 132/66 Negative Negative GP - NST only. NST reactive. Diagnostics Diagnostics Diagnostics Glucose 1 Hr 50 gm 118 mg/dL (70-140) 05/11/20 Details: HIV: Urine Culture: Sequential Screen: NIPT Screen: Office Procedures OB NST Non-Stress Test Indications for Monitoring: Yes Morbid obesity Heart Rate Baseline: 130 Heart Rate Variability: moderate Movement: Present Heart Rate Accelerations: Present Decelerations: Absent Contractions: Absent Impression: Yes Reactive Non-Stress Test ROS Const Reports system reviewed and no additional complaints, except as documented Card Reports system reviewed and no additional complaints, except as documented Resp Reports system reviewed and no additional complaints, except as documented GI Reports system reviewed and no additional complaints, except as documented, Reports nausea Reports system reviewed and no additional complaints, except as documented Musc Reports system reviewed and no additional complaints, except as documented all other systems reviewed and negative Exam Const General: cooperative, healthy appearing, comfortable HENMT Head: normal to inspection Nose: external nose normal Face and sinus: normal facial exam Neck Neck: normal visual inspection, full ROM, no lymphadenopathy Thyroid: thyroid normal Chest Chest palpation & inspection: normal inspection of the chest Resp Effort & Inspection: normal respiratory effort GI Inspection: normal to inspection Palpation: soft, other (gravid uterus) Other: vertex and large size for gestational age Other: Cervical Exam: 3cm Extrem General: pedal edema Results POC Urinalysis 2 Dip (Clinic) Office Urine Glucose Negative Last Edit by Lisa Marshall on 05/30/20 15:59 Office Urine Protein Negative Last Edit by Lisa Marshall on 05/30/20 15:59 Assessment & Plan 34-year-old G2, P1 with previous declined trial of labor after presents with SROM and active term labor Plan proceeding with immediate repeat low transverse and bilateral salpingectomy due to desired sterilization
--- NOTE | 2020-06-01 03:09 | OP.PCM_ITS ---
Problem List (1) Active labor at term Status: Acute (2) SROM (spontaneous rupture of membranes) Status: Acute (3) Advanced maternal age (AMA) in Status: Acute Comment: genetic counseling provided. aki [place] 32. (4) Depression Status: Acute Qualifiers: Comment: 02/16 worsening symptoms, increase t 150mg, encouraged behavioral health services, may need short term disability, counseling (5) History of delivery Status: Acute Comment: plan RLTCS at 39 weeks with SM (6) Iron (Fe) deficiency anemia Status: Acute Qualifiers: (7) Macrosomia affecting management of mother Status: Acute Qualifiers: Comment: recommended 2x weekly NSTs GCT- NL (8) Obesity affecting Status: Acute Qualifiers: Comment: plan weekly nsts and growth US q 4 weeks after 32. discussed healthy weight gain in (9) Status: Acute Qualifiers: Comment: carrier negative in past. NIPT low risk; AFP- neg; normal anatomy, normal echo (10) Rh negative state in antepartum period Status: Acute Comment: rhogam at 28 wks and bleeding prn (11) Sterilization Status: Acute (12) Supervision of high risk , antepartum Status: Acute Comment: PRR KAILA 06/10/20 boy PC [place] Dany (13) Sleep apnea Status: Chronic Qualifiers: Comment: uses CPAP Delivery Classification: ANGEL - and bilateral salpingectomy for sterilization Final KAILA: 06/10/20 Gestational age: 38 Weeks and 5 Days adult neurologist: Brigida Butcher Type of Anesthesia:: Spinal Special Medications: elaina Implants Used: none Date of Procedure: 05/31/20 Pre-Operative Diagnosis: IAL previous desired steriliztion Indications for : Repeat Elective , Desires elective sterilization Description of Procedure: Spinal anesthesia was placed without difficulty. Byrne catheter was placed. The patient was placed in the dorsal supine position with leftward tilt. Patient was prepped and draped in the normal sterile fashion. Pfannenstiel skin incision was made with the scalpel and carried through to the underlying layer of fascia with the scalpel. Fascia was nicked in the midline and the incision extended laterally. The rectus bellies were dissected off superiorly and inferiorly with out complication both sharply and bluntly. The peritoneum was entered digitally. The incision was stretched and a low transverse uterine incision was made with the scalpel. The 's head was delivered atraumatically followed by the anterior and posterior shoulders without complication the rest of the infant delivered. The cord was clamped and cut and the infant was handed off to awaiting nurse. cord blood collection was performed. The placenta was delivered spontaneously immediately following and was noted to be intact and have a three-vessel cord. The uterus was exteriorized cleared of all clots and debris, and the incision was closed in a single layer closure using #1 Monocryl. The ovaries and fallopian tubes were noted to be within normal limits. Patient had desired sterilization and was counseled preoperatively regarding irreversibility and permanency. Therefore bilateral fallopian tubes were elevated and transected across using a LigaSure device starting proximally to distally without complication the entire fallopian tubes were removed. The uterus was returned to the maternal abdomen and gutters were cleared of all clots and debris. Elaina was placed over the incision due to a raw appearance but no active bleeding was noted. the peritoneum was closed with 3-0 Monocryl in a running fashion. Gloves were changed prior to fascial closure. Fascia was closed with 0 PDS in a running fashion. Subcutaneous tissue was copiously irrigated and the skin was closed with 3-0 Monocryl in a subcuticular fashion. Mepilex dressing was applied without complication. Patient was taken to recovery in stable condition. Amniotic Membrane Rupture Type: Spontaneous Amniotic Fluid Description: Clear Placenta Disposition: [facility] Specimen(s) sent to pathology: tubes Drain: Byrne to straight drain Fluids Replaced: crystalloid Cord Entanglement: None Esitmated Blood Loss (ml): 600 Gender: Male Delayed cord clamping: Yes Antibiotic Given: Ancef 3 grams IV x1, Zithromax 500 mg/5 mL X1 Pt instructed on risks of surgery: Bleeding, Anesthesia Risks, Infection, Permanency, Injury to surrounding structure(s) including bowel and bladder Complications: None - Admit VTE Documentation VTE Present on Admission: No VTE Mechan Device Prophylaxis: SCD's Multi Select Codes - Urinary/Genital Urinary/Genital CPT Codes: 24007 C/S+TL - salpignectomy, 41823 Delivery [facility]
[2020-06-01 04:36] VITALS: RESP 18; O2SAT 99
--- NOTE | 2020-06-01 05:45 | NURSING ---
Late entry: at 2030 [place] catheter removed. encouraged patient to drink as tolerated.
[2020-06-01 06:36] LABS: Hematocrit 30.8 % (37-47); Hemoglobin 10.3 g/dL (12.0-15.0); Mean Corp Hgb Conc 33.4 g/dL (32-36); Mean Corpuscular Hgb 32.4 pg (27.0-32.0); Mean Corpuscular Volume 96.9 fL (81-99); Mean Platelet Vol. 11.4 fl (6.2-12.0); Platelet Count 217 K/mm3 (150-450); RBC Distribution Width CV 16.7 % (11.6-14.6); RBC Distribution Width SD 57.3 fl (35.1-43.9); Red Blood Count 3.18 M/mm3 (4.2-5.4); White Blood Count 11.4 K/mm3 (4.4-11.0)
[2020-06-01] MEDS: Enoxaparin 40 MG/0.4 ML Syringe SC ×2 (08:56→21:40)
[2020-06-01] MEDS: Senna/Docusate Sodium 1 Tablet PO (08:58)
[2020-06-01 13:04] LABS: Pathology Specimen OB SEE PATHOLOGY REPORT
[2020-06-01 13:52] VITALS: BP 121/63; PULSE 77; RESP 18; TEMP 36.6
[2020-06-01] MEDS: Naproxen 250 MG Tablet 500 MG PO ×2 (15:08→22:46)
[2020-06-01 20:35] VITALS: BP 120/67; PULSE 69; RESP 18; TEMP 36.9
[2020-06-01] MEDS: Sertraline 100 MG Tablet 150 MG PO (21:40)
[2020-06-01] MEDS: Bisacodyl 10 MG Suppository RECTAL (21:53)
--- NOTE | 2020-06-02 01:55 | PCM.PN.OB ---
Patient Problems: Active and Suspected Problems (Last Reviewed 05/30/20 @ 15:41 by Lisa Marshall) Active labor at term (Acute) SROM (spontaneous rupture of membranes) (Acute) Subjective: late entry- seen 06/01 at 8 am Patient doing well without complaints. Tolerating PO. Ambulating and voiding without difficulty. feeding well. Denies chest pain, shortness of breath, calf pain/swelling, fevers, chills, lightheadedness. - Physical Exam Vitals/I&O's: Vital Signs Temp Pulse Resp BP Pulse Ox 98.5 F 69 18 120/67 99 06/01/20 20:35 06/01/20 20:35 06/01/20 20:35 06/01/20 20:35 06/01/20 04:36 Oxygen Delivery Method Room Air Weight: 283 lb 1.176 oz Body Mass Index (BMI) 53.4 Intake and Output for Last 24 Hours 05/31/20 06/01/20 06/02/20 23:59 23:59 23:59 Intake Total 3318.49 / 3318.49 Output Total 575 / 575 800 / 800 Balance 2743.49 / 2743.49 -800 / -800 General: Alert, Oriented x3 Laboratory Results 06/01/20 04:35: WBC 11.4 H, RBC 3.18 L, Hgb 10.3 L, Hct 30.8 L, MCV 96.9, MCH 32.4 H, MCHC 33.4, RDW Std Deviation 57.3 H, RDW Coeff of Holli 16.7 H, Plt Count 217, MPV 11.4 Current Medications Acetaminophen (Tylenol) 1,000 mg PO Q6H [facility] Last Admin: 06/01/20 20:26 Dose: 1,000 mg Documented by: Bisacodyl (Dulcolax) 10 mg RECTAL UD PRN PRN Reason: If no BM Last Admin: 06/01/20 21:53 Dose: 10 mg Documented by: Enoxaparin Sodium (Lovenox) 40 mg SC BID [facility] Last Admin: 06/01/20 21:40 Dose: 40 mg Documented by: Hydrocortisone (Hytone) 1 applic TOPICAL TID PRN PRN; Protocol PRN Reason: Discomfort Naloxone HCl 4 mg/ Dextrose 504 mls @ 0 mls/hr IV .Q0M PRN; Protocol PRN Reason: Respiratory depression Methylergonovine Maleate (Methergine) 0.2 mg IM X1 PRN PRN Reason: Uterine Atony Naloxone HCl (Narcan) 0.02 mg IV Q1M PRN PRN Reason: RR <10 and pt unresponsive Naproxen (Naprosyn) 500 mg PO Q8H [facility] Last Admin: 06/01/20 22:46 Dose: 500 mg Documented by: Ondansetron HCl (Zofran) 4 mg IV Q4H PRN PRN PRN Reason: Nausea Oxycodone HCl (Oxyir) 5 - 10 mg PO Q4H PRN PRN PRN Reason: Pain Score 4-10 Prochlorperazine Edisylate (Compazine Iv) 10 mg IV Q6H PRN PRN PRN Reason: NAUSEA Senna/Docusate Sodium (Senokot-S, Mary-Colace) 0 tablet PO DAILY [facility] Last Admin: 06/01/20 08:58 Dose: 1 tablet Documented by: Sertraline HCl (Zoloft) 150 mg PO DAILY@2200 [facility] Last Admin: 06/01/20 21:40 Dose: 150 mg Documented by: Simethicone (Mylicon) 80 mg PO PCHS PRN PRN Reason: Indigestion/stomach pain Last Admin: 06/01/20 18:57 Dose: 80 mg Documented by: Sodium Chloride () 5 - 15 ml IV UD PRN PRN Reason: SALINE FLUSH Last Admin: 06/01/20 08:57 Dose: 10 ml Documented by: Medical Necessity - Tobacco Use Smoking Status: Former smoker Assessment/Plan All Active Problems (Last Reviewed 05/30/20 @ 15:41 by Lisa Marshall) Active labor at term (Acute) SROM (spontaneous rupture of membranes) (Acute) 37 weeks gestation of (Acute) Macrosomia affecting management of mother (Acute) Sterilization (Acute) Iron (Fe) deficiency anemia (Acute) Rh negative state in antepartum period (Acute) History of delivery (Acute) Advanced maternal age (AMA) in (Acute) Obesity affecting (Acute) (Acute) Supervision of high risk , antepartum (Acute) Depression (Acute) Abnormal glucose in , antepartum (Resolved) Anemia during (Resolved) screening encounter (Resolved) BMI greater than 40 (Resolved) BMI over 35 (Resolved) Gestational hypertension (Resolved) Marginal placenta previa (Resolved) Normal glucose level (Resolved) Obesity complicating , third trimester (Resolved) (Resolved) with history of infertility (Resolved) Rh negative status during (Resolved) s/p LTCS PPD # 1 1. routine post care 2. breast feeding- support given 3. rh negative- rhogam 4. rubella immune
--- NOTE | 2020-06-02 02:17 | DCINST_ITS ---
Discharge Diet: No Restrictions Discharge Activity: May Not Drive - for 2 weeks, May not drive while taking narcotic pain medications., May Shower, May Take a Tub Bath - in 7 days May resume sexual activity in: 4-6 weeks Lifting Restrictions: 20 pounds Additional Activity Instructions:: Nothing in the vagina for 4-6 weeks. You may return to work/school in 6 weeks. Call your doctor if your incision/area has: Continuous Slow Oozing, Sudden Increased Bleeding, Increased Pain/ Swelling, Increased Redness, Foul Smelling Discharge Call your doctor if you observe: Fever of 101 or Higher, Using more than one pad per hour - for 2 hours Suture Line Care: Avoid Pulling/Pushing, Avoid Pinching/Bending Cleanse incision/area with: Keep Dressing Clean & Dry Additional Instructions: If you experience any of the following, contact your healthcare provider. * Bleeding that soaks a pad every hour for 2 hours * Fever 100.4 or higher * Unrelieved incision or abdominal pain * Swelling, redness, discharge or bleeding from your incision or episiotomy site * Your incision begins to separate * Problems urinating (including inability to urinate or burning while urinating). * Visual changes * Severe headache * Flu-like symptoms * Pain or redness in one of both of your breasts * Pain, warmth, tenderness or swelling in your legs, especially the calf area * Frequent nausea and vomiting * Symptoms of depression or anxiety If you experience any of the following, call 911 or go to the nearest Emergency Room. * Chest pain * Problems breathing * Seizure activity * Partial or complete paralysis of a body part, slurred speech, weakness or drooping of the face, or a sudden inability to walk or hold your balance Allergies/Adverse Reactions: Allergies bupropion [From Wellbutrin] Allergy (Mild, Verified 05/31/20 05:53) hives Medications to take at Discharge cholecalciferol (vitamin D3) 50 mcg (2,000 unit) capsule 4,000 unit PO QDAY cap 03/29/18 docosahexaenoic acid 200 mg capsule 200 mg PO DAILY 03/29/18 pyridoxine (vitamin B6) 50 mg tablet 50 mg PO DAILY 07/21/18 cyanocobalamin (vitamin B-12) 1,000 mcg/mL injection solution 1,000 mcg IM QMONTH 08/09/18 sertraline 100 mg tablet 150 mg PO QDAY #45 tab 02/17/20 Ferrous Sulfate [Iron] 325 mg PO DAILY 05/31/20 Naproxen [Naprosyn] 250 - 500 mg PO Q8H PRN PRN #30 tab 06/02/20 Oxycodone HCl/Acetaminophen [Percocet 5-325] 1 - 2 tab PO Q6H PRN PRN 7 Days #15 tab 06/02/20 The following prescriptions were given: Naproxen [Naprosyn] 250 - 500 mg PO Q8H PRN PRN #30 tab PRN Reason: MILD PAIN Transmission Status: Received by [facility] Oxycodone HCl/Acetaminophen [Percocet 5-325] 1 - 2 tab PO Q6H PRN PRN 7 Days #15 tab PRN Reason: Pain Transmission Status: Received by [facility] Follow-Up: Call to make an appointment with your doctor for an incision check in 1-2 weeks. You will also need a 6 week post- follow up appointment. Test results from this visit will be discussed in further detail at your follow- up appointment, if applicable. Please Follow Up With: Jacklyn Barksdale MD - Call to make an appointment for an incision check in 1-2 [phone] When: You will need a post- check in 6 weeks. Primary Care Physician: Nicolle Salamanca TAX ASSESSOR, TAX ASSESSOR-C [Primary Care Provider] -
--- NOTE | 2020-06-02 02:17 | PCM.PN.OB ---
Patient Problems: Active and Suspected Problems (Last Reviewed 05/30/20 @ 15:41 by Lisa Marshall) Active labor at term (Acute) SROM (spontaneous rupture of membranes) (Acute) Subjective: Patient doing well without complaints. Tolerating PO. Ambulating and voiding without difficulty. feeding well. Denies chest pain, shortness of breath, calf pain/swelling, fevers, chills, lightheadedness. - Physical Exam Vitals/I&O's: Vital Signs Temp Pulse Resp BP Pulse Ox 98.5 F 69 18 120/67 99 06/01/20 20:35 06/01/20 20:35 06/01/20 20:35 06/01/20 20:35 06/01/20 04:36 Oxygen Delivery Method Room Air Weight: 283 lb 1.176 oz Body Mass Index (BMI) 53.4 Intake and Output for Last 24 Hours 05/31/20 06/01/20 06/02/20 23:59 23:59 23:59 Intake Total 3318.49 / 3318.49 Output Total 575 / 575 800 / 800 Balance 2743.49 / 2743.49 -800 / -800 General: Alert, Oriented x3 Laboratory Results 06/01/20 04:35: WBC 11.4 H, RBC 3.18 L, Hgb 10.3 L, Hct 30.8 L, MCV 96.9, MCH 32.4 H, MCHC 33.4, RDW Std Deviation 57.3 H, RDW Coeff of Holli 16.7 H, Plt Count 217, MPV 11.4 Current Medications Acetaminophen (Tylenol) 1,000 mg PO Q6H [facility] Last Admin: 06/01/20 20:26 Dose: 1,000 mg Documented by: Bisacodyl (Dulcolax) 10 mg RECTAL UD PRN PRN Reason: If no BM Last Admin: 06/01/20 21:53 Dose: 10 mg Documented by: Enoxaparin Sodium (Lovenox) 40 mg SC BID [facility] Last Admin: 06/01/20 21:40 Dose: 40 mg Documented by: Hydrocortisone (Hytone) 1 applic TOPICAL TID PRN PRN; Protocol PRN Reason: Discomfort Naloxone HCl 4 mg/ Dextrose 504 mls @ 0 mls/hr IV .Q0M PRN; Protocol PRN Reason: Respiratory depression Methylergonovine Maleate (Methergine) 0.2 mg IM X1 PRN PRN Reason: Uterine Atony Naloxone HCl (Narcan) 0.02 mg IV Q1M PRN PRN Reason: RR <10 and pt unresponsive Naproxen (Naprosyn) 500 mg PO Q8H [facility] Last Admin: 06/01/20 22:46 Dose: 500 mg Documented by: Ondansetron HCl (Zofran) 4 mg IV Q4H PRN PRN PRN Reason: Nausea Oxycodone HCl (Oxyir) 5 - 10 mg PO Q4H PRN PRN PRN Reason: Pain Score 4-10 Prochlorperazine Edisylate (Compazine Iv) 10 mg IV Q6H PRN PRN PRN Reason: NAUSEA Senna/Docusate Sodium (Senokot-S, Mary-Colace) 0 tablet PO DAILY [facility] Last Admin: 06/01/20 08:58 Dose: 1 tablet Documented by: Sertraline HCl (Zoloft) 150 mg PO DAILY@2200 [facility] Last Admin: 06/01/20 21:40 Dose: 150 mg Documented by: Simethicone (Mylicon) 80 mg PO PCHS PRN PRN Reason: Indigestion/stomach pain Last Admin: 06/01/20 18:57 Dose: 80 mg Documented by: Sodium Chloride () 5 - 15 ml IV UD PRN PRN Reason: SALINE FLUSH Last Admin: 06/01/20 08:57 Dose: 10 ml Documented by: Medical Necessity - Tobacco Use Smoking Status: Former smoker Assessment/Plan All Active Problems (Last Reviewed 05/30/20 @ 15:41 by Lisa Marshall) Active labor at term (Acute) SROM (spontaneous rupture of membranes) (Acute) 37 weeks gestation of (Acute) Macrosomia affecting management of mother (Acute) Sterilization (Acute) Iron (Fe) deficiency anemia (Acute) Rh negative state in antepartum period (Acute) History of delivery (Acute) Advanced maternal age (AMA) in (Acute) Obesity affecting (Acute) (Acute) Supervision of high risk , antepartum (Acute) Depression (Acute) Abnormal glucose in , antepartum (Resolved) Anemia during (Resolved) screening encounter (Resolved) BMI greater than 40 (Resolved) BMI over 35 (Resolved) Gestational hypertension (Resolved) Marginal placenta previa (Resolved) Normal glucose level (Resolved) Obesity complicating , third trimester (Resolved) (Resolved) with history of infertility (Resolved) Rh negative status during (Resolved) s/p LTCS PPD # 2 1. routine post care 2. breast feeding- support given 3. rh negative- rhogam 4. rubella immune
[2020-06-02] MEDS: Acetaminophen 500 MG Tablet 1000 MG PO ×2 (02:51→09:01)
[2020-06-02 02:53] VITALS: BP 131/76; PULSE 72; RESP 18; TEMP 36.5
--- NOTE | 2020-06-02 05:50 | NURSING ---
Pt CPR certified. Significant other watched CPR video.
[2020-06-02] MEDS: Naproxen 250 MG Tablet 500 MG PO (06:58)
[2020-06-02 08:30] VITALS: BP 142/85; PULSE 67; RESP 18; TEMP 36.3
[2020-06-04 06:46] LABS: Pathology Specimen OB SEE PATHOLOGY REPORT
== END 2020-06-02 09:35 | disposition home or self-care (01) | DRG 785 ==
LOC: WPOUT 05:45 → WP 05:45
PROVIDERS: Obstetrics & Gynecology; Admitting Provider Obstetrics & Gynecology; PCP Nurse Practitioner; Referring Provider Obstetrics & Gynecology; Visit Provider Obstetrics & Gynecology
DX: O99.02 Anemia complicating childbirth (principal); D64.9 Anemia, unspecified; O99.214 Obesity complicating childbirth; E66.9 Obesity, unspecified; Z3A.38 38 weeks gestation of pregnancy; Z37.0 Single live birth
CPT/HCPCS: 59050; 85025; 85027; 85461; 86850; 86900; 86901; 88302; 88305; 90384; 99218; J7120; A4216; G0378; J2405; J2790

== ENCOUNTER → 2020-07-07 09:50 | Outpatient (CLI) | payer BC, SELFPAY ==
[2020-06-07 11:55] VITALS: BMI 53.4
--- NOTE | 2020-07-07 09:52 | BI_ITS ---
MAMMOGRAPHY - BILATERAL SCREENING REASON FOR EXAM: Female, 34 years old. Routine annual screening examination. PERTINENT HISTORY: Grandmother with breast cancer. Aunt with breast cancer. Occasional right breast tenderness. TECHNIQUE: Digital bilateral breast thom (3D mammographic acquisition) in the CC and MLO projections. 2-D mediolateral oblique (MLO) and craniocaudad (CC) views of both breasts were obtained. CAD: Full Field Digital Mammography with Computer Added Detection was performed. COMPARISON: Comparison is made with prior study dated 12/14/2018 and 07/03/2017. FINDINGS: Breast Composition: There are scattered areas of fibroglandular density. There are no dominant masses or suspicious calcifications. Stable benign-appearing bilateral axillary lymph nodes. No other significant abnormalities are identified. There has been no significant change since the prior study. BI/SCREEN MAMM (CAD) W/THOM BILAT IMPRESSION: Stable bilateral screening mammogram. Yearly follow-up mammogram recommended. (A) ASSESSMENT CATEGORY: BIRADS Category 2: Benign. A letter regarding these results will be sent to the patient by the facility within 30 days. Approximately 10% of breast cancers are not detected by mammography. A normal mammogram should not delay biopsy of a clinically suspicious abnormality. [id number] Electronically Signed: Jerrell Rivas, at 9:51 EST , Service support ,
== END ==
PROVIDERS: PCP Nurse Practitioner; Referring Provider Nurse Practitioner; Visit Provider Nurse Practitioner
DX: Z12.31 Encounter for screening mammogram for malignant neoplasm of breast (principal)
CPT/HCPCS: 77063; 77067

== ENCOUNTER → 2020-11-26 13:04 | Outpatient (CLI) | payer BC, OTHER, SELFPAY ==
[2020-07-17 14:36] VITALS: BMI 48.4
[2020-11-26 15:01] LABS: Free T3 2.2 pg/mL (2.18-3.98); T4 Free Direct 0.82 ng/dL (0.76-1.46); Thyroid Stim Hormone (TSH) 0.93 uIU/mL (0.358-3.74)
== END ==
PROVIDERS: PCP Nurse Practitioner; Visit Provider Nurse Practitioner
DX: R94.6 Abnormal results of thyroid function studies (principal)
CPT/HCPCS: 36415; 84439; 84443; 84481

== ENCOUNTER 2021-01-07 09:00 | Outpatient (RCR) | payer OTHER, SELFPAY ==
[2020-07-17 14:36] VITALS: BMI 48.4
--- NOTE | 2021-01-07 09:00 | BH.SGPN.GN ---
Behaviors/Verbalizations/Mental Status: [] Eye contact is good. Motor activity is appropriate. Appearance is casual. Speech is Appropriate. Mood is anxious. Affect is congruent. Thoughts are linear and logical. No evidence of psychosis. Reviewed daily check in sheet and no reports of suicidal ideations or intent. Client Response/Progress/Benefit: [] Pt participated when prompted during group discussion. Attentive. This was pt's first IOP group. Shared with the group that she joined [facility] to help her depression and anxiety which she described at incapacitating. Group was supportive and provided feedback and advice for pt's first day and first week. No progress noted. Benefited from group support and encouragement. Will continue in IOP to maintain safety, increase healthy coping, and stabilize mood. Narrative Note: []
--- NOTE | 2021-01-07 10:05 | BH.SGPN.GN ---
Behaviors/Verbalizations/Mental Status: []Client alert and oriented, neatly dressed and groomed. Eye contact good. Motor activity appropriate. Speech within normal limits. Affect constricted, mood anxious. Thoughts linear, logical, no signs of hallucinations or delusions. Client Response/Progress/Benefit: []Pt was an active participant in group discussion and activity although she appeared anxious. Connected with quote. Attentive during psychoeducation. Pt worked with group to identify forces that can impact growth and overall mental health. Pt was doing a lot of nodding during the metaphor and shared that if a person only focuses on external forces it leads to anxiety. Group discussed examples of positive forces such as healthy coping skills and insight as well as negative forces such as distorted thoughts. Pt benefited from increased awareness of the impact positive and negative forces can have on mental health and personal growth. First day of IOP. Will continue IOP tx to prevent decompensation, learn healthy coping skills, and improve daily functioning. Narrative Note: []
--- NOTE | 2021-01-07 11:06 | BH.SGPN.GN ---
Behaviors/Verbalizations/Mental Status: []Client alert and oriented, casually dressed and groomed. Eye contact good. Motor activity appropriate. Speech WNL. Affect constricted, mood anxious and depressed. Thoughts linear, logical, no signs of hallucinations or delusions. Client Response/Progress/Benefit: []Pt new to IOP tx. Remained engaged during session AEB actively participating in activity, completing worksheet, and taking notes throughout. Group processed the activity and identified positive and negative forces impacting ability to complete the challenge. Pt was attentive during psychoeducation and appeared to benefit from increased insight on the impact of own personal negative and positive forces on mental wellness. Identified personal positive forces as: desire for change, seeking help, positive supports, and healthy communication. Noted plans to increase positive impact of desire to change by establishing and continuing to work towards her goals. Identified negative forces as: negative self-talk, bad habits, toxic people, and procrastination. Identified wanting to reduce use of unhealthy habits by using opposite action. Recommended continued IOP tx to increase healthy coping skills, improve emotional stability, and prevent decompensation. Narrative Note: []
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
--- NOTE | 2021-01-09 09:03 | BH.SGPN.GN ---
Behaviors/Verbalizations/Mental Status: []Client alert and oriented, neat and casually dressed and groomed. Eye contact good. Motor activity appropriate. Speech within normal limits. Affect constricted, mood anxious and dysthymic. Thoughts linear, logical, no signs of hallucinations or delusions. Reviewed client?s symptom tracker, no risk for suicidal ideation, plan, or intent as of 01/09/21 Client Response/Progress/Benefit: [] Client responded well to session, attentive and engaged. Client reports this is only her second day in IOP tx and that she is feeling anxious but not as bad as thursday this morning. Shared that her anxiety and depression are a ?daily struggle? and she is looking forward to learning skills to better manage sx. Client discussed that she has started journaling which has been helpful so far. Indicates her biggest stressor currently is finding time for self-care while raising two children under the age of two. Noted consistency has been an area of struggle for her in the past. Appeared to benefit from structure and support provided by group environment. Will continue IOP tx to promote gains, further decrease mental health sx, and improve daily functioning. Narrative Note: []
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
--- NOTE | 2021-01-09 11:15 | BH.SGPN.GN ---
Behaviors/Verbalizations/Mental Status: []Client alert and oriented, casually dressed and groomed. Eye contact good. Motor activity appropriate. Speech within normal limits. Affect constricted, mood anxious. Thoughts linear, logical, no signs of hallucinations or delusions. Client Response/Progress/Benefit: []Client responded well to session, contributing to discussion and providing good feedback. Client appeared to connect with maintenance cycles and recognized how negative thinking can keep a person stuck. Client identified a negative thought that has kept client stuck. Client?s negative thought was ?nothing I ever do is good enough.? Client acknowledges this thought is unrealistic as it is all or nothing and disqualifies client?s positives. Client reframed this thought to ?most things I do are good enough and some are better than good.? Client shared reframing this thought might not fully reduce depression, but it may reduce relationship stress and guilt. Client appeared to benefit from practicing challenging negative thinking. Will continue IOP tx to prevent decompensation, learn healthy coping skills, and gain self-awareness. Narrative Note: []
[2021-01-09 11:43] VITALS: BP 122/66; PULSE 70
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
--- NOTE | 2021-01-09 13:02 | BH.DR.ITP ---
Initial Treatment Plan Patient Information Visit Information: ADMISSION DATE: EXPECTED LOS: 4-6 weeks Problems/Symptoms Problem #1:: Depression Symptom:: Saadness, fatigue, decreased motivation, worthlessness, guilt, decreased concentration, erratic sleep, history of suicidal ideation Problem #2:: Anxiety Symptom:: Rumination, worry, panic attacks
--- NOTE | 2021-01-11 10:12 | BH.SGPN.GN ---
Behaviors/Verbalizations/Mental Status: []Client alert and oriented, casually dressed, hygiene appeared to be tended to. Eye contact good. Motor activity appropriate. Speech within normal limits. Affect congruent. Mood anxious. Thoughts linear, logical, no signs of hallucinations or delusions. Client Response/Progress/Benefit: []Client responded well to session, attentive and engaged throughout discussion and activity. Client worked with group to identify impacts of fearing failure. Assisted group with identifying how fear of failure can form which includes: past failures, family dynamics, comparing self to others, and high expectations. Client stated she can be afraid of failing which leads her to not even try. Client seemed to connect how failures can lead to positive changes. Client appeared to benefit from gaining awareness of the impact fear of failure can have on one?s mental health and wellbeing. Will continue IOP to continue use of healthy coping, reduce negative thinking, and prevent decompensation. Narrative Note: []
--- NOTE | 2021-01-11 11:12 | BH.SGPN.GN ---
Behaviors/Verbalizations/Mental Status: []Client alert and oriented, casually dressed and groomed. Eye contact good. Motor activity WNL. Speech within normal limits. Affect constricted, mood anxious and dysthymic. Thoughts linear, logical, no signs of hallucinations or delusions. Client Response/Progress/Benefit: []Client responded well to session, engaged and actively participating throughout. Client completed the fear of failure worksheet and reported that fear of failure has kept client from losing weight, exercising, and giving and receiving love. Client able to identify thoughts and behaviors that reinforce personal fear of failure which included: fear of letting others down, lack of boundaries, jumping to conclusions, valuing others? opinions too much, and unrealistic expectations. Client attentive during discussion of the different strategies to help overcome fear of failure. Identified wanting to work on using opposite action and setting smaller, more realistic goals. Client appeared to benefit from learning ways to overcome fear of failure. Will continue IOP tx to continue to prevent decompensation, improve emotional regulation skills, and combat distortions. Narrative Note: []
--- NOTE | 2021-01-11 14:12 | BH.MDN_ITS ---
Multi-Disciplinary Note - Note 30-min Individual Time Started:: 09:30 Date: 01/11/21 Purpose of session/treatment goals addressed:: The purpose of this session was to build rapport, address current symptoms and stressors, and provide client with strategies to improve coping. Eye Contact:: Good Motor Activity:: Appropriate Appearance:: Casual Speech:: Appropriate Mood:: Anxious, Dysthymic Affect:: Congruent - tearful Thoughts:: Racing, No evidence of hallucinations/delusions noted Staff Interventions:: Therapist gathered information on client's current symptoms and stressors. Therapist provided emotional support and validation. Therapist provided brief psychoeducation on how stress impacts overall health. Therapist reviewed self-care strategies client can begin to do to help set boundaries and ask for help. Client Response:: Client entered session tearful and expressing feeling overwhelmed by all the stressors going on in her life. Client shared she missed a dose of Effexor which caused client to experience withdrawal symptoms and worsened depression. Client will see psychiatry next week and was also encouraged to talk to her outpatient provider. 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 Client stated she does not have much time to herself and when she does get time, she wants to sleep. Client shared s leeping only increases her depression and is a temporary fix to stress. Discussed delegating tasks, communicating need for help, and taking time for self-care during the week. Client shared her is also going to be starting therapy which makes client feel some hope. Client receptive to discussion on self-care and she was willing to ask for help this weekend so she can have an hour for self-care. Risks/Concerns:: Client denies any suicidal ideations, plan, or intent as of 01/11/21. Future oriented. Progress Toward Goals/Plan:: Client's first week of IOP tx. Client reports she missed a dose of her Effexor and had terrible side effects. Client stated she would like to get back on Prozac and be weaned off Effexor. Client currently experiencing a depressed mood, anxiety with ruminations, lack of energy, crying spells, and feeling overwhelmed. Client has numerous stressors in her life which are currently impacting her mood and ability to cope. Will continue IOP tx to prevent decompensation, increase emotional regulation skills, and improve daily functioning. Time Stopped:: 10:00
--- NOTE | 2021-01-11 14:12 | BH.MTP_ITS ---
Master Treatment Plan - Patient Information Program Physician:: Dr. Jacklyn Aviles Primary Therapist:: Kimberly DE OLIVEIRA - Psychiatric Diagnoses Psychiatric Diagnoses:: Major depressive disorder, recurrent, severe without psychosis F 33.2; rule out dysthymia; generalized anxiety disorder; history of bulimia nervosa; rule out PTSD Diagnosis Code(s):: F 33.2 - Estimated LOS Estimated LOS (in weeks):: 6 Problem/Goal #1 - Problem/Goal #1 Stated Goal:: Client will decrease depressive symptoms, guilt, negative self- talk, and suicidal ideations due to major depression disorder. Description of Barriers: Client reports history of depressive episodes that happen a couple times a year, but during that time her symptoms are severe to the point client cannot get out of bed. Client states because the symptoms do not last a long time, client often forgets how bad they get which hinders client from seeking help. Client has a long-standing history of suicidal ideations and negative thinking. Functional Impact: Client is a 35-year-old female with a history of depression and anxiety. Client was referred by her OBGYN, Dr. Forte due to worsening symptoms of depression and recent suicidal ideations. Client is 7 months post- and reports numerous other life stressors that have been impacting her mental health. 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 Client reports depressive symptoms have somewhat decreased since intake, but continues to endorse moderate to severe symptoms. Client reports hopelessness, lack of motivation, lack of energy, crying spells, increased sleep, variable appetite, and fleeting suicidal ideations with methods. Client also reports long-standing history of anxiety, ruminations, and panic attacks. Client is not currently seeing an outpatient therapist and is not gaining benefit from medication alone. Client's symptoms are impacting her daily functioning. Goal Relevant Strengths/Supports: Client is intelligent and motivated. Client's and children are her protective factors. Client is linked with outpatient psychiatry. - Objectives Objective #1 Stated Objective: Client will learn and utilize 2-3 healthy coping strategies to better manage depressive symptoms as shown by a reduced DSM-5 scores for depression. Interventions: Through group and individual sessions, therapist will help client identify triggers and warning signs of depression and emotional dysregulation including emotional, physical, and behavioral changes. Therapist will teach client various coping skills to manage her symptoms and give client tangible resources to use to regulate emotions. Therapist will use cognitive restructuring techniques and help client gain awareness of negative thoughts that reinforce guilt and depression. Therapist will provide psychoeducation on maintenance cycles and help client learn ways to break unhealthy maintenance cycles. Therapist will help client incorporate behavioral activation and assist client in setting SMART goals. Discharge Criteria: Client will have met this goal when she can report learning and using at least 2 coping skills to manage depressive symptoms. Additionally, client will have met this goal when her depressive symptoms have reduced on the DSM-5 scale. Target Date: 02/18/21 Review Date: 02/02/21 Status: open Objective #2 Stated Objective: Client will identify at least 2-3 negative self-talk messages used to reinforce negative core beliefs and replace thoughts with positive, realistic messages. Interventions: Therapist will help client identify distorted, negative beliefs about self and replace with more realistic, affirmative messages. Therapist will use CBT to help client increase insight to the connection between thoughts, emotions, and behaviors. Therapist will encourage client to practice thought challenging. Discharge Criteria: Client will have achieved this goal when can verbalize at least 2 negative self-talk messages and effectively replace those thoughts with affirmative messages. Target Date: 02/18/21 Review Date: 02/04/21 Status: open Problem/Goal #2 - Problem/Goal #2 Stated Goal:: Client will decrease intensity, duration, and frequency of anxiety so that daily functioning is not impaired. Description of Barriers: Client reports history of depressive episodes that happen a couple times a year, but during that time her symptoms are severe to the point client cannot get out of bed. Client states because the symptoms do not last a long time, client often forgets how bad they get which hinders client from seeking help. Client has a long-standing history of suicidal ideations and negative thinking. Functional Impact: Client is a 35-year-old female with a history of depression and anxiety. Client was referred by her OBGYN, Dr. Forte due to worsening symptoms of depression and recent suicidal ideations. Client is 7 months post- and reports numerous other life stressors that have been impacting her mental health. 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 Client reports depressive symptoms have somewhat decreased since intake, but continues to endorse moderate to severe symptoms. Client reports hopelessness, lack of motivation, lack of energy, crying spells, increased sleep, variable appetite, and fleeting suicidal ideations with methods. Client also reports long-standing history of anxiety, ruminations, and panic attacks. Client is not currently seeing an outpatient therapist and is not gaining benefit from medication alone. Client's symptoms are impacting her daily functioning. Goal Relevant Strengths/Supports: Client is intelligent and motivated. Client's and children are her protective factors. Client is linked with outpatient psychiatry. - Objectives Objective #1 Stated Objective: Client will identify 2-3 cognitive distortions that lead to rumination and learn 2-3 ways to manage these thoughts to better manage anxiety and stress. Interventions: Therapist will provide education on the most common cognitive distortions and teach client the connection between thoughts, emotions, and feelings. Therapist will assist client in identifying, challenging, and replacing dysfunctional thoughts with positive, more realistic thoughts. Therapist will use CBT and DBT techniques to help client gain awareness of th inking errors and learn how to more effectively handle negative thoughts. Discharge Criteria: Client will have accomplished this goal when can identify at least 2 cognitive distortions and at least 2 coping skills to manage negative thoughts. Target Date: 02/18/21 Review Date: 02/04/21 Status: open Objective #2 Stated Objective: Client will identify 2-3 anxiety triggers and 2 calming coping skills to reduce anxiety as shown by decreased DSM-5 cross cutting symptom measure scores. Interventions: Therapist will help client increase awareness of anxiety triggers and educate client on personal core beliefs associated with anxiety. Therapist will teach client various calming and mindfulness strategies to promote emotional regulation and reduction of anxiety. Therapist will encourage client to implement healthy coping skills on a regular basis and increase self-care in all areas. Discharge Criteria: Client will have accomplished this goal when can report at least 2 triggers for anxiety and 2 calming strategies to manage symptoms. Additionally, client will have accomplished this goal when she can report reduced DSM-5 cross cutting symptoms for anxiety. Target Date: 02/18/21 Review Date: 02/04/21 Status: open
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
--- NOTE | 2021-01-15 09:00 | BH.SGPN.GN ---
Behaviors/Verbalizations/Mental Status: [] Eye contact is good. Motor activity is appropriate. Appearance is disheveled. Speech is Appropriate. Mood is depressed. Affect is flat. Thoughts are linear and logical. No evidence of psychosis. Reviewed daily check in sheet and pt was a 1/5 for suicidal thoughts and 0/5 for intent. Client Response/Progress/Benefit: [] Pt participated when prompted. Attentive. Emotion for today is drained. Shared that she let depression get ahold of me this weekend. Pt slept all weekend and isolated. Did not utilized any skills or attempt to reframe thoughts due to limited motivation and energy. No specific external trigger however she reports a sinus infection. Pt's primary coping skill is sleep to escape which is interfering with her familial responsibilities. She did report improved mood on Thursday and took daughter to the ballet, however notes that she again is tired and lethargic this AM. Limited progress noted per pt report. Benefited from support. Will continue in IOP to maintain safety, increase healthy coping skills, and improve functioning. Narrative Note: []
--- NOTE | 2021-01-15 10:16 | BH.SGPN.GN ---
Behaviors/Verbalizations/Mental Status: []Client alert and oriented, casually dressed and groomed. Eye contact good. Motor activity appropriate. Speech within normal limits. Affect congruent, mood dysthymic and anxious. Thoughts linear, logical, no signs of hallucinations or delusions Client Response/Progress/Benefit: [] Client engaged in session AEB client providing input and personal examples, taking notes, and listening attentively to peers. Client shared connecting with the importance of setting boundaries, noting that ?Boundaries are important for self-preservation, so you don?t burn out?. Client assisted group with identifying barriers to setting healthy boundaries. These included: fear of abandonment, fear of being vulnerable, self-doubt, discomfort, and feeling it?s ?too hard?. Shared a personal barrier she has experienced in the past is struggling with telling herself ?it?s ?too hard? to set the boundary, too exhausting to keep enforcing the same boundary. Listened and provided examples during discussion on different types of boundaries. Client seemed to benefit from increased awareness of how boundaries impact mental health. Expressed that boundaries can help ?avoid unnecessary emotional distress?. Will continue IOP tx to improve use of healthy coping, improve mood stability, and reduce mental health sx. Narrative Note: []
--- NOTE | 2021-01-15 11:19 | BH.SGPN.GN ---
Behaviors/Verbalizations/Mental Status: []Client alert and oriented, neatly dressed and groomed. Eye contact good. Motor activity appropriate. Speech within normal limits. Affect constricted, mood anxious. Thoughts linear, logical, no signs of hallucinations or delusions. Client Response/Progress/Benefit: []Client responded well to session, connecting with peers and receptive to supportive statements. Client engaged during psychoeducation on the different boundary styles. Client reported she has rigid and porous boundaries. Client identified with rigid boundaries as client has all or nothing expectations of herself and others and she avoids intimate relationships. Client identifies with porous boundaries as client is indecisive and over-shares at times. Client participated in brainstorming strategies to improve boundary setting. Client wants to work on the strategy of pausing and breathing before responding to a stressor or request. Seemed to benefit from increased awareness of how current boundary style impacts mental health and learning different strategies to improve boundary style. Client to continue IOP tx to prevent decompensation, improve mood stability, and increase functioning. Narrative Note: []
--- NOTE | 2021-01-17 09:04 | BH.SGPN.GN ---
Behaviors/Verbalizations/Mental Status: []Client alert and oriented, neatly dressed and groomed. Eye contact good. Motor activity appropriate. Speech within normal limits. Affect congruent, mood euthymic and anxious. Thoughts linear, logical, no signs of hallucinations or delusions. Reviewed client?s symptom tracker, no risk for suicidal ideation, plan, or intent as of 01/17/21 Client Response/Progress/Benefit: [] Client responded well to session, providing supportive statements to peers. Client reports feeling content this morning. Client shared that her slept through the night, her mood has been better overall, and she has been using calming skills. Client stated yesterday she could have become angry and lashed out at her family, but client used deep breathing and found humor in the situation. Client is currently stressed about finishing cleaning and getting her house together to be put on the market. Appeared to benefit from reflecting on her positives and gaining support. Progress noted in client's application of coping skills, but client continues to struggle with mood stability. Will continue IOP tx to promote use of healthy coping skills, reduce stress, and increase self-care. Narrative Note: []
--- NOTE | 2021-01-17 10:20 | BH.SGPN.GN ---
Behaviors/Verbalizations/Mental Status: []Eye contact is good. Alert and oriented. Motor activity is appropriate. Appearance is casual. grooming is appropriate. Speech is Appropriate. Mood is anxious, euthymic. Affect is congruent. Thoughts are linear and logical. No evidence of psychosis or hallucinations. Client Response/Progress/Benefit: [] Client responded well to session, engaged, and participated in discussion and group activity. Client connected with topic of managing emotions. Remained engaged throughout discussion on common barriers to effective emotion regulation which included: shutting down, lack of healthy coping skills, learned behaviors, toxic people/environment, and suppressing emotions. Identified personal barrier of managing emotions as avoiding addressing what?s upsetting her. Engaged in challenge activity highlighting the connection between communication and effective emotion regulation. Progress noted as client took a leadership role in the activity and reported ?I don?t want to do it, but I?m going to use opposite action to encourage myself to?. Client appeared to benefit from gaining increased awareness on common emotion regulation barriers and impacts of ineffective emotion regulation on mental health and personal relationships. Will continue IOP to promote continued use of healthy coping skills, increase communication with supports, and improve daily functioning. Narrative Note: []
--- NOTE | 2021-01-17 11:20 | BH.SGPN.GN ---
Behaviors/Verbalizations/Mental Status: []Client alert and oriented, casually dressed and fairly groomed. Eye contact fair. Motor activity appropriate. Speech within normal limits. Affect congruent. mood anxious. Thoughts linear, logical, no signs of hallucinations or delusions. Client Response/Progress/Benefit: []Client engaged in session AEB client providing input during discussion and completed worksheet. Attentively listening during psychoeducation on 4 zones of regulation and able to identify feelings and behaviors for each zone. Worked with group to identify coping skills one can use to support self in each zone. Client reported she most often is in the blue zone of low state of alertness which pt stated makes it hard to be productive. Client stated she goes back and forth from blue and yellow zones becoming a vicious cycle. Benefited from increased education on zones of regulation or stages of alertness for emotions and healthy coping skills to use for each zone. Will continue IOP tx to increase utilization of healthy coping skills, improve daily functioning, and prevent decompensation.
--- NOTE | 2021-01-17 14:15 | BH.MDN ---
Multi-Disciplinary Note - Note 45-min Individual Time Started:: 12:20 Date: 01/17/21 Purpose of session/treatment goals addressed:: To address current stressors and work on goal #2 of client's tx plan. Other topics included: scheduling a family session and techniques to reduce the use of unhealthy coping skills. Eye Contact:: Good Motor Activity:: Appropriate Appearance:: Casual Speech:: Appropriate Mood:: Anxious Affect:: Congruent Thoughts:: Linear, Logical, No evidence of hallucinations/delusions noted Staff Interventions:: Therapist explored client's current stressors and addressed medication concerns from last week. Therapist provided psychoeducation on stress and how it impacts emotional regulation, concentration, and thinking. Therapist had client identify current stressors in her life and the impact on client. Therapist then helped client separate stressors into in client's control and out of client's control. Discussed self-care goals for the weekend. Client Response:: Client responded well to session, open to meeting with therapist. Client shared she contacted her outpatient therapist and got her medication changed. Client has been responding well to this change and has not reported any side effects. Client stated she has been struggling with managing anger lately, specifically when interacting with her . Client shared she had an anger outburst towards her this week and afterwards went to the store and bought a pack of cigarettes. Client reported she has not smoked in several years and she recognizes this is an unhealthy coping skill. Client acknowledged that her anger outbursts are likely due to multiple stressors and difficulty managing these stressors. Client identified her current stressors and then categorized these into internal versus external. Discussed steps client can take to either remove stressors or cope better with them. Client plans to reach out to her supports this weekend to ensure she has time for self-care. Also reviewed the DDD (delay,distract,decide) coping skill to help client reduce smoking. Risks/Concerns:: Client denies any suicidal ideations, plan, or intent as of 01/17/21. Future oriented and children are her protective factor. Progress Toward Goals/Plan:: Client is demonstrating progress towards tx goals AEB her increased insight and report that her medication change has been helpful. Client is currently reporting high stress which is manifesting in anger and use of unhealthy coping skills. Client continues to feel overwhelmed, lack energy, and struggle to manage her emotions. Connected well with the stress jar and scheduling a family session. Client will practice distress tolerance coping skills for homework. Will continue IOP tx to prevent decompensation, improve emotional regulation skills, and reduce use of unhealthy coping skills. Time Stopped:: 13:05
== END 2021-01-21 23:59 | disposition home or self-care (01) ==
LOC: BHIOP 09:00
PROVIDERS: PCP Nurse Practitioner; Referring Provider Psychiatry & Neurology Psychiatry; Visit Provider Psychiatry & Neurology Psychiatry
DX: F33.2 Major depressive disorder, recurrent severe without psychotic features (principal); F41.1 Generalized anxiety disorder; E66.9 Obesity, unspecified; G47.33 Obstructive sleep apnea (adult) (pediatric); Z79.899 Other long term (current) drug therapy; Z87.891 Personal history of nicotine dependence
CPT/HCPCS: H0035; 90832; 90834; 90853

== ENCOUNTER 2021-01-23 09:00 | Outpatient (RCR) | payer OTHER, SELFPAY ==
[2020-07-17 14:36] VITALS: BMI 48.4
[2021-01-22 00:44] VITALS: BP 122/66; PULSE 70
--- NOTE | 2021-01-23 09:00 | BH.SGPN.GN ---
Behaviors/Verbalizations/Mental Status: []Client alert and oriented, neatly dressed and groomed. Eye contact good. Motor activity appropriate. Speech within normal limits. Affect congruent, mood euthymic. Thoughts linear, logical, no signs of hallucinations or delusions. Reviewed client?s symptom tracker, no risk for suicidal ideation, plan, or intent as of 01/23/21 Client Response/Progress/Benefit: []Client responded well to session, providing supportive statements. Client reports feeling content this morning. Client shared despite all the stress going on in her life, she has been choosing to use healthier coping skills. Client reported the emotional regulation group was very helpful as it gave client more awareness and different coping skills to use. Client has been journaling, using opposite action, deep breathing, and self-talk to manage anger and anxiety. Client shared she is stressed about her busy schedule this afternoon and reviewed calming coping skills she could use. Appeared to benefit from reflecting on positives. Progress noted in client's increased application of coping skills. Will continue IOP tx to prevent decompensation, improve emotional regulation, and increase self-care. Narrative Note: []
--- NOTE | 2021-01-23 10:10 | BH.SGPN.GN ---
Behaviors/Verbalizations/Mental Status: []Client alert and oriented, casually dressed and groomed. Eye contact fair. Motor activity appropriate. Speech within normal limits. Affect congruent, mood euthymic. Thoughts linear, logical, no signs of hallucinations or delusions. Client Response/Progress/Benefit: []Client active participant as evidenced by providing input throughout discussion. Helped group identify what can impact automatic thoughts including: experience, learned behaviors, skills we learn, environment, mood, pain, hungry, lonely and tired. Client connected with quote reporting she has invented scenarios and conversations in her head that has negatively impacted her mood and relationships. Client connected with the discussion about how distorted thought patterns can reinforce mental health symptoms and impact self-worth. Client stated common all or nothing thought she has This always happens to me. Appeared to benefit from increasing awareness of cognitive distortions and how they can impact emotions and behaviors. Will continue IOP tx to prevent decompensation, continue use of healthy coping skills, and challenge distorted thoughts.
--- NOTE | 2021-01-23 11:15 | BH.SGPN.GN ---
Behaviors/Verbalizations/Mental Status: []Client alert and oriented, casually dressed and groomed. Eye contact good. Motor activity appropriate. Speech within normal limits. Affect congruent, mood euthymic and anxious. Thoughts linear, logical, no apparent hallucinations and delusions. Client Response/Progress/Benefit: [] Client was an active participant AEB client providing input throughout session, taking notes, and completing group activity. Attentive and contributing during psychoeducation and additional discussion on cognitive distortions. Client engaged while group practiced reframing example thoughts on the board. Provided personal examples. Client then worked within their small group to identify potential thought-challenge strategies for specific types of distortions. Client shared struggling with distortion of ?jumping to conclusions? and identified using more ?open and effective communication? as well as asking questions for clarification as skills she would like to use to combat this distortion. Client seemed to benefit from reframing distorted thoughts and brainstorming several skills for challenging distortions. Will continue IOP tx to prevent decompensation and continue to improve mood stability and management. Narrative Note: []
--- NOTE | 2021-01-23 12:07 | PCM.BH.PN ---
Progress Note Progress Note: History of Present Illness/Interim History: [] The patient is a 35-year-old female who is seen in follow-up at the [facility] behavioral health IOP program. I last saw the patient 2 weeks ago and at that time prescribed Lamictal to add to her Zoloft medication. The patient never started the lamotrigine. She missed a dose of Effexor shortly after our visit and had severe withdrawal symptoms. She then called her outpatient psychiatrist and said that she wanted to wean off the Effexor and go back on Prozac because the patient does not want to be on a medication that gives her withdrawal symptoms if she misses only 1 dose. Her outpatient psychiatrist then gave her a weaning program for the Effexor and decrease it to 75 mg on January 10 roughly. She then started Prozac 20 mg at the same time. She is tolerating this weaning and changing over well and she plans to discontinue the Effexor in 1 to 2 weeks and stay on the Prozac 20 mg daily. Her mood is much better and she feels much less depressed. She denies any hopelessness or worthlessness. She denies passive thoughts of , suicidal or homicidal ideation. Her infant wakes up twice a night so on some nights she gets 6 hours or less sleep but other nights she sleeps 8 hours. She feels that she has made progress since starting the IOP program. Current Psychiatric Medications: [] Effexor XR 75 mg x 2 weeks and then plans to discontinue this medication soon; Prozac 20 mg p.o. daily (since about January 10, 2021. Mental Status Examination: [] Patient is a 35-year-old female who is seen wearing a mask due to the pandemic. She is casually dressed and groomed with good hygiene and has no psychomotor agitation or retardation. Eye contact is good and speech is normal rate and rhythm and fluent with no pressure. Mood is mildly depressed. Affect is full and normal. Thought process is organized and goal-directed. Thought content: There is no evidence of thoughts of , suicidal ideation, homicidal ideation, hallucinations or delusions. Impulsivity is moderate. Insight is improving. Judgment is intact. Diagnoses: [] [place] I: [] Major depressive disorder, recurrent, severe without psychosis; rule out dysthymia; generalized anxiety disorder; history of bulimia nervosa; rule out PTSD [place] II: [] Deferred [place] III: [] Obesity, CONRADO [place] IV:[]] Primary support and work issues Plan: [] The patient will continue the IOP program at [facility] as the structure, support, education, and group therapy will hopefully prevent worsening of the patient's symptoms. The patient felt safe during the interview and if it anytime she does not feel safe she will let us know or go to the emergency room. The risk, options, possible complications and side effects of the medications and the weaning process were discussed and the patient accepts and understands these. No medication changes were made today. She will continue her medications at the current doses. I will see the patient in follow-up in several weeks and she will continue to follow-up with her outpatient psychiatric providers.
--- NOTE | 2021-01-24 09:04 | BH.SGPN.GN ---
Behaviors/Verbalizations/Mental Status: [] Pt eye contact good, casually dressed, motor activity appropriate, speech normal rate and tone, mood dysthymic, constricted affect, thoughts linear and intact, no evidence of delusions or hallucinations. Per patient symptom tracker patient denies current suicidal ideation, plan, or intent. Client Response/Progress/Benefit: []Pt responded well to session AEB pt listening attentively to others and openly sharing thoughts and feelings. Pt stated feeling blah today because exhausted for no apparent reason. Pt identified mental health positive as able to manage stress of having to travel to [place] and be back home before daycare closed. Pt stated feeling stressed about having friends over this weekend. Pt reported she already cancelled her friends coming over earlier this week because she was anxious. Pt stated she gets anxious about her house not looking good. Pt reported she is going to try to not cancel and sit with the uncomfortable. Pt seemed to benefit from assistance with thought reframe. Pt to continue IOP to increase consistent use of healthy skill, challenge distortions, and prevent decompensation. Narrative Note: []
--- NOTE | 2021-01-24 10:10 | BH.SGPN.GN ---
Behaviors/Verbalizations/Mental Status: [] Eye contact is good. Motor activity is appropriate. Appearance is disheveled. Speech is Appropriate. Mood is depressed. Affect is congruent. Thoughts are linear and logical. No evidence of psychosis. Client Response/Progress/Benefit: [] Pt was an active participant in group discussion and activity. Insight during activity that finding positive aspects of a picture was more challenging than identifying negatives. Pt along with peers were able to identify what could impact one's perspective which included; upbringing, core beliefs, environment, relationships, and sleep. Group was able to identify how a negative perspective could impact progress in mental health treatment leading to beliefs such as; I will not get better, nobody understands me, apathy, withdrawing, irritability, catastrophizing, disqualifying positives, focusing on flaws, personalizing, labeling, focusing on negatives, and convincing one to quit. Pt was able to identify a perspective that has been helpful for her which was accepting help is OK. Benefited from group by increasing awareness on the role of perspective in mental health wellness. Will continue in IOP to maintain safety, increase healthy coping strategies, and prevent decompensation. Narrative Note: []
--- NOTE | 2021-01-24 10:17 | BH.SGPN.GN ---
Behaviors/Verbalizations/Mental Status: []Client alert and oriented, neatly dressed and groomed. Eye contact good. Motor activity appropriate. Speech within normal limits. Affect congruent, mood anxious. Thoughts linear, logical, no signs of hallucinations or delusions. Client Response/Progress/Benefit: []Pt engaged participant AEB pt providing input throughout session, listening attentively to peers and completing strengths exploration handout. Pt did struggle to identify strengths which included assertiveness, open-mindedness, and humor. Pt stated these strengths will help client?s mental health recovery by helping client ask for help, practice self-care, not be so hard on herself, and improve her mood when upset. Pt seemed to benefit from increased awareness of personal strengths and improved understanding how perspective can impact view of self. Pt is to continue IOP tx reduce negative thinking patterns, increase emotional regulation skills, and improve self-care. Narrative Note: []
--- NOTE | 2021-01-25 09:00 | BH.SGPN.GN ---
Behaviors/Verbalizations/Mental Status: [] Eye contact is good. Motor activity is appropriate. Appearance is casual. Speech is Appropriate. Mood is anxious. Affect is congruent. Thoughts are linear and logical. No evidence of psychosis. Reviewed daily check in sheet and pt did not report any suicidal ideations. Client Response/Progress/Benefit: [] Pt participated when prompted. Attentive. Emotion for today is panic. Daily symptom tracker notes 10/26 for anxiety. Shared with the group that she has been struggling to manage depressive episodes. Discussed trigger to feeling of anxiety and apprehension which is related to conflict with certain family members. Discussed the stressors in more detail. Mental health win was that she has remained productive and has not isolated despite the stressors. She is attempting to utilize certain reframing skills. Progress noted per pt report. Benefited from group support, encouragement, and feedback. Will continue in IOP to maintain safety, increase healthy coping, and improve functioning. Narrative Note: []
--- NOTE | 2021-01-25 10:10 | BH.SGPN.GN ---
Behaviors/Verbalizations/Mental Status: []Client alert and oriented, casually dressed and groomed. Eye contact good. Motor activity appropriate. Speech within normal limits. Affect constricted, mood anxious. Thoughts linear, logical, no signs of hallucinations or delusions. Client Response/Progress/Benefit: []Client receptive to session, participating throughout. Provided input as the group brainstormed the positive and negative aspects of stress on physical and mental health. Group did well to identify the benefits of stress as well as the impact of distress on performance and mental health. Client identified stress jar includes: family, 's health, kids, work, house chores, mental health, and physical health. Client reports when her stress jar becomes overfilled her reaction is shutting down and when her kids aren't around will have anger outburst. Pt seemed to benefit from increased awareness of current stressors and importance of dealing with stressors. Recommended to continue IOP tx to promote use of healthy coping skills, improve confidence, and prevent decompensation. Narrative Note: []
--- NOTE | 2021-01-25 11:15 | BH.SGPN.GN ---
Behaviors/Verbalizations/Mental Status: []Client alert and oriented, neatly dressed and groomed. Eye contact good. Motor activity appropriate. Speech within normal limits. Affect congruent, mood anxious. Thoughts linear, logical, no signs of hallucinations or delusions. Client Response/Progress/Benefit: []Client engaged in session AEB listening attentively to others, taking notes, and participating in activity. Client remained attentive during discussion about the 4 A's of managing stress and discussed connecting with the various benefits of each. Client was interactive during group activity and gained insight that she often shuts down when stressed. Client reports wanting to work on altering her outlook towards certain stressors in her life such as dealing with family. Appeared to benefit from learning different techniques to better manage stress. Client will continue IOP to increase emotional regulation skills, improve mood stability, and reduce distorted thought patterns. Narrative Note: []
--- NOTE | 2021-01-25 15:36 | BH.MDN ---
Multi-Disciplinary Note - Note Family Time Started:: 12:20 Date: 01/25/21 Purpose of session/treatment goals addressed:: The purpose of this session was to engage client's in treatment by providing psychoeducation on conflict resolution and communication techniques. Eye Contact:: Good Motor Activity:: Appropriate Appearance:: Neat Speech:: Appropriate Mood:: Anxious Affect:: Congruent Thoughts:: Linear, Logical, No evidence of hallucinations/delusions noted Staff Interventions:: Therapist used open-ended questions and active listening to gather information on expectations for the session. Therapist used strengths perspective to empower client and identify couple strengths that can support client?s mental health. Therapist helped the couple explore what is current barriers to communication and conflict resolution. Therapist reviewed effective communication strategies, ?fair fighting? rules, and emotional regulation skills. Client Response:: Client and responded well to session, open to meeting with therapist. Both client and her had the expectation to improve communication and better manage conflict. Due to numerous stressors in their lives, both have been struggling with emotional regulation and adapting to change. Discussed current barriers to communication and triggers to conflict. Barriers identified included: silent treatment, getting out of control, hanging on to comments, taking criticism personally, talking when stressed, not giving space, stockpiling problems, and yelling. Reviewed strategies from the fair fighting worksheet as well as the zones of regulation. Client shared learning more about the different zones has helped client catch herself from getting out of control and using healthier skills. Discussed ways to better manage conflict and increase healthy communication. The goal this week is for client and to set healthy boundaries on when they will communicate as well as practicing self-reflection on what they are feeling before talking. Client has been doing well to utilizing calming skills and she shared these with her . Risks/Concerns:: Client denies any suicidal ideations, plan, or intent as of 01/25/21. Progress Toward Goals/Plan:: Client is demonstrating progress towards her tx goals AEB her self-report of reduced depression and an overall better mood. Client is tolerating her medication change well and she has been learning valuable skills at IOP. Client and her did well to identify goals they can work on at home to better improve their communication and resolve conflict. Client can continue to benefit from IOP tx to further improve mental health and help client cope with numerous stressors in her life. Client will continue IOP tx next week. Time Stopped:: 12:56
--- NOTE | 2021-01-28 09:00 | BH.SGPN.GN ---
Behaviors/Verbalizations/Mental Status: [] Pt eye contact good, casually dressed, motor activity appropriate, speech normal rate and tone, mood euthymic, congruent affect, thoughts linear and intact, no evidence of delusions or hallucinations. Reviewed client?s symptom tracker, no signs of suicidal ideation, plan, or intent as of today. Client Response/Progress/Benefit: []Pt responded well to session AEB by pt listening attentively to peers and sharing thoughts and feelings. Pt identified mental health positive as sitting with the uncomfortable by not cancelling having her friends over on Thursday. Pt stated she had really good time with her friends and was happy she didn't cancel. Pt reported she has been applying skill of focusing what's in her control with family drama. Pt stated she plans to get a pedicure this week for self-care. Identified emotion as content. Progress noted with pt using skills to focus on what's in her control. Pt to continue IOP to maintain gains, continue use of healthy coping skills, and prevent decompensation. Narrative Note: []
--- NOTE | 2021-01-28 10:10 | BH.SGPN.GN ---
Behaviors/Verbalizations/Mental Status: [] Eye contact is good. Motor activity is appropriate. Appearance is casual. Speech is Appropriate. Mood is anxious. Affect is congruent. Thoughts are linear and logical. No evidence of psychosis. Client Response/Progress/Benefit: [] Pt was an active participant in group discussion and activity. Attentive during psychoeducation. Pt and peers provided examples of pitfalls or setbacks that people can fall into which impact mental health which included; triggers, fear, cognitive distortions, isolating, self-pity, avoidance, and pushing support away. During experiential activity pt along with peers identified several other pitfalls associated with mental health which included; poor communication, assumptions, lack of awareness, negative self-talk, anger, personalizing, and ruminating. Benefited from group by increasing awareness of pitfalls which can impact mental health. Pt will continue in IOP to maintain safety, improve health coping, and to improve functioning. Narrative Note: []
--- NOTE | 2021-01-28 11:18 | BH.SGPN.GN ---
Behaviors/Verbalizations/Mental Status: []Client alert and oriented, neatly dressed and groomed. Eye contact good. Motor activity appropriate. Speech within normal limits. Affect congruent, mood euthymic and anxious. Thoughts linear, logical, no signs of hallucinations or delusions Client Response/Progress/Benefit: []Client receptive of session, engaged throughout AEB client actively listening and contributing to discussion, as well as taking notes. Client completed worksheet identifying personal pitfalls impacting mental health progress. Client identified the following pitfalls: not using coping skills, lack of self-care, sleeping to avoid, negative self-talk, and canceling plans. Client reports she recently used opposite action and did not cancel plans. Attentive during group brainstorm of strategies to overcome pitfalls. Client will work on overcoming not using coping skills by practicing them daily, rather than when she is in crisis. Benefited from identifying personal pitfalls and strategies to overcome these pitfalls. Will continue IOP tx to reduce intensity of symptoms, improve daily functioning, and increase emotional regulation skills. Narrative Note: []
--- NOTE | 2021-01-31 09:05 | BH.SGPN.GN ---
Behaviors/Verbalizations/Mental Status: [] Eye contact is good. Motor activity is appropriate. Appearance is casual. Speech is Appropriate. Mood is anxious. Affect is congruent. Thoughts are linear and logical. No evidence of psychosis. Reviewed daily check in sheet and no reports of suicidal ideations or intent. Client Response/Progress/Benefit: [] Pt was an active participant in group discussion. Attentive. Emotion for today is apprehensive and uncertain. Pt states there is a lot going on. She discussed stressors revolving around her [id number]'s health. She had set goals this week to participate in daily self-care and review on IOP material however reports that there is just no time She talked more in detail regarding the stressors. Insight that if she fails to take time for herself (even a few minutes a day) her mental health will worsen and her mood will be impacted. No progress noted. Benefited from group support and feedback. Will continue in IOP to maintain safety, increase healthy coping, and prevent decompensation. Narrative Note: []
--- NOTE | 2021-01-31 10:15 | BH.SGPN.GN ---
Behaviors/Verbalizations/Mental Status: []Client alert and oriented, neatly dressed and groomed. Eye contact good. Motor activity appropriate. Speech within normal limits. Affect congruent, mood euthymic. Thoughts linear, logical, no signs of hallucinations or delusions. Client Response/Progress/Benefit: []Client was an engaged participant AEB client providing input throughout session and listened attentively to others. When discussing quote client provided an example of how our choices can change the course of our day/life. Client shared it is hard to change ?paths? in life because of toxic people and cognitive distortions, but it is important. The group worked together to identify barriers that keep one from choosing a new and healthier path to mental wellness. Attentive during psychoeducation on the chapters of life. Benefited from increased awareness and education on barriers to choosing new wellness paths and chapters of life. Client identified being in chapter 3 because ?I can see the hole and I know what got me there, but I?m still working on stopping myself from falling in.? Will continue IOP tx to promote mood stability, reinforce healthy coping skills, and reduce distorted thought patterns. Narrative Note: []
--- NOTE | 2021-01-31 11:15 | BH.SGPN.GN ---
Behaviors/Verbalizations/Mental Status: []Client alert and oriented, casual dress, hygiene appropriate. Eye contact good. Motor activity appropriate, at times. speech and tone WNL. Affect congruent. mood euthymic. Thoughts linear, logical, no signs of hallucinations or delusions. Client Response/Progress/Benefit: []Client engaged in session AEB listening to discussion and provided input at times. Client attentive during psychoeducation about importance of maintenance plans. Client did well to work with the group to brainstorm strategies to promote making progress towards their desired chapter. Pt completed provided maintenance plan worksheet in small group. Pt identified personal triggers as: negative thoughts, [id number], when doesn't feel heard, and rehashing same discussions with . Identified warning signs as: sleeping too much, social isolation, irritability, anger outbursts, and mistrust. Pt identified healthy coping skills as: deep breathing, journaling, mindfulness, communicating needs to support, and review IOP binder. Seemed to benefit from increasing awareness of triggers, warning signs and coping skills. Will continue IOP tx to continue use of healthy coping, challenge distorted thoughts and prevent decompensation. Narrative Note: []
--- NOTE | 2021-02-01 10:10 | BH.SGPN.GN ---
Behaviors/Verbalizations/Mental Status: []Client alert and oriented, casually dressed and groomed. Eye contact fair. Motor activity appropriate. Speech within normal limits. Affect congruent, mood euthymic. Thoughts linear, logical, no signs of hallucinations or delusions. Client Response/Progress/Benefit: []Client active participant AEB client providing contributions during group discussion, and appeared to listen attentively to peers. Client connected with the topic of relationships. Client helped group discuss the benefits of relationships as well as the different types of relationships one can have. Client stated in healthy relationships your partner will support and encourage personal growth. Client reported her personal upbringing contributed to her getting involved in past unhealthy relationships. Helped group identify the risk factors for unhealthy relationships which included: poor self-esteem, trauma, lonely, and lying. Worked with group to develop a list of the consequences that unhealthy relationships have on mental health. Appeared to benefit from increasing awareness of the impact unhealthy relationships can have on mental health. Pt to continue IOP to continue use of healthy coping, challenge negative thoughts and prevent decompensation. Narrative Note: []
--- NOTE | 2021-02-01 11:10 | BH.SGPN.GN ---
Behaviors/Verbalizations/Mental Status: []Client alert and oriented, neatly dressed and groomed. Eye contact good. Motor activity appropriate. Speech within normal limits. Affect congruent, mood calm. Thoughts linear, logical, no signs of hallucinations or delusions. Client Response/Progress/Benefit: []Client responded well to session, engaged and taking notes. Attentive during discussion of what traits of healthy relationships. Client reflected on one relationship in her life and weighed the positives and negatives of that relationship to see how balanced it was. Client reflected on her relationship with her and shared belief it is balanced. Client would like to further improve their relationship by continuing to talk about realistic expectations and setting healthy boundaries with other family members. Appeared to benefit from brainstorming strategies to build healthier relationships. Will continue IOP tx to promote gains, further combat distortions, and reinforce healthy coping skills. Narrative Note: []
--- NOTE | 2021-02-01 13:39 | BH.MDN_ITS ---
Multi-Disciplinary Note - Note 45-min Individual Time Started:: 09:10 Date: 02/01/21 Purpose of session/treatment goals addressed:: The purpose of this session was to process current stressors and develop coping skills to accept and/or reduce stress. Eye Contact:: Good Motor Activity:: Appropriate Appearance:: Casual Speech:: Appropriate Mood:: Anxious Affect:: Congruent Thoughts:: Linear, Logical, No evidence of hallucinations/delusions noted Staff Interventions:: Therapist provided emotional support and active listening as client discussed current stressors. Therapist used strengths perspective to empower client on her application of coping skills despite stress. Therapist reviewed stress reduction techniques such as avoiding unhealthy coping skills, setting boundaries, and communicating with supports. Client Response:: Client responded well to session, open to meeting with therapist. Client stated she feels like she and her family are in constant stress, it's like we get one second of normal and then something bad happens again. Client shared her [id number] is very ill and will likely pass away. This will be the third family member client's has lost in the past year. Client is worried about her 's mental health, but recognizes that she can only control her emotions and reactions. Client stated because her xcuorp-jr-urs is ill, client and her have been taking care of their nephew. Client shared they love their nephew, but he has been enabled for many years, so client worries about boundaries. Discussed client's non-negotiable expectations for her household. Client stated she is somewhat anxious to share these with her , but recognized that if she does not communicate this will negatively impact her marriage. Discussed how boundaries can actually strengthen relat ionships. Client receptive to discussion of avoiding unhealthy coping skills or things that could make her stress worse. Client reports despite all the stress, she feels like she is managing her emotions better than she has in the past. Client shared she does not feel completely out of control and can better communicate as well. Risks/Concerns:: Client denies any suicidal ideations or thoughts of as of 02/01/21. Progress Toward Goals/Plan:: Client continues to experience numerous life stressors that impact client and her family. However, client appears to be managing these well AEB her self-report of increased emotional regulation and application of coping skills. Client is responding well to her medications, and she has been working on using calming coping skills. Client reports ongoing anxiety that is situational based, difficulty concentrating, irritability, and depressive symptoms. Will continue IOP tx to prevent decompensation and increase emotional regulation skills to help manage life stressors. Time Stopped:: 09:50
--- NOTE | 2021-02-04 09:05 | BH.SGPN.GN ---
Behaviors/Verbalizations/Mental Status: []Client alert and oriented, casually dressed and groomed. Eye contact good. Motor activity appropriate. Speech within normal limits. Affect congruent, mood dysthymic and anxious. Thoughts linear, logical, no signs of hallucinations or delusions. Reviewed client?s symptom tracker, no indication of suicidal ideation, plan, or intent as of this date, 02/04/21. Client Response/Progress/Benefit: []Client responded well to session, attentive and proving input throughout. Client reports feeling anxious this morning and discussed anxiety surrounding her [id number]-ia-[id number]?s poor physical health state. Noted this has been a major stressor for herself and her and that it has made it difficult to prioritize her own mental health needs. Did well however to make time to practice self-care via journaling and spending time doing something enjoyable with her family. Client shared use of several skills including opposite action, thought challenging, reaching out to supports, and healthy distraction. Appeared to benefit from reflecting on personal positives and areas of progress, as well as the supportive group environment. Will continue IOP tx to promote consistent skill application, maintain gains, and prevent decompensation. Narrative Note: []
--- NOTE | 2021-02-04 10:10 | BH.SGPN.GN ---
Behaviors/Verbalizations/Mental Status: [] Eye contact is good. Motor activity is appropriate. Appearance is casual. Speech is Appropriate. Mood is anxious. Affect is congruent. Thoughts are linear and logical. No evidence of psychosis. Client Response/Progress/Benefit: [] Pt was an active participant in group discussion and activity. Attentive during psychoeducation on internal vs external coping skills. Pt along with peers provided their thoughts and insights on the definition of coping skills. Pt along with peers worked together to identify unhealthy coping skills which included; over-eating, smoking, using substances, self-harm, lashing out, isolation, avoidance, sleeping, shopping, reckless behaviors, and denial. Interactive discussion amongst peers on the reasons that people utilize unhealthy copings skills (easy, comfortable, habitual, temporary relief). Benefited from increased awareness of unhealthy coping skills, internal coping skills, and external coping skills. Will continue in IOP to maintain safety, prevent decompensation, and improve functioning. Narrative Note: []
--- NOTE | 2021-02-04 11:15 | BH.SGPN.GN ---
Behaviors/Verbalizations/Mental Status: []Client alert and oriented, neatly dressed and groomed. Eye contact good. Motor activity appropriate. Speech within normal limits. Affect congruent, mood anxious. Thoughts linear, logical, no signs of hallucinations or delusions Client Response/Progress/Benefit: []Client responded well to session, taking notes and contributing throughout. Group discussed the different categories of coping skills which included distraction, emotional release, grounding, self-love, and thought challenging. Client participated in creating a coping skills ?menu? from the five categories of coping skills. Client's coping skill menu included: exercising, journaling, guided meditation, yoga, eating healthier, and using positive affirmations. Appeared to benefit from increasing repertoire of healthy coping skills. Will continue tx to help client regulate stress and other emotions while coping with significant life stressors. Narrative Note: []
--- NOTE | 2021-02-05 09:02 | BH.SGPN.GN ---
Behaviors/Verbalizations/Mental Status: [] Pt eye contact good, casually dressed, motor activity appropriate, speech normal rate and tone, mood euthymic, congruent affect, thoughts linear and intact, no evidence of delusions or hallucinations. Reviewed client?s symptom tracker, no signs of suicidal ideation, plan, or intent as of today. Client Response/Progress/Benefit: []Patient responded well to session as evidenced by sharing thoughts and feelings and listened attentively to peers. Patient reported mental positive as using positive self talk over the weekend. Patient reported additional positive as getting good news about her xhwckc-ti-cvv's health which has provided some relief. Patient stated today she is going to try to focus on completing some errands versus waiting until the last minute to get everything done in 1 day. Patient reports she often procrastinates which causes unnecessary stress. Patient identifies feeling happy today. Patient seen benefit from support from peers and expressing thoughts feelings. Progress note with the patient reporting improved mood and continued use of healthy coping skills. Patient to continue IOP to maintain gains, continue challenging negative thought patterns, and prevent decompensation. Narrative Note: []
--- NOTE | 2021-02-05 10:08 | BH.SGPN.GN ---
Behaviors/Verbalizations/Mental Status: []Client alert and oriented, neat and casual dress, hygiene tended to. Eye contact good. Motor activity appropriate. Speech within normal limits. Affect congruent, mood euthymic. Thoughts linear, logical, no signs of hallucinations or delusions. Client Response/Progress/Benefit: [] Engaged participant AEB pt providing input when prompted throughout session and listening attentively to others. Engaged during psychoeducation portion reviewing fixed mindset, sharing that she could relate to how fixed thoughts can keep you from achieving things. Provided example of almost not pursuing higher education due to negative fixed thinking patterns. Pt worked with group to identify how a fixed mindset can impact mental health which included: keeping people stuck, reinforcing fear of failure, giving up, and negative self-talk. Able to identify personal examples of fixed thoughts which included ?I can?t do this? and ?Even if I do start to feel better, I?m just going to end up right back where I am now?. Client shared that she can connect with fear and avoidance as reinforcing fixed thoughts. Seemed to benefit from group by increasing awareness of how one's mindset can impact mental health and ability to cope. Pt will continue IOP tx this week to continue to promote healthy coping skills and continue to improve mental health sx management. Narrative Note: []
--- NOTE | 2021-02-05 11:13 | BH.SGPN.GN ---
Behaviors/Verbalizations/Mental Status: []Client alert and oriented, casually dressed and groomed. Eye contact good. Motor activity appropriate. Speech within normal limits. Affect congruent. mood euthymic. Thoughts linear, logical, no signs of hallucinations or delusions. Client Response/Progress/Benefit: []Client responded well to session, making connections during activity and able to reframe fixed thinking. Client took her fixed thought of ?I can?t do this? and discussed how this thought impacts her mental health. Client shared ?I can?t do this? is her typical reaction when faced with any stressor. Client was able to use reframing techniques to create a more growth mindset thought of ?I may or may not be able to do this, but I?ll try? I?ll remind myself of the times I did get through it.? Client appeared to benefit from gaining awareness of her fixed thought patterns and practicing reframing techniques with peers. Progress noted in client?s ability to reframe distorted thoughts more easily and overall improved functioning. Will continue IOP tx to promote gains, establish aftercare, and further reinforce healthy coping skills. Narrative Note: []
--- NOTE | 2021-02-05 14:16 | BH.TPR ---
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 Pt contributes well to discussion and listens well to peers during group sessions. Pt applies coping skills outside of IOP such as calming skills, thought challenging, self-care, and boundary setting. Pt has increased self-awareness of warning signs, distorted thought patterns, and how stress impacts overall wellbeing. Status of Current Problems and Symptoms: Client continues to experience numerous life stressors that impact client and her family. However, client appears to be managing these well AEB her self-report of increased emotional regulation and application of coping skills. Client reports ongoing anxiety that is situational based, difficulty concentrating, irritability, and mild depressive symptoms. Client has started smoking within the past two weeks which client recognizes is unhealthy, but client is currently not ready to stop. Problem #1 Problem Name:: Depression, guilt, and hx of SI Status of Goals:: Objective 1- complete with ongoing work encouraged. Client?s DSM-5 scores for depression have decreased by 43% since admission. Additionally, SI has decreased by 100% since admission. Client has been responding well to her medication change and has been utilizing opposite action on a consistent basis. Objective 2- in progress. Client has learned about the different types of cognitive distortions, and she can catch distorted thought patterns more easily. Client can continue to work on challenging these thoughts in the moment and using more positive self-talk. Team Recommendations:: Treatment tx recommends ongoing work on treatment goals to further promote gains and reinforce healthy coping skills. Therapist has given client options for outpatient therapy. Problem #2 Problem Name:: Anxiety, rumination, and panic Status of Goals:: Objective 1- in progress. Client has learned about the different types of cognitive distortions as well as the CBT triangle. Client can identify ruminations and continues to work on reframing negative thinking. Client struggles with challenging her thoughts when feeling overwhelmed, but she is improving. Objective 2- complete with ongoing work encouraged. Client?s DSM-5 scores for anxiety have decreased by 17% since admission. Client has been using calming skills which has also helped reduce her anger. Client continues to experience numerous stressors and can benefit from working on this goal to further improve her ability to manage anxiety and stress. Team Recommendations:: Treatment tx recommends ongoing work on treatment goals to further decrease anxiety symptoms and reduce the use of smoking to manage stress. Therapist has given client options for outpatient therapy.
--- NOTE | 2021-02-06 09:05 | BH.SGPN.GN ---
Behaviors/Verbalizations/Mental Status: [] Eye contact is good. Motor activity is appropriate. Appearance is casual. Speech is Appropriate. Mood is anxious. Affect is congruent. Thoughts are linear and logical. No evidence of psychosis. Reviewed daily check in sheet and no reports of suicidal ideations or intent. Client Response/Progress/Benefit: [] Pt participated at times during the group discussion. Attentive. Pt had a short check-in today. Shared that overall she has been unitizing skills, reframing thoughts, and practicing self-care. While she reports struggles and distress she is proud of herself for working on herself. Progress noted per pt report. Benefited from group support, encouragement, and discussion. Will continue in IOP to prevent decompensation, increase healthy coping, and maintain safety. Narrative Note: []
--- NOTE | 2021-02-06 10:15 | BH.SGPN.GN ---
Behaviors/Verbalizations/Mental Status: [] Eye contact is good. Motor activity is appropriate. Appearance is casual. Speech is Appropriate. Mood is euthymic. Affect is congruent. Thoughts are linear and logical. No evidence of psychosis. Client Response/Progress/Benefit: [] Pt was an active participant in group discussion AEB taking notes and providing input throughout. Attentive during psychoeducation reviewing internal and external obstacles and provided examples throughout. Participated in the reflection activity in which clients juan c pictures depicting their current and desired reality and shared with the group. Current reality involved her feeling as though she is using all her energy to fight back her negative thoughts and beliefs. Shared she is trying to challenge herself to open up to more people but continues to struggle in doing so. Indicated that her desired reality involves being more comfortable with letting her guard down with others and more consistent in using her skills so that it no longer feels like a constant fine. Identified skills that would help move her from current to desired realities would be challenging herself to hold herself more accountable when motivation to use skills learned is faltering. Benefited from group by increasing current awareness and expectations for progress. Will continue in IOP to maintain stability, continue to promote healthy change behaviors, and further encourage communicating with supports. Narrative Note: []
--- NOTE | 2021-02-06 11:15 | BH.SGPN.GN ---
Behaviors/Verbalizations/Mental Status: []Client alert and oriented, casually dressed and groomed. Eye contact good. Motor activity appropriate. Speech within normal limits. Affect congruent. Mood euthymic. Thoughts linear, logical, no signs of hallucinations or delusions. Client Response/Progress/Benefit: []Client engaged during activity and provided ideas on how to cope with internal barriers that keep clients stuck from moving towards goals. Client able to identify barriers to desired reality. Client reported she wants to work on overcoming barrier of reverting back to old unhealthy coping skills. Client reported she will start to overcome this barrier by incorporating her healthy coping skills into daily schedule/routine. Client stated she can include journaling and identifying mental health wins into her routine. Benefited from group by identifying obstacles and solutions to desired reality. Will continue IOP tx to prevent decompensation, continue use of healthy coping, challenge distorted thoughts.
--- NOTE | 2021-02-06 14:00 | BH.MDN ---
Multi-Disciplinary Note - Note 45-min Individual Time Started:: 08:30 Date: 02/06/21 Purpose of session/treatment goals addressed:: To discuss progress towards [place] goals and identify coping skills to maintain progress. Another goal was to discuss aftercare options. Eye Contact:: Good Motor Activity:: Appropriate Appearance:: Casual Speech:: Appropriate Mood:: Euthymic, Anxious Affect:: Congruent Thoughts:: Linear, Logical, No evidence of hallucinations/delusions noted Staff Interventions:: Therapist reviewed client's DSM-5 scores with client and explored areas of progress. Therapist discussed ongoing stressors and goals client would like to continue working on in IOP. Therapist discussed aftercare options and helped client develop small goals for the week. Client Response:: Client responded well to session, open to meeting with therapist. Client shared they received some good news about her [id number]-ijr and client also talked with her about boundaries. Client shared her responded well and they are both on the same page about what boundaries to set with their nephew. Client stated even though she has a lot of stress going on, client feels more able to handle this. Client's DMS-5 scores decreased and client acknowledges the decrease is due to using coping skills and having the right medication. Client would like to find a new outpatient counseling following IOP discharge and client would also like to do IOP aftercare. Discussed other supports and coping skills that will help client maintain gains. Client shared she would like to get into yoga and start walking more. Client also recognizes she can benefit from quitting smoking, but is not ready to do this yet. Discussed client working on challenging negative automatic thoughts as client continues to fall into the trap of catastrophizing and jumping to conclusions. Client willing to work on thought challenging for homework. Risks/Concerns:: Client denies any suicidal ideations, plan, or intent as of 02/06/21. No issues with medications. Progress Toward Goals/Plan:: Client continues to experience numerous life stressors that impact client and her family. However, client appears to be managing these well AEB her self-report of utilizing coping skills and her decreased DSM-5 scores. Client reports ongoing anxiety that is situational based, difficulty concentrating, irritability, and mild depressive symptoms. Client has started smoking within the past two weeks which client recognizes is unhealthy, but client is currently not ready to stop. Client agreeable to two more weeks of IOP to maintain gains and further increase emotional stability. Time Stopped:: 09:10
--- NOTE | 2021-02-11 09:05 | BH.SGPN.GN ---
Behaviors/Verbalizations/Mental Status: [] Eye contact is good. Motor activity is appropriate. Appearance is disheveled. Speech is Appropriate. Mood is irritable. Affect is congruent. Thoughts are linear and logical. No evidence of psychosis. Reviewed daily check in sheet and no reports of suicidal ideations or intent. Client Response/Progress/Benefit: [] Pt participated at times during the group discussion. Attentive. Emotion for today is content. Mental health win was journaling over the weekend. Discussed why this was a goals and the benefits to her mental health. Did not isolate this weekend despite her desire too. In the past would have come up with reasons not to attend family events scheduled. Discussed at length a specific stressor and trigger which led to guilt and anger. She was proud that she did not let this event ruin her day as she was able to work through it by utilizing skills. Progress noted per pt report. Benefited from group support, encouragement, and feedback. Will continue in IOP to maintain safety, prevent decompensation, and improve functioning. Narrative Note: []
--- NOTE | 2021-02-11 10:15 | BH.SGPN.GN ---
Behaviors/Verbalizations/Mental Status: []Client alert and orient. Appearance casual and appropriately groomed. Speech an appropriate rate and tone. Motor activity WNL. Mood euthymic, affect congruent. No evidence of delusion or hallucinations.? Client Response/Progress/Benefit: []Client responded well to session, attentive and contributing to discussion. Group discussed potential barriers to communication including: yelling, name-calling, unmanaged emotions, facial expressions, and shutting down. client shared she struggles with mind reading and expecting people to be able to read her mind when something is wrong. Able to recognize these are unhealthy. Helped group identified positives of having effective communication skills. Attentive during psychoeducation on the four communication styles. Client reported she most often uses aggressive communication style. Able to recognize negative outcomes of communication style. Seemed to benefit from increased awareness of the different communication styles and identify personal communication style. Client to continue in IOP tx to reduce negative thoughts, increase mood stability, and improve daily functioning.
--- NOTE | 2021-02-11 11:18 | BH.SGPN.GN ---
Behaviors/Verbalizations/Mental Status: []Client alert and oriented, casually dressed and groomed. Eye contact good. Motor activity appropriate. Speech within normal limits. Affect congruent, mood dysthymic. Thoughts linear, logical, no signs of hallucinations or delusions. Client Response/Progress/Benefit: []Client engaged participant AEB attentiveness during discussion, taking notes throughout, and providing input when prompted. Client stated she often struggles with using passive-aggressive communication when it comes to her family. Noted this results in client not prioritizing self-care and becoming more irritable as a result. Attentive during psychoeducation about DEAR MAN (Describe, Express, Assert, Reinforce, Mindfulness, Appear confident, Negotiate) interpersonal communication skill. Client identified communication goal is to improve assertiveness by focusing on the skill of Describe and Express by challenging herself to more openly describe her frustrations and express how she is actually feeling rather than minimizing or making jokes. Client seemed to benefit from increased insight into how her communication style impacts her mental health and relationships. Client progress shown by ongoing improvements in mood stability and reporting increased use of healthy self-care skills. Will continue IOP tx to continue to promote healthy change behaviors and prevent decompensation. Narrative Note: []
--- NOTE | 2021-02-12 11:13 | BH.SGPN.GN ---
Behaviors/Verbalizations/Mental Status: []Client alert and oriented, neatly dressed and groomed. Eye contact good. Motor activity appropriate. Speech within normal limits. Affect congruent, mood euthymic. Thoughts linear, logical, no signs of hallucinations or delusions. Client Response/Progress/Benefit: []Client an active participant throughout AEB contributing to discussion and taking notes. Client participated in the group activity highlighting the various barriers to effectively utilizing supports and strategies the group used. Client participated in discussion of the four types of support (emotion, tangible, informational, and social/peer) and the group listed examples for all types. Client reports wanting to work on increasing peer support as client feels this will ?allow me to be a part of something outside of my house.? Client also thinks this will increase self-care. Client plans to do this by researching different groups/clubs in the area and reaching out to existing supports to spend time together. Will continue IOP tx to reinforce healthy coping skills and maintain progress. Narrative Note: []
--- NOTE | 2021-02-12 11:13 | BH.SGPN.GN ---
Behaviors/Verbalizations/Mental Status: []Eye contact is good. Motor activity is appropriate. Appearance is neat and casual. Speech is Appropriate. Mood is euthymic. Affect is congruent. Thoughts are linear and logical. No evidence of psychosis. Client Response/Progress/Benefit: []Pt was an active participant AEB attentiveness, and provided input during discussion, and participation in activity. Contributed to group discussion on benefits and examples of healthily social supports, identifying family and friends as potential supports. Group noted benefits of strong social supports as: provides encouragement, hold us accountable, different perspective, and tangible resources. Client attentive throughout discussion on barriers to using support system. Sharing, ?Distortions may prevent us from using our net because you might feel like a burden or fall into all or nothing thoughts such as ?If I reach out it won?t help anyway?.? Able to see the impact of support and its benefits during activity and challenges of accomplishing tasks w/o proper support. Benefited from awareness of barriers to support as well as importance of support in mental health wellness. Will continue IOP tx to continue to maintain gains, continue to promote healthy change behaviors, and prevent decompensation. Narrative Note: []
--- NOTE | 2021-02-12 14:34 | BH.MDN ---
Multi-Disciplinary Note - Note 30-min Individual Time Started:: 09:05 Date: 02/12/21 Purpose of session/treatment goals addressed:: To review healthy coping skills and self-care activities to promote mood stability. Another goal was to discuss discharge and aftercare. Eye Contact:: Good Motor Activity:: Appropriate Appearance:: Neat Speech:: Appropriate Mood:: Euthymic Affect:: Congruent Thoughts:: Linear, Logical, No evidence of hallucinations/delusions noted Staff Interventions:: Therapist used active listening and strengths perspective to empower client on progress. Therapist gave client outpatient therapy options and encouraged client to call today. Therapist reviewed healthy coping skills with client and self-care activities. Client Response:: Client responded well to session, open to meeting with therapist. Client reports she has been doing well even with a stressor this weekend. Client shared she got angry this weekend, which was valid, but client did not let it ruin her day or react in unhealthy ways. Client recognizes she has made great progress in better managing anger. Client reports using opposite action on a consistent basis as well as positive self-talk and mindfulness. Client would like to work on increasing her physical activity and plans to attend a yoga class this Thursday. Client states it will be challenging to be physically active, but client feels motivated. Client has been consistently using healthy coping skills and reports mood stability on a daily basis. Client feels ready to discharge next week, but first needs to establish aftercare. Risks/Concerns:: Client denies any suicidal ideations, plan, or intent as of 02/12/21. Progress Toward Goals/Plan:: Client continues to report mood stability and coping well with stressors. Client is actively using healthy coping skills and self-reports an improved perspective which has helped reduce anger and anxiety. 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 Client will continue IOP tx to promote gains and establish an outpatient therapist. Will discharge next week. Time Stopped:: 09:30
--- NOTE | 2021-02-13 09:05 | BH.SGPN.GN ---
Behaviors/Verbalizations/Mental Status: []Client alert and oriented, neatly dressed and groomed. Eye contact good. Motor activity appropriate. Speech within normal limits. Affect constricted, mood irritated. Thoughts linear, logical, no signs of hallucinations or delusions. Reviewed client?s symptom tracker, no risk for suicidal ideation, plan, or intent as of 02/13/21 Client Response/Progress/Benefit: []Client responded well to session, engaged and participating. Client reports feeling irritated this morning due to conflict with her . Client stated she tried to advocate for personal self-care last night and my just made it difficult and frustrating. Client shared in the past she would have let her 's emotions dictate her day and made client cancel plans, but client went to dinner with friends anyway. Client also did her hair and makeup yesterday and today which client shared is more like myself. Client continues to report using calming skills and thought challenging. Appeared to benefit from processing frustrations and reflecting on personal growth. Will continue IOP tx to promote gains, further improve emotional regulation, and increase self-confidence. Narrative Note: []
--- NOTE | 2021-02-13 10:16 | BH.SGPN.GN ---
Behaviors/Verbalizations/Mental Status: []Eye contact is good. Motor activity is appropriate. Appearance is appropriate, neat and casual. Speech is Appropriate. Mood is euthymic. Affect is congruent. Thoughts are linear and logical. No evidence of psychosis. Client Response/Progress/Benefit: [] Client was an active participant AEB attentiveness, taking notes, and contributing throughout. Often provided personal examples. Client attentive during group discussion reviewing the importance of addressing and learning to cope with anxiety. Attentive during psychoeducation on different types of anxiety disorders. Engaged as group worked to describe anxiety as well as the impact of anxiety unmanaged anxiety on daily functioning. Client shared ?If im anxious talking in front of people, the more I avoid it then the more anxious I will get about doing it moving forward?. Worked with group to identify common physical symptoms of anxiety and noted personal anxiety symptoms to include: sighing more, short breath, chest pain, upset stomach, racing thoughts, and feeling over heated. Worked with group to identify safety behaviors which included: sleeping, eating, smoking, distracting herself, ignoring phone calls, and picking fights. Benefited from increased insight and awareness from group discussions. Will continue in IOP to improve mood stability, prevent decompensation, and improve consistent skill application. Narrative Note: []
--- NOTE | 2021-02-13 11:16 | BH.SGPN.GN ---
Behaviors/Verbalizations/Mental Status: []Client alert and oriented, casually dressed and groomed. Eye contact good. Motor activity appropriate. Speech within normal limits. Affect congruent, mood euthymic. Thoughts linear, logical, no signs of hallucinations or delusions. Client Response/Progress/Benefit: []Client was an active participant in group discussion and providing good insight to peers. Reviewed safety behaviors she engages in that reinforce anxiety. Attentive during psychoeducation on mindfulness coping skills and their impact on mental health wellness. The group worked together to brainstorm anxiety reduction strategies. Client shared she is willing to practice the following coping skills for anxiety: breathing techniques, taking a walk, and guided meditation. Client seemed to benefit from increased repertoire of anxiety reduction skills. Client will continue IOP tx to continue use of healthy coping skills, challenge distortd thoughts and prevent decompensation.
--- NOTE | 2021-02-18 09:10 | BH.SGPN.GN ---
Behaviors/Verbalizations/Mental Status: [] Eye contact is good. Motor activity is appropriate. Appearance is casual. Speech is Appropriate. Mood is depressed. Affect is flat. Thoughts are linear and logical. No evidence of psychosis. Reviewed daily check in sheet and no reports of suicidal ideations or intent. Client Response/Progress/Benefit: [] Pt was an active participant in group discussion on the impact of gas lighting on mental health. Attentive. Daily symptom tracker notes 08/28 for depression, anxiety, and anger. Shared several situational stressors this past weekend which she reports that she is managing well. Discussed a stressful event which in the past would have caused her to avoid and leave anxiety-producing situation however she say with the uncomfortable. Mental health win was that she participated in her first yoga class which was beneficial emotionally and physically. She also signed up for a weight loss program which included mental health. Motivated to make healthy changes which was her goal. Progress noted per pt report. Benefited from group support, encouragement, and feedback. Will continue in IOP to maintain gains with plan to discharge this week. Narrative Note: []
--- NOTE | 2021-02-18 10:12 | BH.SGPN.GN ---
Behaviors/Verbalizations/Mental Status: []Eye contact is good. Motor activity is appropriate. Appearance is casual. Speech is Appropriate. Mood is anxious. Affect is congruent. Thoughts are linear and logical. No evidence of psychosis. Client Response/Progress/Benefit: [] Client was an active participant AEB providing input, taking notes, as well as contributing during activity. Attentive during psychoeducation on managing change and worked with peers to identify common emotions (both positive and negative) associated with change. Client shared ?I hate change. It?s scary? and noted struggling to take steps in making important changes as a result. Group discussed the potential benefits to making changes such as; personal growth, motivation to continue making changes, improved mental health, and new opportunities. Client remained engaged and contributed as group worked to identify some obstacles to making changes which included; low motivation, negative feedback from supports, fear of failure, fear of not maintaining change once it?s made, and fear of other?s opinions. Client shared that fear of other people?s reaction is a personal barrier for her. Benefited from group by increasing awareness of emotions and obstacles associated with making changes. Will continue in IOP to prevent decompensation, improve mood stability, and promote healthy change behaviors. Narrative Note: []
--- NOTE | 2021-02-18 11:14 | BH.SGPN.GN ---
Behaviors/Verbalizations/Mental Status: []Client alert and oriented, neatly dressed and groomed. Eye contact good. Motor activity appropriate. Speech within normal limits. Affect congruent. Mood euthymic. Thoughts linear, logic. No evidence of hallucinations or delusions. Client Response/Progress/Benefit: []Client was an active participant, contributing to discussion and participating in the activity. Client participated during discussion and psychoeducation on the stages of change. Client reports she is currently in the action stage in regard to her mental health. Client wants to keep working on her current goals, so that healthy coping skills become second nature. Client created a small goal which was to do at least one physical health activity a week and continue to use her healthy coping skills daily. Appeared to benefit from reflecting on the stages of change and the progress client has made. Will continue IOP tx for two more days to promote gains and reinforce healthy coping skills. Narrative Note: []
--- NOTE | 2021-02-19 09:01 | BH.SGPN.GN ---
Behaviors/Verbalizations/Mental Status: [] Client alert and oriented, casually dressed and groomed. Eye contact good. Motor activity appropriate. Speech within normal limits. Affect congruent, mood anxious, dysthymic. Thoughts linear, logical, no signs of hallucinations or delusions. Reviewed client?s symptom tracker, no risk for suicidal ideation, plan, or intent as of 02/19/21. Client Response/Progress/Benefit: [] Client responded well to session, attentive and contributing supportive feedback and ideas to discussion. Client reports feeling anxious this morning. Client stated she has anxiety about continuing to work on establishing and maintaining a boundary with her family. Reports she has been able to continue to practice self-care and use calming skills such as focusing on what is in her control and reciting positive affirmations in order to best manage this stress. Additional anxiety noted as tomorrow is her last day in IOP. Reviewed strategies she can use to maintain gains and prevent decompensation post discharge. Appeared to benefit from connecting with peers and reflecting on her wins. Will continue IOP tx to promote gains, maintain mood stability, and reinforce healthy coping skills prior to upcoming discharge. Narrative Note: []
--- NOTE | 2021-02-19 10:05 | BH.SGPN.GN ---
Behaviors/Verbalizations/Mental Status: []Client alert and oriented, neatly dressed and groomed. Eye contact good. Motor activity appropriate. Speech within normal limits. Affect congruent, mood euthymic. Thoughts linear, logical, no signs of hallucinations or delusions. Client Response/Progress/Benefit: []Pt was an active participant in group discussion. Pt noted that it has been helpful for her to acknowledge all the ?small wins? throughout IOP. Attentive during psychoeducation. Along with peers pt was able to provide insight on the importance of goal-setting. Group identified that goals are important because they motivate, increase self-esteem, and are needed to have progress. Group also worked together to identify barriers to goal-setting which included; negative self-talk, not having supportive people, minimizing progress, and toxic people. Benefited from increased awareness of benefits and barriers to goal-setting. Pt will continue in IOP to promote gains and reinforce healthy coping skills. Narrative Note: []
--- NOTE | 2021-02-19 11:10 | BH.SGPN.GN ---
Behaviors/Verbalizations/Mental Status: []Eye contact is good. Motor activity is appropriate. Appearance is casual. Speech is Appropriate. Mood is euthymic. Affect is congruent. Thoughts are linear and logical. No evidence of psychosis. Client Response/Progress/Benefit: []Pt was an active participant in group discussions and activities. Along with group members was able to identify barriers during group beach ball activity and strategies they utilized to overcome these barriers (communicating, encouraging others). Able to identify a SMART goal for the next week which was to do a physical activity (yoga,walking,etc) two times a week, evaluating in one week. Reported this goal will benefit from reducing stress, anxiety, and depression. Pt was able to identify barriers and obstacles to these goals and strategies to overcome these barriers. Benefited from group by being able to utilize SMART educate to create a goal. Narrative Note: []
--- NOTE | 2021-02-20 07:18 | BH.IGGP_ITS ---
Aftercare Plan - Demographics Treatment End Date:: 02/20/21 Psychiatrist:: Jacklyn Aviles Psychiatrist Office #:: [id number] [facility] Therapist:: Kimberly Jang Therapist Phone #:: [phone] - Plan Details Progress/Aftercare Plan Details:: Belen has made significant strides since starting IOP as shown by her reduced symptoms, increased self-awareness, and overall improved ability to manage emotions and daily stressors. When Belen started IOP she was struggling with many different life stressors that were causing depression, anxiety, and irritability. Now, Belen is actively using healthy coping skills, setting more boundaries, using the awareness she has gained to manage her emotions, and practicing self-reflection on a daily basis. Belen contributed to group discussions, offered emotional support to peers, and consistently followed through with her goals. In individual sessions, Belen was receptive to feedback, consistent with homework, and willing to push herself. Belen showed resilience each day she came to [facility] and was very receptive to learning. Belen?s DSM-5 scores decreased overall by 67%. Depression decreased by 71%, anxiety decreased by 67%, anger/irritability decreased by 67%, and SI decreased by 100%. Belen will follow up with [facility] for medication management and for individual counseling. Strategies for Success:: 1. Continue with self-care! Journal, yoga, walk, set boundaries, spend time with friends. 2. Continue exercising! Soon I will be hearing that you can do the splits from all that yoga! 3. Reflect on your notes and keep track of those wins 4. Continue to practice those calming/mindfulness skills- even when you are not in crisis. 5. Challenge negative thoughts as they come and remember to practice self-compassion! 6. Use positive self-talk and remind yourself of all the progress you have made 7. Remember the fair fighting rules. 8. Remember that you are not responsible to manage other people?s e motions for them. 9. Positive affirmations and focus on improving each moment. 10. Maintenance! Keep up with what has worked. - Appointments Appointments/Referrals to Other Services:: 1. Follow up with Norma at [facility] on 03/05/21. 2. Follow up with [facility] aftercare starting 02/28/21 at 2:00pm. 3. Call Dr. Erickson as needed for medication management. - Medications Home Medications: Home Medications cholecalciferol (vitamin D3) 50 mcg (2,000 unit) capsule 4,000 unit PO QDAY cap 03/29/18 pyridoxine (vitamin B6) 50 mg tablet 50 mg PO DAILY 07/21/18 cyanocobalamin (vitamin B-12) 1,000 mcg/mL injection solution 1,000 mcg IM QMONTH 08/09/18 Vitamin C with Zinc 1 tablet PO/SL DAILY 01/09/21 omega-3 fatty acids [Fish Oil] 1 cap PO DAILY 01/09/21 [id number] [] 1 tab PO DAILY 01/09/21 fluoxetine [Prozac] 20 mg PO DAILY 01/23/21 venlafaxine [Effexor XR] 75 mg PO DAILY 01/23/21
--- NOTE | 2021-02-20 07:27 | BH.DS ---
Discharge Summary - Demographics Date of Admission:: 01/07/21 Discharge Date: 02/20/21 Presenting Problems at Admission:: Client is a 35-year-old female with a history of depression and anxiety. Client was referred by her OBGYN, Dr. Forte due to worsening symptoms of depression and recent suicidal ideations. Client is 7 months post- and reports numerous other life stressors that have been impacting her mental health. 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 At admission client reported symptoms of hopelessness, lack of motivation, lack of energy, crying spells, increased sleep, variable appetite, and fleeting suicidal ideations with methods. Client also reported long-standing history of anxiety, ruminations, and panic attacks. Client was not seeing an outpatient therapist and was not gaining benefit from medication alone. Client's symptoms were significantly impacting her daily functioning. Discharge Diagnoses:: Major depressive disorder, recurrent, severe without psychosis F 33.2; rule out dysthymia; generalized anxiety disorder; history of bulimia nervosa; rule out PTSD Reason for Discharge:: Client has accomplished her tx goals AEB decreased DSM-5 score and self-report of improved emotional regulation. Client no longer meets criteria for [facility] level of care and will transition to outpatient counseling and [facility] aftercare. - Treatment Progress During Treatment & Response: Client responded well in IOP tx AEB her active participation in group and individual sessions. Client was consistent with attendance and following through with personal goals. Client?s DSM-5 scores decreased by 67% overall since admission. Depression decreased by 71%, SI decreased by 100%, anxiety decreased by 67%, and anger/irritability decreased by 67%. Client reports improved ability to communicate with her , resolve conflict, and manage daily stressors. Client will continue with outpatient counseling at [facility] and [facility] aftercare group. Issues Still to be Addressed:: Client can continue to benefit from outpatient therapy to reinforce healthy coping skills, promote self-care, and continue to process ongoing stressors. Client wants to work on improving her physical health which includes exercising more and eating healthy. Client mentioned wanting to quit smoking as a coping skill as well in the future. Discharge Recommendations/Instructions:: Client plans to see Norma Silva at [facility] for individual counseling on 03/05/21. Client will participate in IOP aftercare starting 02/28/21. Lastly, client will follow up with Dr. Erickson as needed for medication management. Client does not have any medication issues at this time. Discharge Handout: Complete Discharge Handout with client on aftercare options and continuity of care.
--- NOTE | 2021-02-20 09:01 | BH.SGPN.GN ---
Behaviors/Verbalizations/Mental Status: [] Client alert and oriented, casually dressed and groomed. Eye contact good. Motor activity appropriate. Speech within normal limits. Affect congruent, mood anxious and euthymic. Thoughts linear, logical, no signs of hallucinations or delusions. Reviewed client?s symptom tracker, reports no suicidal ideation, plan, or intent as of 02/20/21. Client Response/Progress/Benefit: [] Client responded well to session, attentive, provided supportive feedback and contributing to discussion. Client reports feeling zazzed this morning as it is her last day in [facility] tx. Spent time reflecting upon areas of progress since admission. Client noted seeing the biggest improvements in her overall perspective. Discussed feeling more capable of reflecting upon the positives and able to track daily accomplishments without problem. Identified grounding, affirmations, and locus of control as skills she has found most effective. Client gave supportive feedback to peers noting that reframing and actually doing the work to be most important in the treatment process. Appeared to benefit from connecting with peers and reflecting on wins. Client to discharge from [facility] tx on this date and will continue on an individual outpatient basis. Narrative Note: []
--- NOTE | 2021-02-20 09:20 | BH.MDN_ITS ---
Multi-Disciplinary Note - Note 30-min Individual Time Started:: 08:45 Date: 02/20/21 Purpose of session/treatment goals addressed:: The purpose of this session was to review client's progress and review strategies that will promote mood stability and gains made in [facility]. Another goal was to discuss discharge recommendations and process any current stressors. Eye Contact:: Good Motor Activity:: Appropriate Appearance:: Neat Speech:: Appropriate Mood:: Euthymic Affect:: Congruent Thoughts:: Linear, Logical, No evidence of hallucinations/delusions noted Staff Interventions:: Therapist used open-ended questions to explore client's thoughts on personal progress. Therapist also provided emotional support and helped client process current stressors. Therapist reviewed supports and coping skills with client to promote gains and prevent setbacks. Therapist discussed aftercare plan with client and used strengths-perspective to empower client on the goals client has accomplished. Therapist discussed the benefits of ongoing maintenance and use of daily coping skills. Therapist gave client a quote collage for closure. Client Response:: Client responded well to session, open to meeting with therapist. Client reflected on progress since starting [facility] and shared that she is very happy that client chose to get help. Client acknowledges that although the stressors in her life have not gone away, client has been focusing on what is in her control. Client has been using journaling, self-talk, breathing, and opposite action on a consistent basis. Client has had less anger, depression, and anxiety through using her skills and challenging her perspective. Client reports she continues to remind herself and her and they are only responsible for their response to stressors- not other people's. Client shared she wants to continue to work on being physically healthier through exercise and more balanced eating. Client also had family stress over the weekend, but client states she is handling it much better than she would in the past. Client is scheduled to see Norma Silva at [facility] in two weeks. Risks/Concerns:: Client denies any suicidal ideations, plan, or intent as of 02/20/21. Progress Toward Goals/Plan:: Client will discharge from [facility] tx today as she has accomplished her goals and self-reports overall improved mood stability. Client?s DSM-5 scores decreased by 67% overall, depression decreased by 71%, anger and irritability decreased by 67%, and SI decreased by 100%. Client will follow up with [facility] aftercare tx and outpatient counseling at [facility]. Time Stopped:: 09:05
--- NOTE | 2021-02-20 10:15 | BH.SGPN.GN ---
Behaviors/Verbalizations/Mental Status: [] Eye contact is good. Motor activity is appropriate. Appearance is casual. Speech is Appropriate. Mood is euthymic. Affect is full. Thoughts are linear and logical. No evidence of psychosis. Client Response/Progress/Benefit: [] Pt was an active participant in group discussion and activity. Attentive during psychoeducation. Patients worked together to provide insights on what fear of failure is to them. Pt along with peers were able to identify the negative impact of fear of failure which can lead to; no growth, distorted beliefs, missing opportunities, unrealistic expectations, comparing self to others, isolation, depression, anxiety, and fear of trying. Pt was engaged in group activity and was able to verbalize how fearing failure in the experiential task impacted her mood and decision-making. Benefited from increased awareness of the negative impact of fear of failure can have on mental health and progress. Will be discharged from [facility] today. Narrative Note: []
--- NOTE | 2021-02-20 11:14 | BH.SGPN.GN ---
Behaviors/Verbalizations/Mental Status: []Client alert and oriented, casually dressed and groomed. Eye contact good. Motor activity WNL. Speech within normal limits. Affect congruent, mood euthymic. Thoughts linear, logical, no signs of hallucinations or delusions. Client Response/Progress/Benefit: []Client responded well to session, engaged and actively participating throughout. Client completed the fear of failure worksheet and reported that fear of failure has kept client from trying to lose weight. Client able to identify thoughts and behaviors that reinforce personal fear of failure which included: avoidance behaviors, negative self-talk, all or nothing thinking, and comparing herself to her old self. Client attentive during discussion of the different strategies to help overcome fear of failure. Identified wanting to work on reframing negative thought patterns. Client appeared to benefit from learning ways to overcome fear of failure. Client has made significant progress and has accomplished her tx goals. Will discharge from [facility] tx today. Narrative Note: []
== END 2021-02-20 14:02 | disposition home or self-care (01) ==
LOC: BHIOP 09:00
PROVIDERS: PCP Nurse Practitioner; Referring Provider Psychiatry & Neurology Psychiatry; Visit Provider Psychiatry & Neurology Psychiatry
DX: F33.2 Major depressive disorder, recurrent severe without psychotic features (principal); F41.1 Generalized anxiety disorder; Z79.899 Other long term (current) drug therapy
CPT/HCPCS: S9480; 90832; 90834; 90847; 90853

== ENCOUNTER 2021-02-28 14:00 | Outpatient (RCR) | payer OTHER, SELFPAY ==
[2020-07-17 14:36] VITALS: BMI 48.4
--- NOTE | 2021-02-28 14:00 | BH.SGPN.GN ---
Behaviors/Verbalizations/Mental Status: []Client alert and oriented, casual dress, hygiene tended to. Eye contact good. Motor activity appropriate. Speech within normal limits. Affect congruent, mood euthymic. Thoughts linear, logical, no signs of hallucinations or delusions. Client Response/Progress/Benefit: []Client responded well to session, receptive to feedback and sharing supportive statements to peers. Client reported mental health positive was going out to dinner a couple times with friends. Client stated it felt positive to be social again. Client participated in the group discussion of maintenance and the benefits of creating a maintenance plan. Client contributed as the group discussed what components make up a maintenance plan. Client created own mental health maintenance plan. Client identified warning signs which included: isolation, sleeping too much, distortions, and feeling overwhelmed. Client identified coping skills as: grouding, breathing, win tracker, and communicating needs/emotions to spouse. Appeared to benefit from creating a maintenance plan to promote gains and prevent setbacks. Will continue aftercare next week. Narrative Note: []
--- NOTE | 2021-02-28 14:13 | BH.MTP ---
Master Treatment Plan - Patient Information Program Physician:: Dr. Jacklyn Aviles Primary Therapist:: Kimberly DE OLIVEIRA - Psychiatric Diagnoses Psychiatric Diagnoses:: Major depressive disorder, recurrent, severe without psychosis F 33.2; rule out dysthymia; generalized anxiety disorder; history of bulimia nervosa; rule out PTSD Diagnosis Code(s):: F 33.2 - Estimated LOS Estimated LOS (in weeks):: 12 Problem/Goal #1 - Problem/Goal #1 Stated Goal:: client will maintain or see a reduction in symptoms AEB client score on the DSM 5 cross-cutting measure and improve client's daily functioning. - Objectives Objective #1 Stated Objective: Client will continue to consistently apply healthy coping skills to maintain progress made in IOP tx. Interventions: Through group therapy, client will review warning signs and triggers as well as healthy coping skills learned in IOP tx to successfully maintain gains while transitioning into outpatient therapy. Discharge Criteria: Client will have accomplished this goal when client's score on the DSM-5 cross-cutting measure has either maintained or reduced over a 12 week period. Target Date: 05/23/21 Review Date: 03/28/21 Status: open Objective #2 Stated Objective: Client will learn and utilize 2-3 maintenance strategies to prevent decompensation. Interventions: Through group therapy, client will be provided with education on healthy maintenance behaviors, relapse prevention techniques, and healthy coping strategies. Discharge Criteria: Client will have accomplished this goal when can report using at least 2 maintenance skills to prevent decompensation. Target Date: 05/23/21 Review Date: 03/28/21 Status: open
--- NOTE | 2021-03-07 14:00 | BH.SGPN.GN ---
Behaviors/Verbalizations/Mental Status: []Client alert and oriented, casual appearance. Eye contact good. Motor activity appropriate. Speech within normal limits. Affect congruent, mood euthymic. Thoughts linear, logical, no signs of hallucinations or delusions. Client Response/Progress/Benefit: []Pt responded well to session AEB pt openly sharing thoughts and feelings and completing worksheet. Pt reported has been feeling up and down over the last week. Pt stated she has noticed her motivation has decreased but is engaging in opposite action to get things done. Pt reported mental health positive as being able to manage anxiety appropriately when she unexpectedly had family visitors this weekend. Pt stated current stressor is having to transport her nephew back and forth to the hospital so he can visit his mother. Pt stated she is trying to motivate him to get his license, but having difficulty motivating him. Pt responded well to group discussion and review about self-care. Pt stated she will work on following self-care activities: plan short term goals, schedule a couples massage, drink water, draw with kids, take a bubblebath, talk a walk, go to [employer], and GLAD journal. Pt seemed to benefit from support from peers and identifying self-care plan. Pt to continue aftercare to prevent decompensation, continue use of healthy coping, and challenge negative thoughts. Narrative Note: []
--- NOTE | 2021-03-21 14:00 | BH.SGPN.GN ---
Behaviors/Verbalizations/Mental Status: []Eye contact is good. Motor activity is appropriate. Appearance is casual. Speech is Appropriate. Mood is stressed. Affect is congruent. Thoughts are linear and logical. No evidence of psychosis. Client Response/Progress/Benefit: []Client responded well to session, client reports there continues to be ?family drama? but client is reminding herself that she cannot control others. Client has been using the G.L.A.D technique for journaling and has been focusing on self-care. Client engaged well during the discussion of the components of self-compassion. Client connected with the benefits of self-compassion and participated in the activity of reframing a recent setback using self-compassion. Client used the example of ?family drama? and reminded herself that she is allowed to feel frustrated with the situation, but she does not want to get ?swept up? in others? emotions. Client appeared to benefit from practicing self-compassion and connecting with peers. Will continue aftercare to promote mood stability and reinforce healthy coping skills. Narrative Note: []
== END 2021-03-23 23:59 ==
LOC: BHOG 14:00
PROVIDERS: PCP Nurse Practitioner; Referring Provider Psychiatry & Neurology Psychiatry; Visit Provider Psychiatry & Neurology Psychiatry
DX: F33.2 Major depressive disorder, recurrent severe without psychotic features (principal); F41.1 Generalized anxiety disorder
CPT/HCPCS: 90853

== ENCOUNTER 2021-03-28 10:21 | Outpatient (RCR) | payer OTHER, SELFPAY ==
[2020-07-17 14:36] VITALS: BMI 48.4
--- NOTE | 2021-03-28 11:23 | BH.TPR ---
Treatment Plan Review Date of Admission:: 02/28/21 Date of Treatment Plan Review:: 03/28/21 Admitting Diagnoses:: Major depressive disorder, recurrent, severe without psychosis F 33.2; rule out dysthymia; generalized anxiety disorder; history of bulimia nervosa; rule out PTSD Current Diagnoses:: Major depressive disorder, recurrent, severe without psychosis F 33.2; rule out dysthymia; generalized anxiety disorder; history of bulimia nervosa; rule out PTSD Patient's Response to Treatment:: Pt responding well to treatment AEB pt consistently attending sessions, actively engaged in group discussions, and reporting use of skills outside treatment environment. 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 Despite stressors, client feels like she has continued to use healthy coping skills and challenge negative thoughts. Client admits that some days she feels overwhelmed, but that is to be expected. Client continues to smoke daily. Additional symptoms include little interest/pleasure in doing things several days over the past two weeks and feeling more irritable/ anxious several days over the past two weeks. Problem #1 Problem Name:: Pt will maintain or see a reduction in sx AEB client score on the DSM-5 Status of Goals:: Objective 1- partially complete, ongoing work encouraged. Client?s scores on the DSM-5 for depression, anger, and anxiety all increased by one point each since admission. Client acknowledges the increase is due to situational stressors with family. Overall client?s scores are still within the mild range for severity. Objective 2- complete with ongoing work encouraged. Client has been consistently reporting use of opposite action, journaling, spending time with family, and using calming skills. Team Recommendations:: Recommended client continue IOP aftercare group in addition to attending regular outpatient counseling in order to maintain gains. Client also encouraged to continue working on boundary setting with family and practicing daily self-care.
--- NOTE | 2021-03-28 14:00 | BH.SGPN.GN ---
Behaviors/Verbalizations/Mental Status: []Client alert and oriented, casually dressed and groomed. Eye contact good. Motor activity appropriate. Speech within normal limits. Affect congruent. Mood anxious and dysthymic. Thoughts linear, logical, no signs of hallucinations or delusions. Client Response/Progress/Benefit: [] Client responded well to session AEB sharing thoughts and feelings and listening attentively to peers. Client reported she is feeling ?anxious today and discussed this is related to the continued stressor of helping to support her nephew, while also maintaining healthy boundaries, as his mother is terminally ill. Shared struggling to maintain a healthy balance but has been using her supports to aid in effectively doing so. Discussed additionally using several internal coping skills such as journaling, grounding, reaching out to her outpatient providers, and being clear about her rules/expectations with her nephew. Noted these have been very helpful in preventing client from escalating to crisis due to the stress. Client attentive during discussion of internal vs. external gratitude. Client created weekly plan on how she will practice gratitude over the next 7 days. Appeared to benefit from connecting with peers and creating plan to identify gratitude. Pt plan included: making a homecooked meal, going for a family walk, taking the kids to the park, journaling, a hot bath, and having some one-on-one time with her . Will continue IOP aftercare to continue use of healthy coping skills, challenge distorted thoughts and maintain gains made. Narrative Note: []
--- NOTE | 2021-04-04 14:00 | BH.SGPN.GN ---
Behaviors/Verbalizations/Mental Status: []Client alert and oriented, casually dressed and groomed. Eye contact good. Motor activity appropriate. Speech within normal limits. Mood anxious. Affect constricted. Thoughts linear, logical, no signs of hallucinations or delusions. Client Response/Progress/Benefit: []Client responded well to session, reports feeling ?overwhelmed? today due to family illness and fears about a vacation client planned for her family. Receptive to group feedback and thought challenging. Client stated she has been consistent with journaling and grounding skills. Contributing during discussion of vulnerability and benefits of practicing vulnerability. Shared personal experience of how being vulnerable helped client get mental health treatment. Discussed ways we avoid feeling vulnerable and how this negatively affects mental health and relationships. Client shared she wants to continue to be vulnerable with her children about emotions as they grow. Appeared to benefit from reflecting on the positive impact vulnerability can have on mental health. Will continue IOP aftercare to promote gains and reinforce healthy coping skills. Narrative Note: []
--- NOTE | 2021-04-11 14:00 | BH.SGPN.GN ---
Behaviors/Verbalizations/Mental Status: []Client alert and oriented, casually dressed and groomed. Eye contact good. Motor activity appropriate. Speech within normal limits. Affect congruent. Mood anxious and dysthymic. Thoughts linear, logical, no signs of hallucinations or delusions. Client Response/Progress/Benefit: []Client responded well to session AEB sharing thoughts and feelings and listening attentively to peers. Client reported feeling ?tired today as she has had several stressors over the past week involving her children returning to school and work. Did well to identify self-care activities she utilized to reduce stress and manage her emotions which included: journaling, grounding, and beginning a daily 10 minute meditation. Expressed fears she is ?beginning to slip a little? and benefited from reflecting on areas in which she continues to progress. Appeared to benefit from encouragement provided by the group as well. Client contributed to the discussion on mindfulness and it?s mental, physical, and interpersonal benefits. Client attentive during discussion reviewing and demonstrating various mindfulness practices. Created weekly plan on how client will practice mindfulness over the next 7 days. Appeared to benefit from connecting with peers and creating plan to improve ability to be present. Pt plan included: a ?breathing life cycle?, meditation, mindful eating, mindful cooking, walks, body scan, and mindfully completing daily household tasks. Will continue IOP aftercare to continue use of healthy coping skills, challenge distorted thoughts and maintain gains made. Narrative Note: []
--- NOTE | 2021-04-18 14:00 | BH.SGPN.GN ---
Behaviors/Verbalizations/Mental Status: []Client alert and oriented, neatly dressed and groomed. Eye contact good. Motor activity appropriate. Speech within normal limits. Affect congruent, mood anxious. Thoughts linear, logical, no signs of hallucinations or delusions. Client Response/Progress/Benefit: []Pt responded well to session, attentive and taking notes. Pt reports feeling ?stressed? today as pt has several family stressors and pt is noticing she is feeling more irritable because of lack of self-care. Pt shared ?I?m still journaling and having date nights, but I need a daily routine.? Pt worked cooperatively with group to identify benefits of having a daily routine which included: sense of accomplishment, increased motivation, and mental health maintenance. Pt engaged in brainstorming of various daily routine ideas. Pt completed task of creating a daily routine focusing on self-care and positive thinking and identified a supportive mantra. Pt shared a copy of her routine and shared her mantra of ?I give myself permission to go after what I want.? Pt seemed to benefit from support from peers and learning about benefits of routine. Pt to continue aftercare group to improve consistent use of healthy coping, maintain gains, and prevent decompensation. Narrative Note: []
== END 2021-04-23 23:59 ==
LOC: BHOG 10:21
PROVIDERS: PCP Nurse Practitioner; Referring Provider Psychiatry & Neurology Psychiatry; Visit Provider Psychiatry & Neurology Psychiatry
DX: F33.2 Major depressive disorder, recurrent severe without psychotic features (principal); F41.1 Generalized anxiety disorder
CPT/HCPCS: 90853

== ENCOUNTER → 2021-04-19 08:59 | Outpatient (CLI) | payer OTHER, SELFPAY ==
[2021-04-19 10:21] LABS: Vitamin B12 684 pg/mL (211-911); Vitamin D,25 Hydroxy 46.9 ng/mL
[2021-04-19 11:01] LABS: AST(SGOT) 16 U/L (15-37); Alanine Aminotransfer ALT/SGPT 29 U/L (13-56); Albumin, Serum 3.7 g/dL (3.2-5.0); Alkaline Phosphatase 50 U/L (45-117); Anion Gap 8 (5-15); BUN 6 mg/dL (7-18); BUN/Creat Ratio 9.5 RATIO (10-20); Calcium,Total 8.2 mg/dL (8.5-10.1); Chloride 107 mmol/L (98-107); Creatinine, Serum 0.63 mg/dL (0.55-1.02); EST Glomerular Filtration Rate 112 mL/min (>60); Est Glom Filt Rate - Afr Amer 135 mL/min (>60); Globulin 3.7 g/dL (2.2-4.2); Glucose 91 mg/dL (74-106); Potassium 3.9 mmol/L (3.5-5.1); Protein, Total 7.4 g/dL (6.4-8.2); Sodium Level 139 mmol/L (136-145); Thyroid Stim Hormone (TSH) 0.62 uIU/mL (0.358-3.74)
[2021-04-20 10:24] LABS: Thyroid Peroxidase AB 12 IU/mL (0-34)
== END ==
PROVIDERS: PCP Nurse Practitioner; Referring Provider Nurse Practitioner; Visit Provider Nurse Practitioner
DX: E55.9 Vitamin D deficiency, unspecified (principal); E53.8 Deficiency of other specified B group vitamins; F41.9 Anxiety disorder, unspecified
CPT/HCPCS: 36415; 80053; 82306; 82607; 82746; 84443; 86376

== ENCOUNTER 2021-04-25 10:01 | Outpatient (RCR) | payer OTHER, SELFPAY ==
[2021-04-24 00:39] VITALS: BMI 48.4
--- NOTE | 2021-04-25 13:50 | BH.MTP_ITS ---
Treatment Plan Review Date of Admission:: 02/28/21 Date of Treatment Plan Review:: 04/25/21 Admitting Diagnoses:: Major depressive disorder, recurrent, severe without psychosis F 33.2; rule out dysthymia; generalized anxiety disorder; history of bulimia nervosa; rule out PTSD Current Diagnoses:: Major depressive disorder, recurrent, severe without psychosis F 33.2; rule out dysthymia; generalized anxiety disorder; history of bulimia nervosa; rule out PTSD Patient's Response to Treatment:: Pt responding well to treatment AEB pt consistently attending sessions, actively engaged in group discussions, and provides positive contributions to peers. Pt also reports recognizing early warning signs quicker and reaching out for help more proactively. Pt does admit that she has not been using her coping skills as consistently as she had been. Status of Current Problems and Symptoms: Problems are ongoing, but symptoms have reduced AEB self-report on the DSM-5. Pt reports feeling ?blah? and having a drop in mood which client contributes to not using her coping skills as consistently and ongoing family stress. Pt also continues to smoke nearly every day. Pt reports she has been consistent with journaling and prioritizing time with friends. Problem #1 Problem Name:: Pt will maintain or see a reduction in sx AEB client score on the DSM-5 Status of Goals:: Objective 1- partially complete, ongoing work encouraged. Pt?s scores on the DSM-5 for depression and anger have increased by one point since admission, but they remain the same since last treatment plan review. This demonstrates progress in reducing further decompensation. Pt?s anxiety has decreased by 50% since admission and 67% since last treatment plan review. Pt?s overall DSM-5 scores decreased by 13% since last treatment plan review. Objective 2- complete with ongoing work encouraged. Pt reporting use of opposite action, journaling, spending time with friends, and using calming skills. Pt d oes admit that she is using her skills less often than she was previously. Team Recommendations:: Recommended client continue IOP aftercare group in addition to attending regular outpatient counseling in order to maintain gains. Client also encouraged to continue working on boundary setting with family, spending time with friends, and practicing daily self-care.
--- NOTE | 2021-04-25 14:00 | BH.SGPN.GN ---
Behaviors/Verbalizations/Mental Status: []Client alert and oriented, casually dressed and groomed. Eye contact good. Motor activity appropriate. Speech within normal limits. Affect constricted, mood depressed. Thoughts linear, logical, no signs of hallucinations or delusions. Client Response/Progress/Benefit: []Pt responded well to session AEB pt contributing during discussion and listening attentively to others. Pt stated she has been feeling irritable, blah, and no energy for the last couple weeks. Pt stated she can't think of any apparent trigger to drop in mood. With help from group pt admitted she hasn't been using her skills consistently. Pt open to suggestions from group to help her get back to using her skills more consistently. Pt engaged in discussion about healthy decision making. Pt stated wanting to work on making healthy decisions with physical health. Pt reported she will focus on eating a healthy dinner and exercise at least twice in the next week. Pt seemed to benefit from identifying healthy choices she can make in at least one area of her life. pt to continue aftercare to maintain gains and prevent decompensation. Narrative Note: []
--- NOTE | 2021-05-02 14:00 | BH.SGPN.GN ---
Behaviors/Verbalizations/Mental Status: []Client alert and oriented, casually dressed and appropriately groomed. Eye contact good. Motor activity appropriate. Speech within normal limits. Affect constricted, mood anxious. Thoughts linear, logical, no signs of hallucinations or delusions. Client Response/Progress/Benefit: Pt receptive of session, engaged throughout. Pt stated she did not accomplish goals from last session of exercising and eating healthy. Pt reported mental health positive as taking time to journal and use grounding skills. Reported mental health stressor as her [id number] going into hospice. Pt reported she does not improved mood compared to last week, which she attributes to using her skills more frequently.Receptive of discussion on personal accountability and its importance in maintaining mental health stability. Pt worked cooperatively with group to identify benefits of maintaining personal accountability. Engaged in brainstorming strategies for improving ability to hold themselves accountable. 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 Pt seemed to benefit from support from peers and increasing understanding of personal accountability benefits and strategies. Will continue IOP aftercare group to prevent decompensation. Narrative Note: []
--- NOTE | 2021-05-16 14:00 | BH.SGPN.GN ---
Behaviors/Verbalizations/Mental Status: []Client alert and oriented, casually dressed. Eye contact good. Motor activity appropriate. Speech within normal limits. Affect constricted, mood stressed. Thoughts linear, logical, no signs of hallucinations or delusions. Client Response/Progress/Benefit: []Pt responded well to session AEB pt providing input during discussion and listening attentively to peers. Pt reported feeling stressed today and pt shared she is balancing family and home renovations. 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 Pt continues to struggle with negative thinking patterns, but pt reports using journaling on a regular basis. Pt engaged in discussion about self-love. Connected with others that although self-care is challenging, it is vital for mental health wellness. Group discussed barriers they have faced that prevented self-love. Pt reviewed the 30 ways to improve self-love and selected two strategies to practice. Pt seemed to benefit from reviewing treatment progress and stressors as well as learning about how to increase self-love. Pt will continue IOP aftercare to reinforce healthy coping skills and promote mood stability. Narrative Note: []
--- NOTE | 2021-05-23 16:37 | BH.DS ---
Discharge Summary - Demographics Date of Admission:: 02/28/21 Discharge Date: 05/23/21 Presenting Problems at Admission:: Pt discharged from IOP tx and transitioned to IOP aftercare to maintain gains pt made in IOP, further improve mood stability, and to reinforce healthy coping skills to manage depression, stress, and anxiety. At admission to IOP aftercare, pt reported mild symptoms of depression and anxiety. Pt also had ongoing family and marital stress that was still impacting pt's mental health and daily life. Discharge Diagnoses:: Major depressive disorder, recurrent, severe without psychosis F 33.2; rule out dysthymia; generalized anxiety disorder; history of bulimia nervosa; rule out PTSD Reason for Discharge:: Client voluntarily discharged from IOP aftercare as client felt she received the full benefit of aftercare. Client will transition to traditional outpatient counseling. - Treatment Progress During Treatment & Response: Pt responded well to treatment AEB pt consistently attending sessions, actively engaged in group discussions, and provides positive contributions to peers. Pt also reported being in IOP helped pt recognize early warning signs quicker and reach out for help more proactively. Pt did admit during aftercare that she did not consistently use her coping skills as much as she had been in IOP. Pt did not get to complete the DSM-5 due to discharging over the phone. However, pt's DSM-5 from her review on 04/25/21 indicated decreased anxiety by 50% since IOP discharge. Pt's scores for depression did slightly increase since IOP discharge, but pt still reported the symptoms were mild in severity. Issues Still to be Addressed:: Throughout pt's time in IOP aftercare, pt reported family stressors that continued to impact pt's mental health. Pt can benefit from ongoing therapy to process family stress, reinforce healthy boundaries, and promote self-care. Pt also struggles with catching negative thought patterns when highly stressed and this leads to pt getting overwhelmed and lashing out. Pt can continue to work on using calming skills and effective communication. Discharge Recommendations/Instructions:: Pt will continue to see Norma Silva at [facility] for individual therapy and Dr. Erickson at [facility] for psychiatry. Discharge Handout: Complete Discharge Handout with client on aftercare options and continuity of care.
== END 2021-05-23 23:59 ==
LOC: BHOG 10:01
PROVIDERS: PCP Nurse Practitioner; Referring Provider Psychiatry & Neurology Psychiatry; Visit Provider Psychiatry & Neurology Psychiatry
DX: F33.2 Major depressive disorder, recurrent severe without psychotic features (principal); F41.1 Generalized anxiety disorder
CPT/HCPCS: 90853

== ENCOUNTER → 2021-07-24 09:40 | Outpatient (CLI) | payer OTHER, SELFPAY ==
[2021-07-24 10:27] LABS: Absolute Neutrophil Count 5.7 X10^3/uL (2.0-7.7); Basophil# 0.04 X10^3/uL; Basophil% 0.4 % (0-1); Eosinophil# 0.14 X10^3/uL; Eosinophils% 1.5 % (0-5); Hematocrit 36.6 % (37-47); Hemoglobin 12.8 g/dL (12.0-15.0); Lymphocyte % 32.1 % (19-41); Mean Corpuscular Hgb 32.1 pg (27.0-32.0); Mean Corpuscular Volume 91.7 fL (81-99); Mean Platelet Vol. 9.9 fl (6.2-12.0); Monocyte# 0.41 X10^3/uL; Monocyte% 4.4 % (0-10); NRBC Flagged by Analyzer 0 % (0-5); Neutrophil # 5.73 X10^3/uL (2.7-7.7); Neutrophil % 61.4 % (47-70); Platelet Count 330 K/mm3 (150-450); RBC Distribution Width CV 13.6 % (11.6-14.6); RBC Distribution Width SD 45.1 fl (35.1-43.9); Red Blood Count 3.99 M/mm3 (4.2-5.4); White Blood Count 9.3 K/mm3 (4.4-11.0)
[2021-07-24 10:52] LABS: NATERA MAILED SPECIMEN
[2021-07-24 11:06] LABS: Vitamin D,25 Hydroxy 45.8 ng/mL
[2021-07-24 11:11] LABS: Cholesterol 177 mg/dL (200); Glucose 87 mg/dL (74-106); High Density Lipoprotein 50 mg/dL; Thyroid Stim Hormone (TSH) 0.85 uIU/mL (0.358-3.74); Triglycerides 90 mg/dL; Very Low Density Lipoprotein 18 mg/dL (5-40)
== END ==
PROVIDERS: PCP Nurse Practitioner; Visit Provider Obstetrics & Gynecology
DX: E66.9 Obesity, unspecified (principal); Z13.1 Encounter for screening for diabetes mellitus; Z80.3 Family history of malignant neoplasm of breast; Z13.29 Encounter for screening for other suspected endocrine disorder; Z13.21 Encounter for screening for nutritional disorder; Z13.220 Encounter for screening for lipoid disorders
CPT/HCPCS: 36415; 80061; 82306; 82947; 84443; 85025

== ENCOUNTER → 2021-08-13 07:13 | Outpatient (CLI) | payer OTHER, SELFPAY ==
--- NOTE | 2021-08-13 07:15 | BI_ITS ---
MAMMOGRAPHY - BILATERAL SCREENING REASON FOR EXAM: Female, 36 years old. Routine annual screening examination. PERTINENT HISTORY: Aunt with breast cancer. TECHNIQUE: Digital bilateral breast thom (3D mammographic acquisition) in the CC and MLO projections. 2-D mediolateral oblique (MLO) and craniocaudad (CC) views of both breasts were obtained. CAD: Full Field Digital Mammography with Computer Added Detection was performed. COMPARISON: Comparison is made with prior study dated 07/07/2020 and 12/14/2018. FINDINGS: Breast Composition: There are scattered areas of fibroglandular density. There are no dominant masses or suspicious calcifications. Stable small benign-appearing bilateral axillary lymph nodes. No other significant abnormalities are identified. There has been no significant change since the prior study. BI/SCRN MAMM (CAD)W/THOM BILAT IMPRESSION: Stable bilateral screening mammogram. Yearly follow-up mammogram recommended. (A) ASSESSMENT CATEGORY: BIRADS Category 2: Benign. A letter regarding these results will be sent to the patient by the facility within 30 days. Approximately 10% of breast cancers are not detected by mammography. A normal mammogram should not delay biopsy of a clinically suspicious abnormality. [id number] Electronically Signed: Jerrell Rivas MD at 8:51 EST , Service support ,
== END ==
PROVIDERS: PCP Nurse Practitioner; Referring Provider Nurse Practitioner; Visit Provider Nurse Practitioner
DX: Z12.31 Encounter for screening mammogram for malignant neoplasm of breast (principal); R92.8 Other abnormal and inconclusive findings on diagnostic imaging of breast; Z80.3 Family history of malignant neoplasm of breast
CPT/HCPCS: 77063; 77067

== ENCOUNTER → 2022-04-24 | Outpatient (CLI) | payer OTHER, SELFPAY ==
--- NOTE | 2022-04-24 09:09 | US_ITS ---
STUDY: ULTRASOUND BREAST - RIGHT REASON FOR EXAM: Female, 36 years old. Right breast lump. TECHNIQUE: Axial and longitudinal images of the RIGHT breast were performed with a high resolution ultrasound transducer. # OF IMAGES: 17 COMPARISON: Comparison is made with prior mammogram done earlier today as well as prior sonogram of the right breast dated 07/03/2017. FINDINGS: RIGHT Breast: The palpable abnormality corresponds to a 2 mm x 3 mm x 2 mm echogenic nodule at the 1 o''clock position breast at 10 cm from nipple. This most likely represents a small lipoma US/Breast Limited Unilateral IMPRESSION: The palpable abnormality corresponds to a 2 mm x 3 mm x 2 mm echogenic nodule at the 1 o''clock position in the breast at 10 cm from nipple. This most likely represents a small lipoma. ASSESSMENT CATEGORY: BIRADS Category 2: Benign. A letter regarding these results will be sent to the patient by the facility within 30 days. Electronically Signed: Jerrell Rivas MD at 11:08 EDT ,
--- NOTE | 2022-04-24 09:09 | BI_ITS ---
MAMMOGRAPHY - BILATERAL DIAGNOSTIC REASON FOR EXAM: Female, 36 years old. Right breast lump. PERTINENT HISTORY: Grandmother with breast cancer. Aunt with breast cancer. TECHNIQUE: Digital bilateral breast zoila (3D mammographic acquisition) in the CC and MLO projections. 2-D mediolateral oblique (MLO) and craniocaudad (CC) views of both breasts were obtained. CAD: Full Field Digital Mammography with Computer Added Detection was performed. COMPARISON: Comparison is made with prior study dated 08/13/2021 and 07/07/2020. FINDINGS: Breast Composition: There are scattered areas of fibroglandular density. There are no dominant masses or suspicious calcifications. Stable small benign-appearing bilateral axillary lymph nodes. No other significant abnormalities are identified. There has been no significant change since the prior study. BI/DIAG MAMM W/CAD, BILAT IMPRESSION: Stable bilateral diagnostic mammogram. With the patient''s history of a palpable lump in the upper medial aspect of the right breast, correlation with ultrasound is recommended. ASSESSMENT CATEGORY: BIRADS Category 0: Incomplete. Need additional imaging evaluation. A letter regarding these results will be sent to the patient by the facility within 30 days. Approximately 10% of breast cancers are not detected by mammography. A normal mammogram should not delay biopsy of a clinically suspicious abnormality. Electronically Signed: Jerrell Rivas MD at 10:08 EDT ,
== END | disposition home or self-care (01) ==
PROVIDERS: PCP Nurse Practitioner; Visit Provider Nurse Practitioner Women's Health
DX: R92.2 Inconclusive mammogram (principal); N63.10 Unspecified lump in the right breast, unspecified quadrant
CPT/HCPCS: 76642; 77062; 77066; G0279

== ENCOUNTER → 2022-11-13 | Outpatient (CLI) | payer OTHER, SELFPAY ==
[2022-11-13 18:50] LABS: Anion Gap 8 (5-15); BUN 8 mg/dL (7-18); BUN/Creat Ratio 12.7 RATIO (10-20); Calcium,Total 9.6 mg/dL (8.5-10.1); Chloride 105 mmol/L (98-107); Creatinine, Serum 0.63 mg/dL (0.55-1.02); EST Glomerular Filtration Rate 112 mL/min (>60); Est Glom Filt Rate - Afr Amer 135 mL/min (>60); Glucose 80 mg/dL (74-106); Potassium 3.5 mmol/L (3.5-5.1); Sodium Level 137 mmol/L (136-145)
== END | disposition home or self-care (01) ==
LOC: LAB 15:27
PROVIDERS: PCP Nurse Practitioner; Referring Provider Obstetrics & Gynecology; Visit Provider Obstetrics & Gynecology
DX: E66.01 Morbid (severe) obesity due to excess calories (principal)
CPT/HCPCS: 36415; 80048

== ENCOUNTER → 2023-11-06 | Outpatient (CLI) | payer BC, SELFPAY ==
[2023-11-12 11:09] LABS: HPV APTIMA, High Risk Negative (Negative)
== END | disposition home or self-care (01) ==
PROVIDERS: PCP Nurse Practitioner; Referring Provider Obstetrics & Gynecology; Visit Provider Obstetrics & Gynecology
DX: Z12.4 Encounter for screening for malignant neoplasm of cervix (principal)
CPT/HCPCS: 87624; 88175; G0145

== ENCOUNTER → 2024-02-02 | Outpatient (CLI) | payer BC, SELFPAY ==
[2024-02-02 10:16] LABS: Absolute Lymphocyte Count 2.13 X10^3/uL (0.83-4.51); Absolute Neutrophil Count 4.2 X10^3/uL (2.0-7.7); Basophil# 0.04 X10^3/uL; Basophil% 0.6 % (0-1); Eosinophil# 0.07 X10^3/uL; Hematocrit 39.4 % (37-47); Hemoglobin 14.2 g/dL (12.0-15.0); Lymphocyte # 2.13 X10^3/ul (0.83-4.51); Lymphocyte % 31.5 % (19-41); Mean Corpuscular Hgb 33.2 pg (27.0-32.0); Mean Corpuscular Volume 92.1 fL (81-99); Mean Platelet Vol. 9.6 fl (6.2-12.0); Monocyte# 0.33 X10^3/uL; Monocyte% 4.9 % (0-10); NRBC Flagged by Analyzer 0 % (0-5); Neutrophil # 4.17 X10^3/uL (2.7-7.7); Neutrophil % 61.7 % (47-70); Platelet Count 330 K/mm3 (150-450); RBC Distribution Width CV 13.2 % (11.6-14.6); RBC Distribution Width SD 43.8 fl (35.1-43.9); Red Blood Count 4.28 M/mm3 (4.2-5.4); White Blood Count 6.8 K/mm3 (4.4-11.0)
[2024-02-02 11:17] LABS: Hemoglobin A1c 4.4 % (3.8-5.6)
[2024-02-02 11:25] LABS: Vitamin B12 1151 pg/mL (211-911); Vitamin D,25 Hydroxy 71.1 ng/mL
[2024-02-02 11:48] LABS: ALB/GLOB Ratio 1.2 RATIO (0.9-2.4); AST(SGOT) 14 U/L (15-37); Alanine Aminotransfer ALT/SGPT 21 U/L (13-56); Albumin, Serum 4.1 g/dL (3.2-5.0); Alkaline Phosphatase 43 U/L (45-117); Anion Gap 6 (5-15); BUN 7 mg/dL (7-18); BUN/Creat Ratio 9.9 RATIO (10-20); Calcium,Total 9.5 mg/dL (8.5-10.1); Chloride 107 mmol/L (98-107); Cholesterol 199 mg/dL (200); Creatinine, Serum 0.71 mg/dL (0.55-1.02); EST Glomerular Filtration Rate 97 mL/min (>60); Est Glom Filt Rate - Afr Amer 118 mL/min (>60); Ferritin 67 ng/mL (8-252); Globulin 3.5 g/dL (2.2-4.2); Glucose 90 mg/dL (74-106); High Density Lipoprotein 60 mg/dL; Iron 50 ug/dL (50-170); Iron Binding Capacity,Total 341 ug/dL (250-450); Potassium 3.5 mmol/L (3.5-5.1); Protein, Total 7.6 g/dL (6.4-8.2); Sodium Level 135 mmol/L (136-145); Thyroid Stim Hormone (TSH) 0.61 uIU/mL (0.358-3.74); Triglycerides 83 mg/dL; Very Low Density Lipoprotein 17 mg/dL (5-40)
[2024-02-05 11:09] LABS: Vitamin B1, Thiamine 122.4 nmol/L (66.5-200.0)
== END | disposition home or self-care (01) ==
LOC: LAB 09:57
PROVIDERS: PCP Nurse Practitioner; Referring Provider Obstetrics & Gynecology; Visit Provider Obstetrics & Gynecology
DX: E66.8 Other obesity (principal); N93.9 Abnormal uterine and vaginal bleeding, unspecified; F32.9 Major depressive disorder, single episode, unspecified; G47.30 Sleep apnea, unspecified
CPT/HCPCS: 36415; 80053; 80061; 82306; 82607; 82728; 82746; 83036; 83540; 83550; 84425; 84443; 85025

== ENCOUNTER → 2024-12-26 | Outpatient (CLI) | payer BC, SELFPAY ==
--- NOTE | 2024-12-26 14:30 | BI_ITS ---
EXAM: SCRN MAMM (CAD)W/THOM BILAT DATE: 12/26/2024 CLINICAL HISTORY: F, Age 39 y/o , SCREENING MAMMOGRAM BREAST CANCER RISK ASSESSMENT: Has not been calculated. TECHNIQUE: Bilateral screening digital breast tomosynthesis with 2D and 3D images. Computer aided detection. COMPARISON: Prior exam(s) dated 04/24/2022 and 08/13/2021. FINDINGS: TISSUE DENSITY: The breast tissue is composed of scattered area of fibroglandular density. Bilateral Breast Mammographic Findings: There is an 8 mm new partially obscured isodense mass in the inferior, slightly lateral, far anterior aspect of the right breast. Further workup is indicated. No suspicious masses, suspicious cluster of microcalcifications, architectural distortion or secondary sign of malignancy is identified in the left breast. BI/SCRN MAMM (CAD)W/THOM BILAT IMPRESSION: OVERALL FINAL ASSESSMENT: BIRADS 0 Incomplete: Need additional imaging evaluati on and/or prior mammograms for comparison. RECOMMENDATION: Incomplete: Need additional imaging evaluation. Patient should return for an L M view of the right breast as well as spot compression CC and spot compression MLO view of the right breast mass. An ultr asound may also be needed. A letter with findings and recommendations will be mailed to the patient. Reading Location: [id number]
--- NOTE | 2025-01-06 08:58 | US_ITS ---
EXAM: DIAG MAMM W/CAD, UNILAT; RT BRST UNILAT THOM ADD-ON; BREAST LIMITED UNILATERAL 01/06/2025 CLINICAL HISTORY: 39-year-old female presents for follow-up of the right breast findings seen on the examination of 12/26/2024. Family history of breast cancer in a maternal aunt in her 50s and a maternal great grandmother. TECHNIQUE: Right diagnostic digital breast tomosynthesis with 2D and 3D images. Computer aided detection. Also, targeted right breast ultrasound was performed. COMPARISON: Prior exam(s) dated 12/26/2024, 04/24/2022, 08/13/2021, 07/07/2020. FINDINGS: MAMMOGRAM: TISSUE DENSITY: The breast tissue is composed of scattered area of fibroglandular density. Right breast: Follow-up examination performed for the mass in the lower outer right breast seen on examination of 12/26/2024. On the present examination, the mass in the lower-outer right breast at anterior depth persist. ULTRASOUND: Ultrasound performed of the right breast demonstrates a cyst with debris in the retroareolar right breast measuring 0.8 x 0.6 x 0.3 cm. This is an appropriate correlate for the mammographic finding. US/Breast Limited Unilateral IMPRESSION: 1. Cyst with debris in the right breast is benign. OVERALL FINAL ASSESSMENT: BIRADS 2 BENIGN FINDING. RECOMMENDATION: Routine annual follow-up in 1 Year A letter with findings and recommendations will be mailed to the patient. Reading Location: [id number]
== END | disposition home or self-care (01) ==
PROVIDERS: PCP Family Medicine; Referring Provider Obstetrics & Gynecology; Visit Provider Obstetrics & Gynecology
DX: Z12.31 Encounter for screening mammogram for malignant neoplasm of breast (principal)
CPT/HCPCS: 77063; 77067

== ENCOUNTER → 2025-01-06 | Outpatient (CLI) | payer BC, SELFPAY ==
--- NOTE | 2025-01-06 09:04 | BI_ITS ---
EXAM: DIAG MAMM W/CAD, UNILAT; RT BRST UNILAT THOM ADD-ON; BREAST LIMITED UNILATERAL 01/06/2025 CLINICAL HISTORY: 39-year-old female presents for follow-up of the right breast findings seen on the examination of 12/26/2024. Family history of breast cancer in a maternal aunt in her 50s and a maternal great grandmother. TECHNIQUE: Right diagnostic digital breast tomosynthesis with 2D and 3D images. Computer aided detection. Also, targeted right breast ultrasound was performed. COMPARISON: Prior exam(s) dated 12/26/2024, 04/24/2022, 08/13/2021, 07/07/2020. FINDINGS: MAMMOGRAM: TISSUE DENSITY: The breast tissue is composed of scattered area of fibroglandular density. Right breast: Follow-up examination performed for the mass in the lower outer right breast seen on examination of 12/26/2024. On the present examination, the mass in the lower-outer right breast at anterior depth persist. ULTRASOUND: Ultrasound performed of the right breast demonstrates a cyst with debris in the retroareolar right breast measuring 0.8 x 0.6 x 0.3 cm. This is an appropriate correlate for the mammographic finding. BI/Rt Brst Unilat Thom Add-On IMPRESSION: 1. Cyst with debris in the right breast is benign. OVERALL FINAL ASSESSMENT: BIRADS 2 BENIGN FINDING. RECOMMENDATION: Routine annual follow-up in 1 Year A letter with findings and recommendations will be mailed to the patient. Reading Location: [id number]
== END | disposition home or self-care (01) ==
LOC: OPBI 08:47
PROVIDERS: PCP Family Medicine; Referring Provider Obstetrics & Gynecology; Visit Provider Obstetrics & Gynecology
DX: N63.10 Unspecified lump in the right breast, unspecified quadrant (principal)
CPT/HCPCS: 76642; 77061; 77065; G0279

== ENCOUNTER → 2025-02-17 | Outpatient (CLI) | payer BC, SELFPAY ==
[2025-02-17 13:12] LABS: Absolute Lymphocyte Count 1.92 X10^3/uL (0.83-4.51); Absolute Neutrophil Count 3.5 X10^3/uL (2.0-7.7); Basophil# 0.05 X10^3/uL; Basophil% 0.8 % (0-1); Eosinophils% 1.7 % (0-5); Hematocrit 39.9 % (37-47); Hemoglobin 14.2 g/dL (12.0-15.0); Lymphocyte # 1.92 X10^3/ul (0.83-4.51); Lymphocyte % 31.7 % (19-41); Mean Corp Hgb Conc 35.6 g/dL (32-36); Mean Corpuscular Hgb 33.8 pg (27.0-32.0); Mean Platelet Vol. 9.7 fl (6.2-12.0); Monocyte# 0.45 X10^3/uL; Monocyte% 7.4 % (0-10); NRBC Flagged by Analyzer 0 % (0-5); Neutrophil # 3.52 X10^3/uL (2.7-7.7); Neutrophil % 58.2 % (47-70); Platelet Count 300 K/mm3 (150-450); RBC Distribution Width CV 12.5 % (11.6-14.6); RBC Distribution Width SD 43.2 fl (35.1-43.9); White Blood Count 6.1 K/mm3 (4.4-11.0)
[2025-02-17 13:53] LABS: Hemoglobin A1c 4.4 % (<=5.6)
[2025-02-17 14:43] LABS: ALB/GLOB Ratio 1.7 RATIO (0.9-2.4); AST(SGOT) 18 U/L (<=31); Alanine Aminotransfer ALT/SGPT 17 U/L (<=34); Albumin, Serum 4.8 g/dL (3.5-5.0); Alkaline Phosphatase 43 U/L (35-104); Anion Gap 10 (5-15); BUN 12 mg/dL (4-19); BUN/Creat Ratio 17.4 RATIO (10-20); Calcium,Total 9.7 mg/dL (7.6-11.0); Carbon Dioxide 21.9 mmol/L (21.0-32.0); Chloride 104 mmol/L (98-108); Creatinine, Serum 0.69 mg/dL (0.70-1.20); EST Glomerular Filtration Rate 112 (>60); Globulin 2.8 g/dL (2.2-4.2); Glucose 76 mg/dL (70-99); Potassium 4.6 mmol/L (3.3-5.1); Protein, Total 7.6 g/dL (5.9-8.4); Sodium Level 136 mmol/L (133-145); Thyroid Stim Hormone (TSH) 0.654 uIU/mL (0.300-4.200); Total Bilirubin 0.56 mg/dL (0.00-1.30); Vitamin D,25 Hydroxy 81.6 ng/mL (30-100)
[2025-02-17 17:54] LABS: Cholesterol 208 mg/dL (<=200); High Density Lipoprotein 67 mg/dL; Low Density Lipoprotein Calc. 132 mg/dL; Triglycerides 47 mg/dL; Very Low Density Lipoprotein 9 mg/dL (5-40); cholesterol:hdl ratio screen 3.12
== END | disposition home or self-care (01) ==
LOC: LAB 12:30
PROVIDERS: PCP Family Medicine; Referring Provider Obstetrics & Gynecology; Visit Provider Obstetrics & Gynecology
DX: D64.9 Anemia, unspecified (principal); N93.9 Abnormal uterine and vaginal bleeding, unspecified; Z13.228 Encounter for screening for other metabolic disorders; Z13.21 Encounter for screening for nutritional disorder; Z13.1 Encounter for screening for diabetes mellitus; L65.9 Nonscarring hair loss, unspecified; Z13.220 Encounter for screening for lipoid disorders
CPT/HCPCS: 36415; 80053; 80061; 82306; 83036; 84443; 85025